=== PATIENT | female | born 1945 | race Caucasian/White ===

== ENCOUNTER → 2017-08-21 16:13 | Outpatient (CLI) | payer MEDICARE, OTHER, SELFPAY ==
--- NOTE | 2017-08-21 11:54 | COLBX_PTH ---
PATIENT: JONATHAN NICHOLSON LOC: [facility] U#:[id number] AGE/SX: 79/F ROOM: RE08/21/[address]: Dr. Rudi Ramachandran MD : 1945 BED: DIS: SPEC #: [id number] RECD: 08/21/17 15:53 STATUS: ARIES MARIA GUADALUPE #: [id number] JERILYN: 08/21/17 11:[address]: Rudi Ramachandran DEPT: SURGICAL PATHOLOGY RECD BY: Joce Haywood ENTERED: 08/22/17 12:18 SP TYPE: COLON BX OTHR DR: Dr. Sahara Calabrese, [facility] Tissues: A - Ileum, NOS B - Right colon Procedures: Surgery Specimen Level IV HEADER OPERATION: Colonoscopy with biopsies PRE-OP DIAGNOSIS: Positive Cologuard TISSUE SUBMITTED: A ? Terminal ileum ulcer biopsies, rule out Crohn?s, B ? Right colon polyp biopsies, rule out adenoma MICROSCOPIC DIAGNOSIS A. Terminal ileum, biopsy: No pathologic diagnosis. B. Right colon polyp, biopsy: Fragments of tubular adenoma. AM:judah 08/23/17 COMMENT A. There is no evidence of Crohn?s enteritis. MICROSCOPIC DESCRIPTION Slides are reviewed. GROSS DESCRIPTION A - Received in fixative is one container labeled with the patient's name and designated terminal ileum ulcer. The specimen consists of two irregular fragments of [place] soft tissue that in aggregate measure 0.6 x 0.3 x 0.1 cm. The specimen is totally submitted in one cassette. B - Received in fixative is one container labeled with the patient's name and designated right colon polyp biopsy. The specimen consists of multiple irregular fragments of [place] soft tissue that in aggregate measure 1.5 x 1 x 0.1 cm. The specimen is totally submitted in one cassette. / SJ:judah 08/22/17 TC:5 CPT: 51487 x2
== END ==
PROVIDERS: Family Provider Internal Medicine; PCP Internal Medicine; Visit Provider Internal Medicine Gastroenterology
DX: Z12.11 Encounter for screening for malignant neoplasm of colon (principal); D12.6 Benign neoplasm of colon, unspecified
CPT/HCPCS: 88305

== ENCOUNTER → 2018-02-19 11:57 | Outpatient (CLI) | payer MEDICARE, OTHER, SELFPAY ==
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
== END ==
PROVIDERS: Family Provider Internal Medicine; PCP Internal Medicine; Visit Provider Nurse Practitioner Gerontology
DX: Z86.718 Personal history of other venous thrombosis and embolism (principal); M53.3 Sacrococcygeal disorders, not elsewhere classified; M54.2 Cervicalgia; R10.2 Pelvic and perineal pain; R51 Headache; S80.10XA Contusion of unspecified lower leg, initial encounter
CPT/HCPCS: 70450; 72050; 72170; 72220; 93971

== ENCOUNTER → 2018-09-13 09:55 | Outpatient (CLI) | payer MEDICARE, OTHER, SELFPAY ==
--- NOTE | 2018-09-13 09:59 | RAD_ITS ---
STUDY: X-RAY - ESOPHAGUS (BARIUM SWALLOW) WITH FLUOROSCOPY REASON FOR EXAM: Female, 72 years old. Dysphagia. TECHNIQUE: 15 view(s) of the esophagus were obtained following swallowing of barium. FLUOROSCOPY TIME (if supplied): (0:25) minutes/seconds COMPARISON: None. FINDINGS: There is no demonstrated esophageal foreign body. There is no demonstrated stricture or mucosal abnormality. Normal gastroesophageal junction, without a demonstrated hiatal hernia. The patient ingested a 12 mm tablet of barium without any difficulty. There is atherosclerotic tortuosity of the aortic arch and descending thoracic aorta. Normal visualized pulmonary parenchyma. Normal visualized osseous structures of the thorax. RAD/Esophagus Only IMPRESSION: Normal plain film x-ray examination (barium swallow) of the esophagus. Electronically Signed: Shoaib Mock MD at 13:00 EST , Service support ,
== END ==
PROVIDERS: Family Provider Internal Medicine; PCP Internal Medicine; Referring Provider Otolaryngology; Visit Provider Otolaryngology
DX: R13.10 Dysphagia, unspecified (principal)
CPT/HCPCS: 74220

== ENCOUNTER 2019-03-15 16:35 | Emergency (ER) | payer MEDICARE, OTHER, SELFPAY ==
[2019-03-15 16:35] VITALS: BP 139/85; PULSE 74; RESP 16; TEMP 36.8; O2SAT 97; BMI 38.0
--- NOTE | 2019-03-15 16:55 | ED.DCSUM_ITS ---
- ER Visit Summary Date of Service: 03/15/19 Chief Complaint: Right wrist and forearm pain History of Present Illness: The patient is a 73 F who presents with pain in her right wrist and forearm that has been getting progressively worse for the past 2 months. Patient states it is gradually gotten worse. Patient states the pain is heavy but sharp and stabbing with certain movements. Patient denies any paresthesias or weakness. Patient denies any trauma or injury. Patient states the pain is worse over the dorsal aspect of her right wrist. Patient is concerned over possible blood clot in her right wrist. Physical Examination: Vital signs are stable. Patient is afebrile. Patient is in no acute distress. Musculoskeletal exam reveals tenderness over the dorsal aspect of the right wrist and distal forearm. There is some mild edema. There is no ecchymosis. There is no bony crepitance or step-off. Range of motion was limited in all motions of the right wrist secondary to pain. Sensation was intact to light touch in all digits. Capillary refill was less than 2 seconds in all digits. Radial pulses are equal bilaterally. Emergency Department Course and Treatment: I discussed with the patient this is most likely tendinitis of her extensor tendons of her right wrist and hand. I do not feel this is a DVT in her right upper extremity. Patient was given a cock-up wrist splint. Patient was given a dose of ibuprofen here. Patient was instructed to ice and elevate the right wrist. Patient was instructed to follow-up with her primary care physician as scheduled. Patient was given a prescription for ibuprofen. Patient understood and was agreeable with the plan. All questions were answered. Disposition: Discharge home Impression: Tendinitis right wrist This note was generated with [employer] dictation software. It may contain incorrect words, spelling, and punctuation that were not noted in review of the chart prior to signing ED Disposition - Plan for ED Patient: Disposition: Home or Assisted Living Diagnosis: Tendinitis of right wrist Instructions: Tendonitis Prescriptions: Ibuprofen [Ibu] 600 mg PO Q8H PRN PRN #20 tab PRN Reason: Pain Prescription Printed Referrals: Sahara Calabrese DO [Primary Care Provider] - [facility] appointment
[2019-03-15] MEDS: Ibuprofen 600 MG Tablet PO (17:02)
[2019-03-15 17:10] VITALS: BP 139/86; PULSE 74; RESP 18
== END 2019-03-15 17:20 | disposition home or self-care (01) ==
LOC: ED 17:12
PROVIDERS: Emergency Provider Emergency Medicine; Family Provider Internal Medicine; PCP Internal Medicine
DX: M77.9 Enthesopathy, unspecified (principal); K21.9 Gastro-esophageal reflux disease without esophagitis; Z79.899 Other long term (current) drug therapy
CPT/HCPCS: 99283

== ENCOUNTER → 2019-03-28 08:18 | Outpatient (CLI) | payer MEDICARE, OTHER, SELFPAY ==
[2019-03-15 16:35] VITALS: BMI 38.0
[2019-03-28 12:24] LABS: Absolute Lymphocyte Count 1.94 X10^3/uL (0.83-4.51); Absolute Neutrophil Count 3.3 X10^3/uL (2.0-7.7); Basophil# 0.02 X10^3/uL; Basophil% 0.3 % (0-1); Eosinophil# 0.27 X10^3/uL; Eosinophils% 4.3 % (0-5); Hematocrit 40.7 % (37-47); Lymphocyte # 1.94 X10^3/ul (4.0); Lymphocyte % 31.2 % (19-41); Mean Corp Hgb Conc 31.9 g/dL (32-36); Mean Corpuscular Hgb 27.6 pg (27.0-32.0); Mean Corpuscular Volume 86.4 fL (81-99); Mean Platelet Vol. 10.5 fl (6.2-12.0); Monocyte# 0.69 X10^3/uL; Monocyte% 11.1 % (0-10); NRBC Flagged by Analyzer 0 % (0-5); Neutrophil # 3.29 X10^3/uL (2.7-7.7); Neutrophil % 52.9 % (47-70); Platelet Count 248 K/mm3 (150-450); RBC Distribution Width CV 13.2 % (11.6-14.6); RBC Distribution Width SD 41.1 fl (35.1-43.9); Red Blood Count 4.71 M/mm3 (4.2-5.4); White Blood Count 6.2 K/mm3 (4.4-11.0)
[2019-03-28 12:38] LABS: ALB/GLOB Ratio 0.8 RATIO (0.9-2.4); AST(SGOT) 21 U/L (15-37); Alanine Aminotransfer ALT/SGPT 26 U/L (13-56); Albumin, Serum 3.4 g/dL (3.2-5.0); Alkaline Phosphatase 88 U/L (45-117); Anion Gap 5 (5-15); BUN 18 mg/dL (7-18); BUN/Creat Ratio 16.2 RATIO (10-20); Chloride 106 mmol/L (98-107); Cholesterol 178 mg/dL (200); Creatinine, Serum 1.11 mg/dL (0.55-1.02); EST Glomerular Filtration Rate 51 mL/min (>60); Est Glom Filt Rate - Afr Amer 62 mL/min (>60); Glucose 97 mg/dL (74-106); High Density Lipoprotein 62 mg/dL; Potassium 3.3 mmol/L (3.5-5.1); Protein, Total 7.4 g/dL (6.4-8.2); Sodium Level 141 mmol/L (136-145); Triglycerides 102 mg/dL; Very Low Density Lipoprotein 20 mg/dL (5-40)
[2019-03-28 12:50] LABS: Vitamin D,25 Hydroxy 30.9 ng/mL (29.95-100.01)
== END ==
PROVIDERS: Family Provider Family Medicine; PCP Family Medicine; Visit Provider Family Medicine
DX: E78.5 Hyperlipidemia, unspecified (principal); K21.9 Gastro-esophageal reflux disease without esophagitis; E55.9 Vitamin D deficiency, unspecified
CPT/HCPCS: 36415; 80053; 80061; 82306; 85025

== ENCOUNTER → 2019-04-08 12:35 | Outpatient (CLI) | payer MEDICARE, OTHER, SELFPAY ==
[2019-03-15 16:35] VITALS: BMI 38.0
--- NOTE | 2019-04-08 12:45 | BI_ITS ---
MAMMOGRAPHY - BILATERAL SCREENING REASON FOR EXAM: Female, 73 years old. Routine annual screening examination. PERTINENT HISTORY: Non-contributory. Remote right excisional breast biopsy. TECHNIQUE: Digital bilateral breast rosa m (3D mammographic acquisition) in the CC and MLO projections. 2-D mediolateral oblique (MLO) and craniocaudad (CC) views of both breasts were obtained. CAD: Full Field Digital Mammography with Computer Added Detection was performed. COMPARISON: May 17, 2017. FINDINGS: Breast Composition: There are scattered areas of fibroglandular density. There are no dominant masses or suspicious calcifications. Stable benign-appearing bilateral axillary lymph nodes. No other significant abnormalities are identified. There has been no significant change since the prior study. BI/SCREEN MAMM (CAD) W/ROSA M BILAT IMPRESSION: Stable bilateral screening mammogram. Yearly follow-up mammogram recommended. (A) ASSESSMENT CATEGORY: BIRADS Category 2: Benign. A letter regarding these results will be sent to the patient by the facility within 30 days. Approximately 10% of breast cancers are not detected by mammography. A normal mammogram should not delay biopsy of a clinically suspicious abnormality. [id number] Electronically Signed: Shoaib Mock, at 14:25 EDT , Service support ,
== END ==
PROVIDERS: Family Provider Family Medicine; PCP Family Medicine; Referring Provider Family Medicine; Visit Provider Family Medicine
DX: Z12.31 Encounter for screening mammogram for malignant neoplasm of breast (principal)
CPT/HCPCS: 77063; 77067

== ENCOUNTER → 2019-06-04 14:16 | Outpatient (CLI) | payer MEDICARE, OTHER, SELFPAY ==
[2019-06-04 15:47] LABS: Absolute Lymphocyte Count 2.05 X10^3/uL (0.83-4.51); Absolute Neutrophil Count 3.8 X10^3/uL (2.0-7.7); Basophil# 0.01 X10^3/uL; Basophil% 0.1 % (0-1); Hematocrit 40.4 % (37-47); Hemoglobin 12.9 g/dL (12.0-15.0); Lymphocyte # 2.05 X10^3/ul (4.0); Lymphocyte % 30.7 % (19-41); Mean Corp Hgb Conc 31.9 g/dL (32-36); Mean Corpuscular Hgb 27.8 pg (27.0-32.0); Mean Corpuscular Volume 87.1 fL (81-99); Mean Platelet Vol. 10.5 fl (6.2-12.0); Monocyte# 0.61 X10^3/uL; Monocyte% 9.1 % (0-10); NRBC Flagged by Analyzer 0 % (0-5); Platelet Count 256 K/mm3 (150-450); RBC Distribution Width CV 13.2 % (11.6-14.6); RBC Distribution Width SD 41.7 fl (35.1-43.9); Red Blood Count 4.64 M/mm3 (4.2-5.4); White Blood Count 6.7 K/mm3 (4.4-11.0)
[2019-06-04 16:11] LABS: Erythrocyte Sedimentation Rate 29 mm/hr (0-30)
[2019-06-04 17:10] LABS: AST(SGOT) 19 U/L (15-37); Alanine Aminotransfer ALT/SGPT 20 U/L (13-56); Albumin, Serum 3.8 g/dL (3.2-5.0); Alkaline Phosphatase 72 U/L (45-117); Anion Gap 7 (5-15); BUN 19 mg/dL (7-18); BUN/Creat Ratio 20.6 RATIO (10-20); CRP < 2.90 mg/L (0.0-3.0); Calcium,Total 9.2 mg/dL (8.5-10.1); Chloride 104 mmol/L (98-107); Creatinine, Serum 0.92 mg/dL (0.55-1.02); EST Glomerular Filtration Rate 64 mL/min (>60); Est Glom Filt Rate - Afr Amer 77 mL/min (>60); Glucose 84 mg/dL (74-106); Potassium 3.3 mmol/L (3.5-5.1); Protein, Total 7.8 g/dL (6.4-8.2); Rheumatoid Factor < 10.0 IU/mL (<15); Sodium Level 139 mmol/L (136-145)
[2019-06-05 10:12] LABS: Hepatitis B Surface Antibody Non-Reactive; Hepatitis B Surface Antigen Non-Reactive (Nonreactive); Hepatitis C Antibody Non-Reactive (Nonreactive)
[2019-06-06 20:50] LABS: ANTINUCLEAR ANTIBODIES DIRECT Negative (Negative)
[2019-06-10 13:47] LABS: CCP IgG Antibodies 7 units (0-19); Hepatitis B Core AB IgM Negative (Negative)
== END ==
PROVIDERS: Family Provider Family Medicine; PCP Family Medicine; Referring Provider Internal Medicine Rheumatology; Visit Provider Internal Medicine Rheumatology
DX: M06.4 Inflammatory polyarthropathy (principal); M79.7 Fibromyalgia; K21.9 Gastro-esophageal reflux disease without esophagitis
CPT/HCPCS: 36415; 80053; 85025; 85652; 86038; 86140; 86200; 86431; 86705; 86706; 86803; 87340

== ENCOUNTER → 2019-08-19 12:46 | Outpatient (CLI) | payer MEDICARE, OTHER, SELFPAY ==
[2019-08-19 13:50] LABS: Absolute Lymphocyte Count 1.91 X10^3/uL (0.83-4.51); Absolute Neutrophil Count 4.4 X10^3/uL (2.0-7.7); Basophil# 0.02 X10^3/uL; Basophil% 0.3 % (0-1); Eosinophil# 0.33 X10^3/uL; Eosinophils% 4.5 % (0-5); Hematocrit 39.9 % (37-47); Hemoglobin 12.7 g/dL (12.0-15.0); Lymphocyte # 1.91 X10^3/ul (4.0); Lymphocyte % 26.3 % (19-41); Mean Corp Hgb Conc 31.8 g/dL (32-36); Mean Corpuscular Hgb 28.2 pg (27.0-32.0); Mean Corpuscular Volume 88.7 fL (81-99); Mean Platelet Vol. 10.4 fl (6.2-12.0); Monocyte# 0.55 X10^3/uL; Monocyte% 7.6 % (0-10); NRBC Flagged by Analyzer 0 % (0-5); Neutrophil # 4.42 X10^3/uL (2.7-7.7); Neutrophil % 60.9 % (47-70); Platelet Count 274 K/mm3 (150-450); RBC Distribution Width CV 13.9 % (11.6-14.6); RBC Distribution Width SD 44.4 fl (35.1-43.9); White Blood Count 7.3 K/mm3 (4.4-11.0)
[2019-08-19 14:07] LABS: ALB/GLOB Ratio 0.9 RATIO (0.9-2.4); AST(SGOT) 14 U/L (15-37); Alanine Aminotransfer ALT/SGPT 24 U/L (13-56); Albumin, Serum 3.4 g/dL (3.2-5.0); Alkaline Phosphatase 74 U/L (45-117); Anion Gap 3 (5-15); BUN 23 mg/dL (7-18); BUN/Creat Ratio 23.6 RATIO (10-20); Chloride 108 mmol/L (98-107); Creatinine, Serum 0.98 mg/dL (0.55-1.02); EST Glomerular Filtration Rate 60 mL/min (>60); Est Glom Filt Rate - Afr Amer 72 mL/min (>60); Globulin 3.7 g/dL (2.2-4.2); Glucose 96 mg/dL (74-106); Potassium 3.8 mmol/L (3.5-5.1); Protein, Total 7.1 g/dL (6.4-8.2); Sodium Level 139 mmol/L (136-145)
== END ==
LOC: MTLAB 12:49
PROVIDERS: PCP Family Medicine; Referring Provider Internal Medicine Rheumatology; Visit Provider Internal Medicine Rheumatology
DX: M06.4 Inflammatory polyarthropathy (principal); M79.7 Fibromyalgia; K21.9 Gastro-esophageal reflux disease without esophagitis; J30.9 Allergic rhinitis, unspecified; E78.5 Hyperlipidemia, unspecified
CPT/HCPCS: 36415; 80053; 85025

== ENCOUNTER → 2019-11-08 14:10 | Outpatient (CLI) | payer MEDICARE, OTHER, SELFPAY ==
[2019-11-08 17:26] LABS: Absolute Lymphocyte Count 1.83 X10^3/uL (0.83-4.51); Absolute Neutrophil Count 4.9 X10^3/uL (2.0-7.7); Basophil# 0.03 X10^3/uL; Basophil% 0.4 % (0-1); Eosinophil# 0.24 X10^3/uL; Eosinophils% 3.1 % (0-5); Hematocrit 42.4 % (37-47); Hemoglobin 13.5 g/dL (12.0-15.0); Lymphocyte # 1.83 X10^3/ul (4.0); Lymphocyte % 23.5 % (19-41); Mean Corp Hgb Conc 31.8 g/dL (32-36); Mean Corpuscular Hgb 29.2 pg (27.0-32.0); Mean Corpuscular Volume 91.8 fL (81-99); Mean Platelet Vol. 10.5 fl (6.2-12.0); Monocyte# 0.78 X10^3/uL; NRBC Flagged by Analyzer 0 % (0-5); Neutrophil % 62.7 % (47-70); Platelet Count 276 K/mm3 (150-450); RBC Distribution Width CV 13.2 % (11.6-14.6); RBC Distribution Width SD 44.4 fl (35.1-43.9); Red Blood Count 4.62 M/mm3 (4.2-5.4); White Blood Count 7.8 K/mm3 (4.4-11.0)
[2019-11-08 17:37] LABS: ALB/GLOB Ratio 0.9 RATIO (0.9-2.4); AST(SGOT) 16 U/L (15-37); Alanine Aminotransfer ALT/SGPT 18 U/L (13-56); Albumin, Serum 3.6 g/dL (3.2-5.0); Alkaline Phosphatase 82 U/L (45-117); Anion Gap 7 (5-15); BUN 13 mg/dL (7-18); BUN/Creat Ratio 13.1 RATIO (10-20); Calcium,Total 9.1 mg/dL (8.5-10.1); Chloride 106 mmol/L (98-107); Creatinine, Serum 0.99 mg/dL (0.55-1.02); EST Glomerular Filtration Rate 59 mL/min (>60); Est Glom Filt Rate - Afr Amer 71 mL/min (>60); Glucose 89 mg/dL (74-106); Potassium 4.1 mmol/L (3.5-5.1); Protein, Total 7.6 g/dL (6.4-8.2); Sodium Level 140 mmol/L (136-145)
== END ==
PROVIDERS: PCP Family Medicine; Referring Provider Internal Medicine Rheumatology; Visit Provider Internal Medicine Rheumatology
DX: M06.4 Inflammatory polyarthropathy (principal); M79.7 Fibromyalgia; K21.9 Gastro-esophageal reflux disease without esophagitis; J30.9 Allergic rhinitis, unspecified; E78.5 Hyperlipidemia, unspecified; Z79.899 Other long term (current) drug therapy
CPT/HCPCS: 36415; 80053; 85025

== ENCOUNTER → 2020-01-14 13:09 | Outpatient (CLI) | payer MEDICARE, OTHER, SELFPAY ==
[2020-01-14 15:26] LABS: Absolute Lymphocyte Count 1.75 X10^3/uL (0.83-4.51); Absolute Neutrophil Count 4.5 X10^3/uL (2.0-7.7); Basophil# 0.02 X10^3/uL; Basophil% 0.3 % (0-1); Eosinophil# 0.25 X10^3/uL; Eosinophils% 3.5 % (0-5); Hematocrit 41.1 % (37-47); Hemoglobin 12.9 g/dL (12.0-15.0); Lymphocyte # 1.75 X10^3/ul (4.0); Lymphocyte % 24.3 % (19-41); Mean Corp Hgb Conc 31.4 g/dL (32-36); Mean Corpuscular Hgb 28.7 pg (27.0-32.0); Mean Corpuscular Volume 91.3 fL (81-99); Mean Platelet Vol. 10.6 fl (6.2-12.0); Monocyte# 0.62 X10^3/uL; Monocyte% 8.6 % (0-10); NRBC Flagged by Analyzer 0 % (0-5); Neutrophil # 4.53 X10^3/uL (2.7-7.7); Neutrophil % 62.9 % (47-70); Platelet Count 286 K/mm3 (150-450); RBC Distribution Width CV 13.2 % (11.6-14.6); RBC Distribution Width SD 44.1 fl (35.1-43.9); White Blood Count 7.2 K/mm3 (4.4-11.0)
[2020-01-14 15:57] LABS: ALB/GLOB Ratio 0.9 RATIO (0.9-2.4); AST(SGOT) 15 U/L (15-37); Alanine Aminotransfer ALT/SGPT 18 U/L (13-56); Albumin, Serum 3.5 g/dL (3.2-5.0); Alkaline Phosphatase 80 U/L (45-117); Anion Gap 6 (5-15); BUN 17 mg/dL (7-18); BUN/Creat Ratio 17.8 RATIO (10-20); Calcium,Total 9.3 mg/dL (8.5-10.1); Chloride 108 mmol/L (98-107); Creatinine, Serum 0.96 mg/dL (0.55-1.02); EST Glomerular Filtration Rate 61 mL/min (>60); Est Glom Filt Rate - Afr Amer 74 mL/min (>60); Globulin 3.9 g/dL (2.2-4.2); Glucose 94 mg/dL (74-106); Potassium 4.5 mmol/L (3.5-5.1); Protein, Total 7.4 g/dL (6.4-8.2); Sodium Level 140 mmol/L (136-145)
== END ==
PROVIDERS: PCP Family Medicine; Referring Provider Internal Medicine Rheumatology; Visit Provider Internal Medicine Rheumatology
DX: M06.4 Inflammatory polyarthropathy (principal); M79.7 Fibromyalgia; K21.9 Gastro-esophageal reflux disease without esophagitis; J30.9 Allergic rhinitis, unspecified; E78.5 Hyperlipidemia, unspecified; Z79.899 Other long term (current) drug therapy
CPT/HCPCS: 36415; 80053; 85025

== ENCOUNTER → 2020-02-12 | Outpatient (CLI) | payer MEDICARE, OTHER, SELFPAY | END | disposition home or self-care (01) | LOC: LABSPEC 17:13 | PROVIDERS: PCP Family Medicine; Referring Provider Internal Medicine Gastroenterology; Visit Provider Internal Medicine Gastroenterology | DX: Z11.59 Encounter for screening for other viral diseases (principal) | CPT/HCPCS: 87635; G2023; U0003 ==

== ENCOUNTER → 2020-03-25 11:37 | Outpatient (CLI) | payer MEDICARE, OTHER, SELFPAY ==
[2020-03-25 16:08] LABS: Absolute Neutrophil Count 4.5 X10^3/uL (2.0-7.7); Basophil# 0.02 X10^3/uL; Basophil% 0.3 % (0-1); Eosinophil# 0.29 X10^3/uL; Eosinophils% 4.2 % (0-5); Hematocrit 41.1 % (37-47); Hemoglobin 13.1 g/dL (12.0-15.0); Lymphocyte % 21.8 % (19-41); Mean Corp Hgb Conc 31.9 g/dL (32-36); Mean Corpuscular Hgb 28.5 pg (27.0-32.0); Mean Corpuscular Volume 89.3 fL (81-99); Mean Platelet Vol. 10.1 fl (6.2-12.0); Monocyte# 0.56 X10^3/uL; Monocyte% 8.2 % (0-10); NRBC Flagged by Analyzer 0 % (0-5); Neutrophil # 4.47 X10^3/uL (2.7-7.7); Neutrophil % 65.1 % (47-70); Platelet Count 313 K/mm3 (150-450); RBC Distribution Width CV 13.9 % (11.6-14.6); White Blood Count 6.9 K/mm3 (4.4-11.0)
[2020-03-25 16:26] LABS: ALB/GLOB Ratio 0.9 RATIO (0.9-2.4); AST(SGOT) 21 U/L (15-37); Alanine Aminotransfer ALT/SGPT 23 U/L (13-56); Albumin, Serum 3.6 g/dL (3.2-5.0); Alkaline Phosphatase 83 U/L (45-117); Anion Gap 4 (5-15); BUN 15 mg/dL (7-18); BUN/Creat Ratio 15.3 RATIO (10-20); Calcium,Total 9.2 mg/dL (8.5-10.1); Chloride 101 mmol/L (98-107); Creatinine, Serum 0.98 mg/dL (0.55-1.02); EST Glomerular Filtration Rate 59 mL/min (>60); Est Glom Filt Rate - Afr Amer 72 mL/min (>60); Globulin 4.1 g/dL (2.2-4.2); Glucose 90 mg/dL (74-106); Potassium 3.6 mmol/L (3.5-5.1); Protein, Total 7.7 g/dL (6.4-8.2); Sodium Level 136 mmol/L (136-145)
== END ==
PROVIDERS: PCP Family Medicine; Referring Provider Internal Medicine Rheumatology; Visit Provider Internal Medicine Rheumatology
DX: M06.4 Inflammatory polyarthropathy (principal); M79.7 Fibromyalgia; K21.9 Gastro-esophageal reflux disease without esophagitis; J30.9 Allergic rhinitis, unspecified; E78.5 Hyperlipidemia, unspecified; Z79.899 Other long term (current) drug therapy
CPT/HCPCS: 36415; 80053; 85025

== ENCOUNTER → 2020-04-09 13:41 | Outpatient (CLI) | payer MEDICARE, OTHER, SELFPAY ==
[2020-04-09 16:45] LABS: Cholesterol 172 mg/dL (200); High Density Lipoprotein 66 mg/dL; Triglycerides 117 mg/dL; Very Low Density Lipoprotein 23 mg/dL (5-40)
[2020-04-09 16:52] LABS: Vitamin D,25 Hydroxy 39.6 ng/mL
== END ==
PROVIDERS: PCP Family Medicine; Visit Provider Family Medicine
DX: E78.5 Hyperlipidemia, unspecified (principal); E55.9 Vitamin D deficiency, unspecified
CPT/HCPCS: 36415; 80061; 82306

== ENCOUNTER → 2020-05-18 14:19 | Outpatient (CLI) | payer MEDICARE, OTHER, SELFPAY ==
[2020-05-18 18:08] LABS: Absolute Lymphocyte Count 1.17 X10^3/uL (0.83-4.51); Absolute Neutrophil Count 5.4 X10^3/uL (2.0-7.7); Basophil# 0.02 X10^3/uL; Basophil% 0.3 % (0-1); Eosinophil# 0.18 X10^3/uL; Eosinophils% 2.4 % (0-5); Hematocrit 39.8 % (37-47); Hemoglobin 12.6 g/dL (12.0-15.0); Lymphocyte # 1.17 X10^3/ul (4.0); Lymphocyte % 15.7 % (19-41); Mean Corp Hgb Conc 31.7 g/dL (32-36); Mean Corpuscular Hgb 28.3 pg (27.0-32.0); Mean Corpuscular Volume 89.2 fL (81-99); Mean Platelet Vol. 10.8 fl (6.2-12.0); Monocyte% 9.4 % (0-10); NRBC Flagged by Analyzer 0 % (0-5); Neutrophil # 5.36 X10^3/uL (2.7-7.7); Neutrophil % 71.9 % (47-70); Platelet Count 286 K/mm3 (150-450); RBC Distribution Width CV 14.1 % (11.6-14.6); RBC Distribution Width SD 45.5 fl (35.1-43.9); Red Blood Count 4.46 M/mm3 (4.2-5.4); White Blood Count 7.5 K/mm3 (4.4-11.0)
[2020-05-18 18:41] LABS: ALB/GLOB Ratio 0.9 RATIO (0.9-2.4); AST(SGOT) 18 U/L (15-37); Alanine Aminotransfer ALT/SGPT 24 U/L (13-56); Albumin, Serum 3.6 g/dL (3.2-5.0); Alkaline Phosphatase 86 U/L (45-117); Anion Gap 6 (5-15); BUN 19 mg/dL (7-18); BUN/Creat Ratio 18.1 RATIO (10-20); Calcium,Total 9.3 mg/dL (8.5-10.1); Chloride 100 mmol/L (98-107); Creatinine, Serum 1.05 mg/dL (0.55-1.02); EST Glomerular Filtration Rate 55 mL/min (>60); Est Glom Filt Rate - Afr Amer 66 mL/min (>60); Glucose 81 mg/dL (74-106); Potassium 2.8 mmol/L (3.5-5.1); Protein, Total 7.6 g/dL (6.4-8.2); Sodium Level 138 mmol/L (136-145)
== END ==
PROVIDERS: PCP Family Medicine; Referring Provider Internal Medicine Rheumatology; Visit Provider Internal Medicine Rheumatology
DX: M06.4 Inflammatory polyarthropathy (principal); M79.7 Fibromyalgia; K21.9 Gastro-esophageal reflux disease without esophagitis; J30.9 Allergic rhinitis, unspecified; E78.5 Hyperlipidemia, unspecified; Z79.899 Other long term (current) drug therapy
CPT/HCPCS: 36415; 80053; 85025

== ENCOUNTER → 2020-06-24 14:50 | Outpatient (CLI) | payer MEDICARE, OTHER, SELFPAY ==
[2020-06-24 18:13] LABS: Absolute Lymphocyte Count 1.39 X10^3/uL (0.83-4.51); Absolute Neutrophil Count 5.5 X10^3/uL (2.0-7.7); Basophil# 0.03 X10^3/uL; Basophil% 0.4 % (0-1); Eosinophil# 0.18 X10^3/uL; Eosinophils% 2.4 % (0-5); Hematocrit 41.4 % (37-47); Lymphocyte # 1.39 X10^3/ul (4.0); Lymphocyte % 18.2 % (19-41); Mean Corp Hgb Conc 31.4 g/dL (32-36); Mean Corpuscular Hgb 28.3 pg (27.0-32.0); Mean Corpuscular Volume 90.2 fL (81-99); Mean Platelet Vol. 10.4 fl (6.2-12.0); Monocyte# 0.56 X10^3/uL; Monocyte% 7.3 % (0-10); NRBC Flagged by Analyzer 0 % (0-5); Neutrophil # 5.46 X10^3/uL (2.7-7.7); Neutrophil % 71.4 % (47-70); Platelet Count 329 K/mm3 (150-450); RBC Distribution Width CV 13.8 % (11.6-14.6); Red Blood Count 4.59 M/mm3 (4.2-5.4); White Blood Count 7.6 K/mm3 (4.4-11.0)
[2020-06-24 18:43] LABS: ALB/GLOB Ratio 0.9 RATIO (0.9-2.4); AST(SGOT) 21 U/L (15-37); Alanine Aminotransfer ALT/SGPT 31 U/L (13-56); Albumin, Serum 3.7 g/dL (3.2-5.0); Alkaline Phosphatase 123 U/L (45-117); Anion Gap 5 (5-15); BUN 25 mg/dL (7-18); BUN/Creat Ratio 18.4 RATIO (10-20); Calcium,Total 9.4 mg/dL (8.5-10.1); Chloride 103 mmol/L (98-107); Creatinine, Serum 1.36 mg/dL (0.55-1.02); EST Glomerular Filtration Rate 41 mL/min (>60); Est Glom Filt Rate - Afr Amer 49 mL/min (>60); Globulin 4.1 g/dL (2.2-4.2); Glucose 101 mg/dL (74-106); Potassium 3.1 mmol/L (3.5-5.1); Protein, Total 7.8 g/dL (6.4-8.2); Sodium Level 140 mmol/L (136-145)
== END ==
PROVIDERS: PCP Family Medicine; Referring Provider Internal Medicine Rheumatology; Visit Provider Internal Medicine Rheumatology
DX: M06.4 Inflammatory polyarthropathy (principal); M79.7 Fibromyalgia; K21.9 Gastro-esophageal reflux disease without esophagitis; J30.9 Allergic rhinitis, unspecified; E78.5 Hyperlipidemia, unspecified; Z79.899 Other long term (current) drug therapy
CPT/HCPCS: 36415; 80053; 85025

== ENCOUNTER → 2020-09-04 14:45 | Outpatient (CLI) | payer MEDICARE, OTHER, SELFPAY ==
[2020-09-04 17:47] LABS: ALB/GLOB Ratio 0.9 RATIO (0.9-2.4); AST(SGOT) 18 U/L (15-37); Alanine Aminotransfer ALT/SGPT 27 U/L (13-56); Albumin, Serum 3.6 g/dL (3.2-5.0); Alkaline Phosphatase 117 U/L (45-117); Anion Gap 6 (5-15); BUN 17 mg/dL (7-18); BUN/Creat Ratio 16.2 RATIO (10-20); Calcium,Total 9.2 mg/dL (8.5-10.1); Chloride 102 mmol/L (98-107); Creatinine, Serum 1.05 mg/dL (0.55-1.02); EST Glomerular Filtration Rate 55 mL/min (>60); Est Glom Filt Rate - Afr Amer 66 mL/min (>60); Glucose 76 mg/dL (74-106); Potassium 3.1 mmol/L (3.5-5.1); Protein, Total 7.6 g/dL (6.4-8.2); Sodium Level 139 mmol/L (136-145)
[2020-09-04 18:00] LABS: Absolute Lymphocyte Count 1.39 X10^3/uL (0.83-4.51); Absolute Neutrophil Count 4.2 X10^3/uL (2.0-7.7); Basophil# 0.03 X10^3/uL; Basophil% 0.5 % (0-1); Eosinophil# 0.25 X10^3/uL; Eosinophils% 3.8 % (0-5); Hematocrit 39.5 % (37-47); Hemoglobin 12.8 g/dL (12.0-15.0); Lymphocyte # 1.39 X10^3/ul (4.0); Lymphocyte % 21.3 % (19-41); Mean Corp Hgb Conc 32.4 g/dL (32-36); Mean Corpuscular Hgb 28.8 pg (27.0-32.0); Mean Corpuscular Volume 88.8 fL (81-99); Mean Platelet Vol. 10.5 fl (6.2-12.0); Monocyte# 0.64 X10^3/uL; Monocyte% 9.8 % (0-10); NRBC Flagged by Analyzer 0 % (0-5); Neutrophil % 64.1 % (47-70); Platelet Count 306 K/mm3 (150-450); RBC Distribution Width CV 13.6 % (11.6-14.6); RBC Distribution Width SD 43.9 fl (35.1-43.9); Red Blood Count 4.45 M/mm3 (4.2-5.4); White Blood Count 6.5 K/mm3 (4.4-11.0)
== END ==
PROVIDERS: PCP Family Medicine; Referring Provider Internal Medicine Rheumatology; Visit Provider Internal Medicine Rheumatology
DX: M06.4 Inflammatory polyarthropathy (principal); M79.7 Fibromyalgia; K21.9 Gastro-esophageal reflux disease without esophagitis; J30.9 Allergic rhinitis, unspecified; E78.5 Hyperlipidemia, unspecified; Z79.899 Other long term (current) drug therapy
CPT/HCPCS: 36415; 80053; 85025

== ENCOUNTER → 2020-11-19 11:19 | Outpatient (CLI) | payer MEDICARE, OTHER, SELFPAY ==
[2020-11-19 15:17] LABS: Absolute Lymphocyte Count 1.36 X10^3/uL (0.83-4.51); Absolute Neutrophil Count 4.1 X10^3/uL (2.0-7.7); Basophil# 0.02 X10^3/uL; Basophil% 0.3 % (0-1); Eosinophil# 0.21 X10^3/uL; Eosinophils% 3.3 % (0-5); Hematocrit 40.8 % (37-47); Hemoglobin 12.9 g/dL (12.0-15.0); Lymphocyte # 1.36 X10^3/ul (0.83-4.51); Lymphocyte % 21.4 % (19-41); Mean Corp Hgb Conc 31.6 g/dL (32-36); Mean Corpuscular Hgb 28.5 pg (27.0-32.0); Mean Corpuscular Volume 90.1 fL (81-99); Mean Platelet Vol. 10.9 fl (6.2-12.0); Monocyte# 0.65 X10^3/uL; Monocyte% 10.2 % (0-10); NRBC Flagged by Analyzer 0 % (0-5); Neutrophil # 4.11 X10^3/uL (2.7-7.7); Neutrophil % 64.6 % (47-70); Platelet Count 285 K/mm3 (150-450); RBC Distribution Width CV 14.1 % (11.6-14.6); RBC Distribution Width SD 45.9 fl (35.1-43.9); Red Blood Count 4.53 M/mm3 (4.2-5.4); White Blood Count 6.4 K/mm3 (4.4-11.0)
[2020-11-19 15:29] LABS: AST(SGOT) 15 U/L (15-37); Alanine Aminotransfer ALT/SGPT 20 U/L (13-56); Albumin, Serum 3.8 g/dL (3.2-5.0); Alkaline Phosphatase 96 U/L (45-117); Anion Gap 5 (5-15); BUN 18 mg/dL (7-18); BUN/Creat Ratio 16.8 RATIO (10-20); Calcium,Total 9.5 mg/dL (8.5-10.1); Chloride 102 mmol/L (98-107); Creatinine, Serum 1.07 mg/dL (0.55-1.02); EST Glomerular Filtration Rate 53 mL/min (>60); Est Glom Filt Rate - Afr Amer 65 mL/min (>60); Globulin 3.8 g/dL (2.2-4.2); Glucose 87 mg/dL (74-106); Potassium 3.3 mmol/L (3.5-5.1); Protein, Total 7.6 g/dL (6.4-8.2); Sodium Level 138 mmol/L (136-145)
== END ==
PROVIDERS: PCP Family Medicine; Referring Provider Internal Medicine Rheumatology; Visit Provider Internal Medicine Rheumatology
DX: M06.4 Inflammatory polyarthropathy (principal); M79.7 Fibromyalgia; K21.9 Gastro-esophageal reflux disease without esophagitis; J30.9 Allergic rhinitis, unspecified; E78.5 Hyperlipidemia, unspecified; Z79.899 Other long term (current) drug therapy
CPT/HCPCS: 36415; 80053; 85025

== ENCOUNTER → 2021-02-16 14:41 | Outpatient (CLI) | payer MEDICARE, OTHER, SELFPAY ==
[2021-02-16 17:43] LABS: Absolute Lymphocyte Count 1.54 X10^3/uL (0.83-4.51); Absolute Neutrophil Count 3.4 X10^3/uL (2.0-7.7); Basophil# 0.01 X10^3/uL; Basophil% 0.2 % (0-1); Eosinophil# 0.19 X10^3/uL; Eosinophils% 3.4 % (0-5); Hematocrit 41.4 % (37-47); Hemoglobin 12.9 g/dL (12.0-15.0); Lymphocyte # 1.54 X10^3/ul (0.83-4.51); Lymphocyte % 27.5 % (19-41); Mean Corp Hgb Conc 31.2 g/dL (32-36); Mean Corpuscular Hgb 28.2 pg (27.0-32.0); Mean Corpuscular Volume 90.6 fL (81-99); Mean Platelet Vol. 10.5 fl (6.2-12.0); Monocyte# 0.43 X10^3/uL; Monocyte% 7.7 % (0-10); NRBC Flagged by Analyzer 0 % (0-5); Neutrophil # 3.43 X10^3/uL (2.7-7.7); Platelet Count 288 K/mm3 (150-450); RBC Distribution Width CV 14.1 % (11.6-14.6); RBC Distribution Width SD 46.3 fl (35.1-43.9); Red Blood Count 4.57 M/mm3 (4.2-5.4); White Blood Count 5.6 K/mm3 (4.4-11.0)
[2021-02-16 18:06] LABS: AST(SGOT) 26 U/L (15-37); Alanine Aminotransfer ALT/SGPT 37 U/L (13-56); Albumin, Serum 3.8 g/dL (3.2-5.0); Alkaline Phosphatase 108 U/L (45-117); Anion Gap 3 (5-15); BUN 14 mg/dL (7-18); BUN/Creat Ratio 14.7 RATIO (10-20); Calcium,Total 9.1 mg/dL (8.5-10.1); Chloride 103 mmol/L (98-107); Creatinine, Serum 0.95 mg/dL (0.55-1.02); EST Glomerular Filtration Rate 61 mL/min (>60); Est Glom Filt Rate - Afr Amer 74 mL/min (>60); Globulin 3.9 g/dL (2.2-4.2); Glucose 83 mg/dL (74-106); Potassium 3.9 mmol/L (3.5-5.1); Protein, Total 7.7 g/dL (6.4-8.2); Sodium Level 138 mmol/L (136-145)
== END ==
PROVIDERS: PCP Family Medicine; Referring Provider Internal Medicine Rheumatology; Visit Provider Internal Medicine Rheumatology
DX: M06.4 Inflammatory polyarthropathy (principal); M79.7 Fibromyalgia; M47.897 Other spondylosis, lumbosacral region; K21.9 Gastro-esophageal reflux disease without esophagitis; J30.9 Allergic rhinitis, unspecified; E78.5 Hyperlipidemia, unspecified; Z79.899 Other long term (current) drug therapy
CPT/HCPCS: 36415; 80053; 85025

== ENCOUNTER 2021-04-06 20:06 | Emergency (ER) | payer MEDICARE, OTHER, SELFPAY ==
[2021-04-06 20:07] VITALS: BP 131/77; PULSE 74; RESP 18; TEMP 36.1; O2SAT 100; BMI 36.6
--- NOTE | 2021-04-06 22:53 | EDS_ITS ---
HPI History of Present Illness Chief Complaint: Back Informant: patient Onset/Context/Timing Onset: Yesterday Context: Gradual Onset Injury: - (no injury or heavy lifting/reaching that pt knows of) Timing: Continuous Quality: Aching and - (sore) Location: Thoracic (L) and Lumbar (L) Current Severity: Moderate Maximum Severity: Severe Worsened by: improves with Movement Relieved by: Remaining Still Associated Symptoms Associated Symptoms: Negative for Numbness, Tingling, Radiation to Right Leg, Radiation to Left Leg, Abdominal Pain, Unable to Ambulate, Unable to Transfer, Urinary Retention, Urinary Incontinence, Constipation and Fecal Incontinence Narrative Narrative: Patient states her back started hurting her yesterday, and then last night she had trouble sleeping due to laying on the left side where the pain is, it is progressed throughout the day. She states she denies any injuries or h eavy lifting, or repetitive movements even the day before that she can think of although she notes she has been doing a lot of yady lately, just nothing exertional or heavy. She states everything hurts a lot to move and is better if she just sits still. She has chronic pain in her low back due to her rheumatoid arthritis and fibromyalgia she treats this with CBD oil and it works well. However, she is not able to reach all the area that hurts now with her oil so she was not able to try it. She states that the pain wraps around to the left side along the rib cage, but not toward her abdomen or groin. She denies any urinary symptoms, fevers, or midline spine pain. States everything is on the left side and even goes up as far as her shoulder/trapezius. [facility] Medical History (Updated 04/07/21 @ 03:[address] Manolo Walker MD) Fibromyalgia syndrome GERD (gastroesophageal reflux disease) Lumbar spondylosis Peptic ulcer with hemorrhage Rheumatoid arthritis Home Medications Omeprazole [Prilosec] 40 mg PO DAILY 06/20/15 [History Last Taken Unknown] calcium carbonate-vitamin D3 1 ea PO BID 06/20/15 [History Last Taken Unknown] coenzyme Q10 [Co Q-10] 50 mg PO DAILY 06/20/15 [History Last Taken Unknown] simvastatin 40 mg PO QHS 06/20/15 [History Last Taken Unknown] loratadine [Claritin] 10 mg PO DAILY 04/06/21 [History Last Taken Unknown] methotrexate sodium 8 mg PO QWEEK 04/06/21 [History Last Taken Unknown] Allergy/AdvReac Type Severity Reaction Status Date / Time celecoxib [From Celebrex] Allergy Anaphylaxis Verified 04/06/21 20:07 codeine AdvReac Vomiting Verified 04/06/21 20:07 indomethacin [From Indocin] AdvReac Vomiting Verified 04/06/21 20:07 indomethacin sodium AdvReac Vomiting Verified 04/06/21 20:07 [From Indocin] oxycodone HCl [From Percocet] AdvReac Other Verified 04/06/21 20:07 Social History Smoking Status: Never smoker ROS ROS ED Constitutional Constitutional ED: Denies chills or fever(s) Eyes Eyes: Denies change in vision or diplopia ENT ENT ED: Denies rhinorrhea or sore throat Cardiovascular Cardiovascular: Denies chest pain or palpitations Respiratory/Chest Respiratory/Chest: Reports other Details: L ribcage pain, see HPI ; Denies chest congestion, cough, dyspnea or stridor Gastrointestinal Gastrointestinal: Denies abdominal pain, diarrhea, nausea or vomiting Genitourinary Genitourinary ED: Denies dysuria or hematuria Musculoskeletal Musculoskeletal: Reports as per HPI and back pain; Denies extremity pain or neck pain Integumentary Denies abscess or rash Neurologic Neurologic: Denies headache(s), paresthesias or weakness Psychiatric Psychiatric: Denies anxiety or suicidal thoughts EXAM Physical Exam Const Vital Signs: 04/06/21 20:07 Temperature 97.0 F L Temperature Source Temporal Pulse Rate 74 Respiratory Rate 18 Blood Pressure 131/77 H Blood Pressure Mean 95 Pulse Ox 100 Oxygen Delivery Method Room Air Positive well nourished and well developed General Appearance ED: well developed and NAD HEENT Reports moist mucous membranes normocephalic and atraumatic Eyes PERRL and EOMs intact bilaterally Neck full ROM and supple Chest Wall inspection of chest normal Chest Narrative: No rash or lesions on the skin. Patient has tender ribs diffus mark starting in the left anterior axillary line, all the way back to the spine but not including the spine. Ribs and intercostal spaces all tender equally. Basically all areas with ribs are affected, all the way up to the scapular spine and trapezius which are all very tender. Resp normal respiratory effort and clear to auscultation bilaterally Cardio regular rate, regular rhythm and no murmurs GI non-tender and non-distended Auscultation: normoactive bowel sounds Palpation: soft Back/Spine no CVA tenderness and normal to inspection Back/Spine Narrative: Very painful range of motion but patient able to move around. Squints and pain as she pulls herself forward in bed for examination. Extremity normal to inspection General Extremety ED: Negative for edema, pulses abnormal or tenderness General Extremity: Negative for edema or pulses abnormal Neuro oriented x3, CN's II-XII intact bilaterally and no sensory deficits noted Sensorium / Orientation: awake and alert Motor Exam: strength 5/5 throughout Skin no rashes or lesions noted and no wounds MDM MDM MDM Narrative Medical decision making narrative: Patient reassured this is clearly musculoskeletal in nature. I did do a left rib series including the PA chest for screening for unusual pathology. It was unremarkable. She was given a dose of Toradol 15 mg IM to help with her pain, she takes indomethacin and ibuprofen without allergic reaction, but she had nausea/vomiting with indomethacin, certainly not a true allergy. The Toradol did help, she feels much better and is ready to go home. She does not want any narcotics, which certainly I am happy to oblige, I would recommend limited NSAIDs due to her methotrexate. I would prescribe her a limited amount of mobile back, but she describes a history of anaphylaxis to celecoxib so we will wait for that. Radiography Diagnostic Testing: Radiology Impression Ribs w/Chest X-Ray 04/06/21 23:42 IMPRESSION: Chronic bibasilar fibrosis, scarring and/or atelectasis. No displaced rib fracture identified. at 0019 Reported and signed by: Fer Norris MD Electronically Signed: Fer Norris MD at 0:18 EDT Tel , Service support , Discharge Plan Triage Chief Complaint: Back ED Provider: Manolo Walker Dx/Rx/DC Orders Clinical Impression: Rib pain on left side Instructions: ED Chest Wall Pain, Costochondritis Prescriptions: No Action simvastatin 40 MG tablet 40 mg PO QHS RF: 0 coenzyme Q10 [Co Q-10] 50 MG capsule 50 mg PO DAILY RF: 0 calcium carbonate-vitamin D3 1 EACH tablet 1 ea PO BID RF: 0 Omeprazole [Prilosec] 40 MG capsule 40 mg PO DAILY RF: 0 loratadine [Claritin] 10 mg Tablet 10 mg PO DAILY RF: 0 methotrexate sodium 2.5 mg tablet 8 mg PO QWEEK RF: 0 Primary Care Provider: Santa Whyte Referrals: Santa Whyte MD [Primary Care Provider] - 1 Week if not improving Disposition Disposition: Home, Self Care
[2021-04-06] MEDS: Ketorolac 15 MG/ML Vial IM (23:25)
--- NOTE | 2021-04-06 23:42 | RAD_ITS ---
HISTORY: pain EXAMINATION/TECHNIQUE: XR Ribs Unilateral W/ PA Chest Min 3 Views PA chest with AP and oblique views left ribs. 5 images. COMPARISON: Two-view chest x-ray from 04/12/17 FINDINGS: LINES/DEVICES: None. LUNGS: No overt pulmonary edema. Chronic coarsened and crowded bibasilar lung markings. No sizable pleural effusion. No pneumothorax detected. MEDIASTINUM AND CARDIOVASCULAR STRUCTURES: Heart normal size. Atherosclerotic calcifications along the aorta. BONES AND SOFT TISSUES: Skeletal degenerative changes. No displaced rib fractures identified. Mild thoracolumbar scoliosis. RAD/Ribs Uni Min 3V w/PA Chest IMPRESSION: Chronic bibasilar fibrosis, scarring and/or atelectasis. No displaced rib fracture identified. at 0019 Reported and signed by: Fer Norris MD Electronically Signed: Fer Norris MD at 0:18 EDT Tel , Service support ,
[2021-04-07 03:09] VITALS: BP 136/59; PULSE 71; RESP 16; O2SAT 97
== END 2021-04-07 03:09 | disposition home or self-care (01) ==
PROVIDERS: Emergency Provider Emergency Medicine; PCP Family Medicine
DX: R07.81 Pleurodynia (principal); M79.7 Fibromyalgia; M06.9 Rheumatoid arthritis, unspecified; M47.816 Spondylosis without myelopathy or radiculopathy, lumbar region; G89.29 Other chronic pain; K21.9 Gastro-esophageal reflux disease without esophagitis; Z79.899 Other long term (current) drug therapy
CPT/HCPCS: 71101; 96372; 99282

== ENCOUNTER → 2021-04-13 | Outpatient (CLI) | payer MEDICARE, OTHER, SELFPAY | END | disposition home or self-care (01) | LOC: LABSPEC 15:33 | PROVIDERS: PCP Family Medicine; Visit Provider Physician Assistant Surgical | DX: R09.81 Nasal congestion (principal) | CPT/HCPCS: 87635; U0005; U0003 ==

== ENCOUNTER → 2021-05-13 13:57 | Outpatient (CLI) | payer MEDICARE, OTHER, SELFPAY ==
[2021-05-13 15:46] LABS: Absolute Lymphocyte Count 1.55 X10^3/uL (0.83-4.51); Absolute Neutrophil Count 5.2 X10^3/uL (2.0-7.7); Basophil# 0.03 X10^3/uL; Basophil% 0.4 % (0-1); Eosinophil# 0.28 X10^3/uL; Eosinophils% 3.6 % (0-5); Hematocrit 39.9 % (37-47); Hemoglobin 13.1 g/dL (12.0-15.0); Lymphocyte # 1.55 X10^3/ul (0.83-4.51); Mean Corp Hgb Conc 32.8 g/dL (32-36); Mean Corpuscular Hgb 29.3 pg (27.0-32.0); Mean Corpuscular Volume 89.3 fL (81-99); Mean Platelet Vol. 10.1 fl (6.2-12.0); Monocyte# 0.68 X10^3/uL; Monocyte% 8.8 % (0-10); NRBC Flagged by Analyzer 0 % (0-5); Neutrophil # 5.17 X10^3/uL (2.7-7.7); Neutrophil % 66.8 % (47-70); Platelet Count 313 K/mm3 (150-450); RBC Distribution Width CV 13.8 % (11.6-14.6); RBC Distribution Width SD 44.9 fl (35.1-43.9); Red Blood Count 4.47 M/mm3 (4.2-5.4); White Blood Count 7.7 K/mm3 (4.4-11.0)
[2021-05-13 16:33] LABS: ALB/GLOB Ratio 0.8 RATIO (0.9-2.4); AST(SGOT) 21 U/L (15-37); Alanine Aminotransfer ALT/SGPT 22 U/L (13-56); Albumin, Serum 3.6 g/dL (3.2-5.0); Alkaline Phosphatase 118 U/L (45-117); Anion Gap 7 (5-15); BUN 23 mg/dL (7-18); BUN/Creat Ratio 23.4 RATIO (10-20); Calcium,Total 9.2 mg/dL (8.5-10.1); Chloride 100 mmol/L (98-107); Creatinine, Serum 0.98 mg/dL (0.55-1.02); EST Glomerular Filtration Rate 59 mL/min (>60); Est Glom Filt Rate - Afr Amer 71 mL/min (>60); Globulin 4.3 g/dL (2.2-4.2); Glucose 89 mg/dL (74-106); Potassium 3.5 mmol/L (3.5-5.1); Protein, Total 7.9 g/dL (6.4-8.2); Sodium Level 137 mmol/L (136-145)
== END ==
PROVIDERS: PCP Internal Medicine; Referring Provider Internal Medicine Rheumatology; Visit Provider Internal Medicine Rheumatology
DX: M06.4 Inflammatory polyarthropathy (principal); M79.7 Fibromyalgia; M47.897 Other spondylosis, lumbosacral region; K21.9 Gastro-esophageal reflux disease without esophagitis; J30.9 Allergic rhinitis, unspecified; E78.5 Hyperlipidemia, unspecified; Z79.899 Other long term (current) drug therapy
CPT/HCPCS: 36415; 80053; 85025

== ENCOUNTER → 2021-06-22 10:17 | Outpatient (CLI) | payer MEDICARE, OTHER, SELFPAY ==
[2021-06-22 12:33] LABS: Cholesterol 192 mg/dL (200); High Density Lipoprotein 76 mg/dL; Triglycerides 128 mg/dL; Very Low Density Lipoprotein 26 mg/dL (5-40)
[2021-06-22 12:51] LABS: Vitamin D,25 Hydroxy 36.5 ng/mL
== END ==
PROVIDERS: PCP Internal Medicine; Referring Provider Internal Medicine; Visit Provider Internal Medicine
DX: E55.9 Vitamin D deficiency, unspecified (principal); E78.5 Hyperlipidemia, unspecified
CPT/HCPCS: 36415; 80061; 82306

== ENCOUNTER 2021-07-29 10:36 | Outpatient (CLI) | payer MEDICARE, OTHER, SELFPAY ==
--- NOTE | 2021-07-29 10:40 | BI_ITS ---
MAMMOGRAPHY - BILATERAL SCREENING REASON FOR EXAM: Female, 75 years old. Routine annual screening examination. PERTINENT HISTORY: Non-contributory. Remote right excisional breast biopsy. TECHNIQUE: Digital bilateral breast rosa m (3D mammographic acquisition) in the CC and MLO projections. 2-D mediolateral oblique (MLO) and craniocaudad (CC) views of both breasts were obtained. CAD: Full Field Digital Mammography with Computer Added Detection was performed. COMPARISON: Comparison is made with prior study dated 04/08/2019 and 05/17/2017. FINDINGS: Breast Composition: There are scattered areas of fibroglandular density. There are no dominant masses or suspicious calcifications. Stable small benign-appearing bilateral axillary lymph nodes. No other significant abnormalities are identified. There has been no significant change since the prior study. BI/SCRN MAMM (CAD)W/ROSA M BILAT IMPRESSION: Stable bilateral screening mammogram. Yearly follow-up mammogram recommended. (A) ASSESSMENT CATEGORY: BIRADS Category 2: Benign. A letter regarding these results will be sent to the patient by the facility within 30 days. Approximately 10% of breast cancers are not detected by mammography. A normal mammogram should not delay biopsy of a clinically suspicious abnormality. [id number] Electronically Signed: Shoaib Mock MD at 12:17 EST , Service support ,
--- NOTE | 2021-07-29 11:00 | BD_ITS ---
STUDY: DUAL ENERGY X-RAY ABSORPTIOMETRY / DXA REASON FOR EXAM: Female, 75 years old. Osteopenia TECHNIQUE: Bone Mineral Density (BMD) measurements of lumbar spine and bilateral hips were obtained. COMPARISON: Comparison is made with prior study dated 05/17/2017. FINDINGS: Lumbar Spine (L1-L4): g/cm2 (0.860) / T-score (-1.6) / Z-score (0.7) Findings are suggestive of osteopenia with a moderate fracture risk. Left Femur Total: g/cm2 (0.656) / T-score (-2.3) / Z-score (-0.6) Left Femoral Neck: g/cm2 (0.537) / T-score (-2.8) / Z-score (-0.8) Right Femur Total: g/cm2 (0.644) / T-score (-2.4) / Z-score (-0.7) Right Femoral Neck: g/cm2 (0.544) / T-score (-2.8) / Z-score (-0.7) The T-Scores on the most recent prior examination were: Lumbar Spine (L1-L4): There has been worsening of bone density since the previous examination. Left Femur Total: which represents a worsening of 1.9%. Right Femur Total: which represents a worsening of 1.3%. BD/Dexa Bone Density Study IMPRESSION: The patient is considered osteoporotic as outlined below according to World Ananda Organization (WHO) criteria with a high fracture risk. There has been worsening of bone density since the previous examination. Reference Information: The T-score is the number of standard deviations above or below the standard which is normal for young adults at their peak bone mineral density. The World Health Organization (WHO) interprets the T-scores as follows: Above -1 Normal bone density Between -1 and -2.5 Osteopenia Equal to / or below -2.5 Osteoporosis As a practical clinical guideline, osteopenia may be graded as follows: Mild -1 through -1.5 Moderate -1.6 through -2.0 Severe -2.1 through -2.4 The Z-score is the number of standard deviations above or below age-matched controls. A Z-score of less than -1.5 would be considered abnormal. References: 1. NIH Osteoporosis and Related Bone Diseases www osteo.org 2. International Society for Clinical Densitometry www iscd.org 3. National Osteoporosis Foundation www nof.org Electronically Signed: Shoaib Mock MD at 12:24 EST , Service support ,
== END 2021-07-29 23:59 | disposition short-term general hospital (02) ==
LOC: OPBD 10:37
PROVIDERS: PCP Internal Medicine; Referring Provider Internal Medicine; Visit Provider Internal Medicine
DX: Z78.0 Asymptomatic menopausal state (principal); M85.89 Other specified disorders of bone density and structure, multiple sites; Z12.31 Encounter for screening mammogram for malignant neoplasm of breast
CPT/HCPCS: 77063; 77067; 77080

== ENCOUNTER 2021-08-13 14:06 | Outpatient (CLI) | payer MEDICARE, OTHER, SELFPAY | END 2021-08-13 23:59 | disposition short-term general hospital (02) | LOC: LABSPEC 14:08 | PROVIDERS: PCP Internal Medicine; Referring Provider Internal Medicine; Visit Provider Internal Medicine | DX: U07.1 COVID-19 (principal) | CPT/HCPCS: 87635; U0003; U0005 ==

== ENCOUNTER 2021-08-14 14:46 | Emergency (ER) | payer MEDICARE, OTHER, SELFPAY ==
[2021-08-14 14:46] VITALS: BP 134/103; PULSE 101; RESP 20; TEMP 36.7; O2SAT 100; BMI 36.6
--- NOTE | 2021-08-14 15:03 | RAD_ITS ---
STUDY: X-RAY CHEST REASON FOR EXAM: Female, 75 years old. sob TECHNIQUE: 1 view COMPARISON: 04/06/2021 FINDINGS: Cardiomediastinal silhouette is unremarkable. Costophrenic angles are sharp. Linear scars are noted in the lung bases. Lungs otherwise clear. The trachea is midline. There is no pneumothorax. The bones are grossly intact. RAD/Chest 1 View (Portable) IMPRESSION: No acute cardiopulmonary process. Electronically Signed: Po Jc MD at 16:39 EST Tel , Service support ,
--- NOTE | 2021-08-14 15:04 | EKG12_ITS ---
Test Reason : SOB Blood Pressure : / mmHG Vent. Rate : 067 BPM Atrial Rate : 067 BPM P-R Int : 142 ms QRS Dur : 080 ms QT Int : 406 ms P-R-T Axes : 029 -10 013 degrees QTc Int : 429 ms Normal sinus rhythm Normal ECG Confirmed by MERT NAVARRO, ACACIA ([id number]), staff editor ANALI ARREDONDO ([id number]) on 08/16/2021 10:48:35 A M Referred By: MELISSA Confirmed By:ALBERT PAINTING MD
--- NOTE | 2021-08-14 15:09 | EX.ED.DYSGE1 ---
HPI History of Present Illness Chief Complaint: Shortness of Breath Detail of Chief Complaint: Short of breath, body aches Informant: patient Onset/Context/Timing Onset: Days Context: Gradual Onset Current Severity: Moderate Maximum Severity: Moderate Narrative Narrative: Patient reports URI symptoms ongoing since Monday. She developed a sore throat Monday night. She tested positive for COVID yesterday. She presents today secondary to body aches and feeling terrible. She has not had a fever. She has had poor p.o. intake. She has mild cough with yellow sputum. She denies chest pain. She has received the COVID-vaccine as well as booster. She has, however, on immunosuppressants with methotrexate. [facility] Medical History (Updated 08/14/21 @ 16:[address] Iman Foy MD) Change in skin mole Fibromyalgia syndrome GERD (gastroesophageal reflux disease) History of renal stone Hyperlipemia Lumbar spondylosis Osteopenia Peptic ulcer with hemorrhage Rheumatoid arthritis Seasonal allergies URI (upper respiratory infection) Vitamin D deficiency Home Medications coenzyme Q10 [Co Q-10] 50 mg PO DAILY 06/20/15 [History Last Taken Unknown] methotrexate sodium 8 mg PO QWEEK 04/06/21 [History Last Taken Unknown] amitriptyline 10 mg tablet 10 mg PO QHS 06/22/21 [History Last Taken Unknown] cetirizine 10 mg tablet 10 mg PO DAILY PRN 06/22/21 [History Last Taken Unknown] cholecalciferol (vitamin D3) 125 mcg (5,000 unit) capsule 125 mcg PO DAILY 06/22/21 [History Last Taken Unknown] hydroxychloroquine 200 mg tablet 200 mg PO DAILY 06/22/21 [History Last Taken Unknown] pantoprazole 40 mg tablet,delayed release 40 mg PO DAILY 06/22/21 [History Last Taken Unknown] rosuvastatin 10 mg tablet 10 mg PO DAILY #90 tab 06/22/21 [Rx Last Taken Unknown] vitamin E 200 unit capsule 200 unit PO DAILY 06/22/21 [History Last Taken Unknown] Allergy/AdvReac Type Severity Reaction Status Date / Time celecoxib [From Celebrex] Allergy Anaphylaxis Verified 08/14/21 14:49 codeine AdvReac Vomiting Verified 08/14/21 14:49 indomethacin [From Indocin] AdvReac Vomiting Verified 08/14/21 14:49 indomethacin sodium AdvReac Vomiting Verified 08/14/21 14:49 [From Indocin] oxycodone HCl [From Percocet] AdvReac Other Verified 08/14/21 14:49 Family History Father Cancer pancreatic Mother Heart disease Brother Cancer leukemia Surgical History History of breast biopsy History of colonoscopy History of knee surgery History of tonsillectomy History of tubal ligation Social History Smoking Status: Former smoker Tobacco: How many years used: 3 alcohol intake: never substance use type: does not use what type of physical activity do you participate in: walking frequency: daily ROS ROS ED Constitutional Constitutional ED: Denies chills or fever(s) Eyes Eyes: Denies change in vision ENT ENT ED: Reports sore throat Cardiovascular Cardiovascular: Denies chest pain Respiratory/Chest Respiratory/Chest: Reports cough, dyspnea and sputum Gastrointestinal Gastrointestinal: Reports nausea; Denies abdominal pain, diarrhea or vomiting Genitourinary Genitourinary ED: Denies dysuria Musculoskeletal Musculoskeletal: Reports myalgias; Denies back pain Integumentary Denies rash Neurologic Neurologic: Reports weakness; Denies headache(s) Allergic/Immunologic Allergic/Immunologic ED: Denies urticaria EXAM Physical Exam Const Vital Signs: 08/14/21 14:46 08/14/21 14:59 Temperature 98.0 F Temperature Source Temporal Pulse Rate 101 H Respiratory Rate 20 H Respiratory Effort Normal Non-Labored Respiratory Depth Normal Respiratory Pattern Normal Blood Pressure 134/103 H Blood Pressure Mean 113 Pulse Ox 100 Oxygen Delivery Method Room Air Room Air Positive well nourished and well developed General Appearance ED: well developed HEENT Reports moist mucous membranes Eyes PERRL and EOMs intact bilaterally Neck supple Chest Wall inspection of chest normal and palpation of chest normal Resp normal respiratory effort and clear to auscultation bilaterally Cardio regular rate and regular rhythm GI non-tender Palpation: soft Extremity normal to inspection Neuro oriented x3 Sensorium / Orientation: alert Psych mental status grossly normal Skin no rashes or lesions noted MDM MDM MDM Narrative Medical decision making narrative: Patient placed on design maker. EKG, chest x-ray, lab work obtained. Patient given Tylenol for pain. Lab Data Attestation: I reviewed the patient's lab results. Labs: Laboratory Results - last 24 hr 08/14/21 08/14/21 15:20 15:20 WBC 4.2 L RBC 4.61 Hgb 13.2 Hct 41.2 MCV 89.4 MCH 28.6 MCHC 32.0 RDW Std Deviation 43.7 RDW Coeff of Mendez 13.4 Plt Count 226 MPV 10.2 Immature Gran % (Auto) 0.500 Neut % (Auto) 47.7 Lymph % (Auto) 26.4 Dolores % (Auto) 18.9 H Eos % (Auto) 6.0 H Baso % (Auto) 0.5 Absolute Neuts (auto) 2.0 Absolute Lymphs (auto) 1.10 Nucleated RBC % 0 Sodium 140 Potassium 4.0 Chloride 109 H Carbon Dioxide 24.0 Anion Gap 7 BUN 18 Creatinine 0.98 Estim Creat Clear Calc 40.44 Est GFR (MDRD) Af Amer 71 Est GFR (MDRD) Non-Af 59 L BUN/Creatinine Ratio 18.3 Glucose 91 Calcium 9.2 Radiography Chest X-Ray - ED: 1 View, Read by ED Physician and Chronic Changes EKG Initial EKG: Attestation: I personally reviewed and interpreted this EKG as follows: Interpretation: Sinus Rhythm (Sinus at 67 with no acute ischemia.) Treatment and Re-Evaluation Comments:: On repeat evaluation patient resting comfortably. Test results discussed with her. Lab work is unremarkable. Chest x-ray per my interpretation reveals no focal infiltrate. Because she is on methotrexate she would qualify for monoclonal antibody treatment. This was discussed with her and she is in agreement. Order will be placed. Symptom onset occurred: 08/09/2021 Positive COVID-19 test occurred: 08/13/2021 The FDA has authorized the emergency use of monoclonal antibody treatment (bamlanivimab/etesevimab or casirivimab/imdevimab) for mild to moderate COVID-19 in adults and pediatric patients with positive results of direct SARS?Cov?2 viral testing ages 12 and older, at least 40 kg, who are at high risk for progressing to severe COVID-19 and or hospitalization. The significant known and potential risks (allergic reactions, worsening of symptoms after treatment, or side effects from injection including brief pain, bleeding, bruising of the skin, soreness, swelling, possible infection at the infusion site) and benefits (decrease chance of progression to severe COVID-19) of a monoclonal antibody infusion, and the extent to which such potential risks and benefits are unknown. Note that worsening symptoms after treatment may occur but it is unknown whether these symptoms are related to treatment or are due to the progression of COVID-19. Worsening symptoms may include: fever, difficulty breathing, rapid or slow heart rate, tiredness, weakness or confusion. If these symptoms occur, patients are encouraged to seek immediate medical attention. These treatments are still being studied, all possible side effects may not be listed or known at this time. Patients treated with monoclonal antibody infusion should continue to self-isolate and use infection control measures (such as wear mask, isolate, social distance, avoid sharing personal items, clean and disinfect high touch surfaces, and frequent handwashing) according to the CDC guidelines. The fact sheet for patients, parents and caregivers will be provided prior to the administration of the medication. No drugs are approved by the FDA at this time to treat outpatients with mild or moderate symptoms of COVID-19. In addition to IV monoclonal antibodies, there are oral medications that have received authorization from the FDA to treat [id number] COVID-19 in patients at high risk for progression to severe COVID-19. These medications may not be appropriate for all patients and available drug supply may be limited. However, these oral medications may be more effective against the omicron variant. The following information was communicated to the patient or caregiver: Monoclonal antibody infusion for COVID-19 is not an FDA approved drug. The FDA has authorized the emergency use of monoclonal antibody therapy. The patient had the option to refuse or accept treatment with monoclonal antibody therapy. The patient was informed that the number of people treated with monoclonal antibody therapy at this time is small. The potential benefits and the potential risks of monoclonal antibody therapy are not fully known. Potential benefits of monoclonal antibody include a reduced risk of progressing to severe COVID-19 infection. Potential risks or side effects of monoclonal antibody therapy include allergic reactions, side effects from injection including brief pain, bleeding, bruising of the skin, soreness, swelling, possible infection at the infusion site and worsening of symptoms. Due to the changes in the virus that causes COVID-19, some monoclonal antibody treatments may not be effective for all forms of the virus (known as variants). This includes the omicron variant. The patient stated understanding of this information communicated and wished to proceed with monoclonal antibody infusion therapy. Current symptoms include: Shortness of breath, cough (productive versus nonproductive), fever, headache, nausea/vomiting, body aches, chills, general malaise, loss of taste or smell, sneezing, nasal congestion. Discharge Plan Triage Chief Complaint: Shortness of Breath ED Provider: Iman Foy Dx/Rx/DC Orders Clinical Impression: COVID-19 Instructions: Coronavirus Disease 2019 (COVID-19): Overview, Coronavirus Disease 2019 (COVID-19): Caring for Yourself or Others Prescriptions: No Action cholecalciferol (vitamin D3) 125 mcg (5,000 unit) capsule 125 mcg PO DAILY RF: 0 cetirizine [Zyrtec] 10 mg tablet 10 mg PO DAILY PRNRF: 0 vitamin E 200 unit capsule 200 unit PO DAILY RF: 0 hydroxychloroquine [Plaquenil] 200 mg tablet 200 mg PO DAILY RF: 0 amitriptyline 10 mg tablet 10 mg PO QHS RF: 0 pantoprazole 40 mg tablet,delayed release (DR/EC) 40 mg PO DAILY RF: 0 coenzyme Q10 [Co Q-10] 50 MG capsule 50 mg PO DAILY RF: 0 methotrexate sodium 2.5 mg tablet 8 mg PO QWEEK RF: 0 rosuvastatin [Crestor] 10 mg tablet 10 mg PO DAILY Qty: 90 RF: 3 Stand Alone Forms: Monoclonal Antibody Referral Primary Care Provider: Anthony Alonzo Referrals: Anthony Alonzo MD [Primary Care Provider] - 1-2 Weeks Disposition Disposition: Home, Self Care
[2021-08-14] MEDS: Acetaminophen 500 MG Tablet 1000 MG PO (15:23)
[2021-08-14 15:32] LABS: Basophil# 0.02 X10^3/uL; Basophil% 0.5 % (0-1); Eosinophil# 0.25 X10^3/uL; Hematocrit 41.2 % (37-47); Hemoglobin 13.2 g/dL (12.0-15.0); Lymphocyte % 26.4 % (19-41); Mean Corpuscular Hgb 28.6 pg (27.0-32.0); Mean Corpuscular Volume 89.4 fL (81-99); Mean Platelet Vol. 10.2 fl (6.2-12.0); Monocyte# 0.79 X10^3/uL; Monocyte% 18.9 % (0-10); NRBC Flagged by Analyzer 0 % (0-5); Neutrophil # 1.99 X10^3/uL (2.7-7.7); Neutrophil % 47.7 % (47-70); Platelet Count 226 K/mm3 (150-450); RBC Distribution Width CV 13.4 % (11.6-14.6); RBC Distribution Width SD 43.7 fl (35.1-43.9); Red Blood Count 4.61 M/mm3 (4.2-5.4); White Blood Count 4.2 K/mm3 (4.4-11.0)
[2021-08-14 15:47] LABS: Anion Gap 7 (5-15); BUN 18 mg/dL (7-18); BUN/Creat Ratio 18.3 RATIO (10-20); Calcium,Total 9.2 mg/dL (8.5-10.1); Chloride 109 mmol/L (98-107); Creatinine, Serum 0.98 mg/dL (0.55-1.02); EST Glomerular Filtration Rate 59 mL/min (>60); Est Glom Filt Rate - Afr Amer 71 mL/min (>60); Estimated Creatinine Clearance 40.44 ml/min; Glucose 91 mg/dL (74-106); Sodium Level 140 mmol/L (136-145)
[2021-08-14 16:32] VITALS: BP 109/66; O2SAT 98
== END 2021-08-14 16:33 | disposition home or self-care (01) ==
PROVIDERS: Emergency Provider Emergency Medicine; PCP Internal Medicine; Visit Provider Emergency Medicine
DX: U07.1 COVID-19 (principal); Z87.891 Personal history of nicotine dependence
CPT/HCPCS: 71045; 80048; 85025; 93005; 99285

== ENCOUNTER 2021-08-16 13:46 | Outpatient (CLI) | payer MEDICARE, OTHER, SELFPAY ==
[2021-08-16 13:59] VITALS: BP 139/79; PULSE 72; RESP 16; TEMP 36.4; O2SAT 95; BMI 35.4
[2021-08-16] MEDS: 0.9% Saline Lock 10 ML Syringe IV (14:01)
[2021-08-16 14:42] VITALS: BP 123/61; PULSE 72; RESP 16; TEMP 36.5; O2SAT 100
[2021-08-16 15:38] VITALS: BP 127/68; PULSE 69; RESP 16; TEMP 36.8; O2SAT 98
== END 2021-08-16 23:59 | disposition home or self-care (01) ==
LOC: MS3OUT 13:46 → MS3 13:47
PROVIDERS: PCP Internal Medicine; Referring Provider Emergency Medicine; Visit Provider Emergency Medicine
DX: U07.1 COVID-19 (principal)
CPT/HCPCS: J7050; M0247; A4216; Q0247

== ENCOUNTER 2021-08-31 13:52 | Outpatient (CLI) | payer MEDICARE, OTHER, SELFPAY ==
[2021-08-31 15:58] LABS: ALB/GLOB Ratio 0.9 RATIO (0.9-2.4); AST(SGOT) 32 U/L (15-37); Alanine Aminotransfer ALT/SGPT 51 U/L (13-56); Albumin, Serum 3.4 g/dL (3.2-5.0); Alkaline Phosphatase 179 U/L (45-117); Anion Gap 6 (5-15); BUN 17 mg/dL (7-18); BUN/Creat Ratio 17.8 RATIO (10-20); Calcium,Total 9.1 mg/dL (8.5-10.1); Chloride 107 mmol/L (98-107); Creatinine, Serum 0.95 mg/dL (0.55-1.02); EST Glomerular Filtration Rate 61 mL/min (>60); Est Glom Filt Rate - Afr Amer 74 mL/min (>60); Globulin 3.8 g/dL (2.2-4.2); Glucose 83 mg/dL (74-106); Protein, Total 7.2 g/dL (6.4-8.2); Sodium Level 140 mmol/L (136-145)
[2021-08-31 17:41] LABS: Absolute Neutrophil Count 4.8 X10^3/uL (2.0-7.7); Basophil# 0.02 X10^3/uL; Basophil% 0.3 % (0-1); Eosinophil# 0.22 X10^3/uL; Eosinophils% 3.2 % (0-5); Hematocrit 37.3 % (37-47); Hemoglobin 12.2 g/dL (12.0-15.0); Lymphocyte % 17.7 % (19-41); Mean Corp Hgb Conc 32.7 g/dL (32-36); Mean Corpuscular Hgb 29.4 pg (27.0-32.0); Mean Corpuscular Volume 89.9 fL (81-99); Mean Platelet Vol. 10.2 fl (6.2-12.0); Monocyte# 0.56 X10^3/uL; Monocyte% 8.2 % (0-10); NRBC Flagged by Analyzer 0 % (0-5); Neutrophil # 4.77 X10^3/uL (2.7-7.7); Neutrophil % 70.3 % (47-70); Platelet Count 251 K/mm3 (150-450); RBC Distribution Width CV 13.7 % (11.6-14.6); RBC Distribution Width SD 44.5 fl (35.1-43.9); Red Blood Count 4.15 M/mm3 (4.2-5.4); White Blood Count 6.8 K/mm3 (4.4-11.0)
== END 2021-08-31 23:59 | disposition home or self-care (01) ==
LOC: MTLAB 13:55
PROVIDERS: PCP Internal Medicine; Referring Provider Internal Medicine Rheumatology; Visit Provider Internal Medicine Rheumatology
DX: M06.4 Inflammatory polyarthropathy (principal); M79.7 Fibromyalgia; M47.897 Other spondylosis, lumbosacral region; K21.9 Gastro-esophageal reflux disease without esophagitis; J30.9 Allergic rhinitis, unspecified; E78.5 Hyperlipidemia, unspecified; Z79.899 Other long term (current) drug therapy
CPT/HCPCS: 36415; 80053; 85025

== ENCOUNTER 2021-10-05 14:50 | Inpatient (IN) | payer MEDICARE, OTHER, SELFPAY ==
[2021-10-05] VITALS (23 sets, daily range): BP systolic 90–158; BP diastolic 54–117; PULSE 73–847; RESP 15–28; TEMP 36.4–38.3; O2SAT 92–100; BMI 38.0; BMI 37.2
--- NOTE | 2021-10-05 14:57 | EKG12_ITS ---
Test Reason : CP Blood Pressure : / mmHG Vent. Rate : 189 BPM Atrial Rate : 106 BPM P-R Int : 000 ms QRS Dur : 084 ms QT Int : 234 ms P-R-T Axes : 000 025 252 degrees QTc Int : 414 ms Atrial fibrillation Low voltage QRS Nonspecific ST and T wave abnormality Abnormal ECG Confirmed by CHRISTELLE NAVARRO, PAULO ([id number]), publication editor ANALI ARREDONDO ([id number]) on 10/07/2021 9:37:08 AM Referred By: MELISSA/DARREN Confirmed By:PAULO BOURGEOIS MD
[2021-10-05] MEDS: dilTIAZem 25 MG/5 ML Vial 20 MG IV BOLUS (15:02)
--- NOTE | 2021-10-05 15:09 | EDS_ITS ---
HPI History of Present Illness Chief Complaint: Chest Pain Detail of Chief Complaint: Palpitations, rapid heartbeat, chest pressure, dyspnea on exertion Informant: patient Onset/Context/Timing Onset: Weeks (Onset 1 week ago and has been intermittent) Activity at onset: sudden and other (Predominately at rest worse with activity) Timing: Intermittent and Lasts (Hours to days) Quality: Positive for Heaviness and Pressure Location: Substernal Current Severity: Moderate Maximum Severity: Severe Worsened By: Exertion Relieved By: Nothing Associated Symptoms: Positive for Nausea, Diaphoresis, Dyspnea, Lightheadedness and Palpitations; Negative for Vomiting, Cough, Fever and Acid Reflux Narrative Narrative: Patient is an elderly woman with history of GERD, hyperlipidemia and breast cancer who presents with palpitations, fast heart rate that started 1 week ago. She has had chest pressure and heaviness that is substernal associated with dyspnea and diaphoresis when she has the palpitations. She states she had to stop 6 times walking into the hospital be because she became severely short of breath. The pressure in her chest got worse. The pressure in her chest started last evening as well as the noted rapid heartbeat. She denies history of PSVT, atrial fibrillation or atrial flutter. She denies history of coronary disease. She denies history of PE or DVT. She denies leg pain, swelling or discoloration. She denies heat or cold intolerance. She has no known thyroid disease. She denies orthopnea or PND. Prior Similar Symptoms: No CVD Risk Factors: Positive for Hypercholesterolemia; Negative for Hypertension, Diabetes, Family History 1' </=55 and Smoking PE Risk Factors: Positive for Cancer (Cancer is not active); Negative for Recent Travel/Surgery, Recent Immobilization, Prior DVT or PE and OCP + Smoking + >/=35 TAD Risk Factors: Negative for Marfan's Syndrome, Hypertension and Family History [facility] Medical History Change in skin mole Fibromyalgia syndrome GERD (gastroesophageal reflux disease) History of renal stone Hyperlipemia Lumbar spondylosis Osteopenia Osteoporosis Peptic ulcer with hemorrhage Rheumatoid arthritis Seasonal allergies URI (upper respiratory infection) Vitamin D insufficiency Home Medications coenzyme Q10 [Co Q-10] 50 mg PO DAILY 06/20/15 [History Last Taken 10/05/21] methotrexate sodium 20 mg PO TALAMANTES 04/06/21 [History Last Taken 10/03/21] amitriptyline 10 mg tablet 10 mg PO QHS 06/22/21 [History Last Taken 10/04/21] cetirizine 10 mg tablet 10 mg PO DAILY 06/22/21 [History Last Taken 10/05/21] hydroxychloroquine 200 mg tablet 200 mg PO BID 06/22/21 [History Last Taken 10/05/21] pantoprazole 40 mg tablet,delayed release 40 mg PO DAILY 06/22/21 [History Last Taken 10/05/21] vitamin E 200 unit capsule 200 unit PO DAILY 06/22/21 [History Last Taken 10/05/21] cholecalciferol (vitamin D3) 125 mcg (5,000 unit) capsule 10,000 unit PO DAILY cap 08/30/21 [History Last Taken 10/05/21] denosumab 60 mg/mL subcutaneous syringe 60 mg SUBCUT [id number] #1 ml 08/30/21 [Rx Last Taken 2 Months Ago ~08/07/21] rosuvastatin 10 mg tablet 10 mg PO DAILY #90 tab 08/30/21 [Rx Last Taken 10/04/21] Cbd Lotion 1 applic TRANSDERMAL BID PRN 10/05/21 [History Last Taken 10/04/21] calcium carbonate [Calcium 500] 500 mg PO DAILY 10/05/21 [History Last Taken 10/05/21] dextromethorphan-guaifenesin [Robitussin-DM] 10 ml PO Q4H PRN 10/05/21 [History Last Taken 10/04/21] folic acid 1 mg PO DAILY 10/05/21 [History Last Taken Unknown] Allergy/AdvReac Type Severity Reaction Status Date / Time celecoxib [From Celebrex] Allergy Anaphylaxis Verified 10/05/21 14:57 codeine AdvReac Vomiting Verified 10/05/21 14:57 indomethacin [From Indocin] AdvReac Vomiting Verified 10/05/21 14:57 indomethacin sodium AdvReac Vomiting Verified 10/05/21 14:57 [From Indocin] oxycodone HCl [From Percocet] AdvReac HALLUCINATI Verified 10/05/21 14:57 ONS Family History Father Cancer pancreatic Mother Heart disease Brother Cancer leukemia Surgical History H/O lithotripsy History of breast biopsy History of colonoscopy History of knee surgery History of tonsillectomy History of tubal ligation Social History (Updated 10/05/21 @ 15:[address] Loco Allred MD) household members: none Smoking Status: Former smoker Tobacco: How many years used: 3 alcohol intake: never substance use type: does not use what type of physical activity do you participate in: walking frequency: daily ROS ROS ED Constitutional Constitutional ED: Denies chills, fever(s), subjective, sweats or weight loss Eyes Eyes: Reports none ENT ENT ED: Denies ear pain, rhinorrhea or sore throat Cardiovascular Cardiovascular: Reports as per HPI, chest pain and palpitations; Denies orthopnea or paroxysmal nocturnal dyspnea Respiratory/Chest Respiratory/Chest: Reports dyspnea and dyspnea on exertion; Denies cough, orthopnea, paroxysmal nocturnal dyspnea or sputum Gastrointestinal Gastrointestinal: Reports nausea; Denies abdominal pain, constipation, diarrhea or vomiting Genitourinary Genitourinary ED: Denies dysuria, hematuria or urinary frequency Musculoskeletal Musculoskeletal: Denies arthralgias, back pain, myalgias or neck pain Integumentary Denies abscess, Abrasions or rash Neurologic Neurologic: Denies headache(s) or weakness Psychiatric Psychiatric: Denies anxiety or depression Endocrine Endocrinology: Denies cold intolerance, heat intolerance, polydipsia, polyphagia or polyuria Hematologic/Lymphatic Hematologic/Lymphatic: Denies easy bruising EXAM Physical Exam Const Vital Signs: 10/05/21 14:52 10/05/21 15:08 10/05/21 15:11 Temperature 97.9 F Temperature Source Temporal Pulse Rate 204 H 107 H Respiratory Rate 24 H 15 Respiratory Effort Normal Blood Pressure 158/117 H 126/96 H Blood Pressure Mean 130 106 Pulse Ox 92 98 Oxygen Delivery Method Room Air Nasal Cannula Oxygen Flow Rate (L/min) 2 10/05/21 15:43 10/05/21 16:11 10/05/21 16:24 Temperature Temperature Source Pulse Rate 163 H 847 H 137 H Respiratory Rate 18 17 18 Respiratory Effort Blood Pressure 137/108 H 154/110 H 115/91 H Blood Pressure Mean 117 124 99 Pulse Ox 100 100 100 Oxygen Delivery Method Nasal Cannula Nasal Cannula Nasal Cannula Oxygen Flow Rate (L/min) 2 2 2 Positive well nourished, well developed and obese General Appearance ED: well developed and other Patient is diaphoretic, with respiratory distress using accessory muscles and appears unwell. ; Negative for NAD or pallor Nutritional Appearance: obese HEENT Reports TM's clear and dry mucous membranes normocephalic and atraumatic Tympanic Membrane ED: Yes TM's clear Mouth ED: Yes dry mucous membranes Mouth: dry mucous membranes Eyes PERRL and EOMs intact bilaterally General Eye ED: Negative for pale conjunctiva or scleral icterus Neck no lymphadenopathy, supple and no JVD Neck Narrative: There is no carotid bruit. Chest Wall inspection of chest normal and palpation of chest normal Resp No normal respiratory effort and No clear to auscultation bilaterally Effort and Inspection: respiratory distress Auscultation: rales right lower and left base Cardio no murmurs Rate: tachycardic Rhythm: abnormal rhythm irregularly irregular Peripheral Pulses: pulses 2+ throughout GI normal to inspection, nondistended, normoactive bowel sounds, soft to palpation, non-tender, non-distended and no masses; Negative for hepatosplenomegaly Palpation: Negative for splenomegaly Back/Spine no CVA tenderness; Negative for no thoracic nor lumbar tenderness Cervical Spine: Negative for cervical spine tenderness Extremity normal to inspection General Extremety ED: Negative for edema, pulses abnormal or tenderness General Extremity: Negative for edema or pulses abnormal Neuro oriented x3 and CN's II-XII intact bilaterally Sensorium / Orientation: awake and alert Psych mental status grossly normal Skin no rashes or lesions noted and no wounds Skin Narrative: Positive diaphoresis. General Skin Exam: Negative for jaundice or pallor Heart Score History: Moderately Suspicious ECG: Nonspecific Repolarization Age: >/= 65 years Risk Factors: 1 or 2 Risk Factors Score: 5 MDM MDM MDM Narrative Medical decision making narrative: Monitor reveals atrial fibrillation with a rapid ventricular response. Since onset may have been 1 week ago and has been transiently absent patient is not a candidate for cardioversion since she is not hemodynamically unstable. Will anticoagulate with Eliquis. Cardizem bolus and drip was ordered. Work-up was undertaken to rule out anemia, renal dysfunction, electrolyte abnormality, thyroid disease and cardiac ischemia. Patient will require admission to the hospital. Lab Data Attestation: I reviewed the patient's lab results. Lab results narrative: Patient has mild anemia. Creatinine is elevated 1.22. First troponin is normal at 8 with symptoms greater than 24 hours. BNP is slightly elevated to 2.8. TSH is normal. Labs: Laboratory Results - last 24 hr 10/05/21 10/05/21 10/05/21 15:00 15:00 15:00 WBC 13.5 H RBC 4.06 L Hgb 11.6 L Hct 36.1 L MCV 88.9 MCH 28.6 MCHC 32.1 RDW Std Deviation 45.3 H RDW Coeff of Mendez 14.1 Plt Count 565 H MPV 10.0 Immature Gran % (Auto) 0.600 Neut % (Auto) 79.8 H Lymph % (Auto) 10.5 L [place] % (Auto) 8.6 Eos % (Auto) 0.3 Baso % (Auto) 0.2 Absolute Neuts (auto) 10.8 H Absolute Lymphs (auto) 1.42 Nucleated RBC % 0 Sodium 135 L Potassium 4.0 Chloride 104 Carbon Dioxide 22.0 Anion Gap 9 BUN 17 Creatinine 1.22 H Estim Creat Clear Calc 33.97 Est GFR (MDRD) Af Amer 55 L Est GFR (MDRD) Non-Af 46 L BUN/Creatinine Ratio 13.9 Glucose 115 H Calcium 9.2 Magnesium 2.0 Troponin I High Sens 8 B-Natriuretic Peptide 222.8 H TSH 2.96 ABG Data ABG results: ABG 10/05/21 15:14 Specimen Type TIBURCIO Sample Site R Radial VBG pH 7.40 VBG pO2 43 H VBG HCO3 22 VBG Total CO2 23 VBG O2 Sat (Calc) 79 H VBG Base Excess -3 L POC Mix VBG pCO2 Pt Tmp 34.6 L O2 Delivery Device Cannula Liter Flow 3.0 Radiography Chest X-Ray - ED: 1 View, Read by ED Physician (At 1648), Heart (Cardiac silhouette size normal.), Mediastinum (Unremarkable), Bony Structures (No acute process) and Chronic Changes (Chronic interstitial changes.) Diagnostic Testing: Clinical Impression(s) from Imaging Studies Chest X-Ray 10/05/21 16:18 IMPRESSION: Chronic interstitial changes, no superimposed acute pulmonary process Electronically Signed: Robert Quinones MD at 16:56 EDT , Rhythm Strip Rhythm Strip: A-fib Rate: 192 Ectopy: None EKG Initial EKG: Attestation: I personally reviewed and interpreted this EKG as follows: Interpretation: Atrial Fibrillation (Ventricular rate is 189. QRS duration 84 ms. QT duration 234 ms. [place] is normal. There is low voltage. 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, Discussing w/Consultants and Arranging Admission or Transfer Discharge Plan Triage Chief Complaint: Chest Pain ED Provider: Loco Allred Dx/Rx/DC Orders Clinical Impression: Atrial fibrillation, new onset, Hyperlipemia, Chest pain at rest Prescriptions: No Action cetirizine [Zyrtec] 10 mg tablet 10 mg PO DAILY RF: 0 vitamin E 200 unit capsule 200 unit PO DAILY RF: 0 hydroxychloroquine [Plaquenil] 200 mg tablet 200 mg PO BID RF: 0 amitriptyline 10 mg tablet 10 mg PO QHS RF: 0 pantoprazole 40 mg tablet,delayed release (DR/EC) 40 mg PO DAILY RF: 0 rosuvastatin [Crestor] 10 mg tablet 10 mg PO DAILY Qty: 90 RF: 3 Prolia 60 mg/mL syringe 60 mg subcut [id number] Qty: 1 RF: 2 cholecalciferol (vitamin D3) 125 mcg (5,000 unit) capsule 10,000 unit PO DAILY RF: 0 coenzyme Q10 [Co Q-10] 50 MG capsule 50 mg PO DAILY RF: 0 methotrexate sodium 2.5 mg tablet 20 mg PO TALAMANTES RF: 0 dextromethorphan-guaifenesin [Robitussin-DM] 10-100 mg/5 mL Syrup 10 ml PO Q4H PRN (Reason: Congestion) RF: 0 calcium carbonate [Calcium 500] 500 mg calcium (1,250 mg) Tablet 500 mg PO DAILY RF: 0 folic acid 1 mg Tablet 1 mg PO DAILY RF: 0 Cbd Lotion 1 applic transdermal BID PRN (Reason: ARTHRITIS) RF: 0 Primary Care Provider: Anthony Alonzo Referrals: Anthony Alonzo MD [Primary Care Provider] - Disposition Disposition: Acute Care Hospital [facility]
[2021-10-05 15:13] LABS: Absolute Lymphocyte Count 1.42 X10^3/uL (0.83-4.51); Absolute Neutrophil Count 10.8 X10^3/uL (2.0-7.7); Basophil# 0.03 X10^3/uL; Basophil% 0.2 % (0-1); Eosinophil# 0.04 X10^3/uL; Eosinophils% 0.3 % (0-5); Hematocrit 36.1 % (37-47); Hemoglobin 11.6 g/dL (12.0-15.0); Lymphocyte # 1.42 X10^3/ul (0.83-4.51); Lymphocyte % 10.5 % (19-41); Mean Corp Hgb Conc 32.1 g/dL (32-36); Mean Corpuscular Hgb 28.6 pg (27.0-32.0); Mean Corpuscular Volume 88.9 fL (81-99); Monocyte# 1.17 X10^3/uL; Monocyte% 8.6 % (0-10); NRBC Flagged by Analyzer 0 % (0-5); Neutrophil # 10.79 X10^3/uL (2.7-7.7); Neutrophil % 79.8 % (47-70); Platelet Count 565 K/mm3 (150-450); RBC Distribution Width CV 14.1 % (11.6-14.6); RBC Distribution Width SD 45.3 fl (35.1-43.9); Red Blood Count 4.06 M/mm3 (4.2-5.4); White Blood Count 13.5 K/mm3 (4.4-11.0)
[2021-10-05 15:20] LABS: Blood Gas Specimen Type VEN; O2 Delivery Device Cannula; SITE R Radial; VBG BASE EXCESS -3 mmol/L (-1.0-3.5); VBG Bicarbonate 22 mmol/L (22-26); VBG PO2 43 mmHg (25-40); VBG SO2 79 % (50-70); VBG TCO2 23 mmol/L (23-33); VBG pCO2 34.6 mmHg (41-51)
[2021-10-05 15:32] LABS: BNP,B-Type NATRIURETIC PEPTIDE 222.8 pg/mL (0-100)
[2021-10-05 15:38] LABS: Anion Gap 9 (5-15); BUN 17 mg/dL (7-18); BUN/Creat Ratio 13.9 RATIO (10-20); Calcium,Total 9.2 mg/dL (8.5-10.1); Chloride 104 mmol/L (98-107); Creatinine, Serum 1.22 mg/dL (0.55-1.02); EST Glomerular Filtration Rate 46 mL/min (>60); Est Glom Filt Rate - Afr Amer 55 mL/min (>60); Estimated Creatinine Clearance 33.97 ml/min; Glucose 115 mg/dL (74-106); Sodium Level 135 mmol/L (136-145); Thyroid Stim Hormone (TSH) 2.96 uIU/mL (0.358-3.74); Troponin-I HS 8 pg/mL (3.0-54.0)
[2021-10-05] MEDS: dilTIAZem 25 MG/5 ML Vial IV BOLUS (15:49)
[2021-10-05] MEDS: APIXABAN 5 MG TABLET PO (15:49)
--- NOTE | 2021-10-05 16:18 | RAD_ITS ---
STUDY: X-RAY CHEST REASON FOR EXAM: Female, 75 years old. Chest pain/pressure TECHNIQUE: Single AP portable view of the chest. COMPARISON: 08/14/2021 FINDINGS: EKG leads overlie the chest There are interstitial changes of the lungs. There is no demonstrated pleural abnormality. Normal size heart. Normal mediastinum and enedelia. Normal visualized pulmonary arteries. Normal visualized aortic arch and descending thoracic aorta. There are diffuse degenerative changes of the visualized thoracic spine. There is degenerative osteoarthritis of the bilateral shoulders. There is no demonstrated abnormality of the visualized soft tissue structures of the upper abdomen. RAD/Chest 1 View (Portable) IMPRESSION: Chronic interstitial changes, no superimposed acute pulmonary process Electronically Signed: Robert Quinones MD at 16:56 EDT ,
--- NOTE | 2021-10-05 17:20 | NURSING ---
116 JULISSA NEW ONSET AFIB W RVR, CP
--- NOTE | 2021-10-05 17:24 | CM.ED ---
RN CM Assessment Introduced role of RN CM to patient.? Patient is alert, oriented and able?to participate in RN CM Assessment. ?Care providers, pharmacy, and demographics verified. Admit Dx: New onset Afib RVR Re-Admit: No Barriers/Issues: None PCP: Anthony Alonzo Specialists: Arthritis- Dr Lyons Preferred Pharmacy: [facility] Insurance: [facility] A/B, [employer] Rx Benefit:?Yes LNOK: Son Abdoul Medeiros LW/HPOA: None, AD information provided with [employer] card. Informed can complete as an outpatient or inpatient. Living Arrangements:?Lives alone in a H, 3 steps to enter home. ADL?s: Independent with Ambulation and ADLs. Retired [id number] Transportation: Patient drives and drove self to the hospital. plans to drive self at DC if cleared with physician. DME: None HHC: None SNF: None Goal: Home and denies any issues, concerns, or needs with going home at this time. DC PLAN: Home with no anticipated needs other than possible anticoag discount card. Alfred Multani RNCM
--- NOTE | 2021-10-05 17:29 | HP.PCM.HOS_ITS ---
Documented by User: Elsi Augustin NP, [employer]MENT [employer]ER-C 10/05/21 18:09 HPI - General General Date of Admission: 10/05/21 HPI Narrative JONATHAN NICHOLSON, is a 75 F who presents to the emergency room due to shortness of breath and chest pressure. She states this initially occurred about a week ago however resolved. Overnight she developed shortness of breath again with chest pressure that radiated across to her upper back/shoulder blades. She denies palpitations. She states shortness of breath was worse while lying flat. Denies other aggravating or alleviating factors. She notes some swelling of her legs. She denies history of heart issues including A. fib, CAD, CHF. She denies fever, chills. Denies other associated symptoms or complaints. She has a past medical history of rheumatoid arthritis, hyperlipidemia, GERD, osteoporosis. [facility] Medical History (Updated 10/05/21 @ 17:37 by Sada Villegas) Change in skin mole DVT (deep venous thrombosis) Fibromyalgia syndrome GERD (gastroesophageal reflux disease) History of renal stone Hyperlipemia Irregular heart beat Lumbar spondylosis Osteopenia Osteoporosis Peptic ulcer with hemorrhage Rheumatoid arthritis Seasonal allergies URI (upper respiratory infection) Vitamin D insufficiency Home Medications coenzyme Q10 [Co Q-10] 50 mg PO DAILY 06/20/15 [History Last Taken 10/05/21] methotrexate sodium 20 mg PO TALAMANTES 04/06/21 [History Last Taken 10/03/21] amitriptyline 10 mg tablet 10 mg PO QHS 06/22/21 [History Last Taken 10/04/21] cetirizine 10 mg tablet 10 mg PO DAILY 06/22/21 [History Last Taken 10/05/21] hydroxychloroquine 200 mg tablet 200 mg PO BID 06/22/21 [History Last Taken 10/05/21] pantoprazole 40 mg tablet,delayed release 40 mg PO DAILY 06/22/21 [History Last Taken 10/05/21] vitamin E 200 unit capsule 200 unit PO DAILY 06/22/21 [History Last Taken 10/05/21] cholecalciferol (vitamin D3) 125 mcg (5,000 unit) capsule 10,000 unit PO DAILY cap 08/30/21 [History Last Taken 10/05/21] denosumab 60 mg/mL subcutaneous syringe 60 mg SUBCUT [id number] #1 ml 08/30/21 [Rx Last Taken 2 Months Ago ~01/15/22] rosuvastatin 10 mg tablet 10 mg PO DAILY #90 tab 08/30/21 [Rx Last Taken 10/04/21] Cbd Lotion 1 applic TRANSDERMAL BID PRN 10/05/21 [History Last Taken 10/04/21] calcium carbonate [Calcium 500] 500 mg PO DAILY 10/05/21 [History Last Taken 10/05/21] dextromethorphan-guaifenesin [Robitussin-DM] 10 ml PO Q4H PRN 10/05/21 [History Last Taken 10/04/21] folic acid 1 mg PO DAILY 10/05/21 [History Last Taken Unknown] Allergy/AdvReac Type Severity Reaction Status Date / Time celecoxib [From Celebrex] Allergy Anaphylaxis Verified 10/05/21 14:57 codeine AdvReac Vomiting Verified 10/05/21 14:57 indomethacin [From Indocin] AdvReac Vomiting Verified 10/05/21 14:57 indomethacin sodium AdvReac Vomiting Verified 10/05/21 14:57 [From Indocin] oxycodone HCl [From Percocet] AdvReac HALLUCINATI Verified 10/05/21 14:57 ONS Family History Father Cancer pancreatic Mother Heart disease Brother Cancer leukemia Surgical History H/O lithotripsy History of breast biopsy History of cholecystectomy History of colonoscopy History of knee surgery History of tonsillectomy History of tubal ligation Social History household members: none Smoking Status: Former smoker Tobacco: How many years used: 3 alcohol intake: never substance use type: does not use what type of physical activity do you participate in: walking frequency: daily ROS Constitutional Constitutional: Denies change in weight, chills, fatigue, fever(s) or weakness Cardiovascular Cardiovascular: Reports chest pain and edema; Denies lightheadedness, p alpitations or syncope Respiratory/Chest Respiratory/Chest: Reports shortness of breath at rest and shortness of breath with exertion; Denies cough, dyspnea, productive cough or wheezing Gastrointestinal Gastrointestinal: Denies abdominal pain, constipation, diarrhea, nausea or vomiting Genitourinary Genitourinary: Denies burning urination, difficulty urinating, dysuria, hematuria, urinary frequency, urinary incontinence or urinary urgency Musculoskeletal Musculoskeletal: Denies back pain, joint pain or muscle weakness Integumentary Integumentary: Denies erythema, lesions, rash or wounds Neurologic Neurologic: Denies abnormal speech, confusion, dizziness, focal weakness, numbness, paresthesias, seizure-like activity or syncope Psychiatric Psychiatric: Denies anxiety or depression Hematologic/Lymphatic Hematologic/Lymphatic: Denies anemia, easy bleeding or easy bruising Allergic/Immunologic Allergic/Immunologic: Denies hives or asthma Vital Signs Vital Signs Vital Signs: 10/05/21 14:52 10/05/21 15:08 10/05/21 15:11 Temperature 97.9 F Temperature Source Temporal Pulse Rate 204 H 107 H Respiratory Rate 24 H 15 Respiratory Effort Normal Blood Pressure 158/117 H 126/96 H Blood Pressure Mean 130 106 Pulse Ox 92 98 Oxygen Delivery Method Room Air Nasal Cannula Oxygen Flow Rate (L/min) 2 Fraction of Inspired Oxygen (FIO2) 10/05/21 15:43 10/05/21 16:11 10/05/21 16:24 Temperature Temperature Source Pulse Rate 163 H 847 H 137 H Respiratory Rate 18 17 18 Respiratory Effort Blood Pressure 137/108 H 154/110 H 115/91 H Blood Pressure Mean 117 124 99 Pulse Ox 100 100 100 Oxygen Delivery Method Nasal Cannula Nasal Cannula Nasal Cannula Oxygen Flow Rate (L/min) 2 2 2 Fraction of Inspired Oxygen (FIO2) 10/05/21 17:10 Temperature 98.7 F Temperature Source Temporal Pulse Rate 83 Respiratory Rate 15 Respiratory Effort Blood Pressure 146/107 H Blood Pressure Mean 120 Pulse Ox 99 Oxygen Delivery Method Nasal Cannula Oxygen Flow Rate (L/min) 2 Fraction of Inspired Oxygen (FIO2) 2 Weight Weight: 214 lb 11.684 oz Body Mass Index (BMI) 38.0 Physical Exam Const alert, oriented x3 and no apparent distress Orientation / Consciousness: awake, oriented to person, oriented to place and oriented to time HEENT normocephalic and moist oral mucous membranes Eyes PERRL, EOMs intact bilaterally and conjunctivae normal Neck no lymphadenopathy Resp Auscultation: crackles and diminished lung sounds Cardio regular rate, regular rhythm and no murmurs Peripheral Pulses: pulses 2+ throughout GI normal to inspection, nondistended, normoactive bowel sounds, non-tender and non-distended Extremity normal to inspection General Extremity: edema bilateral Skin no rashes or lesions noted Lesions: no lesions Rashes: no rashes Trauma: no lacerations or abrasions Neuro CN's II-XII intact bilaterally, no focal motor deficits, no sensory deficits noted and deep tendon reflexes 2+ bilaterally Psych mental status grossly normal and affect normal Results Lab / Micro Data Result Diagrams: 10/05/21 15:00 10/05/21 15:00 Labs: Laboratory Results - last 24 hr 10/05/21 15:00: WBC 13.5 H, RBC 4.06 L, Hgb 11.6 L, Hct 36.1 L, MCV 88.9, MCH 28.6, MCHC 32.1, RDW Std Deviation 45.3 H, RDW Coeff of Mendez 14.1, Plt Count 565 H, MPV 10.0, Immature Gran % (Auto) 0.600, Neut % (Auto) 79.8 H, Lymph % (Auto) 10.5 L, [place] % (Auto) 8.6, Eos % (Auto) 0.3, Baso % (Auto) 0.2, Absolute Neuts (auto) 10.8 H, Absolute Lymphs (auto) 1.42, Nucleated RBC % 0 10/05/21 15:00: Sodium 135 L, Potassium 4.0, Chloride 104, Carbon Dioxide 22.0, Anion Gap 9, BUN 17, Creatinine 1.22 H, Estim Creat Clear Calc 33.97, Est GFR (MDRD) Af Amer 55 L, Est GFR (MDRD) Non-Af 46 L, BUN/Creatinine Ratio 13.9, Glucose 115 H, Calcium 9.2, Magnesium 2.0, Troponin I High Sens 8, TSH 2.96 10/05/21 15:00: B-Natriuretic Peptide 222.8 H ABG Data ABG results: ABG 10/05/21 15:14 Specimen Type TIBURCIO Sample Site R Radial VBG pH 7.40 VBG pO2 43 H VBG HCO3 22 VBG Total CO2 23 VBG O2 Sat (Calc) 79 H VBG Base Excess -3 L POC Mix VBG pCO2 Pt Tmp 34.6 L O2 Delivery Device Cannula Liter Flow 3.0 Rhythm Strip Rhythm Strip: A-fib Rate: 192 Ectopy: None Radiology Impression Chest X-Ray 10/05/21 16:18 IMPRESSION: Chronic interstitial changes, no superimposed acute pulmonary process Electronically Signed: Robert Quinones MD at 16:56 EDT , Assessment & Plan Assessment/Plan (1) Atrial fibrillation, new onset: PLAN: 1. New onset a.fib, chest pain- on cardizem gtt. Initial trop negative. TSH, mg normal. Obtain echo. Trend enzymes. Begin metoprolol. Therapeutic lovenox. 2. Rheumatoid arthritis-on hydroxychloroquine and methotrexate. 3. Hyperlipidemia- continue statin. 4. GERD- continue PPI. 5. Osteoporosis- On prolia. DVT prophylaxis- Lovenox sc This patient was seen by SHAE Carrera under the supervision of Dr. Banerjee. Time spent examining patient, reviewing data and subsequent management of care: 16 Minutes Documented by User: Dr. Fer Banerjee DO 10/05/21 19:13 HPI - General General Date of Admission: 10/05/21 [facility] Medical History (Updated 10/05/21 @ 17:37 by Sada Villegas) Change in skin mole DVT (deep venous thrombosis) Fibromyalgia syndrome GERD (gastroesophageal reflux disease) History of renal stone Hyperlipemia Irregular heart beat Lumbar spondylosis Osteopenia Osteoporosis Peptic ulcer with hemorrhage Rheumatoid arthritis Seasonal allergies URI (upper respiratory infection) Vitamin D insufficiency Home Medications coenzyme Q10 [Co Q-10] 50 mg PO DAILY 06/20/15 [History Last Taken 10/05/21] methotrexate sodium 20 mg PO TALAMANTES 04/06/21 [History Last Taken 10/03/21] amitriptyline 10 mg tablet 10 mg PO QHS 06/22/21 [History Last Taken 10/04/21] cetirizine 10 mg tablet 10 mg PO DAILY 06/22/21 [History Last Taken 10/05/21] hydroxychloroquine 200 mg tablet 200 mg PO BID 06/22/21 [History Last Taken 10/05/21] pantoprazole 40 mg tablet,delayed release 40 mg PO DAILY 06/22/21 [History Last Taken 10/05/21] vitamin E 200 unit capsule 200 unit PO DAILY 06/22/21 [History Last Taken 10/05/21] cholecalciferol (vitamin D3) 125 mcg (5,000 unit) capsule 10,000 unit PO DAILY cap 08/30/21 [History Last Taken 10/05/21] denosumab 60 mg/mL subcutaneous syringe 60 mg SUBCUT [id number] #1 ml 08/30/21 [Rx Last Taken 2 Months Ago ~08/07/21] rosuvastatin 10 mg tablet 10 mg PO DAILY #90 tab 08/30/21 [Rx Last Taken 10/04/21] Cbd Lotion 1 applic TRANSDERMAL BID PRN 10/05/21 [History Last Taken 10/04/21] calcium carbonate [Calcium 500] 500 mg PO DAILY 10/05/21 [History Last Taken 10/05/21] dextromethorphan-guaifenesin [Robitussin-DM] 10 ml PO Q4H PRN 10/05/21 [History Last Taken 10/04/21] folic acid 1 mg PO DAILY 10/05/21 [History Last Taken Unknown] Allergy/AdvReac Type Severity Reaction Status Date / Time celecoxib [From Celebrex] Allergy Anaphylaxis Verified 10/05/21 14:57 codeine AdvReac Vomiting Verified 10/05/21 14:57 indomethacin [From Indocin] AdvReac Vomiting Verified 10/05/21 14:57 indomethacin sodium AdvReac Vomiting Verified 10/05/21 14:57 [From Indocin] oxycodone HCl [From Percocet] AdvReac HALLUCINATI Verified 10/05/21 14:57 ONS Family History (Reviewed 10/05/21 @ 17:41 by Elsi Augustin VE[employer] EQUIPMENT CLEANER, [employer]MENT CLEANER-C) Father Cancer pancreatic Mother Heart disease Brother Cancer leukemia Surgical History H/O lithotripsy History of breast biopsy History of cholecystectomy History of colonoscopy History of knee surgery History of tonsillectomy History of tubal ligation Social History (Reviewed 10/05/21 @ 17:42 by Elsi Augustin VEHICLE AND EQUIPMENT CLEANER, VE[employer]IPMENT CLEANER-C) household members: none Smoking Status: Former smoker Tobacco: How many years used: 3 alcohol intake: never substance use type: does not use what type of physical activity do you participate in: walking frequency: daily Results Lab / Micro Data Result Diagrams: 10/05/21 15:00 10/05/21 15:00 Charges/Coding Addendum Addendum: Patient was seen and examined today independently of Elsi Augustin, she came to the emergency room today with complaints of chest discomfort and dyspnea with exertion. She also complained of palpitations. This started approximately a week ago. Patient denied any nausea or vomiting, she denies any history of coronary artery disease or cardiac arrhythmias. On examination she appeared in good health and spirits, she does not appear to be in any distress. Vital signs as documented. Skin warm and dry and without overt rashes. Neck without JVD, thyroid appears normal, trachea is midline, neck is supple. Lungs clear, normal air movement was noted. Heart exam notable for irregular rhythm, normal sounds and absence of murmurs, rubs or gallops. Abdomen unremarkable and without evidence of organomegaly, masses, or abdominal aortic enlargement, bowel sounds are present in all 4 quadrants, no abdominal tenderness was noted. Extremities nonedematous, no cyanosis was noted, no clubbing was noted. Neuro: Cranial nerves II through XII are grossly intact, no focal motor deficits were noted, sensation to light touch and pinprick is intact, motor exam 5/5 throughout. Psych: Patient is alert and oriented x3, she does not appear anxious or depressed, she does not appear agitated. Rhythm strip was obtained upon her admission to the emergency room, it showed atrial fibrillation with a rate of 192, EKG was obtained and it showed atrial fibrillation with a rate of 189. Patient had a chest x-ray done which showed chronic interstitial changes but no superimposed acute pulmonary process. Labs were obtained, CBC was remarkable for WBC of 13.5, hemoglobin was 11.6, chemistry profile was remarkable for creatinine of 1.22, patient's beta natruretic peptide was 222.8. TSH was obtained and it was normal at 2.96. Patient was given IV Cardizem and started on a Cardizem drip, her rate did respond but remained irregular. Impression: #1 new onset atrial fibrillation with RVR-patient will be admitted to PCU in stepdown, Cardizem drip will be continued and she will be placed on a beta-sharan. Echocardiogram will be obtained, cardiac enzymes will be cycled. Patient will be placed on full anticoagulation. #2 elevated creatinine-etiology unclear, patient's last creatinine in August 2021 was 0.95, labs will be monitored. #3 hyperlipidemia-patient is on a statin, this will be continued #4 elevated beta natruretic peptide-patient may have an element of congestive heart failure, patient was given 1 dose of IV Lasix, pulse ox will be monitored. Patient is currently on room air with a normal pulse ox. I have reviewed Elsi Augustin's history and physical including her medical assessment and plan of care and with the above additions endorse it. Total clinical time spent addressing the patient's needs, reviewing patient's medical record, and communicating with the patient's caregivers: 54 minutes Visit Charges Inpatient E&M: 06894 Init Hosp L3
[2021-10-05 17:46] LABS: Troponin-I HS 11 pg/mL (3.0-54.0)
--- NOTE | 2021-10-05 18:12 | ECHOD_ITS ---
Reason For Study: A. fib Procedure This was a 2D Doppler, Color Flow transthoracic echocardiogram. Exam performed portable in patient room. Left Ventricle Normal LV size. Mild concentric left ventricular hypertrophy. Moderate global left ventricular systolic dysfunction. There is moderate global hypokinesis of the left ventricle. Right Ventricle Normal RV size. Normal systolic function. Atria The left atrium is moderately enlarged. Normal right atrium. Mitral Valve There is mild mitral annular calcification. Mild (1+) eccentric mitral valve insufficiency. Tricuspid Valve Normal tricuspid valve. Mild (1+) tricuspid valve insufficiency. Pulmonary artery systolic pressure is 28 mmHg. Aortic Valve Trisinus/trileaflet aortic valve. Pulmonic Valve Normal pulmonic valve. Mild (1+) pulmonic valve insufficiency. Great Vessels Normal aortic root. The pulmonary artery is normal size. Normal inferior vena cava. Pericardium/Pleural Moderate pericardial effusion. There are no echocardiographic indications of cardiac tamponade. MMode/2D Measurements & Calculations LVIDd: 4.3 cm IVSd: 1.3 cm Ao root diam: 3.2 cm LVIDs: 2.9 cm LVPWd: 1.3 cm RVDd: 3.9 cm FS: 32.0 % LAV(MOD-bp): 71.2 ml LVAd ap4: 23.8 cm2 LVAd ap2: 25.6 cm2 LAV(MOD-bp) Indexed: 36.1 ml/m2 LVLd ap4: 7.4 cm LVLd ap2: 7.3 cm LAV(MOD-sp2): 44.7 ml EDV(MOD-sp4): 65.3 ml EDV(MOD-sp2): 75.6 ml LAV(MOD-sp4): 99.5 ml EDV(sp4-el): 65.3 ml EDV(sp2-el): 76.8 ml LVAs ap4: 16.0 cm2 LVAs ap2: 16.5 cm2 LVLs ap4: 6.5 cm LVLs ap2: 6.2 cm ESV(MOD-sp4): 35.3 ml ESV(MOD-sp2): 37.3 ml ESV(sp4-el): 33.4 ml ESV(sp2-el): 37.3 ml EF(MOD-sp4): 46.0 % EF(MOD-sp2): 50.8 % EF(sp4-el): 48.9 % SV(MOD-sp4): 30.0 ml SV(MOD-sp2): 38.4 ml SV(sp4-el): 31.9 ml LA dimension(2D): 4.7 cm LA A4 area: 28.3 cm2 RA A4 area: 17.7 cm2 Doppler Measurements & Calculations MV E max milady: 106.2 cm/sec Ao V2 max: 131.0 cm/sec LV V1 max: 100.6 cm/sec Ao max P.9 mmHg LV V1 max P.0 mmHg PA V2 max: 95.0 cm/sec TR max milady: 246.4 cm/sec TR max P.3 mmHg ECHO/Echo Complete Interpretation Summary Normal LV size. Moderate global left ventricular systolic dysfunction. There is moderate global hypokinesis of the left ventricle. The left atrium is moderately enlarged. Pulmonary artery systolic pressure is 28 mmHg. Mild concentric left ventricular hypertrophy. Moderate pericardial effusion. There are no echocardiographic indications of cardiac tamponade. Ordering Physician: Charli^Elsi^^^DAIRY CATTLE FARMER, DAIRY CATTLE FARMER-C Referring Physician: Anthony Alonzo Performed By: Leilani Nolasco RDCS
[2021-10-05] MEDS: Furosemide 20 MG/2 ML VIAL IV (18:43)
[2021-10-05] MEDS: 0.9% Saline Lock 10 ML Syringe IV (18:43)
[2021-10-05] MEDS: Metoprolol Tartrate 50 MG Tablet PO (19:58)
--- NOTE | 2021-10-05 21:47 | EKG12_ITS ---
Test Reason : SVT Blood Pressure : / mmHG Vent. Rate : 128 BPM Atrial Rate : 300 BPM P-R Int : 000 ms QRS Dur : 094 ms QT Int : 272 ms P-R-T Axes : 000 025 216 degrees QTc Int : 397 ms Atrial flutter with variable A-V block Low voltage QRS Nonspecific ST and T wave abnormality Abnormal ECG When compared with ECG of 05-OCT-2021 14:53, MANUAL COMPARISON REQUIRED, DATA IS UNCONFIRMED Confirmed by MERT NAVARRO, ACACIA ([id number]), editorial manager ANALI ARREDONDO ([id number]) on 10/07/2021 1:40:07 PM Referred By: ANIKET Confirmed By:ALBERT PAINTING MD
[2021-10-05 22:02] LABS: Troponin-I HS 12 pg/mL (3.0-54.0)
[2021-10-05] MEDS: Amitriptyline 10 MG Tablet PO (22:09)
[2021-10-05] MEDS: Atorvastatin Calcium 20 MG Tablet PO (22:09)
[2021-10-05] MEDS: Enoxaparin 100 MG/ML Syringe SC (22:09)
[2021-10-05] MEDS: Acetaminophen 325 MG Tablet 650 MG PO (22:15)
[2021-10-05] MEDS: dilTIAZem 30 MG Tablet PO (22:39)
[2021-10-06] VITALS (14 sets, daily range): BP systolic 91–117; BP diastolic 55–102; PULSE 67–160; RESP 16–18; TEMP 36.5–37.2; O2SAT 95–100
[2021-10-06] MEDS: dilTIAZem 30 MG Tablet PO ×3 (05:11→20:33)
--- NOTE | 2021-10-06 05:25 | EKG12_ITS ---
Test Reason : AFIB Blood Pressure : / mmHG Vent. Rate : 128 BPM Atrial Rate : 258 BPM P-R Int : 000 ms QRS Dur : 090 ms QT Int : 396 ms P-R-T Axes : 099 016 259 degrees QTc Int : 578 ms Atrial flutter with variable A-V block Low voltage QRS ST & T wave abnormality, consider anterior ischemia Abnormal ECG No previous ECGs available Confirmed by MERT NAVARRO, ACACIA ([id number]), editor index ANALI ARREDONDO ([id number]) on 10/07/2021 1:41:09 PM Referred By: Confirmed By:ALBERT PAINTING MD
[2021-10-06 05:38] LABS: Absolute Lymphocyte Count 1.45 X10^3/uL (0.83-4.51); Absolute Neutrophil Count 7.1 X10^3/uL (2.0-7.7); Basophil# 0.01 X10^3/uL; Basophil% 0.1 % (0-1); Eosinophil# 0.09 X10^3/uL; Eosinophils% 0.9 % (0-5); Hematocrit 29.8 % (37-47); Hemoglobin 9.9 g/dL (12.0-15.0); Lymphocyte # 1.45 X10^3/ul (0.83-4.51); Lymphocyte % 14.7 % (19-41); Mean Corp Hgb Conc 33.2 g/dL (32-36); Mean Corpuscular Hgb 29.6 pg (27.0-32.0); Mean Corpuscular Volume 89.2 fL (81-99); Mean Platelet Vol. 10.2 fl (6.2-12.0); Monocyte# 1.11 X10^3/uL; Monocyte% 11.3 % (0-10); NRBC Flagged by Analyzer 0 % (0-5); Neutrophil # 7.12 X10^3/uL (2.7-7.7); Neutrophil % 72.4 % (47-70); Platelet Count 418 K/mm3 (150-450); RBC Distribution Width SD 45.2 fl (35.1-43.9); Red Blood Count 3.34 M/mm3 (4.2-5.4); White Blood Count 9.8 K/mm3 (4.4-11.0)
[2021-10-06 06:03] LABS: Anion Gap 6 (5-15); BUN 17 mg/dL (7-18); Chloride 107 mmol/L (98-107); Cholesterol 102 mg/dL (200); EST Glomerular Filtration Rate 65 mL/min (>60); Est Glom Filt Rate - Afr Amer 79 mL/min (>60); Estimated Creatinine Clearance 46.05 ml/min; Glucose 116 mg/dL (74-106); High Density Lipoprotein 47 mg/dL; Potassium 3.2 mmol/L (3.5-5.1); Sodium Level 137 mmol/L (136-145); Triglycerides 67 mg/dL; Very Low Density Lipoprotein 13 mg/dL (5-40)
[2021-10-06] MEDS: Potassium Chloride Oral Tablet 20 MEQ 40 MEQ PO (06:55)
[2021-10-06] MEDS: Pantoprazole Sodium 40 MG Tablet PO (08:42)
[2021-10-06] MEDS: Metoprolol Tartrate 50 MG Tablet PO ×2 (08:42→20:33)
[2021-10-06] MEDS: Enoxaparin 100 MG/ML Syringe SC ×2 (08:42→20:33)
[2021-10-06] MEDS: Acetaminophen 325 MG Tablet 650 MG PO ×2 (08:43→17:06)
[2021-10-06] MEDS: Loratadine 10 MG Tablet PO (08:43)
[2021-10-06] MEDS: Hydroxychloroquine 200 MG Tablet PO ×2 (08:43→17:06)
[2021-10-06] MEDS: Calcium (Elemental) 500 MG Tablet PO (08:43)
[2021-10-06] MEDS: Folic Acid 1 MG Tablet PO (08:43)
--- NOTE | 2021-10-06 11:55 | CHAPLAIN ---
Type of Pastoral Visit _x__ Initial Visit ___ Follow-up Visit ___ On-call Visit ___ General Patient Visit ___ Spiritual Assessment ___ Family Conference ___ Bereavement ___ Rapid Response ___ Code Blue ___ Other (describe below) Pastoral Care Referral From _x__ Patient ___ Family ___ Nurse ___ Physician ___ Electrical/Instrument Technician ___ Baggageman ___ Other (describe below) Sacrament/Intervention _x__ Active listening ___ Anointing ___ Judaism ___ Bereavement ___ Communion ___ Clara exploration ___ ___ Life review _x__ Prayer ___ Reconciliation ___ Sacrament of Sick ___ Supportive presence ___ Wedding ___ Other (describe below) Pastoral Comments patient requested prayer and a call to [facility] to notify them of her admission to hospital; both completed
--- NOTE | 2021-10-06 12:20 | PCM.PN.HOSP ---
Subjective Subjective Patient seen and examined. Reports shortness of breath is improved however continues to have shortness of breath with lying flat. Denies chest pain currently. Heart rate continues to fluctuate. Objective Data Objective Data Vital Signs: Vital Signs Temp Pulse Resp BP Pulse Ox 98.5 F 129 H 16 111/73 96 10/06/21 08:40 10/06/21 08:42 10/06/21 08:40 10/06/21 08:40 10/06/21 08:40 Oxygen Flow Rate (L/min) 2 Oxygen Delivery Method Room Air Weight: 210 lb 3.2 oz Body Mass Index (BMI) 37.2 Intake & Output: Intake and Output for Last 24 Hours 10/04/21 10/05/21 10/06/21 23:59 23:59 23:59 Intake Total 81.08 / 201.08 700 / 700 Output Total 1750 / 1750 Balance 81.08 / -598.92 -1050 / -1050 Lab / Micro Data Result Diagrams: 10/06/21 04:48 10/06/21 04:48 Labs: Laboratory Results - last 24 hr 10/05/21 15:00: WBC 13.5 H, RBC 4.06 L, Hgb 11.6 L, Hct 36.1 L, MCV 88.9, MCH 28.6, MCHC 32.1, RDW Std Deviation 45.3 H, RDW Coeff of Mendez 14.1, Plt Count 565 H, MPV 10.0, Immature Gran % (Auto) 0.600, Neut % (Auto) 79.8 H, Lymph % (Auto) 10.5 L, [place] % (Auto) 8.6, Eos % (Auto) 0.3, Baso % (Auto) 0.2, Absolute Neuts (auto) 10.8 H, Absolute Lymphs (auto) 1.42, Nucleated RBC % 0 10/05/21 15:00: Sodium 135 L, Potassium 4.0, Chloride 104, Carbon Dioxide 22.0, Anion Gap 9, BUN 17, Creatinine 1.22 H, Estim Creat Clear Calc 33.97, Est GFR (MDRD) Af Amer 55 L, Est GFR (MDRD) Non-Af 46 L, BUN/Creatinine Ratio 13.9, Glucose 115 H, Calcium 9.2, Magnesium 2.0, Troponin I High Sens 8, TSH 2.96 10/05/21 15:00: B-Natriuretic Peptide 222.8 H 10/05/21 17:00: Troponin I High Sens 11 10/05/21 21:23: Troponin I High Sens 12 10/06/21 04:48: WBC 9.8, RBC 3.34 L, Hgb 9.9 L, Hct 29.8 L, MCV 89.2, MCH 29.6, MCHC 33.2, RDW Std Deviation 45.2 H, RDW Coeff of Mendez 14.0, Plt Count 418, MPV 10.2, Immature Gran % (Auto) 0.600, Neut % (Auto) 72.4 H, Lymph % (Auto) 14.7 L, [place] % (Auto) 11.3 H, Eos % (Auto) 0.9, Baso % (Auto) 0.1, Absolute Neuts (auto) 7.1, Absolute Lymphs (auto) 1.45, Nucleated RBC % 0 10/06/21 04:48: Sodium 137, Potassium 3.2 L, Chloride 107, Carbon Dioxide 24.0, Anion Gap 6, BUN 17, Creatinine 0.90, Estim Creat Clear Calc 46.05, Est GFR (MDRD) Af Amer 79, Est GFR (MDRD) Non-Af 65, BUN/Creatinine Ratio 19.0, Glucose 116 H, Calcium 8.0 L, Triglycerides 67, Cholesterol 102, LDL Cholesterol 42, VLDL Cholesterol 13, HDL Cholesterol 47 ABG Data ABG results: ABG 10/05/21 15:14 Specimen Type TIBURCIO Sample Site R Radial VBG pH 7.40 VBG pO2 43 H VBG HCO3 22 VBG Total CO2 23 VBG O2 Sat (Calc) 79 H VBG Base Excess -3 L POC Mix VBG pCO2 Pt Tmp 34.6 L O2 Delivery Device Cannula Liter Flow 3.0 Radiography Diagnostic Testing: Radiology Impression Chest X-Ray 10/05/21 16:18 IMPRESSION: Chronic interstitial changes, no superimposed acute pulmonary process Electronically Signed: Robert Quinones MD at 16:56 EDT , Echocardiogram 10/05/21 18:12 Interpretation Summary Normal LV size. Moderate global left ventricular systolic dysfunction. There is moderate global hypokinesis of the left ventricle. The left atrium is moderately enlarged. Pulmonary artery systolic pressure is 28 mmHg. Mild concentric left ventricular hypertrophy. Moderate pericardial effusion. There are no echocardiographic indications of cardiac tamponade. Ordering Physician: Jerome^^^CLIENT SUPPORT CONSULTANT, CLIENT SUPPORT CONSULTANT-C Referring Physician: Anthony Alonzo Performed By: Leilani Nolasco RDCS Rhythm Strip Rhythm Strip: A-fib Rate: 192 Ectopy: None Physical Exam Const alert, oriented x3 and no apparent distress Orientation / Consciousness: awake, oriented to person, oriented to place and oriented to time HEENT normocephalic and moist oral mucous membranes Eyes PERRL, EOMs intact bilaterally and conjunctivae normal Neck no lymphadenopathy Resp clear to auscultation bilaterally Auscultation: diminished lung sounds Cardio Cardio Narrative: Atrial fibrillation, tachycardic Peripheral Pulses: pulses 2+ throughout GI normal to inspection, nondistended, normoactive bowel sounds, non-tender and non-distended Extremity normal to inspection Skin no rashes or lesions noted Lesions: no lesions Rashes: no rashes Trauma: no lacerations or abrasions Neuro CN's II-XII intact bilaterally, no focal motor deficits, no sensory deficits noted and deep tendon reflexes 2+ bilaterally Psych mental status grossly normal and affect normal Assessment & Plan Assessment/Plan (1) Atrial fibrillation, new onset: PLAN: 1. New onset a.fib, chest pain- Trop negative. TSH, mg normal. Echocardiogram demonstrates moderate LV systolic dysfunction, moderate global hypokinesis of the left ventricle, moderately enlarged left atrium, pulmonary artery systolic pressure 28 mmHg, moderate pericardial effusion. Continue therapeutic Lovenox. On oral metoprolol and oral Cardizem. Heart rate currently controlled. Cardiology consulted. 2. Acute heart failure with reduced ejection fraction-Echo per above. BNP 222. Chest x-ray personally reviewed and appears consistent with mild failure. IV Lasix x2. Strict I&O. Daily weight. 3. Rheumatoid arthritis-on hydroxychloroquine and methotrexate. 4. Hyperlipidemia- continue statin. 5. GERD- continue PPI. 6. Osteoporosis- On prolia. DVT prophylaxis- Lovenox sc This patient was seen by SHAE Carrera under the supervision of Dr. Dexter. Time spent examining patient, reviewing data and subsequent management of care: 13 Minutes
[2021-10-06] MEDS: 0.9% Saline Lock 10 ML Syringe IV ×2 (13:08→14:26)
[2021-10-06] MEDS: Furosemide 40 MG/4 ML Vial IV (13:08)
[2021-10-06] MEDS: Metoprolol Tartrate 5 MG/5 ML Vial IV (14:25)
--- NOTE | 2021-10-06 14:40 | EKG12_ITS ---
Test Reason : AFIB CONVERSION Blood Pressure : / mmHG Vent. Rate : 078 BPM Atrial Rate : 078 BPM P-R Int : 154 ms QRS Dur : 090 ms QT Int : 414 ms P-R-T Axes : 031 023 025 degrees QTc Int : 471 ms Sinus rhythm with frequent Premature ventricular complexes Otherwise normal ECG No previous ECGs available Confirmed by MERT NAVARRO, ACACIA ([id number]), metropolitan editor ANALI ARREDONDO ([id number]) on 10/07/2021 1:47:14 PM Referred By: Confirmed By:ALBERT PAINTING MD
--- NOTE | 2021-10-06 15:11 | PCM.DC.SUM ---
Documented by User: Elsi Augustin NP, PREVENTIVE MEDICINE SPECIALIST-C 10/06/21 15:27 Providers Date of Admission: 10/05/21 Date of Discharge: 10/06/21 Primary Care Physician: Dr. Anthony Alonzo MD Consultations 10/06/21 12:19 Consult: Cardiology Routine Consulting Provider: Abdoul May Reason for Consult: a.fib, reduced EF EMERGENT Consult: No MD Notified: Yes Date Notified: 10/06/21 Time Notified: 12:20 Method of Notification: Text Reason For Visit: NEW ONSET A FIB Diagnosis Discharge Diagnosis (1) Atrial fibrillation, new onset: Status: Acute Code(s): I48.91 - Unspecified atrial fibrillation Medications at Discharge Home Medications coenzyme Q10 [Co Q-10] 50 mg PO DAILY 06/20/15 methotrexate sodium 20 mg PO TALAMANTES 04/06/21 amitriptyline 10 mg tablet 10 mg PO QHS 06/22/21 cetirizine 10 mg tablet 10 mg PO DAILY 06/22/21 hydroxychloroquine 200 mg tablet 200 mg PO BID 06/22/21 pantoprazole 40 mg tablet,delayed release 40 mg PO DAILY 06/22/21 vitamin E 200 unit capsule 200 unit PO DAILY 06/22/21 cholecalciferol (vitamin D3) 125 mcg (5,000 unit) capsule 10,000 unit PO DAILY cap 08/30/21 denosumab 60 mg/mL subcutaneous syringe 60 mg SUBCUT [id number] #1 ml 08/30/21 rosuvastatin 10 mg tablet 10 mg PO DAILY #90 tab 08/30/21 Cbd Lotion 1 applic TRANSDERMAL BID PRN 10/05/21 calcium carbonate [Calcium 500] 500 mg PO DAILY 10/05/21 dextromethorphan-guaifenesin [Robitussin-DM] 10 ml PO Q4H PRN 10/05/21 folic acid 1 mg PO DAILY 10/05/21 Hospital Course Operations None Procedures 2-D Echocardiogram Summary of Care Provided Hospital Course: Patient is a 75-year-old female admitted 10/05/2021 due to shortness of breath and chest pressure. 1. New onset a.fib, chest pain- Trop negative. TSH, mg normal. Echocardiogram demonstrates moderate LV systolic dysfunction, moderate global hypokinesis of the left ventricle, moderately enlarged left atrium, pulmonary artery systolic pressure 28 mmHg, moderate pericardial effusion. Continue therapeutic Lovenox. On oral metoprolol and oral Cardizem. Intermittently sinus rhythm with episodes of A. fib/a flutter with RVR. Discussed with cardiology. Recommend transfer to tertiary facility for moderate pericardial effusion to evaluate for pericardial procedure/window. Accepted at [facility] for further evaluation. 2. Acute heart failure with reduced ejection fraction-Echo per above. BNP 222. Chest x-ray personally reviewed and appears consistent with mild failure. IV Lasix x2. Strict I&O. Daily weight. 3. Rheumatoid arthritis-on hydroxychloroquine and methotrexate. 4. Hyperlipidemia- continue statin. 5. GERD- continue PPI. 6. Osteoporosis- On prolia. Physical Exam Const alert, oriented x3 and no apparent distress Orientation / Consciousness: awake, oriented to person, oriented to place and oriented to time HEENT normocephalic and moist oral mucous membranes Eyes PERRL, EOMs intact bilaterally and conjunctivae normal Neck no lymphadenopathy Resp clear to auscultation bilaterally Auscultation: diminished lung sounds Cardio Cardio Narrative: Sinus rhythm with intermittent atrial fibrillation/atrial flutter Peripheral Pulses: pulses 2+ throughout GI normal to inspection, nondistended, normoactive bowel sounds, non-tender and non-distended Extremity normal to inspection Skin no rashes or lesions noted Lesions: no lesions Rashes: no rashes Trauma: no lacerations or abrasions Neuro CN's II-XII intact bilaterally, no focal motor deficits, no sensory deficits noted and deep tendon reflexes 2+ bilaterally Psych mental status grossly normal and affect normal Patient seen and examined prior to discharge. Physical assessment as noted above. Transferred to [facility] for further cardiac evaluation. This patient was seen by SHAE Carrera under the supervision of Dr. Dexter. Time spent examining patient, reviewing data and subsequent management of care: 22 Minutes Weight / BMI Weight Weight: 210 lb 3.2 oz Body Mass Index (BMI) 37.2 ABG / Lab / Microbiology Data Result Diagrams: 10/06/21 04:48 10/06/21 04:48 Laboratory: Laboratory Results - last 24 hr 10/05/21 15:00: WBC 13.5 H, RBC 4.06 L, Hgb 11.6 L, Hct 36.1 L, MCV 88.9, MCH 28.6, MCHC 32.1, RDW Std Deviation 45.3 H, RDW Coeff of Mendez 14.1, Plt Count 565 H, MPV 10.0, Immature Gran % (Auto) 0.600, Neut % (Auto) 79.8 H, Lymph % (Auto) 10.5 L, [place] % (Auto) 8.6, Eos % (Auto) 0.3, Baso % (Auto) 0.2, Absolute Neuts (auto) 10.8 H, Absolute Lymphs (auto) 1.42, Nucleated RBC % 0 10/05/21 15:00: Sodium 135 L, Potassium 4.0, Chloride 104, Carbon Dioxide 22.0, Anion Gap 9, BUN 17, Creatinine 1.22 H, Estim Creat Clear Calc 33.97, Est GFR (MDRD) Af Amer 55 L, Est GFR (MDRD) Non-Af 46 L, BUN/Creatinine Ratio 13.9, Glucose 115 H, Calcium 9.2, Magnesium 2.0, Troponin I High Sens 8, TSH 2.96 10/05/21 15:00: B-Natriuretic Peptide 222.8 H 10/05/21 17:00: Troponin I High Sens 11 10/05/21 21:23: Troponin I High Sens 12 10/06/21 04:48: WBC 9.8, RBC 3.34 L, Hgb 9.9 L, Hct 29.8 L, MCV 89.2, MCH 29.6, MCHC 33.2, RDW Std Deviation 45.2 H, RDW Coeff of Mendez 14.0, Plt Count 418, MPV 10.2, Immature Gran % (Auto) 0.600, Neut % (Auto) 72.4 H, Lymph % (Auto) 14.7 L, [place] % (Auto) 11.3 H, Eos % (Auto) 0.9, Baso % (Auto) 0.1, Absolute Neuts (auto) 7.1, Absolute Lymphs (auto) 1.45, Nucleated RBC % 0 10/06/21 04:48: Sodium 137, Potassium 3.2 L, Chloride 107, Carbon Dioxide 24.0, Anion Gap 6, BUN 17, Creatinine 0.90, Estim Creat Clear Calc 46.05, Est GFR (MDRD) Af Amer 79, Est GFR (MDRD) Non-Af 65, BUN/Creatinine Ratio 19.0, Glucose 116 H, Calcium 8.0 L, Triglycerides 67, Cholesterol 102, LDL Cholesterol 42, VLDL Cholesterol 13, HDL Cholesterol 47 ABG: ABG 10/05/21 15:14 Specimen Type TIBURCIO Sample Site R Radial VBG pH 7.40 VBG pO2 43 H VBG HCO3 22 VBG Total CO2 23 VBG O2 Sat (Calc) 79 H VBG Base Excess -3 L POC Mix VBG pCO2 Pt Tmp 34.6 L O2 Delivery Device Cannula Liter Flow 3.0 Radiography Diagnostic Testing: Radiology Impression Chest X-Ray 10/05/21 16:18 IMPRESSION: Chronic interstitial changes, no superimposed acute pulmonary process Electronically Signed: Robert Quinones MD at 16:56 EDT , Echocardiogram 10/05/21 18:12 Interpretation Summary Normal LV size. Moderate global left ventricular systolic dysfunction. There is moderate global hypokinesis of the left ventricle. The left atrium is moderately enlarged. Pulmonary artery systolic pressure is 28 mmHg. Mild concentric left ventricular hypertrophy. Moderate pericardial effusion. There are no echocardiographic indications of cardiac tamponade. Ordering Physician: Charli^Elsi^^^PREVENTIVE MEDICINE SPECIALIST, PREVENTIVE MEDICINE SPECIALIST-C Referring Physician: Anthony Alonzo Performed By: Leilani Nolasco RDCS Meaningful Use Info Meaningful Use Diagnoses (Choose all that apply): None applicable Discharge Plan Admission Admit Date/Time: 10/05/21 17:56 Attending Provider: Julia Dexter Primary Care Provider: Anthony Alonzo Consulting Providers: Abdoul May Discharge Orders/Prescriptions Prescriptions: No Action cetirizine [Zyrtec] 10 mg tablet 10 mg PO DAILY RF: 0 vitamin E 200 unit capsule 200 unit PO DAILY RF: 0 hydroxychloroquine [Plaquenil] 200 mg tablet 200 mg PO BID RF: 0 amitriptyline 10 mg tablet 10 mg PO QHS RF: 0 pantoprazole 40 mg tablet,delayed release (DR/EC) 40 mg PO DAILY RF: 0 rosuvastatin [Crestor] 10 mg tablet 10 mg PO DAILY Qty: 90 RF: 3 Prolia 60 mg/mL syringe 60 mg subcut [id number] Qty: 1 RF: 2 cholecalciferol (vitamin D3) 125 mcg (5,000 unit) capsule 10,000 unit PO DAILY RF: 0 coenzyme Q10 [Co Q-10] 50 MG capsule 50 mg PO DAILY RF: 0 methotrexate sodium 2.5 mg tablet 20 mg PO TALAMANTES RF: 0 dextromethorphan-guaifenesin [Robitussin-DM] 10-100 mg/5 mL Syrup 10 ml PO Q4H PRN (Reason: Congestion) RF: 0 calcium carbonate [Calcium 500] 500 mg calcium (1,250 mg) Tablet 500 mg PO DAILY RF: 0 folic acid 1 mg Tablet 1 mg PO DAILY RF: 0 Cbd Lotion 1 applic transdermal BID PRN (Reason: ARTHRITIS) RF: 0 Referrals / Follow Up: Anthony Alonzo MD [Primary Care Provider] - Disposition Disposition (needs filled in before D/C Order can be placed): [facility] Documented by User: Dr. Julia Dexter MD 10/06/21 16:15 Providers Date of Admission: 10/05/21 Reason For Visit: NEW ONSET A FIB Medications at Discharge Home Medications coenzyme Q10 [Co Q-10] 50 mg PO DAILY 06/20/15 methotrexate sodium 20 mg PO TALAMANTES 04/06/21 amitriptyline 10 mg tablet 10 mg PO QHS 06/22/21 cetirizine 10 mg tablet 10 mg PO DAILY 06/22/21 hydroxychloroquine 200 mg tablet 200 mg PO BID 06/22/21 pantoprazole 40 mg tablet,delayed release 40 mg PO DAILY 06/22/21 vitamin E 200 unit capsule 200 unit PO DAILY 06/22/21 cholecalciferol (vitamin D3) 125 mcg (5,000 unit) capsule 10,000 unit PO DAILY cap 08/30/21 denosumab 60 mg/mL subcutaneous syringe 60 mg SUBCUT [id number] #1 ml 08/30/21 rosuvastatin 10 mg tablet 10 mg PO DAILY #90 tab 08/30/21 Cbd Lotion 1 applic TRANSDERMAL BID PRN 10/05/21 calcium carbonate [Calcium 500] 500 mg PO DAILY 10/05/21 dextromethorphan-guaifenesin [Robitussin-DM] 10 ml PO Q4H PRN 10/05/21 folic acid 1 mg PO DAILY 10/05/21 ABG / Lab / Microbiology Data Result Diagrams: 10/06/21 04:48 10/06/21 04:48 Discharge Plan Admission Admit Date/Time: 10/05/21 17:56 Attending Provider: Julia Dexter Primary Care Provider: Anthony Alonzo Consulting Providers: Abdoul May Discharge Orders/Prescriptions Prescriptions: No Action cetirizine [Zyrtec] 10 mg tablet 10 mg PO DAILY RF: 0 vitamin E 200 unit capsule 200 unit PO DAILY RF: 0 hydroxychloroquine [Plaquenil] 200 mg tablet 200 mg PO BID RF: 0 amitriptyline 10 mg tablet 10 mg PO QHS RF: 0 pantoprazole 40 mg tablet,delayed release (DR/EC) 40 mg PO DAILY RF: 0 rosuvastatin [Crestor] 10 mg tablet 10 mg PO DAILY Qty: 90 RF: 3 Prolia 60 mg/mL syringe 60 mg subcut [id number] Qty: 1 RF: 2 cholecalciferol (vitamin D3) 125 mcg (5,000 unit) capsule 10,000 unit PO DAILY RF: 0 coenzyme Q10 [Co Q-10] 50 MG capsule 50 mg PO DAILY RF: 0 methotrexate sodium 2.5 mg tablet 20 mg PO TALAMANTES RF: 0 dextromethorphan-guaifenesin [Robitussin-DM] 10-100 mg/5 mL Syrup 10 ml PO Q4H PRN (Reason: Congestion) RF: 0 calcium carbonate [Calcium 500] 500 mg calcium (1,250 mg) Tablet 500 mg PO DAILY RF: 0 folic acid 1 mg Tablet 1 mg PO DAILY RF: 0 Cbd Lotion 1 applic transdermal BID PRN (Reason: ARTHRITIS) RF: 0 Referrals / Follow Up: Anthony Alonzo MD [Primary Care Provider] - Disposition Disposition (needs filled in before D/C Order can be placed): Acute Care Hospital Charges/Coding Addendum Addendum: This patient was seen in conjunction with Elsi Augustin NP. I have independently interviewed and examined the patient and reviewed pertinent historical, laboratory, and other data. I have reviewed her note and concur with her documentation 75-year-old female with past medical history of rheumatoid arthritis, history of DVT will continue progressive chest discomfort and shortness of breath that started about a week ago and resolved. Patient said a chest pressure radiated across her upper back to her shoulder blades. It is worse when she lies flat. She had associated shortness of breath. This is worse with exertion. She admitted to leg swelling. Denied any dizziness or palpitations. In the ED, patient was found to have A. fib with RVR. She received Cardizem bolus and drip. She was found to have mild anemia. Her BNPep is 222.8. Patient was continued on Cardizem drip. 2D echo showed moderate global left ventricular systolic dysfunction, moderate global hypokinesis of the left ventricle, moderately enlarged left atrium, moderate pericardial effusion. Discussed with cardiology, recommended that patient be transferred to tertiary facility for treatment for moderate pericardial effusion Patient was seen and examined. She admits to feeling a little better. Still has shortness of breath worse when she lies down. She was accepted at [facility]. Physical Exam: Gen: Comfortable, not pale, not jaundiced CVS:HS I +II, regular, no murmurs RESP: Diminished at lung bases GI: BS present and normal, soft, nontender, no palpable organs EXT: Bilateral leg edema, trace Time spent coordinating patient's care, discussing with cardiology and nursin minutes Visit Charges Inpatient E&M: 06162 Disch Hosp
[2021-10-06 18:55] LABS: Bacteria 0 SEEN /hpf (None Seen); Mucous, Urine 0 SEEN /hpf (<or=2+); Red Blood Cells-Urine 0 SEEN /hpf (0-5); Squamous Epithelial Cells - UA 0 SEEN /hpf (5-10); White Blood Cells 0 SEEN /hpf (0-5)
[2021-10-06 19:06] LABS: Color, Urine Yellow (Yellow); Glucose, Dipstick Normal (Normal); Ketone-Dipstick Negative (Negative); Leukocyte Esterase-Dipstick 25 /ul (Negative); Nitrite-Dipstick Negative (Negative); Occult Blood-Urine Negative /ul (Negative); Protein-Dipstick Negative (Negative); Specific Gravity, Urine 1.015 (1.002-1.030); Urine Bilirubin Dipstick Negative (Negative); Urine Clarity Clear (Clear); Urine Urobilinogen Normal (Normal)
[2021-10-06] MEDS: Amitriptyline 10 MG Tablet PO (20:32)
[2021-10-06] MEDS: Atorvastatin Calcium 20 MG Tablet PO (20:33)
--- NOTE | 2021-10-06 21:43 | NURSING ---
Report called to [facility] RN Ezequiel at [phone]. Patient notified family of transfer.
--- NOTE | 2021-10-06 23:56 | NURSING ---
Pt left via stretcher with physicians ambulance with all belongings. Pt had notified family of transfer earlier in shift.
== END 2021-10-06 23:56 | disposition short-term general hospital (02) | DRG 308 ==
LOC: ED 17:11 → PCU 18:13
PROVIDERS: Nurse Practitioner Family; Admitting Provider Internal Medicine; Emergency Provider Emergency Medicine; PCP Internal Medicine; Visit Provider Internal Medicine
DX: I48.91 Unspecified atrial fibrillation (principal); I50.21 Acute systolic (congestive) heart failure; I31.3 Pericardial effusion (noninflammatory); M06.9 Rheumatoid arthritis, unspecified; E78.00 Pure hypercholesterolemia, unspecified; K21.9 Gastro-esophageal reflux disease without esophagitis; M79.7 Fibromyalgia; M81.0 Age-related osteoporosis without current pathological fracture; E66.9 Obesity, unspecified; Z68.38 Body mass index [BMI] 38.0-38.9, adult; Z79.1 Long term (current) use of non-steroidal anti-inflammatories (NSAID); Z79.899 Other long term (current) drug therapy; Z86.718 Personal history of other venous thrombosis and embolism; Z87.891 Personal history of nicotine dependence
CPT/HCPCS: 36415; 71045; 80048; 80061; 81001; 82274; 82803; 83735; 83880; 84443; 84484; 85025; 87086; 87088; 93005; 93306; 99285; A4216; J1940

== ENCOUNTER 2021-10-19 10:26 | Outpatient (CLI) | payer MEDICARE, OTHER, SELFPAY ==
[2021-10-19 12:16] LABS: Absolute Lymphocyte Count 1.59 X10^3/uL (0.83-4.51); Absolute Neutrophil Count 9.2 X10^3/uL (2.0-7.7); Basophil# 0.02 X10^3/uL; Basophil% 0.2 % (0-1); Eosinophil# 0.04 X10^3/uL; Eosinophils% 0.3 % (0-5); Hematocrit 37.5 % (37-47); Hemoglobin 12.1 g/dL (12.0-15.0); Lymphocyte # 1.59 X10^3/ul (0.83-4.51); Lymphocyte % 13.3 % (19-41); Mean Corp Hgb Conc 32.3 g/dL (32-36); Mean Corpuscular Hgb 28.5 pg (27.0-32.0); Mean Corpuscular Volume 88.2 fL (81-99); Mean Platelet Vol. 10.3 fl (6.2-12.0); Monocyte# 1.08 X10^3/uL; NRBC Flagged by Analyzer 0 % (0-5); Neutrophil # 9.17 X10^3/uL (2.7-7.7); Neutrophil % 76.4 % (47-70); Platelet Count 458 K/mm3 (150-450); RBC Distribution Width CV 14.3 % (11.6-14.6); RBC Distribution Width SD 45.2 fl (35.1-43.9); Red Blood Count 4.25 M/mm3 (4.2-5.4)
[2021-10-19 13:10] LABS: ALB/GLOB Ratio 0.6 RATIO (0.9-2.4); AST(SGOT) 80 U/L (15-37); Alanine Aminotransfer ALT/SGPT 73 U/L (13-56); Albumin, Serum 2.8 g/dL (3.2-5.0); Alkaline Phosphatase 446 U/L (45-117); Anion Gap 9 (5-15); BUN 14 mg/dL (7-18); BUN/Creat Ratio 12.6 RATIO (10-20); Calcium,Total 8.9 mg/dL (8.5-10.1); Chloride 106 mmol/L (98-107); Creatinine, Serum 1.11 mg/dL (0.55-1.02); EST Glomerular Filtration Rate 51 mL/min (>60); Est Glom Filt Rate - Afr Amer 62 mL/min (>60); Globulin 4.7 g/dL (2.2-4.2); Glucose 106 mg/dL (74-106); Potassium 3.9 mmol/L (3.5-5.1); Protein, Total 7.5 g/dL (6.4-8.2); Sodium Level 136 mmol/L (136-145)
== END 2021-10-19 23:59 | disposition home or self-care (01) ==
LOC: BIMLAB 10:27
PROVIDERS: PCP Internal Medicine; Referring Provider Internal Medicine; Visit Provider Internal Medicine
DX: I48.91 Unspecified atrial fibrillation (principal); I31.3 Pericardial effusion (noninflammatory)
CPT/HCPCS: 36415; 80053; 85025

== ENCOUNTER 2021-10-29 10:38 | Outpatient (CLI) | payer MEDICARE, OTHER, SELFPAY ==
--- NOTE | 2021-10-29 13:24 | PFT ---
INTRODUCTION: The patient is a 76-year-old female that presents for pulmonary function studies secondary to a diagnosis of shortness of breath. Respiratory therapy reported good patient effort. Bronchodilators were used during testing. INTERPRETATION: Forced expiration spirometry demonstrates no evidence of a large airways obstructive ventilatory defect. There was no significant response to aerosolized bronchodilators. Spirograms are of good quality and plateau normally. Body plethysmography was performed and revealed a decreased TLC to 3.56 L, 81% of predicted, indicative of a mild restrictive ventilatory impairment. Diffusing capacity by single breath CO is reduced to 61% of predicted. IMPRESSION: Mild restrictive ventilatory impairment with symmetric reduction in diffusing capacity.
== END 2021-10-29 23:59 | disposition home or self-care (01) ==
LOC: PSN 10:39
PROVIDERS: PCP Internal Medicine; Referring Provider Internal Medicine; Visit Provider Internal Medicine
DX: R06.02 Shortness of breath (principal); R05.9 Cough, unspecified
CPT/HCPCS: 94060; 94726; 94729

== ENCOUNTER 2021-11-03 14:50 | Outpatient (CLI) | payer MEDICARE, OTHER, SELFPAY ==
[2021-11-03 17:03] LABS: ALB/GLOB Ratio 0.7 RATIO (0.9-2.4); AST(SGOT) 17 U/L (15-37); Alanine Aminotransfer ALT/SGPT 22 U/L (13-56); Albumin, Serum 3.2 g/dL (3.2-5.0); Alkaline Phosphatase 143 U/L (45-117); Anion Gap 4 (5-15); BUN 11 mg/dL (7-18); BUN/Creat Ratio 10.1 RATIO (10-20); Calcium,Total 8.6 mg/dL (8.5-10.1); Chloride 106 mmol/L (98-107); Creatinine, Serum 1.09 mg/dL (0.55-1.02); EST Glomerular Filtration Rate 52 mL/min (>60); Est Glom Filt Rate - Afr Amer 63 mL/min (>60); Globulin 4.3 g/dL (2.2-4.2); Glucose 105 mg/dL (74-106); Potassium 4.7 mmol/L (3.5-5.1); Protein, Total 7.5 g/dL (6.4-8.2); Sodium Level 138 mmol/L (136-145)
== END 2021-11-03 23:59 | disposition home or self-care (01) ==
LOC: BIMLAB 14:51
PROVIDERS: PCP Internal Medicine; Referring Provider Internal Medicine; Visit Provider Internal Medicine
DX: R74.8 Abnormal levels of other serum enzymes (principal)
CPT/HCPCS: 36415; 80053

== ENCOUNTER → 2021-11-16 | Outpatient (CLI) | payer MEDICARE, OTHER, SELFPAY ==
--- NOTE | 2021-11-16 08:21 | STRESSREP ---
Stress Test Report Date: 11-16-2021 Procedure: Pharmacologic stress nuclear imaging study Indications: Shortness of breath/dyspnea on exertion; atrial fibrillation Consent: Per the patient Procedure: The patient underwent pharmacologic (Regadenoson 0.4mg ) evaluation with a peak heart rate of 86 beats per minute (58%predicted maximal heart rate) and a peak blood pressure of 112/74 mmHg. The baseline ECG demonstrated normal sinus rhythm; poor R wave progression; nonspecific T wave abnormality. The peak pharmacologic ECG demonstrated no obvious ECG changes. There were no cardiac dysrhythmias pretest, during pharmacologic infusion, or recovery. There was no complaint of chest discomfort during pharmacologic infusion or recovery. The examination was discontinued secondary to completion of protocol. Impression: 1. Pharmacologic (Regadenoson) evaluation 2. Peak pharmacologic ECG with no obvious ECG changes. 3. There were no cardiac dysrhythmias pretest, during pharmacologic infusion, or recovery. 4. Nuclear images pending Myocardial perfusion imaging study: Technique: The patient was injected with 12.0 millicuries of technetium 99m Cardiolite and subsequently rest SPECT Cardiolite nuclear imaging was obtained in the horizontal long, vertical long, and short axis views. The patient underwent pharmacologic (Regadenoson) evaluation with a peak heart rate of 86 beats per minute (58% percent predicted maximal heart rate) and a peak blood pressure of 112/74 mmHg. The patient was injected with 34.5 millicuries of technetium 99m Cardiolite and subsequently stress SPECT Cardiolite nuclear imaging was obtained in the horizontal long, vertical long, and short axis views. A gated Cardiolite study at peak stress was obtained. Interpretation: Rest and stress SPECT Cardiolite nuclear imaging status post realignment, normalization, and attenuation correction demonstrate relative uniform tracer uptake/myocardial perfusion at rest and a small area of diminished tracer uptake in the distal anterior segment status post stress. There is end systolic thickening and brightening. The gated Cardiolite study demonstrates myocardial thickening and inward wall motion. The reported LVEF is 44%. Impression: 1. Rest and stress SPECT currently nuclear imaging demonstrate relative uniform tracer uptake/myocardial perfusion at rest and a small area of diminished tracer uptake in the distal anterior segment status post stress concerning for an area of stress-induced myocardial ischemia. 2. The gated Cardiolite study reports an LVEF of 44%. This note was generated with [employer] software. It may contain incorrect words, spelling, and punctuation that were not noted in checking the note before signing.
== END | disposition home or self-care (01) ==
LOC: CVS 07:02
PROVIDERS: PCP Internal Medicine; Referring Provider Internal Medicine Cardiovascular Disease; Visit Provider Internal Medicine Cardiovascular Disease
DX: R06.02 Shortness of breath (principal); I48.0 Paroxysmal atrial fibrillation; I31.3 Pericardial effusion (noninflammatory); Z98.890 Other specified postprocedural states
CPT/HCPCS: 78452; 93017; A9500; A4216; J2785

== ENCOUNTER → 2021-11-19 | Outpatient (CLI) | payer MEDICARE, OTHER, SELFPAY ==
[2021-11-19 14:32] LABS: Hematocrit 39.3 % (37-47); Hemoglobin 12.4 g/dL (12.0-15.0); Mean Corp Hgb Conc 31.6 g/dL (32-36); Mean Corpuscular Hgb 28.1 pg (27.0-32.0); Mean Corpuscular Volume 88.9 fL (81-99); Mean Platelet Vol. 9.7 fl (6.2-12.0); Platelet Count 329 K/mm3 (150-450); RBC Distribution Width CV 14.6 % (11.6-14.6); RBC Distribution Width SD 46.8 fl (35.1-43.9); Red Blood Count 4.42 M/mm3 (4.2-5.4); White Blood Count 8.6 K/mm3 (4.4-11.0)
[2021-11-19 14:38] LABS: International Normalized Ratio 1.1; Prothrombin Time (Protime)PT. 13.9 SECONDS (11.7-14.9)
[2021-11-19 15:01] LABS: Anion Gap 3 (5-15); BUN 17 mg/dL (7-18); BUN/Creat Ratio 16.2 RATIO (10-20); Calcium,Total 9.4 mg/dL (8.5-10.1); Chloride 108 mmol/L (98-107); Creatinine, Serum 1.05 mg/dL (0.55-1.02); EST Glomerular Filtration Rate 54 mL/min (>60); Est Glom Filt Rate - Afr Amer 66 mL/min (>60); Glucose 105 mg/dL (74-106); Potassium 4.5 mmol/L (3.5-5.1); Sodium Level 139 mmol/L (136-145)
[2021-11-24 12:18] LABS: AST(SGOT) 30 U/L (15-37); Alanine Aminotransfer ALT/SGPT 35 U/L (13-56); Albumin, Serum 3.7 g/dL (3.2-5.0); Alkaline Phosphatase 98 U/L (45-117); Bilirubin, Direct 0.16 mg/dL (0.00-0.30); Globulin 3.7 g/dL (2.2-4.2); Protein, Total 7.4 g/dL (6.4-8.2)
== END | disposition home or self-care (01) ==
LOC: LAB 14:16
PROVIDERS: PCP Internal Medicine; Visit Provider Internal Medicine Cardiovascular Disease
DX: M06.4 Inflammatory polyarthropathy (principal); I48.0 Paroxysmal atrial fibrillation; M79.7 Fibromyalgia; M47.897 Other spondylosis, lumbosacral region; K21.00 Gastro-esophageal reflux disease with esophagitis, without bleeding; E78.5 Hyperlipidemia, unspecified; J30.9 Allergic rhinitis, unspecified; M54.50 Low back pain, unspecified; Z79.899 Other long term (current) drug therapy
CPT/HCPCS: 36415; 80048; 80076; 85027; 85610; 85730

== ENCOUNTER 2021-12-09 06:34 | Day surgery (SDC) | payer MEDICARE, OTHER, SELFPAY ==
--- NOTE | 2021-12-07 20:47 | PCM.HP.BLA ---
History and Physical Date of Admission: 12/09/21 [facility] [address] [facility]. [address] [place] [address] [phone] OFFICE VISITDate of Service: 10/29/21 MR#:[id number]:[id number]: JONATHAN NICHOLSONRep #:[id number] Provider:Dr. Abdoul May, GEOFFREYge/Sex: 76/F Location:[facility] Center:Signed [facility] HPI History of Present Illness Details: This is a 76-year-old white female who presents today for outpatient cardiovascular consultation based upon a history of paroxysmal atrial fibrillation and subsequent findings of a pericardial effusion requiring transfer to [facility] for further evaluation and care with pericardiocentesis. It appears that the patient's presented to [facility] on 10-05-2021 for concerns of exertional shortness of breath/dyspnea. She was found to be in atrial fibrillation. She subsequently underwent further evaluation with a transthoracic echocardiogram. The results are noted below. Based upon the results she was subsequently transferred to [facility] for further evaluation and care. Per the [facility] records dated 10-12-2021 the patient underwent evaluation and care which included placement of a pericardial drainage tube. According to the note the fluid demonstrated 300,000 RBCs, cultures were obtained which demonstrated no growth, and cytology eventually demonstrated no malignant cells. She did undergo further evaluation with additional malignancy work-up including a CA-125, CEA, CA 19, reported within normal limits. She also had a chest CT scan performed on 10-07-2021. According to the note there was at that time a small pericardial effusion with enlarged subcarinal lymph node and prominent right lower paratracheal and left supraclavicular nodes of indeterminate etiology. There was also a small left and right trace pleural effusions. She was evaluated by hematology/oncology. Status post evaluation there was no further recommendations made. The pericardial drainage tube was eventually removed. She continued medical therapy for her atrial dysrhythmia with rate control, antiarrhythmic therapy, and anticoagulant therapy. She was recommended for continued outpatient cardiopulmonary evaluation. She states she did undergo PFTs earlier this day. At the present time she states she does feel better. She does not recall sensing her atrial fibrillation upon admission. Her main concern was her shortness of breath and dyspnea which she states has improved. She has not had any orthopnea or PND. She states in the past she felt tight in her lower extremities. At the present time she is states that feeling is gone. There is been no near-syncope or syncope. She had an ECG today. She was noted to be in sinus rhythm with nonconducted PAC with left atrial enlargement and poor R wave progression and a diffuse nonspecific T wave abnormality. Intake Vital Signs 10/29/21 14:08 Height 5 ft 2 in Weight: 200 lb 6 oz BMI 36.6 BP 108/68 Blood Pressure Location Lt brachial Position Sitting Respiration 18 Pulse 68 Pulse Source Auscultation Intake Visit Reasons: A-FIB/REF. [facility] [employer] Required: No Accompanied by: Self Allergies celecoxib [From Celebrex] Allergy (Verified 10/29/21 14:08) Anaphylaxis codeine Adverse Reaction (Verified 10/29/21 14:08) Vomiting indomethacin [From Indocin] Adverse Reaction (Verified 10/29/21 14:08) Vomiting indomethacin sodium [From Indocin] Adverse Reaction (Verified 10/29/21 14:08) Vomiting oxycodone HCl [From Percocet] Adverse Reaction (Verified 10/29/21 14:08) HALLUCINATIONS Medications coenzyme Q10 [Co Q-10] 50 mg PO DAILY 06/20/15 [History Confirmed 10/29/21] methotrexate sodium 20 mg PO TALAMANTES 04/06/21 [History Confirmed 10/29/21] amitriptyline 10 mg tablet 10 mg PO QHS 06/22/21 [History Confirmed 10/29/21] cetirizine 10 mg tablet 10 mg PO DAILY 06/22/21 [History Confirmed 10/29/21] hydroxychloroquine 200 mg tablet 200 mg PO BID 06/22/21 [History Confirmed 10/29/21] pantoprazole 40 mg tablet,delayed release 40 mg PO DAILY 06/22/21 [History Confirmed 10/29/21] vitamin E 200 unit capsule 200 unit PO DAILY 06/22/21 [History Confirmed 10/29/21] denosumab 60 mg/mL subcutaneous syringe 60 mg SUBCUT [id number] #1 ml 08/30/21 [Rx Confirmed 10/29/21] rosuvastatin 10 mg tablet 10 mg PO DAILY #90 tab 08/30/21 [Rx Confirmed 10/29/21] Cbd Lotion 1 applic TRANSDERMAL BID PRN 10/05/21 [History Confirmed 10/29/21] calcium carbonate [Calcium 500] 500 mg PO DAILY 10/05/21 [History Confirmed 10/29/21] folic acid 1 mg PO DAILY 10/05/21 [History Confirmed 10/29/21] amiodarone 200 mg tablet 200 mg PO DAILY 10/19/21 [History Confirmed 10/29/21] apixaban 5 mg tablet 5 mg PO BID 10/19/21 [History Confirmed 10/29/21] cholecalciferol (vitamin D3) 50 mcg (2,000 unit) capsule 50 mcg PO DAILY 10/19/21 [History Confirmed 10/29/21] metoprolol succinate 25 mg tablet,extended release 24 hr 25 mg PO DAILY 10/19/21 [History Confirmed 10/29/21] colchicine 0.6 mg tablet 0.3 mg PO DAILY tab 10/29/21 [History Confirmed 10/29/21] [facility] Medical History (Updated 10/29/21 @ 15:[address] Abdoul May MD) Atrial fibrillation Atrial fibrillation, new onset Change in skin mole Chest pain at rest Cough DVT (deep venous thrombosis) Fibromyalgia syndrome GERD (gastroesophageal reflux disease) History of renal stone Hyperlipemia Irregular heart beat Lumbar spondylosis Osteopenia Osteoporosis Paroxysmal atrial fibrillation Peptic ulcer with hemorrhage Pericardial effusion Rheumatoid arthritis Seasonal allergies Shortness of breath Systolic dysfunction URI (upper respiratory infection) Vitamin D insufficiency Surgical History H/O lithotripsy History of breast biopsy History of cholecystectomy History of colonoscopy History of knee surgery History of tonsillectomy History of tubal ligation Status post pericardiocentesis (~10/07/21) Family History Father Cancer pancreatic Mother Heart disease Brother Cancer leukemia Social History household members: none Smoking Status: Former smoker Tobacco: How many years used: 3 alcohol intake: never substance use type: does not use caffeine: Yes Type: coffee Number of servings: 1 what type of physical activity do you participate in: walking frequency: daily ROS Const Const: Positive for fatigue; Negative for weakness, frequent falls, excessive sweating, weight gain or weight loss Eyes Eyes: Negative for transient loss of vision, blurry vision or change in vision ENT ENT: Negative for dizziness or balance problems Cardio Chest Pain: No Palpitations: No Edema: None Muscle aches with walking: None Resp Respiratory: Positive for SOB with activity (has improved since hospitalization); Negative for SOB at rest GI GI: Negative vomiting or vomiting blood/hematemesis : Negative for hematuria Musc Musc: Negative for muscle aches/ myalgia, muscle weakness, joint pain or balance problems Skin Skin: Negative non-healing lesions or rash Neuro Neuro: Negative for dizziness, lightheadedness, orthostatic symptoms, frequent falls, weakness or blurry vision [place] Hematologic/Lymphatic: Negative for easy bleeding Endo Endo: Positive for fatigue; Negative for excessive sweating Psych Psych: Negative for anxiety or depression Allergy Allergy/Immunology: Negative for hives and Negative for rash Cardiology Exam Const Appearance: cooperative, healthy appearing, comfortable, no acute distress, well developed and well groomed Nutritional Appearance: average body habitus Orientation: alert, awake and oriented x3 Head Head: normal to inspection and temporal artery tenderness Ears: hearing grossly normal bilaterally Nose: external nose normal Face and Sinus: face symmetric Eyes Eyelids: eyelids normal Conjunctivae: conjunctivae normal Pupils: PERRL EOM: EOM intact bilaterally Neck Neck: normal visual inspection and full ROM Carotids: normal carotid upstroke Chest Chest inspection: normal inspection of the chest, symmetric chest movement and normal respiratory effort Auscultation: Bilateral: Clear to Auscultation Cardio Palpation: normal PMI Rate: regular rate Rhythm: regular rhythm Heart sounds: S1 normal and S2 normal GI GI: normal to inspection, soft and bowel sounds present Neuro General: patient alert, patient awake, patient oriented x3 and moves all extremities Skin Skin: no rashes or lesions noted Extremities Pulses: Normal: Right Radial Pulse and Left Radial Pulse Lower Extremity Edema: None: Bilateral Psych Psychological: normal affect Supplemental Info Supplemental Information Transthoracic echocardiogram: 10-05-2021 Interpretation Summary Normal LV size. Moderate global left ventricular systolic dysfunction. There is moderate global hypokinesis of the left ventricle. The left atrium is moderately enlarged. Pulmonary artery systolic pressure is 28 mmHg. Mild concentric left ventricular hypertrophy. Moderate pericardial effusion. There are no echocardiographic indications of cardiac tamponade. DATE OF SERVICE: 09/18/2015 EXERCISE TOLERANCE TEST: The patient underwent pharmacologic (regadenoson) evaluation with a peak heart rate of 112 beats per minute (73% predicted maximum heart rate) and a peak blood pressure of 118/70 mmHg. The baseline ECG demonstrated normal sinus rhythm. The peak pharmacologic ECG demonstrated no obvious ECG changes. There were no obvious cardiac dysrhythmias pretest, during pharmacologic infusion, and occasional premature supraventricular and ventricular complex during recovery. There was no report of chest discomfort during pharmacologic infusion or recovery. The examination was discontinued secondary to completion of protocol. IMPRESSION: 1. Pharmacologic (regadenoson) evaluation. 2. Peak pharmacologic ECG with no obvious ECG changes. 3. Occasional premature supraventricular and ventricular complex during recovery. 4. Nuclear images pending. MYOCARDIAL PERFUSION IMAGING STUDY: TECHNIQUE: The patient was injected with 10.6 mCi of Tc99m Cardiolite and subsequently rest SPECT Cardiolite nuclear imaging was obtained in the horizontal long, vertical long and short axes views. The patient underwent pharmacologic (regadenoson) evaluation with a peak heart rate of 112 beats per minute (73% predicted maximum heart rate) and a peak blood pressure of 118/70 mmHg. The patient was injected with 32.9 mCi of Tc99m Cardiolite and subsequently stress SPECT Cardiolite nuclear imaging was obtained in the horizontal long, vertical long and short axes views. A gated Cardiolite study at peak stress was obtained. INTERPRETATION: Rest and stress SPECT Cardiolite nuclear imaging, status post realignment and normalization, both demonstrate an area of diminished tracer uptake in the distal anteroseptal segments, which appears to be more prominent on the resting views as opposed to the stress views. There are similar type findings on the resting and stress polar map images. There is end systolic thickening and brightening. The gated Cardiolite study demonstrates myocardial thickening and inward wall motion. The reported LVEF is 71%. The aforementioned findings appear compatible with the effects of shifting soft tissue attenuation/artifact being more prominent at rest as opposed to stress with no myocardial perfusion changes considered diagnostic for stress-induced myocardial ischemia or previous myocardial injury/infarction. IMPRESSION: 1. Rest and stress SPECT Cardiolite nuclear imaging demonstrate myocardial perfusion changes appearing compatible with the effects of shifting soft tissue attenuation/artifact being more prominent at rest as opposed to stress with no myocardial perfusion changes considered diagnostic for stress-induced myocardial ischemia or previous myocardial injury/infarction. 2. The gated Cardiolite study reports an LVEF of 71%. Labs: LDL Cholesterol 42 mg/dL (0-130) HDL Cholesterol 47 mg/dL (40-) Triglycerides 67 mg/dL (-199) VLDL Cholesterol 13 mg/dL (5-40) Diagnostics: Electrocardiogram Echocardiogram Stress Test NM Chest X-Ray Venous Doppler Study Pulmonary: Pulmonary Function Test Pulmonary Exercise Test Assessment and Plan Assessment and Plan (1) Paroxysmal atrial fibrillation: Status: Acute Orders: Orders: 12 Lead EKG performed by [facility] Today Cardiac Holter Monitor, 24 Hrs 3 Months Echo Complete 3 Weeks Nuclear Stress Test - [facility] Today Plan - Dr. Abdoul May MD: The patient was diagnosed with atrial fibrillation. Based upon her [facility] records there was also comments about atrial flutter. At the present time she appears to be remaining in sinus rhythm. She will continue her current therapy. She states she would like to be able to decrease or discontinue some of her cardiovascular medical therapy in the future. At the moment she will continue her current therapy, she will have a follow-up in the future with a 24-hour Holter monitor and a transthoracic echocardiogram to reassess her cardiac rate and rhythm as well as her pericardial status and overall LV systolic function. Depending upon her clinical course and future findings consideration will be given as to whether or not she needs to remain long-term on a combination of her rate control, antiarrhythmic, and anticoagulant therapy. (2) Pericardial effusion: Status: Acute Orders: Orders: Cardiac Holter Monitor, 24 Hrs 3 Months Echo Complete 3 Weeks Nuclear Stress Test - [facility] Today Plan - Dr. Abdoul May MD: The etiology of her pericardial effusion appears to be somewhat unclear at this time. She is continuing her medical management. She will have a follow-up echocardiogram in the future as noted to monitor the course of her pericardial effusion and help guide additional evaluation and care. (3) Status post pericardiocentesis: Status: Acute Comment: @ [facility] 10/07/21 Orders: Orders: Cardiac Holter Monitor, 24 Hrs 3 Months Echo Complete 3 Weeks Nuclear Stress Test - [facility] Today Plan - Dr. Abdoul May MD: She states she feels much better now status post her cardiocentesis procedure. She feels better overall with her breathing as well as her lower extremities. She will continue evaluation care as noted above. (4) Systolic dysfunction: Status: Acute Plan - Dr. Abdoul May MD: The patient's echocardiograms locally and at [facility] demonstrated concerns of diminished left ventricular systolic dysfunction. This may have been related to her atrial dysrhythmia. She will continue her current therapy. She will proceed with noninvasive valuation as noted. Over time this will be followed with echocardiographic studies to reassess her left ventricular wall motion and systolic function. (5) Shortness of breath: Status: Acute Orders: Orders: Cardiac Holter Monitor, 24 Hrs 3 Months Echo Complete 3 Weeks Nuclear Stress Test - [facility] Today Plan - Dr. Abdoul May MD: She will undergo further cardiovascular evaluation which will include a pharmacologic stress nuclear imaging study to screen for any obvious evidence of myocardial ischemia that would be contributing to any of her symptoms or other findings. Plan Details Additional Comments: The above was discussed with the patient. She was agreeable to this approach. Thank you for allowing me to participate in the care of your patient. Please don't hesitate to call if any issues arise. This note was generated using a voice recognition system and there may be incorrect words, spelling or punctuation that were not noted when reviewing the office note prior to saving. Follow Up: 4 Months (with PFM ) COVID (Procedure Consent) Procedure Criteria Procedure Criteria: Yes Elective The surgeon/proceduralist and patient have discussed in detail the risk of exposure to and/or potential harm posed by the COVID-19 virus with having a surgery/procedure at this time versus the risk of delaying the surgery/procedure. It is not possible to know either the risk of delaying the surgery or procedure or chance of getting an infection with perfect accuracy, but a joint decision was made between the patient and the surgeon/proceduralist to proceed at this time with the scheduled surgery/procedure as indicated on the consent form. Coding Level of Care Code Off vis,new,level 5 Diagnoses Paroxysmal atrial fibrillation I48.0 Pericardial effusion I31.3 Status post pericardiocentesis Z98.890 Systolic dysfunction I51.9 Shortness of breath R06.02 Coding Level of Care Code Off vis,new,level 5 Diagnoses Paroxysmal atrial fibrillation I48.0 Pericardial effusion I31.3 Status post pericardiocentesis Z98.890 Systolic dysfunction I51.9 Shortness of breath R06.02 10/29/21 1544<Electronically signed by Abdoul May MD>Date Abdoul May MD Cosigner Signature:Date (if applicable) CC: Dr. Anthony Alonzo MD ~ Assessment & Plan Addt'l Comments Addendum: The patient underwent subsequent evaluation with an exercise tolerance test/imaging study on 11/16/2021. The results are noted below. Stress Test Report Date: 11-16-2021 Procedure: Pharmacologic stress nuclear imaging study Indications: Shortness of breath/dyspnea on exertion; atrial fibrillation Consent: Per the patient Procedure: The patient underwent pharmacologic (Regadenoson 0.4mg ) evaluation with a peak heart rate of 86 beats per minute (58%predicted maximal heart rate) and a peak blood pressure of 112/74 mmHg. The baseline ECG demonstrated normal sinus rhythm; poor R wave progression; nonspecific T wave abnormality. The peak pharmacologic ECG demonstrated no obvious ECG changes. There were no cardiac dysrhythmias pretest, during pharmacologic infusion, or recovery. There was no complaint of chest discomfort during pharmacologic infusion or recovery. The examination was discontinued secondary to completion of protocol. Impression: 1. Pharmacologic (Regadenoson) evaluation 2. Peak pharmacologic ECG with no obvious ECG changes. 3. There were no cardiac dysrhythmias pretest, during pharmacologic infusion, or recovery. 4. Nuclear images pending Myocardial perfusion imaging study: Technique: The patient was injected with 12.0 millicuries of technetium 99m Cardiolite and subsequently rest SPECT Cardiolite nuclear imaging was obtained in the horizontal long, vertical long, and short axis views. The patient underwent pharmacologic (Regadenoson) evaluation with a peak heart rate of 86 beats per minute (58% percent predicted maximal heart rate) and a peak blood pressure of 112/74 mmHg. The patient was injected with 34.5 millicuries of technetium 99m Cardiolite and subsequently stress SPECT Cardiolite nuclear imaging was obtained in the horizontal long, vertical long, and short axis views. A gated Cardiolite study at peak stress was obtained. Interpretation: Rest and stress SPECT Cardiolite nuclear imaging status post realignment, normalization, and attenuation correction demonstrate relative uniform tracer uptake/myocardial perfusion at rest and a small area of diminished tracer uptake in the distal anterior segment status post stress. There is end systolic thickening and brightening. The gated Cardiolite study demonstrates myocardial thickening and inward wall motion. The reported LVEF is 44%. Impression: 1. Rest and stress SPECT currently nuclear imaging demonstrate relative uniform tracer uptake/myocardial perfusion at rest and a small area of diminished tracer uptake in the distal anterior segment status post stress concerning for an area of stress-induced myocardial ischemia. 2. The gated Cardiolite study reports an LVEF of 44%. Based upon the patient's clinical course and objective findings and the recommendation was made for the patient to be considered for further evaluation with diagnostic cardiac catheterization. The procedure and risk were discussed with the patient. She was agreeable to this approach. Addendum: 12/09/2021: I have re-examined the patient. There are no clinical changes since date of exam
[2021-12-08 08:01] VITALS: BMI 36.6
--- NOTE | 2021-12-09 09:19 | CL.D_ITS ---
Patient Name: JONATHAN NICHOLSON Study Date: 12/09/2021 Performing: Abdoul May MD Ht: 61.81 inches 157 cm : 1945 Wt: 200.62 lbs 91 kg Age: 76 Gender: female BSA: 1.91 PROCEDURE(S) PERFORMED DC01-([id number])LHC/COR/LV CLINICAL PROFILE AND INDICATIONS Indications: Suspected CAD Heart Failure: None Stress/Imaging Date: 11/16/2021tress Test with SPECT MPI: Positive Intermediate Risk Angina Classification Anginal Classification w/in 2 Weeks: Anginal Equivalent Dyspnea CAD Presentations: Other: dyspnea on exertion CONCLUSIONS Normal Left Ventricular End Diastolic Pressure Borderline low LV systolic dysfunction LVEF: by LV gram 50 % Normal coronary arteries RECOMMENDATIONS Risk factor modification Medical therapy Comment: The cardiac catheterization procedure was initially attempted via the right radial artery ap proach. Right radial artery access was acquired without issues. However, the cardiac catheterization guide wire and catheter was unable to be successfully advanced past the right arm area. Subsquent rig ht upper extremity arteriography appeared to demonstrate that the patients anatomy was not amenable t o proceeding with this procedure from the right upper extremity approach. Thus, the patient proceeded to undergo the cardiac catheterization procedure via the right femoral arterial approach without dif ficulty or obvious complication. Both cardiac catheterization sites appeared stable following the pro cedure. The patient appeared to remain symptomatically and hemodynamically stable following the proce dure. DESCRIPTION OF PROCEDURE The patient arrived to the procedure lab. The risks and benefits of the procedure as well as a full d escription of our services here and current unavailability of surgical backup were fully explained to the patient and/or their significant other prior to the catheterization. The Timeout was completed, verifying the correct patient and procedure. The patient's procedural site was prepped and draped in the usual fashion. Local anesthetic was given subcutaneously to right radial region with Lidocaine 2% . Local anesthetic was given subcutaneously to right groin region with Lidocaine 2%. Using a modified Seldinger technique, arterial access was obtained via the right radial artery, a 6Fr sheath was inse rted., arterial access was obtained via the right femoral artery, a 4Fr sheath was inserted Left Cor onary Artery selective angiography was performed in multiple views using a 4 Fr. JL5 catheter. Right Coronary Artery selective angiography was then performed in multiple views using a 4 Fr. 3DRC catheter. Left Ventriculography was performed in MUNIZ projection using a 4 Fr. Pigtail catheter. LV to AO pullback pressures were then recorded.The arterial sheath was pulled and manual compression applied until hemostasis is achieved.. The arterial sheath was pulled and a TR Band was applied for h emostasis. 10cc of air CORONARY ANGIOGRAPHY DOMINANCE: Left Dominant LEFT HEART ASSESSMENT Left Ventricular Ejection Fraction: by LV Gram 50 % Normal LV wall motion Normal Left Ventricular End Diastolic Pressure LVEDP: 5 mmHg LEFT MAIN: Angiographically normal LEFT ANTERIOR DESCENDING ARTERY: Angiographically normal CIRCUMFLEX ARTERY: Angiographically normal RAMUS: Angiographically normal RIGHT CORONARY ARTERY: Angiographically normal AORTIC ROOT: Angiographically normal COMPLICATIONS No Complications PROCEDURE MEDICATIONS Fentanyl 50 mcg IV Versed 1 mg IV Fentanyl 50 mcg IV Versed 1 mg IV Oxygen: 2 L/min via nasal cannula Baby Aspirin (81mg) 1 Tabs PO @ 12/09/2021 07:12:31 Heparin given IA 12/09/2021 08:09:03 Verapamil 2.5mg, Ntg 100mcgs, 3000 units of Heparin given IA 12/09/2021 08:09:03 SUMMARY OF HEMODYNAMIC DATA Time AIR REST ECG 07:09:13 AO 113/34 (72) SA 08:12:44 LV 105/-5, 10 08:44:42 LV 110/-4, 5 08:44:48 LV 106/-8, 12 08:45:57 LVp 103/-10, 9 08:46:03 AOp 103/40 (71) 08:46:08 RM AIR REST 09:06:37 Signed By Abdoul May MD On 12/09/2021 9:18:31 AM Abdoul May MD
== END 2021-12-09 13:30 | disposition home health service (06) ==
LOC: CLSP 06:37
PROVIDERS: PCP Internal Medicine; Visit Provider Internal Medicine Cardiovascular Disease
DX: I48.0 Paroxysmal atrial fibrillation (principal); I50.20 Unspecified systolic (congestive) heart failure; M79.7 Fibromyalgia; R06.02 Shortness of breath; I31.3 Pericardial effusion (noninflammatory); E55.9 Vitamin D deficiency, unspecified; Z79.899 Other long term (current) drug therapy; Z87.891 Personal history of nicotine dependence
CPT/HCPCS: 93458; 99152; 99153; J7030; Q9967; C1769; C1894

== ENCOUNTER → 2022-02-07 | Outpatient (CLI) | payer MEDICARE, OTHER, SELFPAY ==
[2022-02-07 17:27] LABS: Absolute Lymphocyte Count 1.32 X10^3/uL (0.83-4.51); Absolute Neutrophil Count 4.6 X10^3/uL (2.0-7.7); Basophil# 0.02 X10^3/uL; Basophil% 0.3 % (0-1); Eosinophil# 0.19 X10^3/uL; Eosinophils% 2.8 % (0-5); Hematocrit 39.7 % (37-47); Hemoglobin 12.5 g/dL (12.0-15.0); Lymphocyte # 1.32 X10^3/ul (0.83-4.51); Lymphocyte % 19.6 % (19-41); Mean Corp Hgb Conc 31.5 g/dL (32-36); Mean Corpuscular Hgb 28.9 pg (27.0-32.0); Mean Corpuscular Volume 91.9 fL (81-99); Mean Platelet Vol. 10.7 fl (6.2-12.0); Monocyte# 0.59 X10^3/uL; Monocyte% 8.8 % (0-10); NRBC Flagged by Analyzer 0 % (0-5); Neutrophil # 4.59 X10^3/uL (2.7-7.7); Neutrophil % 68.1 % (47-70); Platelet Count 233 K/mm3 (150-450); RBC Distribution Width CV 15.5 % (11.6-14.6); RBC Distribution Width SD 51.8 fl (35.1-43.9); Red Blood Count 4.32 M/mm3 (4.2-5.4); White Blood Count 6.7 K/mm3 (4.4-11.0)
[2022-02-07 18:23] LABS: AST(SGOT) 21 U/L (15-37); Alanine Aminotransfer ALT/SGPT 38 U/L (13-56); Albumin, Serum 3.5 g/dL (3.2-5.0); Alkaline Phosphatase 92 U/L (45-117); Anion Gap 5 (5-15); BUN 17 mg/dL (7-18); Calcium,Total 8.7 mg/dL (8.5-10.1); Chloride 108 mmol/L (98-107); Creatinine, Serum 1.21 mg/dL (0.55-1.02); EST Glomerular Filtration Rate 46 mL/min (>60); Est Glom Filt Rate - Afr Amer 56 mL/min (>60); Globulin 3.6 g/dL (2.2-4.2); Glucose 101 mg/dL (74-106); Potassium 4.6 mmol/L (3.5-5.1); Protein, Total 7.1 g/dL (6.4-8.2); Sodium Level 141 mmol/L (136-145)
== END | disposition home or self-care (01) ==
PROVIDERS: PCP Internal Medicine; Referring Provider Internal Medicine Rheumatology; Visit Provider Internal Medicine Rheumatology
DX: M06.4 Inflammatory polyarthropathy (principal); M79.7 Fibromyalgia; M47.897 Other spondylosis, lumbosacral region; K21.9 Gastro-esophageal reflux disease without esophagitis; J30.9 Allergic rhinitis, unspecified; E78.5 Hyperlipidemia, unspecified; Z79.899 Other long term (current) drug therapy
CPT/HCPCS: 36415; 80053; 85025

== ENCOUNTER → 2022-03-10 | Outpatient (CLI) | payer MEDICARE, OTHER, SELFPAY ==
--- NOTE | 2022-03-10 12:58 | ECHOD_ITS ---
Reason For Study: PERICARDIAL EFFUSION Procedure This was a 2D Doppler, Color Flow transthoracic echocardiogram. The study was technically difficult. Exam performed in department. Left Ventricle Normal LV size. Left ventricular systolic function is normal. The estimated ejection fraction is 55 %. Diastolic function is indeterminate. No regional wall motion abnormalities noted. Right Ventricle Normal RV size. Normal systolic function. Atria The left atrium is mildly enlarged. Normal right atrium. No doppler evidence for ASD. Mitral Valve There is mild mitral annular calcification. Extension of the mitral annular calcification onto the base of the posterior mitral valve leaflet. Mild (1+) mitral valve insufficiency. Tricuspid Valve Normal tricuspid valve. Mild to moderate (1-2+) tricuspid valve insufficiency. Right ventricular systolic pressure estimated to be 23 mmHg. Aortic Valve Trisinus/trileaflet aortic valve. Normal aortic valve. Pulmonic Valve The pulmonic valve is not well visualized. Great Vessels Normal sized aortic root. Pericardium/Pleural No pericardial effusion. MMode/2D Measurements & Calculations LVIDd: 5.1 cm IVSd: 0.95 cm Ao root diam: 3.3 cm LVIDs: 3.3 cm LVPWd: 0.96 cm RVDd: 3.1 cm FS: 35.6 % LAV(MOD-bp): 91.6 ml LA A4 area: 26.6 cm2 LA dimension(2D): 4.8 cm LAV(MOD-bp) Indexed: 47.2 ml/m2 LAV(MOD-sp2): 85.5 ml LAV(MOD-sp4): 88.2 ml RA A4 area: 15.3 cm2 Time Measurements MV dec time: 0.24 sec Doppler Measurements & Calculations MV E max hugo: 62.1 cm/sec Lat Peak E' Hugo: 9.3 cm/sec Med Peak E' Hugo: 5.9 cm/sec MV A max hugo: 70.6 cm/sec E/E' lat: 6.7 E/E' med: 10.6 MV E/A: 0.88 MV dec slope: 260.1 cm/sec2 Ao V2 max: 127.0 cm/sec LV V1 max: 84.8 cm/sec Ao max P.5 mmHg LV V1 max P.9 mmHg PA V2 max: 75.0 cm/sec TR max hugo: 225.2 cm/sec TR max P.3 mmHg ECHO/Echo Complete Interpretation Summary The study was technically difficult. Left ventricular systolic function is normal. The estimated ejection fraction is 55 %. The left atrium is mildly enlarged. There is mild mitral annular calcification. Extension of the mitral annular calcification onto the base of the posterior mi tral valve leaflet. Mild (1+) mitral valve insufficiency. Mild to moderate (1-2+) tricuspid valve insufficiency. Right ventricular systolic pressure estimated to be 23 mmHg. Diastolic function is indeterminate. Ordering Physician: Yadira^Abdoul^^^ Referring Physician: Anthony Alonzo Performed By: Niyah Horton, RDDANE, RVT
[2022-03-10 17:58] LABS: AST(SGOT) 22 U/L (15-37); Alanine Aminotransfer ALT/SGPT 31 U/L (13-56); Albumin, Serum 3.6 g/dL (3.2-5.0); Alkaline Phosphatase 75 U/L (45-117); Anion Gap 7 (5-15); BUN 21 mg/dL (7-18); BUN/Creat Ratio 17.1 RATIO (10-20); Calcium,Total 8.8 mg/dL (8.5-10.1); Chloride 107 mmol/L (98-107); Creatinine, Serum 1.23 mg/dL (0.55-1.02); EST Glomerular Filtration Rate 45 mL/min (>60); Est Glom Filt Rate - Afr Amer 55 mL/min (>60); Globulin 3.7 g/dL (2.2-4.2); Glucose 83 mg/dL (74-106); Protein, Total 7.3 g/dL (6.4-8.2); Sodium Level 141 mmol/L (136-145)
== END | disposition home or self-care (01) ==
PROVIDERS: Internal Medicine Rheumatology; PCP Internal Medicine; Referring Provider Internal Medicine Cardiovascular Disease; Visit Provider Internal Medicine Cardiovascular Disease
DX: I31.3 Pericardial effusion (noninflammatory) (principal); M06.4 Inflammatory polyarthropathy; I50.20 Unspecified systolic (congestive) heart failure; I48.0 Paroxysmal atrial fibrillation; M79.7 Fibromyalgia; M47.897 Other spondylosis, lumbosacral region; K21.9 Gastro-esophageal reflux disease without esophagitis; J30.9 Allergic rhinitis, unspecified; E78.5 Hyperlipidemia, unspecified; Z98.890 Other specified postprocedural states; Z79.899 Other long term (current) drug therapy
CPT/HCPCS: 36415; 80053; 93225; 93226; 93306

== ENCOUNTER → 2022-04-18 | Outpatient (CLI) | payer MEDICARE, OTHER, SELFPAY ==
[2022-04-18 16:14] LABS: ALB/GLOB Ratio 0.9 RATIO (0.9-2.4); AST(SGOT) 22 U/L (15-37); Alanine Aminotransfer ALT/SGPT 28 U/L (13-56); Albumin, Serum 3.4 g/dL (3.2-5.0); Alkaline Phosphatase 68 U/L (45-117); Anion Gap 6 (5-15); BUN 21 mg/dL (7-18); BUN/Creat Ratio 18.1 RATIO (10-20); Calcium,Total 8.9 mg/dL (8.5-10.1); Chloride 106 mmol/L (98-107); Creatinine, Serum 1.16 mg/dL (0.55-1.02); EST Glomerular Filtration Rate 49 mL/min (>60); Est Glom Filt Rate - Afr Amer 59 mL/min (>60); Globulin 3.7 g/dL (2.2-4.2); Glucose 77 mg/dL (74-106); Potassium 3.9 mmol/L (3.5-5.1); Protein, Total 7.1 g/dL (6.4-8.2); Sodium Level 141 mmol/L (136-145)
== END | disposition home or self-care (01) ==
LOC: LAB 14:03
PROVIDERS: PCP Internal Medicine; Referring Provider Internal Medicine Rheumatology; Visit Provider Internal Medicine Rheumatology
DX: M06.4 Inflammatory polyarthropathy (principal); I50.9 Heart failure, unspecified; I48.91 Unspecified atrial fibrillation; M79.7 Fibromyalgia; M47.897 Other spondylosis, lumbosacral region; K21.9 Gastro-esophageal reflux disease without esophagitis; J30.9 Allergic rhinitis, unspecified; E78.5 Hyperlipidemia, unspecified; Z79.899 Other long term (current) drug therapy
CPT/HCPCS: 36415; 80053

== ENCOUNTER → 2022-04-29 | Outpatient (CLI) | payer MEDICARE, OTHER, SELFPAY ==
[2022-04-29 15:49] LABS: Probe Check PASS; Specimen Processing Control PASS
== END | disposition home or self-care (01) ==
PROVIDERS: PCP Internal Medicine; Referring Provider Internal Medicine; Visit Provider Internal Medicine
DX: R53.81 Other malaise (principal); R53.83 Other fatigue; J02.9 Acute pharyngitis, unspecified
CPT/HCPCS: 87635; U0003; U0005

== ENCOUNTER → 2022-07-04 | Outpatient (CLI) | payer MEDICARE, OTHER, SELFPAY ==
--- NOTE | 2022-07-04 15:35 | RAD_ITS ---
EXAM: XR CHEST, 2 VIEWS CLINICAL INDICATION: SOB, Wheezing TECHNIQUE: Frontal and lateral views of the chest. This report was created using [employer] report generation technology. COMPARISON: None. FINDINGS: LUNGS AND PLEURAL SPACES: Background of peripheral fibrotic changes at the lung bases. Ill-defined nodular patchy opacities are suggested at the periphery of left lower lobe. No pleural effusion or pneumothorax. HEART: Unremarkable. Cardiac silhouette not enlarged. MEDIASTINUM: Central airways and mediastinal contour are unremarkable. BONES/JOINTS: Diffuse osteopenia and multilevel spine degenerative changes. SOFT TISSUES: Unremarkable. RAD/Chest PA and Lateral IMPRESSION: Left lower lobe pneumonia suspected in the appropriate clinical setting. Electronically Signed: Raheem Butts MD at 1:24 EST ,
== END | disposition home or self-care (01) ==
LOC: RAD 15:26
PROVIDERS: PCP Internal Medicine; Referring Provider Physician Assistant Medical; Visit Provider Physician Assistant Medical
DX: R06.02 Shortness of breath (principal); R06.2 Wheezing
CPT/HCPCS: 71046

== ENCOUNTER → 2022-08-15 | Outpatient (CLI) | payer MEDICARE, OTHER, SELFPAY ==
--- NOTE | 2022-08-15 09:11 | ECHOL_ITS ---
Reason For Study: Pericardial Effusion Procedure This was a limited 2D transthoracic echocardiogram. Limited views were obtained. Exam performed in department. Left Ventricle Normal LV size. Left ventricular systolic function is normal. The estimated ejection fraction is 55 %. Diastolic function is indeterminate. No regional wall motion abnormalities noted. Right Ventricle Normal RV size. Normal systolic function. Atria The left atrium is mildly enlarged. Normal right atrium. No doppler evidence for ASD. Mitral Valve There is mild mitral annular calcification. Extension of the mitral annular calcification onto the base of the posterior mitral valve leaflet. Mild (1+) mitral valve insufficiency. Tricuspid Valve Normal tricuspid valve. Mild tricuspid valve insufficiency. Right ventricular systolic pressure estimated to be 27 mmHg. Aortic Valve Trisinus/trileaflet aortic valve. Mild focal aortic valve thickening. Pulmonic Valve The pulmonic valve is not well visualized. Great Vessels The aortic root is not well visualized. Pericardium/Pleural Trivial pericardial effusion. There are no echocardiographic indications of cardiac tamponade. MMode/2D Measurements & Calculations LVIDd: 5.1 cm IVSd: 1.0 cm LA dimension: 4.5 cm LVIDs: 3.4 cm LVPWd: 1.0 cm FS: 32.8 % LAV(MOD-bp): 87.5 ml LA A4 area: 26.8 cm2 RA A4 area: 17.9 cm2 LAV(MOD-bp) Indexed: 45.8 ml/m2 LAV(MOD-sp2): 77.0 ml LAV(MOD-sp4): 92.6 ml Time Measurements MV dec time: 0.23 sec Doppler Measurements & Calculations MV E max hugo: 71.3 cm/sec Lat Peak E' Hugo: 13.1 cm/sec Med Peak E' Hugo: 6.4 cm/sec MV A max hugo: 58.5 cm/sec E/E' lat: 5.4 E/E' med: 11.1 MV E/A: 1.2 MV V2 max: 81.6 cm/sec TR max hugo: 244.2 cm/sec MV max P.7 mmHg TR max P.8 mmHg MV V2 mean: 44.1 cm/sec MV mean P.93 mmHg MV V2 VTI: 29.1 cm ECHO/Echo, Limited Study Interpretation Summary Limited views were obtained. Left ventricular systolic function is normal. The estimated ejection fraction is 55 %. The left atrium is mildly enlarged. There is mild mitral annular calcification. Extension of the mitral annular calcification onto the base of the posterior mi tral valve leaflet. Mild (1+) mitral valve insufficiency. Mild tricuspid valve insufficiency. Mild focal aortic valve thickening. Trivial pericardial effusion. There are no echocardiographic indications of cardiac tamponade. Right ventricular systolic pressure estimated to be 27 mmHg. Diastolic function is indeterminate. Ordering Physician: Abdoul May Referring Physician: Anthony Alonzo Performed By: Kevin Fletcher RCS
== END | disposition home or self-care (01) ==
LOC: CVS 09:10
PROVIDERS: PCP Internal Medicine; Visit Provider Physician Assistant Medical
DX: I31.39 Other pericardial effusion (noninflammatory) (principal)
CPT/HCPCS: 93308

== ENCOUNTER 2022-08-16 02:43 | Emergency (ER) | payer MEDICARE, OTHER, SELFPAY ==
[2022-08-16 02:45] VITALS: BP 147/91; PULSE 93; RESP 16; TEMP 36.4; O2SAT 98; BMI 38.4
[2022-08-16 02:52] VITALS: O2SAT 98
--- NOTE | 2022-08-16 02:52 | RAD_ITS ---
STUDY: X-RAY CHEST REASON FOR EXAM: Female, 76 years old. chest pain TECHNIQUE: PA and lateral views of the chest. COMPARISON: July 04, 2022. April 27, 2022. FINDINGS: No focal infiltrates or effusions. No pneumothorax. Scattered linear densities unchanged compatible with chronic interstitial lung disease or minimal vascular congestion. Normal size heart. Normal mediastinum and enedelia. Normal visualized pulmonary arteries. Normal visualized aortic arch and descending thoracic aorta. Normal visualized thoracic spine. Normal visualized ribs, clavicles, and shoulders. There is no demonstrated abnormality of the visualized soft tissue structures of the upper abdomen. RAD/Chest PA and Lateral IMPRESSION: Stable chest. Minimal vascular congestion versus underlying chronic interstitial lung disease. Electronically Signed: John Caro MD at 3:34 EST Reading Location ID and State: [id number] / , Service support ,
--- NOTE | 2022-08-16 02:52 | EKG12_ITS ---
Test Reason : DYSRHYTHMIA Blood Pressure : / mmHG Vent. Rate : 080 BPM Atrial Rate : 080 BPM P-R Int : 138 ms QRS Dur : 086 ms QT Int : 394 ms P-R-T Axes : 050 -07 023 degrees QTc Int : 454 ms Sinus rhythm with Premature supraventricular complexes and with frequent Premature ventricular comple xes Otherwise normal ECG Confirmed by EVA NAVARRO, IVAN ([id number]), editor farm journal ANALI ARREDONDO ([id number]) on 08/17/2022 9:10:55 AM Referred By: MAMIE Confirmed By:IVAN VELASQUEZ MD
[2022-08-16 03:12] LABS: Absolute Lymphocyte Count 2.05 X10^3/uL (0.83-4.51); Basophil# 0.02 X10^3/uL; Basophil% 0.3 % (0-1); Eosinophil# 0.29 X10^3/uL; Hematocrit 40.2 % (37-47); Hemoglobin 12.9 g/dL (12.0-15.0); Lymphocyte # 2.05 X10^3/ul (0.83-4.51); Lymphocyte % 28.2 % (19-41); Mean Corp Hgb Conc 32.1 g/dL (32-36); Mean Corpuscular Hgb 28.5 pg (27.0-32.0); Mean Corpuscular Volume 88.7 fL (81-99); Mean Platelet Vol. 10.2 fl (6.2-12.0); Monocyte# 0.87 X10^3/uL; NRBC Flagged by Analyzer 0 % (0-5); Neutrophil # 4.03 X10^3/uL (2.7-7.7); Neutrophil % 55.2 % (47-70); Platelet Count 253 K/mm3 (150-450); RBC Distribution Width CV 13.2 % (11.6-14.6); RBC Distribution Width SD 43.1 fl (35.1-43.9); Red Blood Count 4.53 M/mm3 (4.2-5.4); White Blood Count 7.3 K/mm3 (4.4-11.0)
[2022-08-16 03:42] LABS: BNP,B-Type NATRIURETIC PEPTIDE 85.5 pg/mL (0-100)
[2022-08-16 04:23] LABS: Anion Gap 9 (5-15); BUN 19 mg/dL (7-18); BUN/Creat Ratio 15.7 RATIO (10-20); Calcium,Total 8.9 mg/dL (8.5-10.1); Chloride 107 mmol/L (98-107); Creatinine, Serum 1.21 mg/dL (0.55-1.02); EST Glomerular Filtration Rate 46 mL/min (>60); Est Glom Filt Rate - Afr Amer 56 mL/min (>60); Estimated Creatinine Clearance 32.26 ml/min; Glucose 106 mg/dL (74-106); Potassium 3.9 mmol/L (3.5-5.1); Sodium Level 141 mmol/L (136-145); Thyroid Stim Hormone (TSH) 7.34 uIU/mL (0.358-3.74)
[2022-08-16 04:36] LABS: Troponin-I HS (w/2H Reflex) 8 pg/mL (3.0-54.0)
[2022-08-16 04:43] VITALS: BP 135/73; PULSE 74; RESP 15; O2SAT 98
[2022-08-16 05:07] LABS: Reflex Troponin-HS? (from REC) Y
[2022-08-16 05:17] LABS: Free T3 2.4 pg/mL (2.18-3.98); T4 Free Direct 1.46 ng/dL (0.76-1.46)
[2022-08-16 05:54] LABS: Troponin-I HS 9 pg/mL (3.0-54.0)
[2022-08-16 05:58] VITALS: O2SAT 98
--- NOTE | 2022-08-16 06:39 | EDS_ITS ---
HPI History of Present Illness Chief Complaint: Palpitations Informant: patient Narrative Narrative: Patient is a 76-year-old female with extensive medical history including atrial fibrillation (on amiodarone, metoprolol and Eliquis), rheumatoid arthritis as well as prior pericardial effusion presenting with palpitations and chest discomfort. Patient states she is been having palpitations for the past 2 weeks and is also been more short of breath. She had a mild nonproductive cough. She notes in June she had pneumonia but had recovered from that. She did have an echocardiogram yesterday by her benefit specialist does not know the results. She is been feeling more short of breath. 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 She is concerned that she might be back in atrial fibrillation. She has chronic swelling of her legs but denies any change in that. She states sometimes she feels that her heart is going to pop out of her chest. She denies any fever or other infectious symptoms. No other complaints at this time. States has been compliant with her Eliquis. [facility] Medical History Atrial fibrillation Atrial fibrillation, new onset Change in skin mole Chest congestion Chest pain at rest Cough DVT (deep venous thrombosis) Elevated liver enzymes Fibromyalgia syndrome GERD (gastroesophageal reflux disease) History of left heart catheterization (LHC) (~12/09/21) History of renal stone Hyperlipemia Irregular heart beat Lumbar spondylosis Malaise and fatigue Osteopenia Osteoporosis Paroxysmal atrial fibrillation Peptic ulcer with hemorrhage Pericardial effusion Rheumatoid arthritis Seasonal allergies Shortness of breath Sore throat Systolic dysfunction URI (upper respiratory infection) Vitamin D insufficiency Home Medications coenzyme Q10 50 mg capsule (Co Q-10) 50 mg PO DAILY 06/20/15 [History Last Taken 10/05/21] amitriptyline 10 mg tablet 10 mg PO QHS 06/22/21 [History Last Taken 10/04/21] cetirizine 10 mg tablet (Zyrtec) 10 mg PO DAILY 06/22/21 [History Last Taken 10/05/21] hydroxychloroquine 200 mg tablet (Plaquenil) 200 mg PO BID 06/22/21 [History Last Taken 10/05/21] pantoprazole 40 mg tablet,delayed release 40 mg PO DAILY 06/22/21 [History Last Taken 10/05/21] vitamin E 200 unit capsule 200 unit PO DAILY 06/22/21 [History Last Taken 10/05/21] Cbd Lotion 1 applic transdermal BID PRN ARTHRITIS 10/05/21 [History Last Taken 10/04/21] calcium carbonate 500 mg calcium (1,250 mg) tablet 500 mg PO DAILY SUPPLEMENT 0 10/05/21 [History Last Taken 10/05/21] folic acid 1 mg tablet 1 mg PO DAILY SUPPLEMENT 10/05/21 [History Last Taken Unknown] cholecalciferol (vitamin D3) 50 mcg (2,000 unit) capsule 50 mcg PO DAILY [History Last Taken Unknown] apixaban 5 mg tablet 5 mg PO BID #180 tabs 01/11/22 [Rx Last Taken Unknown] metoprolol succinate 25 mg tablet,extended release 24 hr 25 mg PO DAILY #90 tabs 01/11/22 [Rx Last Taken Unknown] permethrin 5 % topical cream 1 applic topical Q14D 2 doses #60 grams 02/25/22 [Rx Last Taken Unknown] albuterol sulfate 90 mcg/actuation aerosol inhaler 2 puff inhalation Q6H PRN shortness of breath or wheezing #8.5 grams 07/04/22 [Rx Last Taken Unknown] amoxicillin 875 mg-potassium clavulanate 125 mg tablet 1 tab PO BID #14 tabs 07/04/22 [Rx Last Taken Unknown] methylprednisolone 4 mg tablets in a dose pack (Medrol (Samuel)) See Rx Instructions PO PER PKG DIR #21 tabs 07/08/22 [Rx Last Taken Unknown] amiodarone 200 mg tablet 100 mg PO DAILY #45 tabs 07/11/22 [Rx Last Taken Unknown] rosuvastatin 10 mg tablet (Crestor) 10 mg PO DAILY #90 tabs 08/01/22 [Rx Last Taken Unknown] denosumab 60 mg/mL subcutaneous syringe (Prolia) 60 mg subcut [id number] #1 mL 08/16/22 [Rx Last Taken Unknown] furosemide 20 mg tablet (Lasix) 20 mg PO DAILY #5 tabs 08/16/22 [Rx Last Taken Unknown] furosemide 20 mg tablet (Lasix) 20 mg PO DAILY #5 tabs 08/16/22 [Rx Last Taken Unknown] Allergy/AdvReac Type Severity Reaction Status Date / Time celecoxib [From Celebrex] Allergy Anaphylaxis Verified 08/16/22 02:53 codeine AdvReac Vomiting Verified 08/16/22 02:53 indomethacin [From Indocin] AdvReac Vomiting Verified 08/16/22 02:53 indomethacin sodium AdvReac Vomiting Verified 08/16/22 02:53 [From Indocin] oxycodone HCl [From Percocet] AdvReac HALLUCINATI Verified 08/16/22 02:53 ONS Family History Father Cancer pancreatic Mother Heart disease Brother Cancer leukemia Surgical History H/O lithotripsy History of breast biopsy History of cholecystectomy History of colonoscopy History of knee surgery History of tonsillectomy History of tubal ligation Status post pericardiocentesis (~10/07/21) Social History household members: none Smoking Status: Former smoker Tobacco: How many years used: 3 alcohol intake: never substance use type: does not use caffeine: Yes Type: coffee Number of servings: 1 what type of physical activity do you participate in: walking frequency: daily ROS ROS ED Constitutional Constitutional ED: Denies chills or fever(s) Eyes Eyes: Denies blurry vision or change in vision Cardiovascular Cardiovascular: Reports as per HPI, chest pain and palpitations Respiratory/Chest Respiratory/Chest: Reports cough and dyspnea on exertion Gastrointestinal Gastrointestinal: Denies abdominal pain, nausea or vomiting Musculoskeletal Musculoskeletal: Denies arthralgias or myalgias Integumentary Denies rash Neurologic Neurologic: Denies headache(s) or weakness Psychiatric Psychiatric: Denies anxiety Hematologic/Lymphatic Hematologic/Lymphatic: Reports easy bleeding and easy bruising EXAM Physical Exam Const Vital Signs: 08/16/22 02:45 08/16/22 02:50 08/16/22 02:52 Temperature 97.6 F L Temperature Source Temporal Pulse Rate 93 Respiratory Rate 16 Respiratory Effort Normal Short of Breath Blood Pressure 147/91 H Blood Pressure Mean 109 Pulse Ox 98 98 Oxygen Delivery Method Room Air Room Air 08/16/22 04:43 08/16/22 06:49 Temperature Temperature Source Pulse Rate 74 63 Respiratory Rate 15 14 Respiratory Effort Blood Pressure 135/73 H 123/76 H Blood Pressure Mean 93 Pulse Ox 98 99 Oxygen Delivery Method Room Air Positive well nourished and well developed General Appearance ED: well developed and NAD HEENT Reports moist mucous membranes Eyes PERRL Neck supple and no JVD Chest Wall inspection of chest normal and palpation of chest normal Resp normal respiratory effort Resp Narrative: Mild crackles at the bases bilaterally Auscultation: Negative for rales or rhonchi Cardio regular rate, regular rhythm and no murmurs Peripheral Pulses: radial pulses present GI normal to inspection, nondistended, normoactive bowel sounds and soft to palpation Extremity normal to inspection General Extremety ED: Negative for edema General Extremity: Negative for edema Neuro oriented x3 Sensorium / Orientation: awake Motor Exam: Negative for general weakness Psych mental status grossly normal Skin no rashes or lesions noted MDM MDM MDM Narrative Medical decision making narrative: Patient is evaluated for palpitations, chest discomfort and shortness of breath has been progressive over the past 2 weeks. Clinically patient is well- appearing. Vital signs are normal. She is not hypoxic or tachypneic. EKG is remarkable for PVCs which I suspect are the palpitation she has been feeling. She does have a history of a significant pericardial effusion however chest x- ray does not show abnormal heart borders and there is some mild pulmonary vascular congestion on the chest x-ray. This interpreted by myself as well as radiology. Patient's CBC is normal. Her BMP shows a mild elevation of creatinine of 1.21 however this is near her baseline. TSH is elevated I did check a free T4 and T3 which are normal. Do not think this is some type of myxedema coma causing her symptoms. Her BNP is normal and improved compared to prior test. Patient had echocardiogram performed yesterday. This is reviewed by myself and shows a stable EF of 55%, trivial pericardial effusion right ventricular systolic pressure estimated be 27 mmHg and continued mild mitral and cuspid valve insufficiency with associated calcifications. Patient is ambulated the emergency room and does not desaturate. Overall she is well-appearing. Given her dyspnea on exertion and faint crackles on exam with chest x-ray findings I will treat her with a short course of lasix. She is encouraged to follow-up with her Cardiology/primary care doctor and encouraged to have a repeat BMP in 1 week given her history of CKD. Patient verbalizes agreement understand this plan. Discharged home in stable condition. Lab Data Attestation: I reviewed the patient's lab results. Labs: Laboratory Results - last 24 hr 08/16/22 08/16/22 08/16/22 03:00 03:00 03:00 WBC 7.3 RBC 4.53 Hgb 12.9 Hct 40.2 MCV 88.7 MCH 28.5 MCHC 32.1 RDW Std Deviation 43.1 RDW Coeff of Mendez 13.2 Plt Count 253 MPV 10.2 Immature Gran % (Auto) 0.300 Neut % (Auto) 55.2 Lymph % (Auto) 28.2 Preston % (Auto) 12.0 H Eos % (Auto) 4.0 Baso % (Auto) 0.3 Absolute Neuts (auto) 4.0 Absolute Lymphs (auto) 2.05 Nucleated RBC % 0 Sodium 141 Potassium 3.9 Chloride 107 Carbon Dioxide 25.0 Anion Gap 9 BUN 19 H Creatinine 1.21 H Estim Creat Clear Calc 32.26 Est GFR (MDRD) Af Amer 56 L Est GFR (MDRD) Non-Af 46 L BUN/Creatinine Ratio 15.7 Glucose 106 Calcium 8.9 Magnesium 2.0 Troponin I High Sens 8 B-Natriuretic Peptide 85.5 TSH 7.34 H Free T4 Free T3 pg/dL 08/16/22 08/16/22 03:00 05:30 WBC RBC Hgb Hct MCV MCH MCHC RDW Std Deviation RDW Coeff of Mendez Plt Count MPV Immature Gran % (Auto) Neut % (Auto) Lymph % (Auto) Preston % (Auto) Eos % (Auto) Baso % (Auto) Absolute Neuts (auto) Absolute Lymphs (auto) Nucleated RBC % Sodium Potassium Chloride Carbon Dioxide Anion Gap BUN Creatinine Estim Creat Clear Calc Est GFR (MDRD) Af Amer Est GFR (MDRD) Non-Af BUN/Creatinine Ratio Glucose Calcium Magnesium Troponin I High Sens 9 B-Natriuretic Peptide TSH Free T4 1.46 Free T3 pg/dL 2.4 Radiography Chest X-Ray - ED: 2 View, Read by ED Physician, Read by Radiologist, Chronic Changes and CHF (Minimal vascular congestion) Diagnostic Testing: Clinical Impression(s) from Imaging Studies Chest X-Ray 08/16/22 02:52 IMPRESSION: Stable chest. Minimal vascular congestion versus underlying chronic interstitial lung disease. Electronically Signed: John Caro MD at 3:34 EST , Rhythm Strip Rhythm Strip: Sinus Rhythm Rate: 80 Ectopy: PVC(s) EKG Initial EKG: Attestation: I personally reviewed and interpreted this EKG as follows: Interpretation: Sinus Rhythm Comments: Sinus rhythm at a rate of 80 bpm Left axis deviation Premature supraventricular complexes and frequent PVCs Normal ST segments Compared to prior EKG on 10/06/2021 patient is no longer in atrial flutter and now has PVCs Discharge Plan Triage Chief Complaint: Palpitations ED Provider: Shahnaz Sinclair Dx/Rx/DC Orders Clinical Impression: Palpitation, Chest pressure, PVC (premature ventricular contraction) Instructions: ED Chest Pain, Uncertain Cause, ED Palpitations Prescriptions: New furosemide [Lasix] 20 mg tablet 20 mg PO DAILY Qty: 5 0RF furosemide [Lasix] 20 mg tablet 20 mg PO DAILY Qty: 5 0RF No Action cetirizine [Zyrtec] 10 mg tablet 10 mg PO DAILY vitamin E 200 unit capsule 200 unit PO DAILY hydroxychloroquine [Plaquenil] 200 mg tablet 200 mg PO BID amitriptyline 10 mg tablet 10 mg PO QHS pantoprazole 40 mg tablet,delayed release (DR/EC) 40 mg PO DAILY cholecalciferol (vitamin D3) 50 mcg (2,000 unit) capsule 50 mcg PO DAILY permethrin 5 % cream 1 applic topical Q14D Qty: 60 0RF Rx Instructions: apply second treatment 14 days after first treatment if live mites remain albuterol sulfate 90 mcg/actuation HFA aerosol inhaler 2 puff inhalation Q6H PRN (Reason: shortness of breath or wheezing) Qty: 8.5 0RF amoxicillin-pot clavulanate 875-125 mg tablet 1 tab PO BID Qty: 14 0RF coenzyme Q10 [Co Q-10] 50 MG capsule 50 mg PO DAILY calcium carbonate [Calcium 500] 500 mg calcium (1,250 mg) Tablet 500 mg PO DAILY folic acid 1 mg Tablet 1 mg PO DAILY Cbd Lotion 1 applic transdermal BID PRN (Reason: ARTHRITIS) apixaban 5 mg tablet 5 mg PO BID Qty: 180 3RF metoprolol succinate 25 mg tablet extended release 24 hr 25 mg PO DAILY Qty: 90 3RF methylprednisolone [Medrol (Samuel)] 4 mg tablets,dose pack See Rx Instructions PO PER PKG DIR Qty: 21 0RF Rx Instructions: PO PER PKG DIR amiodarone 200 mg tablet 100 mg PO DAILY Qty: 45 3RF rosuvastatin [Crestor] 10 mg tablet 10 mg PO DAILY Qty: 90 3RF Prolia 60 mg/mL syringe 60 mg subcut [id number] Qty: 1 2RF Primary Care Provider: Anthony Alonzo Referrals: Anthony Alonzo MD [Primary Care Provider] - Activity Restrictions/Additional Instructions: Your EKG did not show atrial fibrillation but did show premature ventricular complexes (PVCs) which is likely that palpitation you are feeling in your chest. Your chest x-ray did not show minimal vascular congestion versus underlying chronic interstitial lung disease. We will treat you with a short course of diuretic (Lasix) to see if this helps with your symptoms. Your echocardiogram is stable with no significant pericardial effusion (fluid around the heart). Please follow-up with your benefit specialist for your symptoms. Please follow-up with your primary care doctor or your benefit specialist in the next week for repeat evaluation and to recheck your kidney function since you are on a short course of diuretics. Disposition Disposition: Home, Self Care Discharge Date/Time: 08/16/22 07:01
[2022-08-16 06:49] VITALS: BP 123/76; PULSE 63; RESP 14; O2SAT 99
== END 2022-08-16 07:01 | disposition home or self-care (01) ==
PROVIDERS: Emergency Provider Emergency Medicine; PCP Internal Medicine; Visit Provider Emergency Medicine
DX: R00.2 Palpitations (principal); M06.9 Rheumatoid arthritis, unspecified; I48.0 Paroxysmal atrial fibrillation; R07.89 Other chest pain; I49.3 Ventricular premature depolarization; N18.9 Chronic kidney disease, unspecified; E78.5 Hyperlipidemia, unspecified; R06.02 Shortness of breath; K21.9 Gastro-esophageal reflux disease without esophagitis; E55.9 Vitamin D deficiency, unspecified; M47.816 Spondylosis without myelopathy or radiculopathy, lumbar region; M79.7 Fibromyalgia; M81.0 Age-related osteoporosis without current pathological fracture; M85.80 Other specified disorders of bone density and structure, unspecified site; Z79.899 Other long term (current) drug therapy; Z87.891 Personal history of nicotine dependence; Z79.01 Long term (current) use of anticoagulants; Z86.718 Personal history of other venous thrombosis and embolism
CPT/HCPCS: 71046; 80048; 83735; 83880; 84439; 84443; 84481; 84484; 85025; 93005; 99283; A4216

== ENCOUNTER → 2022-09-06 | Outpatient (CLI) | payer MEDICARE, OTHER, SELFPAY ==
--- NOTE | 2022-09-06 10:25 | BI_ITS ---
MAMMOGRAPHY - BILATERAL SCREENING REASON FOR EXAM: Female, 76 years old. Routine annual screening examination. PERTINENT HISTORY: Non-contributory. History of remote right excisional breast biopsy. TECHNIQUE: Digital bilateral breast rosa m (3D mammographic acquisition) in the CC and MLO projections. 2-D mediolateral oblique (MLO) and craniocaudad (CC) views of both breasts were obtained. CAD: Full Field Digital Mammography with Computer Added Detection was performed. COMPARISON: Comparison is made with prior study dated 07/29/2021 and 04/08/2019. FINDINGS: Breast Composition: There are scattered areas of fibroglandular density. There are no dominant masses or suspicious calcifications. Stable mild postoperative scarring in the upper deep lateral aspect of the right breast. Stable small benign-appearing bilateral axillary lymph nodes. No other significant abnormalities are identified. There has been no significant change since the prior study. BI/SCRN MAMM (CAD)W/ROSA M BILAT IMPRESSION: Stable bilateral screening mammogram. Yearly follow-up mammogram recommended. (A) ASSESSMENT CATEGORY: BIRADS Category 2: Benign. A letter regarding these results will be sent to the patient by the facility within 30 days. Approximately 10% of breast cancers are not detected by mammography. A normal mammogram should not delay biopsy of a clinically suspicious abnormality. [id number] Electronically Signed: Shoaib Mock MD at 11:13 EST ,
[2022-09-06 11:36] LABS: Anion Gap 6 (5-15); BUN 20 mg/dL (7-18); Calcium,Total 9.2 mg/dL (8.5-10.1); Chloride 108 mmol/L (98-107); Creatinine, Serum 1.11 mg/dL (0.55-1.02); EST Glomerular Filtration Rate 51 mL/min (>60); Est Glom Filt Rate - Afr Amer 62 mL/min (>60); Glucose 96 mg/dL (74-106); Potassium 4.2 mmol/L (3.5-5.1); Sodium Level 142 mmol/L (136-145); T4 Free Direct 1.24 ng/dL (0.76-1.46); Thyroid Stim Hormone (TSH) 4.84 uIU/mL (0.358-3.74)
== END | disposition home or self-care (01) ==
PROVIDERS: PCP Internal Medicine; Referring Provider Internal Medicine; Visit Provider Internal Medicine
DX: Z12.31 Encounter for screening mammogram for malignant neoplasm of breast (principal); I48.0 Paroxysmal atrial fibrillation; R79.89 Other specified abnormal findings of blood chemistry; R06.02 Shortness of breath; Z86.16 Personal history of COVID-19
CPT/HCPCS: 36415; 77063; 77067; 80048; 84439; 84443

== ENCOUNTER 2022-11-22 18:53 | Emergency (ER) | payer MEDICARE, OTHER, SELFPAY ==
[2022-11-22 18:53] VITALS: BP 100/84; PULSE 64; RESP 16; TEMP 36.6; O2SAT 99
[2022-11-22 19:09] VITALS: BMI 39.2
--- NOTE | 2022-11-22 19:10 | EX.ED.DYSGE1 ---
HPI History of Present Illness Chief Complaint: Lower Extremity Injury Narrative Narrative: 77-year-old female here with atraumatic right knee pain. The patient states she developed acute onset of right knee pain over the last 1 day. Denies any falls, trauma. Denies any history of diabetes, fever. Denies any history of surgery to the right knee. States she is a history of rheumatoid arthritis and has not been on methotrexate for years. Denies any discoloration, numbness or tingling of the right lower extremity. Denies any unilateral leg swelling, calf tenderness. She has been compliant with Eliquis. [facility] Medical History Atrial fibrillation Atrial fibrillation, new onset Change in skin mole Chest congestion Chest pain at rest Cough DVT (deep venous thrombosis) Elevated liver enzymes Fibromyalgia syndrome GERD (gastroesophageal reflux disease) History of left heart catheterization (LHC) (~12/09/21) History of renal stone Hyperlipemia Irregular heart beat Lumbar spondylosis Malaise and fatigue Osteopenia Osteoporosis Paroxysmal atrial fibrillation Peptic ulcer with hemorrhage Pericardial effusion Rheumatoid arthritis Seasonal allergies Shortness of breath Sore throat Systolic dysfunction URI (upper respiratory infection) Vitamin D insufficiency Home Medications coenzyme Q10 50 mg capsule (Co Q-10) 50 mg PO DAILY 06/20/15 [History Last Taken 10/05/21] amitriptyline 10 mg tablet 10 mg PO QHS 06/22/21 [History Last Taken 10/04/21] cetirizine 10 mg tablet (Zyrtec) 10 mg PO DAILY 06/22/21 [History Last Taken 10/05/21] hydroxychloroquine 200 mg tablet (Plaquenil) 200 mg PO BID 06/22/21 [History Last Taken 10/05/21] pantoprazole 40 mg tablet,delayed release 40 mg PO DAILY 06/22/21 [History Last Taken 10/05/21] vitamin E 200 unit capsule 200 unit PO DAILY 06/22/21 [History Last Taken 10/05/21] Cbd Lotion 1 applic transdermal BID PRN ARTHRITIS 10/05/21 [History Last Taken 10/04/21] calcium carbonate 500 mg calcium (1,250 mg) tablet 500 mg PO DAILY SUPPLEMENT 10/05/21 [History Last Taken 10/05/21] folic acid 1 mg tablet 1 mg PO DAILY SUPPLEMENT 10/05/21 [History Last Taken Unknown] cholecalciferol (vitamin D3) 50 mcg (2,000 unit) capsule 50 mcg PO DAILY 10/19/21 [History Last Taken Unknown] permethrin 5 % topical cream 1 applic topical Q14D 2 doses #60 grams 02/25/22 [Rx Last Taken Unknown] albuterol sulfate 90 mcg/actuation aerosol inhaler 2 puff inhalation Q6H PRN shortness of breath or wheezing #8.5 grams 07/04/22 [Rx Last Taken Unknown] rosuvastatin 10 mg tablet (Crestor) 10 mg PO DAILY #90 tabs 08/01/22 [Rx Last Taken Unknown] denosumab 60 mg/mL subcutaneous syringe (Prolia) 60 mg subcut [id number] #1 mL 08/16/22 [Rx Last Taken Unknown] furosemide 40 mg tablet 40 mg PO DAILY #90 tabs 08/26/22 [Rx Last Taken Unknown] metoprolol succinate 25 mg tablet,extended release 24 hr 25 mg PO BID #180 tabs 10/26/22 [Rx Last Taken Unknown] apixaban 5 mg tablet (Eliquis) 5 mg PO BID 11/22/22 [History Last Taken Unknown] Allergy/AdvReac Type Severity Reaction Status Date / Time celecoxib [From Celebrex] Allergy Anaphylaxis Verified 11/22/22 18:55 codeine AdvReac Vomiting Verified 11/22/22 18:55 indomethacin [From Indocin] AdvReac Vomiting Verified 11/22/22 18:55 indomethacin sodium AdvReac Vomiting Verified 11/22/22 18:55 [From Indocin] oxycodone HCl [From Percocet] AdvReac HALLUCINATI Verified 11/22/22 18:55 ONS Family History Father Cancer pancreatic Mother Heart disease Brother Cancer leukemia Surgical History H/O lithotripsy History of breast biopsy History of cholecystectomy History of colonoscopy History of knee surgery History of tonsillectomy History of tubal ligation Status post pericardiocentesis (~10/07/21) Social History household members: none Smoking Status: Former smoker Tobacco: How many years used: 3 alcohol intake: never substance use type: does not use caffeine: Yes Type: coffee Number of servings: 1 what type of physical activity do you participate in: walking frequency: daily ROS ROS ED ROS Narrative Constitutional: Denies fever HEENT: Denies sore throat Neck: Denies neck pain Cardiovascular: Denies chest pain, syncope Respiratory: Denies shortness of breath GI: Denies nausea vomiting or abdominal pain : Denies changes in urinary habits Musculoskeletal: Endorses right knee pain Neurologic: Denies numbness weakness or loss of sensation Skin denies rash EXAM Physical Exam Narrative Exam Narrative: Nursing triage notes reviewed, Vital signs reviewed Constitutional: please see mdm HENT: MMM Eyes: Pupils equal round and reactive to light, Extraocular muscles intact Neck: No stridor, no JVD, full neck ROM Lungs: Clear to auscultation, No wheezing or rales. No increased work of breathing, no conversational dyspnea, no accessory muscle use, no nasal flaring. No respiratory distress noted Heart: Regular rate and rhythm, No murmurs, No rubs and No gallops, 2+ distal pulses (radial, femoral, posterior tibial) in all extremities Abdomen: Soft, there is no tenderness, rigidity, rebound or guarding, no obvious peritoneal signs, no palpable pulsatile abdominal masses, no auscultated abdominal bruit : No CVAT Extremities: No edema, TTP over right knee. No calf swelling or tenderness. No unilateral leg swelling. Compartments are soft. Decreased range of motion flexion extension. Intact quadriceps tendon complex of a poor or limited hip flexion. Poor or limited knee extension. Limitation range of motion likely secondary to pain. There is no obvious joint effusion. Neuro: Intact sensation L1-S1 dermatomal distributions. Intact 5/5 strength in hip flexion (T12-L3). Knee extension (L2-L4). Ankle dorsiflexion (L4-L5). Ankle plantar flexion (S1). Great toe extension (L5). 2+ patellar and Achilles DTRs. Skin: No rash or lesions noted Const Vital Signs: 11/22/22 18:53 Temperature 98 F Temperature Source Temporal Pulse Rate 64 Respiratory Rate 16 Blood Pressure 100/84 H Blood Pressure Mean 89 Pulse Ox 99 Oxygen Delivery Method Room Air [facility] MDM MDM Narrative Medical decision making narrative: Chief Complaint: Knee pain External records reviewed: MDM: Patient was hemodynamically stable, afebrile, nontoxic-appearing. Exam with limited range of motion secondary to pain. No obvious joint effusion, swelling redness or warmth noted. Compartments are soft. There is no calf tenderness. There is no posterior knee swelling. There is no thigh TTP. I considered the following differential diagnosis: Knee fracture dislocation, tendon rupture, septic arthritis, DVT, arthritic changes of the knee Patient had no obvious joint effusion, signs of infection to suggest septic arthritis. Her quadricep tendon complex was intact while the patient displayed limited range of motion I would suspicion for tenderness involvement at this time. Patient is compliant with Eliquis. I did obtain a DVT ultrasound to rule out DVT given history. I obtained an x-ray to rule out arthritic changes, fracture dislocation. Imaging studies were remarkable for no evidence no evidence of acute DVT. X-ray by my read shows no evidence of bony abnormality, patella dislocation or fracture. The etiology patient symptoms are unclear however they are likely inflammatory in nature may be an exacerbation of her rheumatoid arthritis or fibromyalgia. I have a low suspicion for septic arthritis at this time. Did offer the patient arthrocentesis however she refused stating she did not want go through invasive procedure. She was alert and orient x3 and had capacity make her medical decisions. I treated her here with Tylenol, oxycodone. I will start her on oxycodone and prednisone for pain relief and anti-inflammatory effect at home. We will give PCP follow-up instructions. Patient agreed with plan Factors affecting care: Patient is on Eliquis Social determinants of health: Elderly History obtained from others: The patient's friend Shared decision making: I will have a discussion with the patient and or visitors regarding risk/benefits of further testing or admission. They will be made aware of of the risk/benefits inherent in this decision they will be given the opportunity to voice understanding. Consults: None Radiography Diagnostic Testing: Clinical Impression(s) from Imaging Studies Knee X-Ray 11/22/22 19:45 IMPRESSION: patellar spurring Electronically Signed: Atif Dumont MD at 20:03 EDT Reading Location ID and State: [facility] / [place] , Service support , Discharge Plan Triage Chief Complaint: Lower Extremity Injury ED Provider: Guero Burrows Dx/Rx/DC Orders Prescriptions: No Action cetirizine [Zyrtec] 10 mg tablet 10 mg PO DAILY vitamin E 200 unit capsule 200 unit PO DAILY hydroxychloroquine [Plaquenil] 200 mg tablet 200 mg PO BID amitriptyline 10 mg tablet 10 mg PO QHS pantoprazole 40 mg tablet,delayed release (DR/EC) 40 mg PO DAILY cholecalciferol (vitamin D3) 50 mcg (2,000 unit) capsule 50 mcg PO DAILY permethrin 5 % cream 1 applic topical Q14D Qty: 60 0RF Rx Instructions: apply second treatment 14 days after first treatment if live mites remain albuterol sulfate 90 mcg/actuation HFA aerosol inhaler 2 puff inhalation Q6H PRN (Reason: shortness of breath or wheezing) Qty: 8.5 0RF coenzyme Q10 [Co Q-10] 50 MG capsule 50 mg PO DAILY calcium carbonate [Calcium 500] 500 mg calcium (1,250 mg) Tablet 500 mg PO DAILY folic acid 1 mg Tablet 1 mg PO DAILY Cbd Lotion 1 applic transdermal BID PRN (Reason: ARTHRITIS) Eliquis 5 mg tablet 5 mg PO BID rosuvastatin [Crestor] 10 mg tablet 10 mg PO DAILY Qty: 90 3RF Prolia 60 mg/mL syringe 60 mg subcut [id number] Qty: 1 2RF furosemide 40 mg tablet 40 mg PO DAILY Qty: 90 3RF metoprolol succinate 25 mg tablet extended release 24 hr 25 mg PO BID Qty: 180 3RF Primary Care Provider: Anthony Alonzo Referrals: Anthony Alonzo MD [Primary Care Provider] -
--- NOTE | 2022-11-22 19:28 | US_ITS ---
STUDY: VENOUS DOPPLER ULTRASOUND - RIGHT LOWER EXTREMITY REASON FOR EXAM: Female, 77 years old. RT ANTERIOR KNEE PAIN TECHNIQUE: Ultrasound evaluation of the deep vein system to include bhatti-scale imaging and compression was performed. Bhatti-scale imaging and Doppler sonographic evaluation, including duplex spectral analysis and qualitative color flow sonography, was performed. COMPARISON: None. FINDINGS: Common Femoral Vein: Normal compression, spontaneity and augmentation. Normal color Doppler. Common Femoral Vein/Greater Saphenous Junction: Normal compression, spontaneity and augmentation. Normal color Doppler. Deep Femoral Vein: Normal compression, spontaneity and augmentation. Normal color Doppler. Femoral Proximal: Normal compression, spontaneity and augmentation. Normal color Doppler. Femoral Middle: Normal compression, spontaneity and augmentation. Normal color Doppler. Femoral Distal: Normal compression, spontaneity and augmentation. Normal color Doppler. Popliteal Vein: Normal compression, spontaneity and augmentation. Normal color Doppler. Posterior Tibial Vein: Normal compression, spontaneity and augmentation. Normal color Doppler. Peroneal Vein: Normal compression, spontaneity and augmentation. Normal color Doppler. US/Venous Duplex Imag/Limited/Uni IMPRESSION: Normal venous Doppler ultrasound of the lower extremity. Electronically Signed: Atif Dumont MD at 21:21 EDT ,
--- NOTE | 2022-11-22 19:45 | RAD_ITS ---
STUDY: X-RAY - RIGHT KNEE REASON FOR EXAM: Female, 77 years old. knee pain TECHNIQUE: 2 view(s) of the knee. COMPARISON: February 14, 2017 FINDINGS: Normal visualized distal femur. Normal visualized proximal tibia and fibula. Normal proximal tibiofibular articulation. Spurring superior pole patella. Normal medial femorotibial compartment. Normal lateral femorotibial compartment. Normal patellofemoral articulation. The soft tissue structures are unremarkable. RAD/Knee 1 or 2 Views IMPRESSION: patellar spurring Electronically Signed: Atif Dumont MD at 20:03 EDT ,
[2022-11-22] MEDS: Acetaminophen 325 MG Tablet 650 MG PO (20:03)
[2022-11-22] MEDS: oxyCODONE 5 MG Tablet PO (20:03)
[2022-11-22] MEDS: predniSONE 20 MG Tablet 50 MG PO (21:06)
[2022-11-22 21:28] VITALS: BP 112/64; PULSE 74; RESP 18; O2SAT 98
== END 2022-11-22 21:30 | disposition home or self-care (01) ==
PROVIDERS: Emergency Provider Emergency Medicine; PCP Internal Medicine; Visit Provider Emergency Medicine
DX: M25.561 Pain in right knee (principal); Z87.891 Personal history of nicotine dependence; Z86.718 Personal history of other venous thrombosis and embolism; Z79.01 Long term (current) use of anticoagulants
CPT/HCPCS: 73560; 93971; 99283

== ENCOUNTER → 2022-11-30 | Outpatient (CLI) | payer MEDICARE, OTHER, SELFPAY ==
[2022-11-30 12:47] LABS: Absolute Lymphocyte Count 1.76 X10^3/uL (0.83-4.51); Absolute Neutrophil Count 6.5 X10^3/uL (2.0-7.7); Basophil# 0.02 X10^3/uL; Basophil% 0.2 % (0-1); Eosinophil# 0.33 X10^3/uL; Eosinophils% 3.4 % (0-5); Hematocrit 43.7 % (37-47); Hemoglobin 14.1 g/dL (12.0-15.0); Lymphocyte # 1.76 X10^3/ul (0.83-4.51); Lymphocyte % 18.1 % (19-41); Mean Corp Hgb Conc 32.3 g/dL (32-36); Mean Corpuscular Hgb 28.7 pg (27.0-32.0); Mean Corpuscular Volume 88.8 fL (81-99); Mean Platelet Vol. 10.3 fl (6.2-12.0); Monocyte# 1.06 X10^3/uL; Monocyte% 10.9 % (0-10); NRBC Flagged by Analyzer 0 % (0-5); Neutrophil # 6.48 X10^3/uL (2.7-7.7); Neutrophil % 66.8 % (47-70); Platelet Count 276 K/mm3 (150-450); RBC Distribution Width CV 13.4 % (11.6-14.6); RBC Distribution Width SD 43.8 fl (35.1-43.9); Red Blood Count 4.92 M/mm3 (4.2-5.4); White Blood Count 9.7 K/mm3 (4.4-11.0)
[2022-11-30 13:04] LABS: BNP,B-Type NATRIURETIC PEPTIDE 110.2 pg/mL (0-100)
[2022-11-30 13:26] LABS: ALB/GLOB Ratio 0.9 RATIO (0.9-2.4); AST(SGOT) 18 U/L (15-37); Alanine Aminotransfer ALT/SGPT 27 U/L (13-56); Albumin, Serum 3.5 g/dL (3.2-5.0); Alkaline Phosphatase 65 U/L (45-117); Anion Gap 6 (5-15); BUN 23 mg/dL (7-18); BUN/Creat Ratio 19.3 RATIO (10-20); Calcium,Total 9.5 mg/dL (8.5-10.1); Chloride 103 mmol/L (98-107); Creatinine, Serum 1.19 mg/dL (0.55-1.02); EST Glomerular Filtration Rate 47 mL/min (>60); Est Glom Filt Rate - Afr Amer 57 mL/min (>60); Globulin 3.7 g/dL (2.2-4.2); Glucose 108 mg/dL (74-106); Potassium 4.3 mmol/L (3.5-5.1); Protein, Total 7.2 g/dL (6.4-8.2); Sodium Level 140 mmol/L (136-145); Thyroid Stim Hormone (TSH) 3.03 uIU/mL (0.358-3.74)
== END | disposition home or self-care (01) ==
LOC: LAB 11:50
PROVIDERS: PCP Internal Medicine; Referring Provider Physician Assistant Medical; Visit Provider Physician Assistant Medical
DX: U07.1 COVID-19 (principal); J01.90 Acute sinusitis, unspecified; R06.02 Shortness of breath
CPT/HCPCS: 36415; 80053; 83880; 84443; 85025

== ENCOUNTER → 2022-12-13 | Outpatient (CLI) | payer MEDICARE, OTHER, SELFPAY ==
--- NOTE | 2022-12-14 05:39 | PFTCOMP_ITS ---
COMPLETE PULMONARY FUNCTION TEST INTERPRETATION Brief HPI: Patient is a 77-year-old female, currently under the care of Nita Grove, who presents to [facility] for complete pulmonary function tests secondary to diagnosis of cough. Respiratory therapist reports good effort and reproducible results. Interpretation: Forced expiration spirometry shows no large airways obstructive ventilatory defect with an FEV1 of 105% predicted. There is no significant bronchodilator response by strict ATS criteria. Spirograms are of good quality and plateau normally. The respiratory flow volume loop shows a normal pattern. Lung volumes by body plethysmography show a normal total lung capacity at 4.23 L, 101% predicted. All other lung volumes are within normal limits. Diffusion capacity by carbon monoxide is at the lower limit of normal at 70% predicted. The airway resistance is normal. Compared to previous pulmonary function tests from 10/29/2021, there is been a significant improvement in DLCO and lung volumes. Impression: Grossly normal pulmonary function test, but diffusion capacity is at the lower limit of normal. Could consider bronchoprovocation study if asthma is a consideration.
== END | disposition home or self-care (01) ==
LOC: PSN 10:00
PROVIDERS: PCP Internal Medicine; Referring Provider Physician Assistant Medical; Visit Provider Physician Assistant Medical
DX: R05.9 Cough, unspecified (principal); R53.81 Other malaise; R53.83 Other fatigue
CPT/HCPCS: 94060; 94726; 94729

== ENCOUNTER → 2023-03-03 | Outpatient (CLI) | payer MEDICARE, OTHER, SELFPAY ==
[2023-03-03 12:23] LABS: Anion Gap 3 (5-15); BUN 24 mg/dL (7-18); BUN/Creat Ratio 18.3 RATIO (10-20); Chloride 105 mmol/L (98-107); Creatinine, Serum 1.31 mg/dL (0.55-1.02); EST Glomerular Filtration Rate 42 mL/min (>60); Est Glom Filt Rate - Afr Amer 51 mL/min (>60); Glucose 91 mg/dL (74-106); Potassium 3.6 mmol/L (3.5-5.1); Sodium Level 139 mmol/L (136-145)
[2023-03-03 12:48] LABS: Vitamin D,25 Hydroxy 56.4 ng/mL
== END | disposition home or self-care (01) ==
LOC: BIMLAB 10:42
PROVIDERS: PCP Internal Medicine; Referring Provider Internal Medicine; Visit Provider Internal Medicine
DX: M81.0 Age-related osteoporosis without current pathological fracture (principal); M85.80 Other specified disorders of bone density and structure, unspecified site
CPT/HCPCS: 36415; 80048; 82306

== ENCOUNTER → 2023-03-17 | Outpatient (CLI) | payer MEDICARE, OTHER, SELFPAY ==
--- NOTE | 2023-03-17 14:22 | CT_ITS ---
INDICATION: Cough, difficulty catching breath for years. A-fib. EXAMINATION: CT CHEST WITHOUT CONTRAST - CT Chest W/O Contrast Injection TECHNIQUE: Helically acquired images were obtained of the chest. A radiation dose optimization technique was used for this scan. IV Contrast dosage and agent: None. COMPARISON: 06/20/2015 FINDINGS: LUNGS, PLEURA AND LARGE AIRWAYS: Thickening of the interlobular septa within the periphery of the lungs with mild honeycombing in cylindrical bronchiectasis in the lung bases likely consistent with idiopathic pulmonary fibrosis. No pleural effusion or thickening. No pneumothorax. THYROID: No thyroid lesions. HEART AND PERICARDIUM: Cardiomegaly. No pericardial effusion. CORONARY ARTERIES: Coronary artery calcification is seen. VESSELS: Thoracic aorta is not dilated. MEDIASTINUM AND JOSELYN: No mediastinal or hilar adenopathy. Esophagus is unremarkable. No hiatal hernia. UPPER ABDOMEN: 3 mm nonobstructing stone in the upper pole left kidney. BONES: No suspicious lytic or blastic abnormality. CT/Chest without Contrast IMPRESSION: 1. Mild idiopathic pulmonary fibrosis and bibasilar cylindrical bronchiectasis. 2. Cardiomegaly. Electronically Signed: Nicko Calhoun MD at 21:51 EDT ,
== END | disposition home or self-care (01) ==
LOC: CT 14:19
PROVIDERS: PCP Internal Medicine; Referring Provider Internal Medicine Pulmonary Disease; Visit Provider Internal Medicine Pulmonary Disease
DX: R05.9 Cough, unspecified (principal)
CPT/HCPCS: 71250

== ENCOUNTER → 2023-04-07 | Outpatient (CLI) | payer MEDICARE, OTHER, SELFPAY ==
[2023-04-07 15:32] LABS: Absolute Neutrophil Count 4.7 X10^3/uL (2.0-7.7); Basophil# 0.03 X10^3/uL; Basophil% 0.4 % (0-1); Eosinophil# 0.27 X10^3/uL; Eosinophils% 3.6 % (0-5); Hematocrit 41.7 % (37-47); Hemoglobin 13.5 g/dL (12.0-15.0); Lymphocyte % 22.9 % (19-41); Mean Corp Hgb Conc 32.4 g/dL (32-36); Mean Corpuscular Hgb 28.8 pg (27.0-32.0); Mean Corpuscular Volume 89.1 fL (81-99); Monocyte# 0.75 X10^3/uL; Monocyte% 10.1 % (0-10); NRBC Flagged by Analyzer 0 % (0-5); Neutrophil # 4.66 X10^3/uL (2.7-7.7); Neutrophil % 62.7 % (47-70); Platelet Count 261 K/mm3 (150-450); RBC Distribution Width CV 13.2 % (11.6-14.6); RBC Distribution Width SD 42.8 fl (35.1-43.9); Red Blood Count 4.68 M/mm3 (4.2-5.4); White Blood Count 7.4 K/mm3 (4.4-11.0)
[2023-04-07 16:13] LABS: AST(SGOT) 19 U/L (15-37); Alanine Aminotransfer ALT/SGPT 24 U/L (13-56); Albumin, Serum 3.8 g/dL (3.2-5.0); Alkaline Phosphatase 75 U/L (45-117); Bilirubin, Direct 0.19 mg/dL (0.00-0.30); CRP < 2.90 mg/L (0.0-3.0); Protein, Total 7.8 g/dL (6.4-8.2); Rheumatoid Factor < 10.0 IU/mL (<15)
[2023-04-07 16:28] LABS: Erythrocyte Sedimentation Rate 20 mm/hr (0-30)
[2023-04-10 13:07] LABS: ANTINUCLEAR ANTIBODIES DIRECT Negative (Negative); Anti-Scleroderma-70 AB <0.2 AI (0.0-0.9); Anti-dsDNA Ab <1 IU/mL (0-9); RNP Ab 0.2 AI (0.0-0.9); SJOGREN'S Anti-SS-A test < 0.2 AI (0.0-0.9); SJOGREN'S Anti-SS-B test < 0.2 AI (0.0-0.9)
[2023-04-10 15:07] LABS: Angiotensin Convert Enzyme 52 U/L (14-82); Anti-Smooth Muscle ABS 5 Units (0-19); CCP IgG Antibodies 4 units (0-19); Cytoplasmic Ab (C-ANCA) <1:20 titer (Neg:<1:20); Perinuclear Ab (P-ANCA) <1:20 titer (Neg:<1:20)
== END | disposition home or self-care (01) ==
PROVIDERS: PCP Internal Medicine; Referring Provider Internal Medicine Pulmonary Disease; Visit Provider Internal Medicine Pulmonary Disease
DX: J84.112 Idiopathic pulmonary fibrosis (principal)
CPT/HCPCS: 36415; 80076; 82164; 83516; 85025; 85652; 86038; 86140; 86200; 86225; 86235; 86256; 86431

== ENCOUNTER → 2023-05-30 | Outpatient (CLI) | payer MEDICARE, OTHER, SELFPAY ==
[2023-05-30 15:37] LABS: AST(SGOT) 26 U/L (15-37); Alanine Aminotransfer ALT/SGPT 40 U/L (13-56); Albumin, Serum 3.5 g/dL (3.2-5.0); Alkaline Phosphatase 124 U/L (45-117); Bilirubin, Direct 0.17 mg/dL (0.00-0.30); Globulin 3.8 g/dL (2.2-4.2); Protein, Total 7.3 g/dL (6.4-8.2)
== END | disposition home or self-care (01) ==
LOC: MTLAB 11:36
PROVIDERS: PCP Internal Medicine; Referring Provider Internal Medicine Pulmonary Disease; Visit Provider Internal Medicine Pulmonary Disease
DX: J84.112 Idiopathic pulmonary fibrosis (principal)
CPT/HCPCS: 36415; 80076

== ENCOUNTER 2023-06-02 09:26 | Emergency (ER) | payer MEDICARE, OTHER, SELFPAY ==
[2023-06-02 09:26] VITALS: BP 118/65; PULSE 61; RESP 20; TEMP 36; O2SAT 100
--- NOTE | 2023-06-02 09:38 | EDS_ITS ---
HPI History of Present Illness Chief Complaint: Lower Extremity Injury Detail of Chief Complaint: Injury to left knee due to fall on Monday Informant: patient Occured/Mechanism Mechanism/Context: Yes injury, Yes fall and Yes same level fall Comment: Patient states she fell on Monday landing on her left knee. Onset/Context/Timing Onset: Days (Fall occurred May 30.) Context: Sudden Onset Timing: Continuous and Waxes and wanes Quality of Pain: Dull and Aching Location: Left knee Current Severity: Mild Maximum Severity: Severe Worsened by: Movement, palpation and weightbearing Relieved by: Rest and elevation Associated Symptoms Associated Symptoms: Negative for Parasthesia, Weakness or Loss of Funtion Narrative Narrative: Patient is a 77-year-old woman who presents after mechanical fall. She is on Eliquis for A-fib. She denies head trauma. She denies headache. She denies neck pain. She denies paresthesia, anesthesia or motor weakness upper or lower extremity presently or time of fall. She states she landed on her left knee. She presents because of increased swelling and pain. She denies constitutional symptoms. She denies cardiac or respiratory symptoms. Prior similar symptoms: No Recent Illness/Hospitalization: No PFSH PFS Medical History Atrial fibrillation Atrial fibrillation, new onset Change in skin mole Chest congestion Chest pain at rest Cough DVT (deep venous thrombosis) Elevated liver enzymes Fibromyalgia syndrome GERD (gastroesophageal reflux disease) History of left heart catheterization (LHC) (~12/09/21) History of renal stone Hyperlipemia Irregular heart beat Lumbar spondylosis Malaise and fatigue Nasal congestion ZAN (obstructive sleep apnea) Osteoarthritis of right knee Osteopenia Osteoporosis Paroxysmal atrial fibrillation Peptic ulcer with hemorrhage Pericardial effusion Rheumatoid arthritis Right knee pain Seasonal allergies Shortness of breath Sore throat Systolic dysfunction URI (upper respiratory infection) Vitamin D insufficiency Home Medications coenzyme Q10 50 mg capsule (Co Q-10) 50 mg PO DAILY 06/20/15 [History Last Taken 10/05/21] pantoprazole 40 mg tablet,delayed release 40 mg PO DAILY 06/22/21 [History Last Taken 10/05/21] vitamin E 200 unit capsule 200 unit PO DAILY 06/22/21 [History Last Taken 10/05/21] Cbd Lotion 1 applic transdermal BID PRN ARTHRITIS 10/05/21 [History Last Taken 10/04/21] calcium carbonate 500 mg calcium (1,250 mg) tablet 500 mg PO DAILY SUPPLEMENT 10/05/21 [History Last Taken 10/05/21] folic acid 1 mg tablet 1 mg PO DAILY SUPPLEMENT 10/05/21 [History Last Taken Unknown] cholecalciferol (vitamin D3) 50 mcg (2,000 unit) capsule 50 mcg PO DAILY 10/19/21 [History Last Taken Unknown] albuterol sulfate 90 mcg/actuation aerosol inhaler 2 puff inhalation Q6H PRN shortness of breath or wheezing #8.5 grams 07/04/22 [Rx Last Taken Unknown] rosuvastatin 10 mg tablet (Crestor) 10 mg PO DAILY #90 tabs 08/01/22 [Rx Last Taken Unknown] denosumab 60 mg/mL subcutaneous syringe (Prolia) 60 mg subcut [id number] #1 mL 08/16/22 [Rx Last Taken Unknown] furosemide 40 mg tablet 40 mg PO DAILY #90 tabs 08/26/22 [Rx Last Taken Unknown] metoprolol succinate 25 mg tablet,extended release 24 hr 25 mg PO BID #180 tabs 10/26/22 [Rx Last Taken Unknown] apixaban 5 mg tablet (Eliquis) 5 mg PO BID #180 tabs 01/23/23 [Rx Last Taken Unknown] hydrocortisone 2.5 % topical cream with perineal applicator 1 applic [place] BID-QID PRN hemorrhoids #30 grams 01/31/23 [Rx Last Taken Unknown] cetirizine 10 mg tablet (Zyrtec) 10 mg PO DAILY 03/03/23 [History Last Taken Unknown] hydrocodone-acetaminophen 5-325mg 5mg-325mg 1 tab PO Q6H PRN PRN Pain 3 days #10 TABLETS 06/02/23 [Rx Last Taken Unknown] Allergy/AdvReac Type Severity Reaction Status Date / Time celecoxib [From Celebrex] Allergy Anaphylaxis Verified 06/02/23 09:43 codeine AdvReac Vomiting Verified 06/02/23 09:43 indomethacin [From Indocin] AdvReac Vomiting Verified 06/02/23 09:43 indomethacin sodium AdvReac Vomiting Verified 06/02/23 09:43 [From Indocin] oxycodone HCl [From Percocet] AdvReac HALLUCINATI Verified 06/02/23 09:43 ONS Family History Father Cancer pancreatic Mother Heart disease Brother Cancer leukemia Surgical History H/O lithotripsy History of breast biopsy History of cholecystectomy History of colonoscopy History of knee surgery History of tonsillectomy History of tubal ligation Status post pericardiocentesis (~10/07/21) Social History household members: none Smoking Status: Former smoker Tobacco: How many years used: 3 alcohol intake: never substance use type: does not use caffeine: Yes Type: coffee Number of servings: 1 what type of physical activity do you participate in: walking frequency: daily ROS ROS ED Constitutional Constitutional ED: Denies chills, fever(s), subjective, sweats or weight loss Eyes Eyes: Denies blurry vision or change in vision Cardiovascular Cardiovascular: Denies chest pain or palpitations Respiratory/Chest Respiratory/Chest: Denies dyspnea or dyspnea on exertion Gastrointestinal Gastrointestinal: Denies nausea or vomiting Genitourinary Genitourinary ED: Denies hematuria Musculoskeletal Musculoskeletal: Reports other Details: Left knee pain and swelling ; Denies arthralgias, back pain, myalgias or neck pain Integumentary Reports other Details: Contusion to left knee Neurologic Neurologic: Denies paresthesias or weakness Endocrine Endocrinology: Denies polydipsia, polyphagia or polyuria Hematologic/Lymphatic Hematologic/Lymphatic: Denies easy bleeding or easy bruising EXAM Physical Exam Const Vital Signs: 06/02/23 09:26 Temperature 96.8 F L Temperature Source Temporal Pulse Rate 61 Respiratory Rate 20 H Blood Pressure 118/65 Blood Pressure Mean 82 Pulse Ox 100 Positive well nourished, well developed and obese Constitutional Narrative: Patient appears uncomfortable. Her left leg is elevated. General Appearance ED: well developed Nutritional Appearance: obese HEENT Reports moist mucous membranes normocephalic and atraumatic Eyes PERRL Eyes Narrative: Extract muscles are intact. Sclera is anicteric. Conjunctive is. Neck full ROM and supple Resp normal respiratory effort Cardio regular rate and no murmurs Rhythm: abnormal rhythm irregularly irregular Extremity full ROM; Negative for normal to inspection Extremity Narrative: Patient is able to extend to 107 degrees at the left knee. She is able to flex to approximately 100 degrees. There is soft tissue swelling with bruising noted anterior left knee. There is pain outpatient over the patella pain. She is able to hold her leg up against gravity. Difficult to determine if there is an effusion versus extra-articular fluid collection. Varus valgus stress testing causes discomfort but there is good endpoint and there is no different between the uninjured knee. There is tenderness in the popliteal fossa without fullness, pulsatile mass noted. There is no evidence of infection. Neuro oriented x3, CN's II-XII intact bilaterally and moves all extremities Psych mental status grossly normal Skin Skin Narrative: Bruising as previously described otherwise unremarkable. MDM MDM MDM Narrative Medical decision making narrative: X-ray was obtained to assess for contusion versus fracture versus effusion which would suggest meniscus injury. Patient was medicated with [place]. Radiography Chest X-Ray - ED: Read by ED Physician (4 view x-ray of the left knee reveals mild asymmetry of the joint. There is minimal degenerative changes. There is no effusion. There is soft tissue swelling. There is no evidence of fracture, subluxation or dislocation. This was independent reviewed interpreted by me at 1003.) Treatment and Re-Evaluation Narrative: Patient was reevaluated at 1012. Pain has improved after pain medicine. She was discharged with prescription for [place]. She was informed of her x-ray results. Discharge Plan Triage Chief Complaint: Lower Extremity Injury ED Provider: Loco Allred Dx/Rx/DC Orders Clinical Impression: Contusion of left knee, initial encounter, Acute pain of left knee, GERD (gastroesophageal reflux disease), Anticoagulant long-term use Instructions: ED Contusion, Lower Extremity Prescriptions: New hydrocodone-acetaminophen [hydrocodone-acetaminophen] 5-325 mg tablet 1 tab PO Q6H PRN PRN (Reason: Pain) 3 Days Qty: 10 0RF No Action vitamin E 200 unit capsule 200 unit PO DAILY pantoprazole 40 mg tablet,delayed release (DR/EC) 40 mg PO DAILY cetirizine [Zyrtec] 10 mg tablet 10 mg PO DAILY cholecalciferol (vitamin D3) 50 mcg (2,000 unit) capsule 50 mcg PO DAILY albuterol sulfate 90 mcg/actuation HFA aerosol inhaler 2 puff inhalation Q6H PRN (Reason: shortness of breath or wheezing) Qty: 8.5 0RF coenzyme Q10 [Co Q-10] 50 MG capsule 50 mg PO DAILY calcium carbonate [Calcium 500] 500 mg calcium (1,250 mg) Tablet 500 mg PO DAILY folic acid 1 mg Tablet 1 mg PO DAILY Cbd Lotion 1 applic transdermal BID PRN (Reason: ARTHRITIS) rosuvastatin [Crestor] 10 mg tablet 10 mg PO DAILY Qty: 90 3RF Prolia 60 mg/mL syringe 60 mg subcut [id number] Qty: 1 2RF furosemide 40 mg tablet 40 mg PO DAILY Qty: 90 3RF metoprolol succinate 25 mg tablet extended release 24 hr 25 mg PO BID Qty: 180 3RF Eliquis 5 mg tablet 5 mg PO BID Qty: 180 3RF hydrocortisone 2.5 % cream with perineal applicator 1 applic [place] BID-QID PRN (Reason: hemorrhoids) Qty: 30 2RF Primary Care Provider: Anthony Alonzo Referrals: Anthony Alonzo MD [Primary Care Provider] - Activity Restrictions/Additional Instructions: 1. Hold your Eliquis for the next 2 days 2. Apply ice to your left knee 6-10 times a day Disposition Disposition: Home, Self Care
[2023-06-02 09:44] VITALS: BMI 37.3
--- NOTE | 2023-06-02 09:47 | RAD_ITS ---
STUDY: X-RAY - LEFT KNEE REASON FOR EXAM: Female, 77 years old. Injury/Pain TECHNIQUE: 4 view(s) of the knee. COMPARISON: None. FINDINGS: Normal visualized distal femur. Normal visualized proximal tibia and fibula. Normal proximal tibiofibular articulation. There is mild degenerative arthrosis of the medial femorotibial compartment. Normal lateral femorotibial compartment. There is mild degenerative arthrosis of the patellofemoral articulation. Soft tissue swelling. RAD/Knee 4 or More Views IMPRESSION: Degenerative arthrosis. Mild degree of soft tissue swelling. Electronically Signed: Shoaib Mock MD at 10:31 EST ,
[2023-06-02 10:35] VITALS: BP 120/87; PULSE 80; RESP 16; O2SAT 95
[2023-06-02] MEDS: HYDROcodone Bitartrate/Apap 5/325 Tablet PO (10:39)
== END 2023-06-02 11:17 | disposition home or self-care (01) ==
PROVIDERS: Emergency Provider Emergency Medicine; PCP Internal Medicine; Visit Provider Emergency Medicine
DX: S80.02XA Contusion of left knee, initial encounter (principal); I48.0 Paroxysmal atrial fibrillation; W18.30XA Fall on same level, unspecified, initial encounter; K21.9 Gastro-esophageal reflux disease without esophagitis; Z79.01 Long term (current) use of anticoagulants; Z79.899 Other long term (current) drug therapy; Z87.891 Personal history of nicotine dependence
CPT/HCPCS: 73564; 99282

== ENCOUNTER 2023-07-21 18:48 | Emergency (ER) | payer MEDICARE, OTHER, SELFPAY ==
[2023-07-21] VITALS (7 sets, daily range): BP systolic 113–129; BP diastolic 61–85; PULSE 59–121; RESP 14–20; TEMP 37–37.3; O2SAT 95–99; BMI 35.7
--- NOTE | 2023-07-21 19:33 | EKG12_ITS ---
Test Reason : DYSRHYTHMIA Blood Pressure : / mmHG Vent. Rate : 091 BPM Atrial Rate : 080 BPM P-R Int : 134 ms QRS Dur : 080 ms QT Int : 368 ms P-R-T Axes : 024 -13 003 degrees QTc Int : 452 ms Sinus rhythm with Premature supraventricular complexes and with occasional Premature ventricular comp lexes Minimal voltage criteria for LVH, may be normal variant ( R in aVL ) Confirmed by EVA NAVARRO, IVAN ([id number]), order editor ARMINDA HOLLAND ([id number]) on 07/25/2023 8:28:24 AM Referred By: Confirmed By:IVAN VELASQUEZ MD
--- NOTE | 2023-07-21 19:34 | EDS_ITS ---
HPI History of Present Illness Chief Complaint: Shortness of Breath Informant: patient Narrative Narrative: Patient states she has been sick for 2-3 weeks with URI symptoms basically cough and dyspnea. She states she saw someone in her PCPs office who put her on steroids and antibiotics that did not seem to help anything. She thinks she had a chest x-ray done as an outpatient but no swabs were done. She feels like her breathing is getting worse and she is malaised. She has some leg swelling but no different or worse compared to usual. She denies any orthopnea or chest discomfort. No fevers or chills that she knows of. States she has pulmonary fibrosis and sees Dr. White but was not able to get in since it is Monday evening. Therefore she was recommended to come here to the ER. She has a rescue inhaler albuterol at home but she is only tried 1 time and she did say it helped but she did not try it anymore. [facility] Medical History Atrial fibrillation Atrial fibrillation, new onset Change in skin mole Chest congestion Chest pain at rest Cough DVT (deep venous thrombosis) Elevated liver enzymes Fibromyalgia syndrome GERD (gastroesophageal reflux disease) History of left heart catheterization (LHC) (~12/09/21) History of renal stone Hyperlipemia Irregular heart beat Left knee pain Lumbar spondylosis Malaise and fatigue Nasal congestion ZAN (obstructive sleep apnea) Osteoarthritis of left knee Osteoarthritis of right knee Osteopenia Osteoporosis Paroxysmal atrial fibrillation Peptic ulcer with hemorrhage Pericardial effusion Rheumatoid arthritis Right knee pain Seasonal allergies Shortness of breath Sinusitis Sore throat Systolic dysfunction URI (upper respiratory infection) Vitamin D insufficiency Home Medications coenzyme Q10 50 mg capsule (Co Q-10) 50 mg PO DAILY 06/20/15 [History Last Taken 10/05/21] pantoprazole 40 mg tablet,delayed release 40 mg PO DAILY 06/22/21 [History Last Taken 10/05/21] vitamin E 200 unit capsule 200 unit PO DAILY 06/22/21 [History Last Taken 10/05/21] Cbd Lotion 1 applic transdermal BID PRN ARTHRITIS 10/05/21 [History Last Taken 10/04/21] folic acid 1 mg tablet 1 mg PO DAILY SUPPLEMENT 10/05/21 [History Last Taken Unknown] cholecalciferol (vitamin D3) 50 mcg (2,000 unit) capsule 50 mcg PO DAILY 10/19/21 [History Last Taken Unknown] albuterol sulfate 90 mcg/actuation aerosol inhaler 2 puff inhalation Q6H PRN shortness of breath or wheezing #8.5 grams 07/04/22 [Rx Last Taken Unknown] rosuvastatin 10 mg tablet (Crestor) 10 mg PO DAILY #90 tabs 08/01/22 [Rx Last Taken Unknown] denosumab 60 mg/mL subcutaneous syringe (Prolia) 60 mg subcut [id number] #1 mL 08/16/22 [Rx Last Taken Unknown] metoprolol succinate 25 mg tablet,extended release 24 hr 25 mg PO BID #180 tabs 10/26/22 [Rx Last Taken Unknown] apixaban 5 mg tablet (Eliquis) 5 mg PO BID #180 tabs 01/23/23 [Rx Last Taken Unknown] cetirizine 10 mg tablet (Zyrtec) 10 mg PO DAILY 03/03/23 [History Last Taken Unknown] benzonatate 200 mg capsule 200 mg PO BID-TID PRN cough #120 caps 07/10/23 [Rx Last Taken Unknown] furosemide 40 mg tablet 40 mg PO DAILY #90 tabs 07/21/23 [Rx Last Taken Unknown] nintedanib PO 07/21/23 [History Last Taken Unknown] Allergy/AdvReac Type Severity Reaction Status Date / Time celecoxib [From Celebrex] Allergy Anaphylaxis Verified 07/21/23 18:51 codeine AdvReac Vomiting Verified 07/21/23 18:51 indomethacin [From Indocin] AdvReac Vomiting Verified 07/21/23 18:51 indomethacin sodium AdvReac Vomiting Verified 07/21/23 18:51 [From Indocin] oxycodone HCl [From Percocet] AdvReac HALLUCINATI Verified 07/21/23 18:51 ONS Family History Father Cancer pancreatic Mother Heart disease Brother Cancer leukemia Surgical History H/O lithotripsy History of breast biopsy History of cholecystectomy History of colonoscopy History of knee surgery History of tonsillectomy History of tubal ligation Status post pericardiocentesis (~10/07/21) Social History household members: none Smoking Status: Former smoker Tobacco: How many years used: 3 alcohol intake: never substance use type: does not use caffeine: Yes Type: coffee Number of servings: 1 what type of physical activity do you participate in: walking frequency: daily ROS ROS ED Constitutional Constitutional ED: Reports malaise; Denies chills or fever(s) Eyes Eyes: Denies change in vision or diplopia ENT ENT ED: Denies rhinorrhea or sore throat Cardiovascular Cardiovascular: Denies chest pain or palpitations Respiratory/Chest Respiratory/Chest: Reports cough, dyspnea and dyspnea on exertion; Denies sputum Gastrointestinal Gastrointestinal: Denies abdominal pain, diarrhea, nausea or vomiting Genitourinary Genitourinary ED: Denies dysuria or hematuria Musculoskeletal Musculoskeletal: Denies back pain or neck pain Integumentary Denies abscess or rash Neurologic Neurologic: Denies headache(s), paresthesias or weakness Psychiatric Psychiatric: Denies anxiety or suicidal thoughts EXAM Physical Exam Const Vital Signs: 07/21/23 18:52 07/21/23 19:15 07/21/23 19:44 Temperature 99 F Temperature Source Temporal Pulse Rate 59 L Respiratory Rate 14 Respiratory Effort Normal Respiratory Depth Normal Respiratory Pattern Normal Blood Pressure 129/85 H Blood Pressure Mean 99 Pulse Ox 99 95 Oxygen Delivery Method Room Air Room Air Room Air 07/21/23 19:48 07/21/23 19:56 07/21/23 20:56 Temperature 99.1 F 98.6 F Temperature Source Oral Oral Pulse Rate 108 H 121 H 117 H Respiratory Rate 16 18 20 H Respiratory Effort Respiratory Depth Respiratory Pattern Normal Blood Pressure 122/63 H 122/61 H Blood Pressure Mean 82 81 Pulse Ox 97 98 Oxygen Delivery Method Room Air Room Air 07/21/23 22:00 Temperature 98.7 F Temperature Source Oral Pulse Rate 87 Respiratory Rate 16 Respiratory Effort Respiratory Depth Respiratory Pattern Blood Pressure 113/68 Blood Pressure Mean 83 Pulse Ox 97 Oxygen Delivery Method Room Air Positive well nourished and well developed General Appearance ED: well developed and NAD HEENT Reports moist mucous membranes normocephalic and atraumatic Eyes PERRL and EOMs intact bilaterally Neck full ROM, supple and no JVD Resp normal respiratory effort Resp Narrative: Bibasilar high-pitched rhonchi, they fade as you listen to the apices, breath sounds are symmetric bilaterally. No Rales. No wheezes. Cardio regular rate, regular rhythm and no murmurs GI non-tender and non-distended Auscultation: normoactive bowel sounds Palpation: soft Back/Spine no CVA tenderness General Back: other FROM Extremity normal to inspection General Extremety ED: Yes edema; Negative for pulses abnormal or tenderness General Extremity: edema bilateral lower extremity Details: mild; Negative for pulses abnormal Neuro oriented x3, CN's II-XII intact bilaterally and no sensory deficits noted Sensorium / Orientation: awake and alert Motor Exam: strength 5/5 throughout Skin no rashes or lesions noted and no wounds MDM MDM MDM Narrative Medical decision making narrative: 2 view chest x-ray obtained, my interpretation shows chronic changes consistent with fibrosis, as radiology is in agreement with, and no acute infiltrate. Her labs are noted. Her BNP is slightly elevated at 132, this is consistent with her age and inconsistent with acute decompensated congestive heart failure. Furthermore her prior echo was reviewed, it was earlier this year and showed an ejection fraction 55% with no left ventricular systolic dysfunction. She was given multiple albuterol/duo nebulizer treatments, and this did help. She is not hypoxic. She is able to converse. In reviewing recent outpatient records, she just finished a 5-day course of prednisone 40 mg, and today finished a 10- day course of Augmentin. She states none of it helped anything. I discussed with Dr. Hopkins on for pulmonary, he does not recommend represcribing any steroids or antibiotics which I am in agreement with. She is to continue the Ofev and follow-up with pulmonary as an outpatient, he recommends methods of supportive care, I agree. She has albuterol at home. She is advised to continue using it as needed and to not overexert herself and make her more short of breath, she likely has a viral illness that is causing this and hopefully her breathing will improve when the virus defervesces. History & Record Review Additional record(s) reviewed:: Prior outpatient record Lab Data Attestation: I reviewed the patient's lab results. Labs: Laboratory Results - last 24 hr 07/21/23 19:43 WBC 7.8 RBC 4.66 Hgb 13.6 Hct 40.5 MCV 86.9 MCH 29.2 MCHC 33.6 RDW Std Deviation 42.9 RDW Coeff of Mendez 13.6 Plt Count 201 MPV 10.0 Immature Gran % (Auto) 0.400 Neut % (Auto) 63.9 Lymph % (Auto) 16.9 L [place] % (Auto) 17.2 H Eos % (Auto) 1.5 Baso % (Auto) 0.1 Absolute Neuts (auto) 5.0 Absolute Lymphs (auto) 1.32 Nucleated RBC % 0 Sodium 136 Potassium 4.0 Chloride 100 Carbon Dioxide 31.0 Anion Gap 5 BUN 12 Creatinine 1.13 H Estim Creat Clear Calc 34.02 Est GFR (MDRD) Af Amer 60 Est GFR (MDRD) Non-Af 50 L BUN/Creatinine Ratio 10.6 Glucose 110 H Calcium 9.1 B-Natriuretic Peptide 132.5 H Radiography Diagnostic Testing: Clinical Impression(s) from Imaging Studies Chest X-Ray 07/21/23 21:10 IMPRESSION: Stable changes of pulmonary fibrosis without definite acute superimposed consolidative process. Electronically Signed: John Cardona MD at 21:59 EST Reading Location ID and State: [facility] / [place] Tel , Service support , Rhythm Strip Rhythm Strip: Sinus Rhythm Rate: 90 Ectopy: PVC(s) and PAC(s) EKG Initial EKG: Interpretation: Sinus Rhythm and No Acute Injury Pattern Comments: vent and atrial ectopy Prior EKG tracings: available for review Prior: Unchanged Management Discussion w/another healthcare provider: [employer] Data Technician (pulmonary Dr. Hopkins) Discharge Plan Triage Chief Complaint: Shortness of Breath ED Provider: Manolo Walker Dx/Rx/DC Orders Clinical Impression: Viral URI with cough, Pulmonary fibrosis Instructions: Interstitial Lung Disease Prescriptions: No Action vitamin E 200 unit capsule 200 unit PO DAILY pantoprazole 40 mg tablet,delayed release (DR/EC) 40 mg PO DAILY cetirizine [Zyrtec] 10 mg tablet 10 mg PO DAILY cholecalciferol (vitamin D3) 50 mcg (2,000 unit) capsule 50 mcg PO DAILY albuterol sulfate 90 mcg/actuation HFA aerosol inhaler 2 puff inhalation Q6H PRN (Reason: shortness of breath or wheezing) Qty: 8.5 0RF benzonatate 200 mg capsule 200 mg PO BID-TID PRN (Reason: cough) Qty: 120 0RF coenzyme Q10 [Co Q-10] 50 MG capsule 50 mg PO DAILY folic acid 1 mg Tablet 1 mg PO DAILY Cbd Lotion 1 applic transdermal BID PRN (Reason: ARTHRITIS) nintedanib [Ofev] PO rosuvastatin [Crestor] 10 mg tablet 10 mg PO DAILY Qty: 90 3RF Prolia 60 mg/mL syringe 60 mg subcut [id number] Qty: 1 2RF metoprolol succinate 25 mg tablet extended release 24 hr 25 mg PO BID Qty: 180 3RF Eliquis 5 mg tablet 5 mg PO BID Qty: 180 3RF furosemide 40 mg tablet 40 mg PO DAILY Qty: 90 3RF Primary Care Provider: Anthony Alonzo Referrals: Anthony Alonzo MD [Primary Care Provider] - Danny White MD [Med Staff - Active Staff] - As soon as possible Disposition Disposition: Home, Self Care
[2023-07-21 19:49] LABS: Absolute Lymphocyte Count 1.32 X10^3/uL (0.83-4.51); Basophil# 0.01 X10^3/uL; Basophil% 0.1 % (0-1); Eosinophil# 0.12 X10^3/uL; Eosinophils% 1.5 % (0-5); Hematocrit 40.5 % (37-47); Hemoglobin 13.6 g/dL (12.0-15.0); Lymphocyte # 1.32 X10^3/ul (0.83-4.51); Lymphocyte % 16.9 % (19-41); Mean Corp Hgb Conc 33.6 g/dL (32-36); Mean Corpuscular Hgb 29.2 pg (27.0-32.0); Mean Corpuscular Volume 86.9 fL (81-99); Monocyte# 1.34 X10^3/uL; Monocyte% 17.2 % (0-10); NRBC Flagged by Analyzer 0 % (0-5); Neutrophil # 4.98 X10^3/uL (2.7-7.7); Neutrophil % 63.9 % (47-70); Platelet Count 201 K/mm3 (150-450); RBC Distribution Width CV 13.6 % (11.6-14.6); RBC Distribution Width SD 42.9 fl (35.1-43.9); Red Blood Count 4.66 M/mm3 (4.2-5.4); White Blood Count 7.8 K/mm3 (4.4-11.0)
[2023-07-21] MEDS: Ipratropium/Albuterol Sulfate 3 ML AMPUL.NEB INHALATION (19:56)
[2023-07-21] MEDS: Albuterol 2.5 MG/3 ML VIAL.NEB. INHALATION ×2 (20:05→20:23)
[2023-07-21 20:15] LABS: BNP,B-Type NATRIURETIC PEPTIDE 132.5 pg/mL (0-100)
[2023-07-21 20:29] LABS: Anion Gap 5 (5-15); BUN 12 mg/dL (7-18); BUN/Creat Ratio 10.6 RATIO (10-20); Calcium,Total 9.1 mg/dL (8.5-10.1); Chloride 100 mmol/L (98-107); Creatinine, Serum 1.13 mg/dL (0.55-1.02); EST Glomerular Filtration Rate 50 mL/min (>60); Est Glom Filt Rate - Afr Amer 60 mL/min (>60); Estimated Creatinine Clearance 34.02 ml/min; Glucose 110 mg/dL (74-106); Sodium Level 136 mmol/L (136-145)
--- NOTE | 2023-07-21 20:46 | CPS ---
x2 Albuterol given to pt. in ER as well
--- NOTE | 2023-07-21 21:10 | RAD_ITS ---
INDICATION: sob, cough, hx pulm fibrosis EXAMINATION/TECHNIQUE: X-RAY - XR Chest 2 Views COMPARISON: 07/10/2023 FINDINGS: LINES/DEVICES: None. LUNGS: Stable fibrotic changes, predominantly at the lung bases. Low lung volumes. No consolidation or pleural effusion. MEDIASTINUM AND CARDIOVASCULAR STRUCTURES: Cardiac silhouette stable within normal limits. BONES AND SOFT TISSUES: No acute changes. RAD/Chest PA and Lateral IMPRESSION: Stable changes of pulmonary fibrosis without definite acute superimposed consolidative process. Electronically Signed: John Cardona MD at 21:59 EST ,
== END 2023-07-21 22:51 | disposition home or self-care (01) ==
PROVIDERS: Emergency Provider Emergency Medicine; PCP Internal Medicine; Visit Provider Emergency Medicine
DX: J06.9 Acute upper respiratory infection, unspecified (principal); I48.0 Paroxysmal atrial fibrillation; J84.10 Pulmonary fibrosis, unspecified; R05.9 Cough, unspecified; M79.7 Fibromyalgia; G47.33 Obstructive sleep apnea (adult) (pediatric); E55.9 Vitamin D deficiency, unspecified; K21.9 Gastro-esophageal reflux disease without esophagitis; Z79.01 Long term (current) use of anticoagulants; Z79.899 Other long term (current) drug therapy; Z87.891 Personal history of nicotine dependence; Z86.718 Personal history of other venous thrombosis and embolism
CPT/HCPCS: 71046; 80048; 83880; 85025; 87428; 93005; 94640; 99284; A4216

== ENCOUNTER → 2023-07-25 | Outpatient (CLI) | payer MEDICARE, OTHER, SELFPAY ==
--- NOTE | 2023-07-25 17:50 | RAD_ITS ---
STUDY: X-RAY CHEST REASON FOR EXAM: Female, 77 years old. SOB COUGH TECHNIQUE: PA and lateral views of the chest. COMPARISON: July 21, 2023 FINDINGS: There are stable interstitial increased opacities of the lungs. There is no demonstrated pleural abnormality. Normal size heart. Normal mediastinum and enedelia. Normal visualized pulmonary arteries. Normal visualized aortic arch and descending thoracic aorta. There are diffuse degenerative changes of the visualized thoracic spine. Normal visualized ribs, clavicles, and shoulders. There is no demonstrated abnormality of the visualized soft tissue structures of the upper abdomen. RAD/Chest PA and Lateral IMPRESSION: Stable interstitial edema or fibrosis. Electronically Signed: Manolo Benitez MD at 18:07 [facility] ,
== END | disposition home or self-care (01) ==
LOC: RAD.FUTURE 17:40 → RAD 17:55
PROVIDERS: PCP Internal Medicine; Referring Provider Internal Medicine Pulmonary Disease; Visit Provider Internal Medicine Pulmonary Disease
DX: R06.02 Shortness of breath (principal); R05.9 Cough, unspecified
CPT/HCPCS: 71046

== ENCOUNTER → 2023-09-01 | Outpatient (CLI) | payer MEDICARE, OTHER, SELFPAY ==
--- NOTE | 2023-09-01 11:06 | BI_ITS ---
MAMMOGRAPHY - BILATERAL SCREENING REASON FOR EXAM: Female, 77 years old. Routine annual screening examination. PERTINENT HISTORY: Non-contributory. TECHNIQUE: Digital bilateral breast rosa m (3D mammographic acquisition) in the CC and MLO projections. 2-D mediolateral oblique (MLO) and craniocaudad (CC) views of both breasts were obtained. CAD: Full Field Digital Mammography with Computer Added Detection was performed. COMPARISON: Comparison is made with prior study of September 06, 2022 and July 29, 2022. FINDINGS: Breast Composition: There are scattered areas of fibroglandular density. There are no dominant masses or suspicious calcifications. Stable small bilateral axillary lymph nodes. No other significant abnormalities are identified. There has been no significant change since the prior study. BI/SCRN MAMM (CAD)W/ROSA M BILAT IMPRESSION: Stable bilateral screening mammogram. Yearly follow-up mammogram recommended. (A) ASSESSMENT CATEGORY: BIRADS Category 2: Benign. A letter regarding these results will be sent to the patient by the facility within 30 days. Approximately 10% of breast cancers are not detected by mammography. A normal mammogram should not delay biopsy of a clinically suspicious abnormality. [id number] Electronically Signed: Shoaib Mock MD at 13:12 EST ,
[2023-09-01 13:09] LABS: AST(SGOT) 41 U/L (15-37); Alanine Aminotransfer ALT/SGPT 48 U/L (13-56); Albumin, Serum 3.4 g/dL (3.2-5.0); Alkaline Phosphatase 103 U/L (45-117); Bilirubin, Direct 0.25 mg/dL (0.00-0.30); Globulin 3.8 g/dL (2.2-4.2); Protein, Total 7.2 g/dL (6.4-8.2)
== END | disposition home or self-care (01) ==
PROVIDERS: PCP Internal Medicine; Referring Provider Internal Medicine; Visit Provider Internal Medicine
DX: Z12.31 Encounter for screening mammogram for malignant neoplasm of breast (principal); J84.112 Idiopathic pulmonary fibrosis; R06.02 Shortness of breath
CPT/HCPCS: 36415; 77063; 77067; 80076

== ENCOUNTER → 2023-11-01 | Outpatient (CLI) | payer MEDICARE, OTHER, SELFPAY ==
[2023-11-01 15:07] LABS: Absolute Neutrophil Count 4.4 X10^3/uL (2.0-7.7); Basophil# 0.05 X10^3/uL; Basophil% 0.7 % (0-1); Eosinophil# 0.36 X10^3/uL; Hemoglobin 14.1 g/dL (12.0-15.0); Lymphocyte % 23.4 % (19-41); Mean Corpuscular Hgb 27.6 pg (27.0-32.0); Mean Corpuscular Volume 86.3 fL (81-99); Mean Platelet Vol. 10.8 fl (6.2-12.0); Monocyte# 0.67 X10^3/uL; Monocyte% 9.2 % (0-10); NRBC Flagged by Analyzer 0 % (0-5); Neutrophil # 4.44 X10^3/uL (2.7-7.7); Neutrophil % 61.3 % (47-70); Platelet Count 270 K/mm3 (150-450); RBC Distribution Width CV 14.6 % (11.6-14.6); White Blood Count 7.3 K/mm3 (4.4-11.0)
[2023-11-01 17:07] LABS: ALB/GLOB Ratio 0.9 RATIO (0.9-2.4); AST(SGOT) 39 U/L (15-37); Alanine Aminotransfer ALT/SGPT 30 U/L (13-56); Albumin, Serum 3.7 g/dL (3.2-5.0); Alkaline Phosphatase 90 U/L (45-117); Anion Gap 3 (5-15); BUN 17 mg/dL (7-18); BUN/Creat Ratio 16.7 RATIO (10-20); Calcium,Total 9.4 mg/dL (8.5-10.1); Chloride 106 mmol/L (98-107); Cholesterol 197 mg/dL (200); Creatinine, Serum 1.02 mg/dL (0.55-1.02); EST Glomerular Filtration Rate 56 mL/min (>60); Est Glom Filt Rate - Afr Amer 68 mL/min (>60); Globulin 3.9 g/dL (2.2-4.2); Glucose 94 mg/dL (74-106); High Density Lipoprotein 76 mg/dL; Protein, Total 7.6 g/dL (6.4-8.2); Sodium Level 138 mmol/L (136-145); T4 Free Direct 1.01 ng/dL (0.76-1.46); Thyroid Stim Hormone (TSH) 5.65 uIU/mL (0.358-3.74); Triglycerides 143 mg/dL; Very Low Density Lipoprotein 29 mg/dL (5-40)
== END | disposition home or self-care (01) ==
LOC: BIMLAB 11:48
PROVIDERS: PCP Internal Medicine; Referring Provider Internal Medicine; Visit Provider Internal Medicine
DX: E78.5 Hyperlipidemia, unspecified (principal); J84.10 Pulmonary fibrosis, unspecified
CPT/HCPCS: 36415; 80053; 80061; 84439; 84443; 85025

== ENCOUNTER 2023-12-03 16:18 | Emergency (ER) | payer MEDICARE, OTHER, SELFPAY ==
[2023-12-03 16:21] VITALS: BP 113/64; PULSE 58; RESP 18; TEMP 36.1; O2SAT 95; BMI 34.9
--- NOTE | 2023-12-03 17:13 | EDS_ITS ---
HPI History of Present Illness Chief Complaint: Lower Extremity Injury [facility] Medical History (Updated 12/03/23 @ 18:[address] Guero Burrows, DO) Atrial fibrillation Atrial fibrillation, new onset Change in skin mole Chest congestion Chest pain at rest Chronic back pain Cough DVT (deep venous thrombosis) Elevated liver enzymes Fibromyalgia syndrome GERD (gastroesophageal reflux disease) History of left heart catheterization (LHC) (~12/09/21) History of renal stone Hyperlipemia Irregular heart beat Left knee pain Lumbar spondylosis Malaise and fatigue Nasal congestion ZAN (obstructive sleep apnea) Osteoarthritis of left knee Osteoarthritis of right knee Osteopenia Osteoporosis Paroxysmal atrial fibrillation Peptic ulcer with hemorrhage Pericardial effusion Rheumatoid arthritis Right knee pain Seasonal allergies Shortness of breath Sinusitis Sore throat Systolic dysfunction URI (upper respiratory infection) Vitamin D insufficiency Home Medications coenzyme Q10 50 mg capsule (Co Q-10) 50 mg PO DAILY 06/20/15 [History Last Taken 10/05/21] pantoprazole 40 mg tablet,delayed release 40 mg PO DAILY 06/22/21 [History Last Taken 10/05/21] vitamin E 200 unit capsule 200 unit PO DAILY 06/22/21 [History Last Taken 10/05/21] Cbd Lotion 1 applic transdermal BID PRN ARTHRITIS 10/05/21 [History Last Taken 10/04/21] folic acid 1 mg tablet 1 mg PO DAILY SUPPLEMENT 10/05/21 [History Last Taken Unknown] cholecalciferol (vitamin D3) 50 mcg (2,000 unit) capsule 50 mcg PO DAILY 10/19/21 [History Last Taken Unknown] albuterol sulfate 90 mcg/actuation aerosol inhaler 2 puff inhalation Q6H PRN shortness of breath or wheezing #8.5 grams 07/04/22 [Rx Last Taken Unknown] denosumab 60 mg/mL subcutaneous syringe (Prolia) 60 mg subcut [id number] #1 mL 08/16/22 [Rx Last Taken Unknown] cetirizine 10 mg tablet (Zyrtec) 10 mg PO DAILY 03/03/23 [History Last Taken Unknown] furosemide 40 mg tablet 40 mg PO DAILY #90 tabs 07/21/23 [Rx Last Taken Unknown] albuterol sulfate 1.25 mg/3 mL solution for nebulization mg inhalation TID 08/30/23 [History Last Taken Unknown] apixaban 5 mg tablet (Eliquis) 5 mg PO BID #180 tabs 08/30/23 [Rx Last Taken Unknown] metoprolol succinate 25 mg tablet,extended release 24 hr 25 mg PO BID #180 tabs 08/30/23 [Rx Last Taken Unknown] rosuvastatin 10 mg tablet (Crestor) 10 mg PO DAILY #90 tabs 08/30/23 [Rx Last Taken Unknown] nintedanib [Ofev] PO BID 11/01/23 [History Last Taken Unknown] Allergy/AdvReac Type Severity Reaction Status Date / Time celecoxib [From Celebrex] Allergy Anaphylaxis Verified 12/03/23 16:20 codeine AdvReac Vomiting Verified 12/03/23 16:20 indomethacin [From Indocin] AdvReac Vomiting Verified 12/03/23 16:20 indomethacin sodium AdvReac Vomiting Verified 12/03/23 16:20 [From Indocin] oxycodone HCl [From Percocet] AdvReac HALLUCINATI Verified 12/03/23 16:20 ONS Family History Father Cancer pancreatic Mother Heart disease Brother Cancer leukemia Surgical History H/O lithotripsy History of breast biopsy History of cholecystectomy History of colonoscopy History of knee surgery History of tonsillectomy History of tubal ligation Status post pericardiocentesis (~10/07/21) Social History household members: none Smoking Status: Former smoker Tobacco: How many years used: 3 alcohol intake: never substance use type: does not use caffeine: Yes Type: coffee Number of servings: 1 what type of physical activity do you participate in: walking frequency: daily EXAM Physical Exam Const Vital Signs: 12/03/23 16:21 Temperature 96.9 F L Temperature Source Temporal Pulse Rate 58 L Respiratory Rate 18 Blood Pressure 113/64 Blood Pressure Mean 80 Pulse Ox 95 Oxygen Delivery Method Room Air MDM MDM MDM Narrative Medical decision making narrative: HISTORY OF PRESENT ILLNESS: 78-year-old female presents with concern for leg pain REVIEW OF SYSTEMS: Pertinent positives: Leg pain Pertinent negatives: Chest pain, shortness of breath PHYSICAL EXAM: Nursing triage notes reviewed, Vital signs reviewed Constitutional: please see mdm HENT: MMM Eyes: Pupils equal round and reactive to light, Extraocular muscles intact Neck: No stridor, no JVD, full neck ROM Lungs: Clear to auscultation, No wheezing or rales. No increased work of breathing, no conversational dyspnea, no accessory muscle use, no nasal flaring. No respiratory distress noted Heart: Regular rate and rhythm, No murmurs, No rubs and No gallops, 2+ distal pulses (radial, femoral, posterior tibial) in all extremities Abdomen: Soft, there is no tenderness, rigidity, rebound or guarding, no obvious peritoneal signs, no palpable pulsatile abdominal masses, no auscultated abdominal bruit : No CVAT Extremities: No edema, TTP over right proximal calf, behind the knee. Compartments are soft. Neuro: Intact sensation L1-S1 dermatomal distributions. Intact 5/5 strength in hip flexion (T12-L3). Knee extension (L2-L4). Ankle dorsiflexion (L4-L5). Ankle plantar flexion (S1). Great toe extension (L5). 2+ patellar and Achilles DTRs. Skin: No rash or lesions noted MEDICAL DECISION MAKING: Chief Complaint: Leg pain External records reviewed: Venous duplex of the right leg from 2022 shows no DVT Factors affecting care: Fibromyalgia, pulmonary fibrosis, osteopenia, hyperlipidemia, atrial fibrillation on Eliquis MDM Narrative: The patient was hemodynamically stable, afebrile and nontoxic-appearing. Exam without obvious focus of VTE. There is no trauma. No redness. There is no bruising. I considered the following differential diagnosis: Contusion, cellulitis, fracture dislocation, DVT Unfortunately we do not have ultrasound available to rule out DVT at this time. They will be available tomorrow. Outpatient DVT order was placed. Instructions for sleeping ultrasound were given. Discussed prophylactic anticoagulation. Discussed patient's risk of bleeding. We discussed that she is already on an ticoagulation in the form of Eliquis initially properly prophylactically treat her for any possible blood clot until she can get her ultrasound. Chest pain shortness of breath instructions were given. The patient and/or family, caregivers express understanding. The patient and/or family, caregivers agrees with the plan. Shared decision making: I will have a discussion with the patient and or visitors regarding risk/benefits of further testing or admission. They will be made aware of of the risk/benefits inherent in this decision they will be given the opportunity to voice understanding. Total critical care time today provided was at least 0 minutes. This excludes separately billable procedures. Critical care time (if documented) is secondary to the patient having high probability of clinically significant/life threatening deterioration in the patient's condition which required my urgent intervention. Impression: 1. Leg pain 2. Evaluation for DVT 3. History anticoagulation Dispo: Discharge This note was generated with [employer] dictation software. It may contain incorrect words, spelling, and punctuation that were not noted in review of the chart prior to signing. Discharge Plan Triage Chief Complaint: Lower Extremity Injury ED Provider: Guero Burrows Dx/Rx/DC Orders Clinical Impression: Acute leg pain Instructions: DVT Dc Prescriptions: No Action vitamin E 200 unit capsule 200 unit PO DAILY pantoprazole 40 mg tablet,delayed release (DR/EC) 40 mg PO DAILY cetirizine [Zyrtec] 10 mg tablet 10 mg PO DAILY cholecalciferol (vitamin D3) 50 mcg (2,000 unit) capsule 50 mcg PO DAILY albuterol sulfate 90 mcg/actuation HFA aerosol inhaler 2 puff inhalation Q6H PRN (Reason: shortness of breath or wheezing) Qty: 8.5 0RF albuterol sulfate 1.25 mg/3 mL solution for nebulization inhalation TID Patient Comments: use one vial via NEBULIZER FOUR TIMES DAILY metoprolol succinate 25 mg tablet extended release 24 hr 25 mg PO BID Qty: 180 3RF rosuvastatin [Crestor] 10 mg tablet 10 mg PO DAILY Qty: 90 3RF Eliquis 5 mg tablet 5 mg PO BID Qty: 180 3RF coenzyme Q10 [Co Q-10] 50 MG capsule 50 mg PO DAILY folic acid 1 mg Tablet 1 mg PO DAILY Cbd Lotion 1 applic transdermal BID PRN (Reason: ARTHRITIS) nintedanib [Ofev] PO BID Prolia 60 mg/mL syringe 60 mg subcut [id number] Qty: 1 2RF furosemide 40 mg tablet 40 mg PO DAILY Qty: 90 3RF Other Ambulatory Orders: Venous Duplex US, Unilateral (Stat) Facility: [facility] - Location: [facility] Ordered By: Dr. Guero Burrows Primary Care Provider: Anthony Alonzo Referrals: Anthony Alonzo MD [Primary Care Provider] - Activity Restrictions/Additional Instructions: Thank you for trusting us with your care today! Please take Tylenol (2 pills, 650 mg) every 6 hours as needed for pain and fever control. Please return to the emergency department if your symptoms change or worsen. Please follow with your primary care physician for further outpatient evaluation and management. Disposition Disposition: Home, Self Care
== END 2023-12-03 18:39 | disposition home or self-care (01) ==
PROVIDERS: Emergency Provider Emergency Medicine; PCP Internal Medicine; Visit Provider Emergency Medicine
DX: M79.606 Pain in leg, unspecified (principal); J84.10 Pulmonary fibrosis, unspecified; I48.91 Unspecified atrial fibrillation; Z87.891 Personal history of nicotine dependence; M79.7 Fibromyalgia; M85.80 Other specified disorders of bone density and structure, unspecified site; E78.5 Hyperlipidemia, unspecified; M54.9 Dorsalgia, unspecified; Z79.01 Long term (current) use of anticoagulants
CPT/HCPCS: 99282

== ENCOUNTER → 2023-12-04 | Outpatient (CLI) | payer MEDICARE, OTHER, SELFPAY ==
--- NOTE | 2023-12-04 13:09 | VDLE_ITS ---
Reason For Study: Right leg swelling RIGHT LEFT GSV is normal. CFV is compressible, spontaneous, phasic, CFV is compressible, spontaneous, phasic, competent, and demonstrates normal competent and demonstrates normal augmentation. augmentation. FV is compressible, spontaneous, phasic, competent and demonstrates normal augmentation. POP V is compressible, spontaneous, phasic, competent and demonstrates normal augmentation. T/P Trunk is compressible. PTV is compressible. RT PerV is compressible. Procedure This is a venous duplex using B-mode, color flow and spectral Doppler. Exam performed in department. A preliminary report was called and/or faxed to PCP: Dr. Alonzo. VL/Venous Duplex US, Unilateral Interpretation Summary There is no evidence of right lower extremity deep vein thrombosis. Right great saphenous vein appears patent and compressible segmentally. Normal flow patterns left common f emoral vein Ordering Physician: Guero Burrows Referring Physician: Anthony Alonzo Performed By: Edna Patton RVT
== END | disposition home or self-care (01) ==
PROVIDERS: PCP Internal Medicine; Referring Provider Emergency Medicine; Visit Provider Emergency Medicine
DX: R22.41 Localized swelling, mass and lump, right lower limb (principal)
CPT/HCPCS: 93971

== ENCOUNTER → 2023-12-06 | Outpatient (CLI) | payer MEDICARE, OTHER, SELFPAY ==
--- NOTE | 2023-12-06 16:39 | RAD_ITS ---
STUDY: X-RAY - RIGHT KNEE REASON FOR EXAM: Female, 78 years old. Right Knee Pain TECHNIQUE: 3 view(s) of the knee. COMPARISON: None. FINDINGS: Normal visualized distal femur. Normal visualized proximal tibia and fibula. Normal proximal tibiofibular articulation. There is mild degenerative arthrosis of the medial femorotibial compartment. Normal lateral femorotibial compartment. There is mild degenerative arthrosis of the patellofemoral articulation. The soft tissue structures are unremarkable. RAD/Knee 3 Views IMPRESSION: Degenerative arthrosis. Electronically Signed: Nicko Calhoun MD at 19:23 EDT ,
--- NOTE | 2023-12-06 16:40 | RAD_ITS ---
STUDY: X-RAY - LUMBAR SPINE REASON FOR EXAM: Female, 78 years old. Chronic Back Pain TECHNIQUE: 3 view(s) of the lumbar spine were obtained. COMPARISON: None FINDINGS: Normal lumbar lordosis. There is no substantial scoliosis. There is a normal alignment of the vertebrae. There is multilevel endplate spondylosis of the lumbar vertebrae. There is multi-level degenerative disc disease with multi-level disc space narrowing. There is multilevel facet hypertrophy in the lumbar spine. The soft tissue structures are unremarkable. RAD/Lumbar Spine 2 or 3 Views IMPRESSION: Degenerative changes of the spine, as detailed above. MRI may be useful. Electronically Signed: Nicko Calhoun MD at 19:55 EDT ,
== END | disposition home or self-care (01) ==
LOC: RAD 16:36
PROVIDERS: PCP Internal Medicine; Referring Provider Internal Medicine; Visit Provider Internal Medicine
DX: M54.50 Low back pain, unspecified (principal); G89.29 Other chronic pain; M25.561 Pain in right knee
CPT/HCPCS: 72100; 73562

== ENCOUNTER → 2023-12-25 | Outpatient (CLI) | payer MEDICARE, OTHER, SELFPAY ==
--- NOTE | 2023-12-25 07:31 | MRI_ITS ---
INDICATION: Lumbar radiculopathy EXAMINATION: MRI - MR Spine Lumbar W/O Contrast TECHNIQUE: Multiplanar and multisequence MR images of the lumbar spine without contrast . IV Contrast Dosage and Agent: None. COMPARISON: Lumbar spine radiograph December 06, 2023. FINDINGS: VERTEBRAE: No fracture or acute compression deformity. Diffuse mild chronic endplate degenerative change. Mild acute endplate degenerative change at T11-T12. No aggressive osseous lesion. Preserved lumbar lordosis. Mild degenerative grade 1 retrolisthesis L2 on L3. CORD: Conus medullaris is at. L1. . Imaged portion of the cord is normal in signal. Cauda equina layer dependently. L1/L2: Small broad-based posterior disc bulge with mild facet arthropathy causing minimal spinal canal narrowing and mild bilateral neural foraminal stenosis.. L2/L3: Small broad-based posterior disc bulge with posterior endplate osteophyte formation and mild facet arthropathy causing mild spinal canal narrowing and mild bilateral neural foraminal stenosis.. L3/L4: Slight broad-based posterior disc bulge with mild facet arthropathy causing minimal spinal canal narrowing and mild bilateral neural foraminal stenosis.. Disc appears to contact the exiting left L3 nerve root L4/L5: Slight broad-based posterior disc bulge with mild facet arthropathy causing minimal spinal canal narrowing and mild bilateral neural foraminal stenosis.. Disc appears to contact the exiting bilateral L4 nerve root L5/S1: Slight broad-based posterior disc bulge with mild facet arthropathy causing minimal spinal canal narrowing and mild bilateral neural foraminal stenosis.. Disc appears to contact the exiting bilateral L5 nerve root SOFT TISSUES: Multiple bilateral homogeneous T2 hyperintense cysts. No hydronephrosis. Minimal bilateral perinephric fluid signal which is commonly senescent. MRI/Spine Lumbar (Routine) IMPRESSION: Diffuse spondylosis with minimal to mild spinal canal narrowing. There is mild diffuse neural foraminal stenosis with disc likely contacting the exiting nerve roots in the lower lumbar neural foramina as above. Correlate with distribution of symptoms. Electronically Signed: Beny Anderson MD at 22:08 EDT ,
== END | disposition home or self-care (01) ==
LOC: MRI 14:30
PROVIDERS: PCP Internal Medicine; Referring Provider Internal Medicine; Visit Provider Internal Medicine
DX: M54.9 Dorsalgia, unspecified (principal); G89.29 Other chronic pain; M54.16 Radiculopathy, lumbar region; R93.7 Abnormal findings on diagnostic imaging of other parts of musculoskeletal system
CPT/HCPCS: 72148

== ENCOUNTER → 2024-01-12 | Outpatient (CLI) | payer MEDICARE, OTHER, SELFPAY ==
--- NOTE | 2024-01-12 15:30 | RAD_ITS ---
EXAM: XR CHEST, 2 VIEWS CLINICAL INDICATION: COUGH, SOB TECHNIQUE: Frontal and lateral views of the chest. COMPARISON: XR Chest dated 08/12/2023 FINDINGS: LUNGS AND PLEURAL SPACES: Persistent interstitial thickening of the lungs most prominent at the lung bases suggestive of chronic interstitial lung disease. HEART: Normal heart size. MEDIASTINUM: No mediastinal or hilar mass. BONES/JOINTS: No acute abnormality. RAD/Chest PA and Lateral IMPRESSION: Chronic bibasilar pulmonary densities suggestive of interstitial lung disease. Electronically Signed: Jericho López MD at 16:18 EDT ,
== END | disposition home or self-care (01) ==
PROVIDERS: PCP Internal Medicine; Referring Provider Internal Medicine Pulmonary Disease; Visit Provider Internal Medicine Pulmonary Disease
DX: R05.9 Cough, unspecified (principal); R06.02 Shortness of breath
CPT/HCPCS: 71046; 87070; 87205

== ENCOUNTER → 2024-01-26 | Outpatient (CLI) | payer MEDICARE, OTHER, SELFPAY ==
--- NOTE | 2024-01-26 12:55 | VDLE_ITS ---
Reason For Study: Bilateral leg pain RIGHT LEFT CFV is compressible, spontaneous, phasic, CFV is compressible, spontaneous, phasic, competent and demonstrates normal competent, and demonstrates normal augmentation. augmentation. FV is compressible, spontaneous, phasic, FV is compressible, spontaneous, phasic, competent and demonstrates normal competent and demonstrates normal augmentation. augmentation. POP V is compressible, spontaneous, phasic, POP V is compressible, spontaneous, phasic, competent and demonstrates normal competent and demonstrates normal augmentation. augmentation. T/P Trunk is compressible. T/P Trunk is compressible. PTV is compressible. PTV is compressible. RT PerV is compressible. LT PerV is compressible. SFJ is INCOMPETENT and measures 0.71 cm. SFJ is INCOMPETENT and measures 0.86 cm. GSV proximal thigh measures 0.34 x 0.30 cm. GSV proximal thigh measures 0.55 x 0.54 cm. GSV above knee is competent. GSV at knee measures 0.36 x 0.37 cm. GSV at knee measures 0.46 x 0.46 cm. GSV is competent throughout. GSV below knee is INCOMPETENT for greater SSV proximal calf is competent and measures than 0.5 seconds. 0.18 x 0.18 cm. ASV at knee is INCOMPETENT for greater than 0.5 seconds and measures 0.25 x 0.28 cm. SSV proximal calf is competent and measures 0.25 x 0.28 cm. Procedure This is a venous duplex using B-mode, color flow and spectral Doppler. Exam performed in department. Patient was scanned in reverse Trendelenburg position during reflux assessment. VL/Venous Duplex US - Willian Extrem Interpretation Summary Deep veins of the bilateral lower extremities are patent and compressible segme ntally. There is no evidence of bilateral lower extremity deep vein thrombosis. The bilateral great saphenous veins appear patent and compressible segmentally. Positive for reflux in the right saphenofemoral junction, great saphenous vein below the knee, accessory saphenous vein. Positive for reflux in the left saphenofemoral junction. Ordering Physician: Jeannine Dumont Referring Physician: Cuauhtemoc Jones DO Performed By: Edna Patton RVT
== END | disposition home or self-care (01) ==
LOC: CVS 12:54
PROVIDERS: PCP Internal Medicine; Referring Provider Physician Assistant; Visit Provider Physician Assistant
DX: M79.605 Pain in left leg (principal); M79.604 Pain in right leg
CPT/HCPCS: 93970

== ENCOUNTER 2024-03-04 08:59 | Outpatient (CLI) | payer MEDICARE, OTHER, SELFPAY ==
[2024-03-04 10:31] LABS: AST(SGOT) 46 U/L (15-37); Alanine Aminotransfer ALT/SGPT 50 U/L (13-56); Albumin, Serum 3.3 g/dL (3.2-5.0); Alkaline Phosphatase 125 U/L (45-117); Bilirubin, Direct 0.21 mg/dL (0.00-0.30); Globulin 3.8 g/dL (2.2-4.2); Protein, Total 7.1 g/dL (6.4-8.2)
[2024-03-04 10:35] LABS: Erythrocyte Sedimentation Rate 14 mm/hr (0-30)
[2024-03-05 12:00] LABS: CRP, High Sensitivity 0.44 mg/L (0.00-3.00)
== END 2024-03-04 23:59 | disposition home or self-care (01) ==
PROVIDERS: PCP Internal Medicine; Referring Provider Internal Medicine Pulmonary Disease; Visit Provider Internal Medicine Pulmonary Disease
DX: J84.112 Idiopathic pulmonary fibrosis (principal); R06.02 Shortness of breath; R05.9 Cough, unspecified
CPT/HCPCS: 36415; 80076; 85652; 86141

== ENCOUNTER → 2024-03-14 | Outpatient (CLI) | payer MEDICARE, OTHER, SELFPAY ==
[2024-03-14 16:27] LABS: Basophil# 0.03 X10^3/uL; Basophil% 0.4 % (0-1); Eosinophil# 0.21 X10^3/uL; Eosinophils% 2.7 % (0-5); Hematocrit 42.4 % (37-47); Lymphocyte % 24.3 % (19-41); Mean Corpuscular Hgb 29.7 pg (27.0-32.0); Mean Platelet Vol. 10.8 fl (6.2-12.0); Monocyte# 0.66 X10^3/uL; Monocyte% 8.4 % (0-10); NRBC Flagged by Analyzer 0 % (0-5); Neutrophil % 63.9 % (47-70); Platelet Count 256 K/mm3 (150-450); RBC Distribution Width CV 13.2 % (11.6-14.6); RBC Distribution Width SD 43.3 fl (35.1-43.9); Red Blood Count 4.71 M/mm3 (4.2-5.4); White Blood Count 7.8 K/mm3 (4.4-11.0)
[2024-03-14 16:47] LABS: ALB/GLOB Ratio 0.8 RATIO (0.9-2.4); AST(SGOT) 21 U/L (15-37); Alanine Aminotransfer ALT/SGPT 27 U/L (13-56); Albumin, Serum 3.4 g/dL (3.2-5.0); Alkaline Phosphatase 94 U/L (45-117); Anion Gap 9 (5-15); BUN 22 mg/dL (7-18); BUN/Creat Ratio 19.5 RATIO (10-20); Calcium,Total 9.3 mg/dL (8.5-10.1); Chloride 101 mmol/L (98-107); Creatinine, Serum 1.13 mg/dL (0.55-1.02); EST Glomerular Filtration Rate 50 mL/min (>60); Est Glom Filt Rate - Afr Amer 60 mL/min (>60); Globulin 4.2 g/dL (2.2-4.2); Glucose 168 mg/dL (74-106); Potassium 3.9 mmol/L (3.5-5.1); Protein, Total 7.6 g/dL (6.4-8.2); Sodium Level 140 mmol/L (136-145); T4 Free Direct 1.07 ng/dL (0.76-1.46)
[2024-03-15 09:49] LABS: Hemoglobin A1c 5.6 % (3.8-5.6)
== END | disposition home or self-care (01) ==
LOC: BIMLAB 15:19
PROVIDERS: PCP Internal Medicine; Referring Provider Internal Medicine; Visit Provider Internal Medicine
DX: R94.6 Abnormal results of thyroid function studies (principal); I48.0 Paroxysmal atrial fibrillation; R73.9 Hyperglycemia, unspecified
CPT/HCPCS: 36415; 80053; 83036; 83735; 84439; 84443; 85025

== ENCOUNTER 2024-04-07 17:08 | Inpatient (IN) | payer MEDICARE, OTHER, SELFPAY ==
[2024-04-07] VITALS (16 sets, daily range): BP systolic 101–143; BP diastolic 50–90; PULSE 38–76; RESP 13–20; TEMP 36.7–37; O2SAT 93–100; BMI 33.9; BMI 32.8
--- NOTE | 2024-04-07 18:22 | EDS_ITS ---
HPI <SHAE Jimenez - Last Filed: 04/07/24 21:01> History of Present Illness Chief Complaint: Chest Pain Narrative Narrative: Patient is a 78-year-old female with history of hypothyroidism, arthritis, atrial fibrillation on Eliquis fibromyalgia who presents to the emergency department with complaints of left-sided chest pain. Patient states that this started around 6 AM this morning. Patient does have history of atrial fibrillation. Patient states that her left shoulder, left shoulder blade has been hurting. She denies any shortness of breath. She has not missed any Eliquis doses. She is here for evaluation. She states that she is normally not in atrial fibrillation. [facility] <SHAE Jimenez - Last Filed: 04/07/24 21:01> [facility] Medical History Subclinical hypothyroidism Fatigue Abnormal x-ray of lumbar spine Lumbar radiculopathy Varicose veins of bilateral lower extremities with pain Chronic back pain Sinusitis Osteoarthritis of left knee Left knee pain Osteoarthritis of right knee Nasal congestion Right knee pain ZAN (obstructive sleep apnea) Sore throat Malaise and fatigue Chest congestion History of left heart catheterization (LHC) (~12/09/21) Elevated liver enzymes Systolic dysfunction Paroxysmal atrial fibrillation Cough Shortness of breath Atrial fibrillation Pericardial effusion Irregular heart beat DVT (deep venous thrombosis) Chest pain at rest Atrial fibrillation, new onset Vitamin D insufficiency Osteoporosis URI (upper respiratory infection) Osteopenia Change in skin mole History of renal stone Hyperlipemia Seasonal allergies Rheumatoid arthritis GERD (gastroesophageal reflux disease) Fibromyalgia syndrome Peptic ulcer with hemorrhage Lumbar spondylosis Home Medications ?Medication ?Instructions ?Recorded ?Last Taken ?Type pantoprazole 40 mg tablet,delayed 40 mg PO DAILY 06/22/21 10/05/21 History release vitamin E 200 unit capsule 200 unit PO DAILY 06/22/21 10/05/21 History Cbd Lotion 1 applic transdermal BID PRN 10/05/21 10/04/21 History ARTHRITIS cholecalciferol (vitamin D3) 50 50 mcg PO DAILY 10/19/21 Unknown History mcg (2,000 unit) capsule albuterol sulfate 90 mcg/actuation 2 puff inhalation Q6H PRN 07/04/22 Unknown Rx aerosol inhaler shortness of breath or wheezing #8.5 grams denosumab 60 mg/mL subcutaneous 60 mg subcut [id number] #1 mL 08/16/22 Unknown Rx syringe (Prolia) cetirizine 10 mg tablet (Zyrtec) 10 mg PO DAILY 03/03/23 Unknown History furosemide 40 mg tablet 40 mg PO DAILY #90 tabs 07/21/23 Unknown Rx albuterol sulfate 1.25 mg/3 mL 1.25 mg inhalation TID PRN 08/30/23 Unknown History solution for nebulization shortness of breath or wheezing apixaban 5 mg tablet (Eliquis) 5 mg PO BID #180 tabs 08/30/23 Unknown Rx metoprolol succinate 25 mg 25 mg PO BID #180 tabs 08/30/23 Unknown Rx tablet,extended release 24 hr rosuvastatin 10 mg tablet (Crestor) 10 mg PO DAILY #90 tabs 08/30/23 Unknown Rx nintedanib [Ofev] PO BID 11/01/23 Unknown History comp.stocking,thigh,long,large #2 ea 12/06/23 Unknown Rx Allergy/AdvReac Type Severity Reaction Status Date / Time celecoxib (From Celebrex) Allergy Anaphylaxis Verified 04/07/24 17:10 codeine AdvReac Vomiting Verified 04/07/24 17:10 indomethacin (From Indocin) AdvReac Vomiting Verified 04/07/24 17:10 indomethacin sodium (From AdvReac Vomiting Verified 04/07/24 17:10 Indocin) oxycodone HCl (From Percocet) AdvReac HALLUCINATI Verified 04/07/24 17:10 ONS Family History Father Cancer pancreatic Mother Heart disease Brother Cancer leukemia Surgical History Status post pericardiocentesis (~10/07/21) History of cholecystectomy H/O lithotripsy History of colonoscopy History of tonsillectomy History of knee surgery History of tubal ligation History of breast biopsy Social History household members: none Smoking Status: Former smoker Tobacco: How many years used: 3 alcohol intake: never substance use type: does not use caffeine: Yes Type: coffee Number of servings: 1 what type of physical activity do you participate in: walking frequency: daily ROS <SHAE Jimenez - Last Filed: 04/07/24 21:01> ROS ED ROS Narrative Constitutional: Negative for fever, chills, weight loss, weakness Eyes: Negative for vision loss, vision change, double vision ENT: Negative for any sore throat, ear pain, congestion Cardiovascular: Negative for any tightness, palpitations. Positive chest pain Respiratory: Negative for any cough, sputum production, hemoptysis, dyspnea, dyspnea on exertion, orthopnea Gastrointestinal: Negative for any abdominal pain, nausea, vomiting, diarrhea, constipation, blood in stool, blood in vomit : Negative for any urinary frequency, dysuria, retention, blood in urine Muscle skeletal: Negative for any neck pain. Positive for left-sided back pain Neurological: Negative for any headache, syncope, dizziness Skin: Negative for any rashes, itching, abrasions, lacerations Psychiatric: Negative for any depression, anxiety, stress, suicidal ideation, homicidal ideation Hematologic: Negative for any excessive bruising, easy bleeding EXAM <SHAE Jimenez - Last Filed: 04/07/24 21:01> Physical Exam Narrative Exam Narrative: Vital signs reviewed. HEET: Head normocephalic atraumatic, TMs clear bilaterally. Posterior pharynx is clear, moist mucous membranes. Nares clear bilaterally. Neck: Supple with no lymphadenopathy or tenderness. No signs of meningismus. Cardiac: Irregular rate no murmurs gallops or rubs, equal peripheral pulses bilaterally. Respiratory: Lungs clear to auscultation bilaterally. No chest tenderness. Abdomen: Soft, nontender, nondistended. No abdominal bruit or pulsatile masses. No hepatosplenomegaly Extremities: No peripheral edema, no signs of gross trauma or deformity. Active full range of motion of all extremities. Neuro: Cranial nerves II through XII intact, no focal neurological deficits. Skin: Clean dry and intact with no rash, purpura, petechiae, vesicles or pustules. Backs/flank: No CVA tenderness, no midline spinal tenderness, no deformity. Psych: Normal mood and affect. No SI, HI or acute psychosis. Const Vital Signs: 04/07/24 17:10 04/07/24 17:35 04/07/24 17:53 Temperature 98.5 F Temperature Source Temporal Pulse Rate 76 Respiratory Rate 18 Respiratory Effort Normal Non-Labored Blood Pressure 143/64 H Blood Pressure Mean 90 Pulse Ox 97 Oxygen Delivery Method Room Air Room Air 04/07/24 18:08 04/07/24 18:45 04/07/24 18:56 Temperature Temperature Source Pulse Rate 59 L 65 Respiratory Rate 13 14 Respiratory Effort Blood Pressure 122/56 H 109/90 H Blood Pressure Mean 78 98 Pulse Ox 97 Oxygen Delivery Method Room Air 04/07/24 19:00 04/07/24 19:15 04/07/24 19:30 Temperature Temperature Source Pulse Rate 59 L 56 L 61 Respiratory Rate 15 14 17 Respiratory Effort Blood Pressure 119/60 Blood Pressure Mean 78 Pulse Ox Oxygen Delivery Method 04/07/24 19:45 04/07/24 19:56 04/07/24 20:00 Temperature Temperature Source Pulse Rate 59 L 38 L 64 Respiratory Rate 15 14 Respiratory Effort Blood Pressure Blood Pressure Mean Pulse Ox Oxygen Delivery Method Room Air 04/07/24 20:15 04/07/24 20:16 04/07/24 20:21 Temperature 98.6 F Temperature Source Pulse Rate 72 64 67 Respiratory Rate 15 14 18 Respiratory Effort Blood Pressure 114/50 L 114/50 L Blood Pressure Mean 69 71 Pulse Ox 97 Oxygen Delivery Method Positive well nourished and well developed General Appearance ED: well developed <Dr. Guero Burrows, DO - Last Filed: 04/07/24 18:29> Physical Exam Const Vital Signs: 04/07/24 17:10 04/07/24 17:35 04/07/24 17:53 Temperature 98.5 F Temperature Source Temporal Pulse Rate 76 Respiratory Rate 18 Respiratory Effort Normal Non-Labored Blood Pressure 143/64 H Blood Pressure Mean 90 Pulse Ox 97 Oxygen Delivery Method Room Air Room Air 04/07/24 18:08 04/07/24 18:45 04/07/24 18:56 Temperature Temperature Source Pulse Rate 59 L 65 Respiratory Rate 13 14 Respiratory Effort Blood Pressure 122/56 H 109/90 H Blood Pressure Mean 78 98 Pulse Ox 97 Oxygen Delivery Method Room Air 04/07/24 19:00 04/07/24 19:15 04/07/24 19:30 Temperature Temperature Source Pulse Rate 59 L 56 L 61 Respiratory Rate 15 14 17 Respiratory Effort Blood Pressure 119/60 Blood Pressure Mean 78 Pulse Ox Oxygen Delivery Method 04/07/24 19:45 04/07/24 19:56 04/07/24 20:00 Temperature Temperature Source Pulse Rate 59 L 38 L 64 Respiratory Rate 15 14 Respiratory Effort Blood Pressure Blood Pressure Mean Pulse Ox Oxygen Delivery Method Room Air 04/07/24 20:15 04/07/24 20:16 04/07/24 20:21 Temperature 98.6 F Temperature Source Pulse Rate 72 64 67 Respiratory Rate 15 14 18 Respiratory Effort Blood Pressure 114/50 L 114/50 L Blood Pressure Mean 69 71 Pulse Ox 97 Oxygen Delivery Method [facility] <SHAE Jimenez - Last Filed: 04/07/24 21:01> [facility] Lab Data Labs: Laboratory Results - last 24 hr 04/07/24 04/07/24 18:10 20:17 WBC 7.7 RBC 4.53 Hgb 13.5 Hct 40.3 MCV 89.0 MCH 29.8 MCHC 33.5 RDW Std Deviation 42.3 RDW Coeff of Mendez 13.0 Plt Count 251 MPV 9.9 Immature Gran % (Auto) 0.400 Neut % (Auto) 66.0 Lymph % (Auto) 20.2 Jones % (Auto) 10.1 H Eos % (Auto) 3.0 Baso % (Auto) 0.3 Absolute Neuts (auto) 5.1 Absolute Lymphs (auto) 1.55 Nucleated RBC % 0 PT 15.3 H INR 1.2 Sodium 143 Potassium 2.7 L* Chloride 106 Carbon Dioxide 31.0 Anion Gap 6 BUN 12 Creatinine 0.97 Estim Creat Clear Calc 49.63 Est GFR (MDRD) Af Amer 72 Est GFR (MDRD) Non-Af 59 L BUN/Creatinine Ratio 12.4 Glucose 109 H Calcium 8.8 Troponin I High Sens 18 22 B-Natriuretic Peptide 101.5 H TSH 4.030 H Free T4 1.22 Free T3 pg/dL 2.6 Radiography Diagnostic Testing: Clinical Impression(s) from Imaging Studies Chest X-Ray 04/07/24 18:50 IMPRESSION: There are no acute findings. Electronically Signed: Lucho Urena MD at 19:13 EDT , EKG EKG shows sinus rhythm with occasional PVCs: Attestation: I personally reviewed and interpreted this EKG as follows: Comments: Sinus rhythm with occasional premature ventricular complexes, rate of 74 bpm, W[place] interval 92 ms, QRS duration 92 ms, no acute ST elevation, no acute infarct noted Treatment and Re-Evaluation :: - Differential diagnosis includes however is not limited to: ACS, MT, community- acquired pneumonia, heart block Patient appears to be in no obvious respiratory distress vital signs are stable, patient is nontoxic-appearing. Present to the emerged part with chest pain that began at 6 AM this morning. Patient states is consistent. Patient did receive a full cardiac workup, patient's laboratory values show a normal CBC, patient's PT/INR shows a PT of 15.3 with an INR 1.2, patient's chemistries show a potassium of 2.7, this is critical low comes replaced orally. Patient's BNP was 101.5, TSH was slightly elevated at 4.0. Patient initial troponin was 18, this will be redrawn. Patient's chest x-ray shows no acute findings. On reevaluation, the patient states he feeling tired, she states she just feels generalized exhaustion. Patient did have a run of heart rate that was in the mid to high 30s. Secondary to this finding, low potassium, I do believe the patient needs to be worked up for further evaluation. She is agreeable to stay. I will reach out to the hospitalist Hospitalist is agreeable. Patient be admitted to PCU full ED attending note: I evaluated the patient in conjunction with the [facility]. I agree with his/her statements and above findings. I have personally performed a face to face assessment of the patient and have reviewed the [facility] Note. I performed a substantive portion of the visit including all aspects of the following. I personally saw the patient performed chart review, physical exam, reviewed labs, imaging (if obtained), and formulated a treatment and management plan. 78-year-old female presents with chest pain in setting of A-fib, from myalgia on Eliquis and compliant. No missed doses. The patient denies recent surgery in the last 4 weeks or immobilization in the last 3 days, denies previous diagnosis of DVT or PE, hemoptysis, unilateral leg swelling or malignancy with treatment the last 6 months or palliative. No estrogen use noted. Patient denies sudden onset of pain, no tearing sensation, no migratory symptoms, no new numbness, weakness or loss of sensation. Patient denies family history or personal history of Connective tissue disorders (Marfan's Syndrome, Kavon Danlos etc). Patient denies any bleeding diathesis. Exam without stigmata of VTE, no stigmata of dissection, abdomen soft nontender no pulsatile abdominal masses. There are no focal neurologic deficits. We will obtain labs images to rule out ACS, anemia, electrolyte disturbances, thyroid dysfunction, heart failure. Will give fluids and 500 cc bolus judiciously. Will dispo based on results of labs images and reassessment. This note was generated with [employer] dictation software. It may contain incorrect words, spelling, and punctuation that were not noted in review of the chart prior to signing. <Dr. Gureo Burrows, DO - Last Filed: 04/07/24 18:29> [facility] Lab Data Labs: Laboratory Results - last 24 hr 04/07/24 04/07/24 18:10 20:17 WBC 7.7 RBC 4.53 Hgb 13.5 Hct 40.3 MCV 89.0 MCH 29.8 MCHC 33.5 RDW Std Deviation 42.3 RDW Coeff of Mendez 13.0 Plt Count 251 MPV 9.9 Immature Gran % (Auto) 0.400 Neut % (Auto) 66.0 Lymph % (Auto) 20.2 Jones % (Auto) 10.1 H Eos % (Auto) 3.0 Baso % (Auto) 0.3 Absolute Neuts (auto) 5.1 Absolute Lymphs (auto) 1.55 Nucleated RBC % 0 PT 15.3 H INR 1.2 Sodium 143 Potassium 2.7 L* Chloride 106 Carbon Dioxide 31.0 Anion Gap 6 BUN 12 Creatinine 0.97 Estim Creat Clear Calc 49.63 Est GFR (MDRD) Af Amer 72 Est GFR (MDRD) Non-Af 59 L BUN/Creatinine Ratio 12.4 Glucose 109 H Calcium 8.8 Troponin I High Sens 18 22 B-Natriuretic Peptide 101.5 H TSH 4.030 H Free T4 1.22 Free T3 pg/dL 2.6 Radiography Diagnostic Testing: Clinical Impression(s) from Imaging Studies Chest X-Ray 04/07/24 18:50 IMPRESSION: There are no acute findings. Electronically Signed: Lucho Urena MD at 19:13 EDT Reading Location ID and State: [facility] / [place] , Service support , Treatment and Re-Evaluation :: - ED attending note: I evaluated the patient in conjunction with the [facility]. I agree with his/her statements and above findings. I have personally performed a face to face assessment of the patient and have reviewed the [facility] Note. I performed a substantive portion of the visit including all aspects of the following. I personally saw the patient performed chart review, physical exam, reviewed labs, imaging (if obtained), and formulated a treatment and management plan. 78-year-old female presents with chest pain in setting of A-fib, from myalgia on Eliquis and compliant. No missed doses. The patient denies recent surgery in the last 4 weeks or immobilization in the last 3 days, denies previous diagnosis of DVT or PE, hemoptysis, unilateral leg swelling or malignancy with treatment the last 6 months or palliative. No estrogen use noted. Patient denies sudden onset of pain, no tearing sensation, no migratory symptoms, no new numbness, weakness or loss of sensation. Patient denies family history or personal history of Connective tissue disorders (Marfan's Syndrome, Kavon Danlos etc). Patient denies any bleeding diathesis. Exam without stigmata of VTE, no stigmata of dissection, abdomen soft nontender no pulsatile abdominal masses. There are no focal neurologic deficits. We will obtain labs images to rule out ACS, anemia, electrolyte disturbances, thyroid dysfunction, heart failure. Will give fluids and 500 cc bolus judiciously. Will dispo based on results of labs images and reassessment. This note was generated with [employer] dictation software. It may contain incorrect words, spelling, and punctuation that were not noted in review of the chart prior to signing. Discharge Plan Triage Chief Complaint: Chest Pain ED Midlevel Provider: Abdoul Sharma ED Provider: Guero Burrows Dx/Rx/DC Orders Clinical Impression: Chest pain, Bradycardia, Fatigue, Acute hypokalemia Prescriptions: No Action vitamin E 200 unit capsule 200 unit PO DAILY pantoprazole 40 mg tablet,delayed release (DR/EC) 40 mg PO DAILY cetirizine [Zyrtec] 10 mg tablet 10 mg PO DAILY cholecalciferol (vitamin D3) 50 mcg (2,000 unit) capsule 50 mcg PO DAILY albuterol sulfate 90 mcg/actuation HFA aerosol inhaler 2 puff inhalation Q6H PRN (Reason: shortness of breath or wheezing) Qty: 8.5 0RF albuterol sulfate 1.25 mg/3 mL solution for nebulization 1.25 mg inhalation TID PRN (Reason: shortness of breath or wheezing) Patient Comments: use one vial via NEBULIZER FOUR TIMES DAILY metoprolol succinate 25 mg tablet extended release 24 hr 25 mg PO BID Qty: 180 3RF rosuvastatin [Crestor] 10 mg tablet 10 mg PO DAILY Qty: 90 3RF Eliquis 5 mg tablet 5 mg PO BID Qty: 180 3RF (DME) comp.stocking,thigh,long,large Misc See Rx Instructions .Route Qty: 2 3RF Rx Instructions: 20 - 30 mmHg. Thigh High Cbd Lotion 1 applic transdermal BID PRN (Reason: ARTHRITIS) nintedanib [Ofev] PO BID Prolia 60 mg/mL syringe 60 mg subcut [id number] Qty: 1 2RF furosemide 40 mg tablet 40 mg PO DAILY Qty: 90 3RF Primary Care Provider: Anthony Alonzo Referrals: Anthony Alonzo MD [Primary Care Provider] - Print Language: Samoan Disposition Disposition: Acute Care Hospital [facility]
[2024-04-07 18:29] LABS: Absolute Lymphocyte Count 1.55 X10^3/uL (0.83-4.51); Absolute Neutrophil Count 5.1 X10^3/uL (2.0-7.7); Basophil# 0.02 X10^3/uL; Basophil% 0.3 % (0-1); Eosinophil# 0.23 X10^3/uL; Hematocrit 40.3 % (37-47); Hemoglobin 13.5 g/dL (12.0-15.0); Lymphocyte # 1.55 X10^3/ul (0.83-4.51); Lymphocyte % 20.2 % (19-41); Mean Corp Hgb Conc 33.5 g/dL (32-36); Mean Corpuscular Hgb 29.8 pg (27.0-32.0); Mean Platelet Vol. 9.9 fl (6.2-12.0); Monocyte# 0.78 X10^3/uL; Monocyte% 10.1 % (0-10); NRBC Flagged by Analyzer 0 % (0-5); Neutrophil # 5.08 X10^3/uL (2.7-7.7); Platelet Count 251 K/mm3 (150-450); RBC Distribution Width SD 42.3 fl (35.1-43.9); Red Blood Count 4.53 M/mm3 (4.2-5.4); White Blood Count 7.7 K/mm3 (4.4-11.0)
[2024-04-07] MEDS: Acetaminophen 500 MG Tablet 1000 MG PO (18:32)
[2024-04-07] MEDS: 0.9% Normal Saline (500mL Bag) 500 ML 999 ML IV (18:32)
[2024-04-07 18:48] LABS: BNP,B-Type NATRIURETIC PEPTIDE 101.5 pg/mL (0-100)
--- NOTE | 2024-04-07 18:50 | RAD_ITS ---
STUDY: XR Chest 2 Views 04/07/2024 6:52 PM REASON FOR EXAM: Female, 78 years old. chest pain COMPARISON: 6.24 TECHNIQUE: XR Chest 2 Views FINDINGS: There is no demonstrated pleural abnormality. Lower lobe pulmonary fibrosis. Enlarged heart size. Normal mediastinum. Normal enedelia. Prominent appearing increased interstitial lung markings. Normal visualized pulmonary arteries. There is atherosclerotic calcification of the aortic arch with tortuosity. There are diffuse degenerative changes of the visualized thoracic spine. There is degenerative osteoarthritis of the bilateral shoulders. There are no acute findings of the upper abdomen. RAD/Chest PA and Lateral IMPRESSION: There are no acute findings. Electronically Signed: Lucho Urena MD at 19:13 EDT ,
[2024-04-07 19:11] LABS: Anion Gap 6 (5-15); BUN 12 mg/dL (7-18); BUN/Creat Ratio 12.4 RATIO (10-20); Calcium,Total 8.8 mg/dL (8.5-10.1); Chloride 106 mmol/L (98-107); Creatinine, Serum 0.97 mg/dL (0.55-1.02); EST Glomerular Filtration Rate 59 mL/min (>60); Est Glom Filt Rate - Afr Amer 72 mL/min (>60); Estimated Creatinine Clearance 49.63 ml/min; Glucose 109 mg/dL (74-106); Potassium 2.7 mmol/L (3.5-5.1); Sodium Level 143 mmol/L (136-145); Troponin-I HS (w/2H Reflex) 18 pg/mL (3.0-54.0)
[2024-04-07 19:18] LABS: International Normalized Ratio 1.2; Prothrombin Time (Protime)PT. 15.3 SECONDS (11.7-14.9)
[2024-04-07] MEDS: Potassium Chloride Oral Tablet 20 MEQ 40 MEQ PO (19:25)
[2024-04-07 20:26] LABS: Reflex Troponin-HS? (from REC) Y
--- NOTE | 2024-04-07 20:47 | PCM.HP.STD ---
[facility] - General General Date of Admission: 04/07/24 Date of Service: 04/07/24 Chief Complaint: Chest Pain, Diarrhea and Fatigue. HPI Narrative JONATHAN VARGAS, is a 78 F with a past medical history of essential hypertension, hyperlipidemia, history of subclinical hypothyroidism, obesity; with BMI of 33.9 present on admission, ZAN, PAF; on Metoprolol and Apixaban, history of pericardial effusion; s/p pericardiocentesis (2021), history of LHC (2021), history of DVT, history of COVID-19, history of pulmonary fibrosis; on Ofev, fibromyalgia, GERD; with history of GI bleed due to PUD, history of cholecystectomy, osteoporosis; on Denosumab, RA and OA; with chronic back pain who presents to [facility] ER complaining of chest pain, diarrhea and fatigue. Ms. Vargas reports her symptoms began approximately 6:00 AM with the abrupt-onset of Left-sided chest pain while she was getting up to go to the bathroom with chest pain that was Left-sided, precordial, pressure-like, ~5-7/10 and radiated back into her Left shoulder with nothing seeming to make the pain better but with exertion seeming to make the pain worse. She admits to a similar, less severe episode in the past when she went into atrial fibrillation - though she typically does not feel when she is in atrial fibrillation. She denies recent illness, recent trauma or recent medication changes. She also denies associated fever, chills, nausea or vomiting but she does admit to fatigue, decreased appetite and non-bloody diarrhea. In the ER she was noted to have a normal troponin along with a minimally elevated BNP of 101.5 pg/mL present on admission plus her CXR revealed no acute pathologic changes but she was noted to have laboratory evidence of Hypokalemia of 2.7 mmol/L present on admission likely due to non-bloody Diarrhea and she was then admitted to the PCU for a full chest pain workup for a stay that is expected to extend beyond 2 midnights. [facility] Medical History Subclinical hypothyroidism Fatigue Abnormal x-ray of lumbar spine Lumbar radiculopathy Varicose veins of bilateral lower extremities with pain Chronic back pain Sinusitis Osteoarthritis of left knee Left knee pain Osteoarthritis of right knee Nasal congestion Right knee pain ZAN (obstructive sleep apnea) Sore throat Malaise and fatigue Chest congestion History of left heart catheterization (LHC) (~12/09/21) Elevated liver enzymes Systolic dysfunction Paroxysmal atrial fibrillation Cough Shortness of breath Atrial fibrillation Pericardial effusion Irregular heart beat DVT (deep venous thrombosis) Chest pain at rest Atrial fibrillation, new onset Vitamin D insufficiency Osteoporosis URI (upper respiratory infection) Osteopenia Change in skin mole History of renal stone Hyperlipemia Seasonal allergies Rheumatoid arthritis GERD (gastroesophageal reflux disease) Fibromyalgia syndrome Peptic ulcer with hemorrhage Lumbar spondylosis Home Medications ?Medication ?Instructions ?Recorded ?Last Taken ?Type pantoprazole 40 mg tablet,delayed 40 mg PO DAILY 06/22/21 10/05/21 History release vitamin E 200 unit capsule 200 unit PO DAILY 06/22/21 10/05/21 History Cbd Lotion 1 applic transdermal BID PRN 10/05/21 10/04/21 History ARTHRITIS cholecalciferol (vitamin D3) 50 50 mcg PO DAILY 10/19/21 Unknown History mcg (2,000 unit) capsule albuterol sulfate 90 mcg/actuation 2 puff inhalation Q6H PRN 07/04/22 Unknown Rx aerosol inhaler shortness of breath or wheezing #8.5 grams denosumab 60 mg/mL subcutaneous 60 mg subcut [id number] #1 mL 08/16/22 Unknown Rx syringe (Prolia) cetirizine 10 mg tablet (Zyrtec) 10 mg PO DAILY 03/03/23 Unknown History furosemide 40 mg tablet 40 mg PO DAILY #90 tabs 07/21/23 Unknown Rx albuterol sulfate 1.25 mg/3 mL 1.25 mg inhalation TID PRN 08/30/23 Unknown History solution for nebulization shortness of breath or wheezing apixaban 5 mg tablet (Eliquis) 5 mg PO BID #180 tabs 08/30/23 Unknown Rx metoprolol succinate 25 mg 25 mg PO BID #180 tabs 08/30/23 Unknown Rx tablet,extended release 24 hr nintedanib [Ofev] PO BID 11/01/23 Unknown History comp.stocking,thigh,long,large #2 ea 12/06/23 Unknown Rx rosuvastatin 10 mg tablet 10 mg PO DAILY cholseterol 04/07/24 Unknown History Allergy/AdvReac Type Severity Reaction Status Date / Time celecoxib (From Celebrex) Allergy Anaphylaxis Verified 04/07/24 17:10 codeine AdvReac Vomiting Verified 04/07/24 17:10 indomethacin (From Indocin) AdvReac Vomiting Verified 04/07/24 17:10 indomethacin sodium (From AdvReac Vomiting Verified 04/07/24 17:10 Indocin) oxycodone HCl (From Percocet) AdvReac HALLUCINATI Verified 04/07/24 17:10 ONS Family History Father Cancer pancreatic Mother Heart disease Brother Cancer leukemia Surgical History Status post pericardiocentesis (~10/07/21) History of cholecystectomy H/O lithotripsy History of colonoscopy History of tonsillectomy History of knee surgery History of tubal ligation History of breast biopsy Social History household members: none housing: house Smoking Status: Former smoker Tobacco: How many years used: 3 alcohol intake: never substance use type: does not use caffeine: Yes Type: coffee Number of servings: 1 what type of physical activity do you participate in: walking frequency: daily ROS ROS Narrative Review of Systems: Constitutional: Patient admits to fatigue but denies fever or chills. Eyes: Patient denies changes in vision or discharge from eyes. ENT: Patient denies runny nose, sore throat or ear pain. Resp: Patient denies SOB or cough. CV: Patient admits to chest pain as per HPI. She denies palpitations or heart racing. GI: Patient admits to non-bloody diarrhea with decreased appetite as per HPI. : Patient denies dysuria, hematuria or urinary hesitancy/frequency. MSK: Patient admits to Left-sided back pain but she denies arthralgias. Skin: Patient denies rash, abscess, wound or jaundice. Psych: Patient denies symptoms of uncontrolled depression or anxiety. Neuro: Patient denies headache, paresthesias or focal neurologic deficits. Allergy: Patient denies lip swelling, tongue swelling or urticaria. Hematology: Patient denies easy bleeding or easy bruisability. Endocrinology: Patient denies polyuria, polydipsia or polyphagia. 14 point ROS otherwise negative except for positives noted above in HPI. Vital Signs Vital Signs Vital Signs: 04/07/24 17:10 04/07/24 17:35 04/07/24 17:53 Temperature 98.5 F Temperature Source Temporal Pulse Rate 76 Respiratory Rate 18 Respiratory Effort Normal Non-Labored Blood Pressure 143/64 H Blood Pressure Mean 90 Pulse Ox 97 Oxygen Delivery Method Room Air Room Air 04/07/24 18:08 04/07/24 18:45 04/07/24 18:56 Temperature Temperature Source Pulse Rate 59 L 65 Respiratory Rate 13 14 Respiratory Effort Blood Pressure 122/56 H 109/90 H Blood Pressure Mean 78 98 Pulse Ox 97 Oxygen Delivery Method Room Air 04/07/24 19:00 04/07/24 19:15 04/07/24 19:30 Temperature Temperature Source Pulse Rate 59 L 56 L 61 Respiratory Rate 15 14 17 Respiratory Effort Blood Pressure 119/60 Blood Pressure Mean 78 Pulse Ox Oxygen Delivery Method 04/07/24 19:45 04/07/24 19:56 04/07/24 20:00 Temperature Temperature Source Pulse Rate 59 L 38 L 64 Respiratory Rate 15 14 Respiratory Effort Blood Pressure Blood Pressure Mean Pulse Ox Oxygen Delivery Method Room Air 04/07/24 20:15 04/07/24 20:16 04/07/24 20:21 Temperature 98.6 F Temperature Source Pulse Rate 72 64 67 Respiratory Rate 15 14 18 Respiratory Effort Blood Pressure 114/50 L 114/50 L Blood Pressure Mean 69 71 Pulse Ox 97 Oxygen Delivery Method Weight Weight: 185 lb 8 oz Body Mass Index (BMI) 33.9 Physical Exam Const alert and oriented x3 General Appearance: cooperative Results Medical Records Data Attestation: I reviewed the patient's medical records Lab / Micro Data Attestation: I reviewed the patient's lab results. 04/07/24 18:10 04/07/24 18:10 Labs: Laboratory Results - last 24 hr 04/07/24 18:10: WBC 7.7, RBC 4.53, Hgb 13.5, Hct 40.3, MCV 89.0, MCH 29.8, MCHC 33.5, RDW Std Deviation 42.3, RDW Coeff of Mendez 13.0, Plt Count 251, MPV 9.9, Immature Gran % (Auto) 0.400, Neut % (Auto) 66.0, Lymph % (Auto) 20.2, Emmet % (Auto) 10.1 H, Eos % (Auto) 3.0, Baso % (Auto) 0.3, Absolute Neuts (auto) 5.1, Absolute Lymphs (auto) 1.55, Nucleated RBC % 0, PT 15.3 H, INR 1.2, Sodium 143, Potassium 2.7 L*, Chloride 106, Carbon Dioxide 31.0, Anion Gap 6, BUN 12, Creatinine 0.97, Estim Creat Clear Calc 49.63, Est GFR (MDRD) Af Amer 72, Est GFR (MDRD) Non-Af 59 L, BUN/Creatinine Ratio 12.4, Glucose 109 H, Calcium 8.8, Troponin I High Sens 18, B-Natriuretic Peptide 101.5 H, TSH 4.030 H Imaging Radiology Impression Chest X-Ray 04/07/24 18:50 IMPRESSION: There are no acute findings. Electronically Signed: Lucho Urena MD at 19:13 EDT Reading Location ID and State: [address] [place] [address] , Service support , Assessment & Plan Assessment/Plan (1) Chest pain: QUALIFIERS: Chest pain type: unspecified Qualified Code(s): R07.9 - Chest pain, unspecified (2) Acute hypokalemia: (3) Diarrhea: QUALIFIERS: Diarrhea type: unspecified type Qualified Code(s): R19.7 - Diarrhea, unspecified (4) Fatigue: QUALIFIERS: Fatigue type: unspecified Qualified Code(s): R53.83 - Other fatigue (5) Pulmonary fibrosis: (6) History of left heart catheterization (LHC): (7) Paroxysmal atrial fibrillation: (8) Status post pericardiocentesis: PLAN: Plan 1. Chest Pain - Admit to PCU. Serialize troponin. Check echocardiogram to evaluate LVEF. Check Lexiscan NST in the AM to evaluate for ischemia. Give Tylenol prn for [id number] (level 1-5/10) pain or fever. Give Morphine IV prn for severe (level 6-10/10) pain that is not controlled with SL NTG. Finally, we will consult [facility] to see this patient on-rounds in the AM at patient request due to her upcoming appointment with Dr. Lobato with help appreciated in advance. 2. Hypokalemia with 2.7 mmol/L present on admission likely due to Diarrhea complicating #1 - Give supplemental KCl and then recheck BMP in the AM to confirm repletion. Check stool studies to evaluate for possible underlying infectious etiology. 3. PAF; on Metoprolol and Apixaban compounding #1 & #2 - Continue home medications as previous. 4. History of pulmonary fibrosis adding to the complexity of #1 - #3 - Check CT of chest this admission to gauge severity and look at heart muscle to assess for subtle signs of inflammation. Contrast was not administered with CT of chest because she is already on Apixaban minimizing risk of possible VTE. 5. Essential hypertension - Continue home regimen plus give IV Hydralazine prn for systolic blood pressure > 160 mmHg. 6. Hyperlipidemia - Resume statin and check Lipid Profile. 7. Obesity; with BMI of 33.9 present on admission plus ZAN - Weight loss will be recommended. Resume nocturnal CPAP. This complicates her case and may hamper her recovery. 8. History of pericardial effusion; s/p pericardiocentesis (2021) - Noted. Echocardiogram pending for #1. 9. History of LHC (2021) - Noted. 10. History of DVT - Noted. 11. History of COVID-19 - Noted. 12. Fibromyalgia - Stable. 13. GERD; with history of GI bleed due to PUD - Continue PPI. 14. History of cholecystectomy - Noted. 15. Osteoporosis; on Denosumab - Stable. 16. RA - Chronic and stable with no evidence of acute flare. 16. OA; with chronic back pain - Give Tylenol prn. 18. DVT prophylaxis - Patient already on Apixaban for #3 which will be continued. Total time: Approximately 75 minutes. Charges/Coding Visit Charges Inpatient E&M: 01008 Init Hosp L3
[2024-04-07 20:49] LABS: Free T3 2.6 pg/mL (2.18-3.98); T4 Free Direct 1.22 ng/dL (0.76-1.46)
[2024-04-07 20:49] LABS: Troponin-I HS 22 pg/mL (3.0-54.0)
--- NOTE | 2024-04-07 21:29 | CT_ITS ---
INDICATION: CP AND PULMONARY FIBROSIS EXAMINATION: CT CHEST WITHOUT CONTRAST - CT Chest W/O Contrast Injection TECHNIQUE: Helically acquired images were obtained of the chest. The protocol utilizes one or more of the following dose reduction techniques: automated exposure control, adjustment of mA and/or kV according to patient size,and/or use of iterative reconstruction technique. IV Contrast dosage and agent: None. RADIATION DOSAGE (If Supplied By Facility): CTDIvol = ( 12.08 ) mGy, DLP = ( 412.57 ) mGycm COMPARISON: FINDINGS: LUNGS, PLEURA AND LARGE AIRWAYS: Bilateral patchy interstitial thickening and fibrotic changes, more significant in the lung bases. No pleural effusion or thickening. No pneumothorax. THYROID: No thyroid lesions. HEART AND PERICARDIUM: Heart size is normal. No pericardial effusion. CORONARY ARTERIES: Coronary artery calcification VESSELS: Thoracic aorta is not dilated. MEDIASTINUM AND JOSELYN: No mediastinal or hilar adenopathy. Esophagus is unremarkable. No hiatal hernia. UPPER ABDOMEN: Left renal cysts and calculi. BONES: No suspicious lytic or blastic abnormality. CT/Chest without Contrast IMPRESSION: Bilateral patchy interstitial thickening and fibrotic changes, more significant in the lung bases. Electronically Signed: Dennis Paul DO at 23:17 EDT ,
--- NOTE | 2024-04-07 21:29 | ECHOD_ITS ---
Reason For Study: CHEST PAIN Procedure This was a 2D Doppler, Color Flow transthoracic echocardiogram. Exam performed portable in patient room. Left Ventricle Normal LV size. Mild concentric left ventricular hypertrophy. The left ventricular ejection fraction is 55 %. Normal diastololic function. Right Ventricle Normal RV size. Normal systolic function. Atria The left atrium is severely enlarged. The right atrium is moderately enlarged. Mitral Valve There is Moderate focal posterior mitral annular calcification. Trivial mitral valve insufficiency. Tricuspid Valve Normal tricuspid valve. Mild to moderate (1-2+) tricuspid valve insufficiency. Normal pulmonary artery pressure. Aortic Valve Trisinus/trileaflet aortic valve. Pulmonic Valve The pulmonic valve is not well visualized. Trivial pulmonic valve insufficiency. Great Vessels Mildly dilated aortic root. Pericardium/Pleural No pericardial effusion. MMode/2D Measurements & Calculations LVIDd: 4.2 cm IVSd: 1.2 cm LVOT diam: 2.1 cm LVIDs: 3.2 cm LVPWd: 0.94 cm LVOT area: 3.5 cm2 RVDd: 4.2 cm FS: 23.7 % asc Aorta Diam: 3.7 cm LAV(MOD-bp): 71.3 ml LVAd ap4: 25.6 cm2 LAV(MOD-bp) Indexed: 38.6 ml/m2 LVLd ap4: 7.2 cm LAV(MOD-sp2): 62.2 ml EDV(MOD-sp4): 76.9 ml LAV(MOD-sp4): 75.8 ml EDV(sp4-el): 77.4 ml LVAs ap4: 13.8 cm2 LVLs ap4: 5.9 cm ESV(MOD-sp4): 29.1 ml ESV(sp4-el): 27.7 ml EF(MOD-sp4): 62.2 % EF(sp4-el): 64.2 % SV(MOD-sp4): 47.9 ml SV(sp4-el): 49.7 ml LA A4 area: 25.3 cm2 RA A4 area: 20.1 cm2 Time Measurements MV dec time: 0.25 sec Doppler Measurements & Calculations MV E max hugo: 82.8 cm/sec Lat Peak E' Hugo: 7.5 cm/sec Med Peak E' Hugo: 6.7 cm/sec MV A max hugo: 62.6 cm/sec E/E' lat: 11.0 E/E' med: 12.3 MV E/A: 1.3 Ao V2 max: 148.0 cm/sec LV V1 max: 91.4 cm/sec MV dec slope: 335.6 cm/sec2 Ao max P.8 mmHg LV V1 max P.4 mmHg Ao V2 mean: 108.0 cm/sec LV V1 mean P.0 mmHg Ao mean P.1 mmHg LV V1 mean: 65.6 cm/sec Ao V2 VTI: 39.4 cm LV V1 VTI: 25.7 cm AV (velocity ratio): 0.65 SOY(I,D): 2.2 cm2 SOY(V,D): 2.1 cm2 SV(LVOT): 88.6 ml PA V2 max: 84.8 cm/sec TR max hugo: 242.5 cm/sec PA max PG (full): 1.1 mmHg TR max P.5 mmHg ECHO/Echo Complete Interpretation Summary Mild concentric left ventricular hypertrophy. The left ventricular ejection fraction is 55 %. The left atrium is severely enlarged. The right atrium is moderately enlarged. There is Moderate focal posterior mitral annular calcification. Mild to moderate (1-2+) tricuspid valve insufficiency. Mildly dilated aortic root. Ordering Physician: Josiah Li Referring Physician: Anthony Alonzo Performed By: Deb Broderick and Student
[2024-04-07] MEDS: KCL 40mEq in 0.9% NS 40 MEQ/1,000 ML IV.SOLN 50 MEQ IV (23:11)
[2024-04-07] MEDS: Potassium Chloride Oral Tablet 20 MEQ 60 MEQ PO (23:22)
[2024-04-07] MEDS: Atorvastatin Calcium 20 MG Tablet PO (23:22)
[2024-04-07] MEDS: APIXABAN 5 MG TABLET PO (23:22)
[2024-04-07] MEDS: Metoprolol(XL)Succ 25 MG Tablet PO (23:22)
[2024-04-08 00:43] LABS: Troponin-I HS 21 pg/mL (3.0-54.0)
[2024-04-08 04:45] VITALS: BP 97/57; PULSE 62; RESP 16; TEMP 36.6; O2SAT 96
[2024-04-08 06:00] VITALS: BMI 33.3
[2024-04-08 06:24] LABS: Cholesterol 137 mg/dL (200); High Density Lipoprotein 73 mg/dL; Triglycerides 74 mg/dL; Very Low Density Lipoprotein 15 mg/dL (5-40)
[2024-04-08 09:22] LABS: Absolute Lymphocyte Count 1.34 X10^3/uL (0.83-4.51); Absolute Neutrophil Count 3.5 X10^3/uL (2.0-7.7); Basophil# 0.02 X10^3/uL; Basophil% 0.3 % (0-1); Eosinophil# 0.27 X10^3/uL; Eosinophils% 4.6 % (0-5); Hematocrit 38.2 % (37-47); Hemoglobin 12.2 g/dL (12.0-15.0); Lymphocyte # 1.34 X10^3/ul (0.83-4.51); Mean Corp Hgb Conc 31.9 g/dL (32-36); Mean Corpuscular Hgb 29.3 pg (27.0-32.0); Mean Corpuscular Volume 91.8 fL (81-99); Mean Platelet Vol. 10.3 fl (6.2-12.0); Monocyte# 0.67 X10^3/uL; Monocyte% 11.5 % (0-10); NRBC Flagged by Analyzer 0 % (0-5); Neutrophil # 3.51 X10^3/uL (2.7-7.7); Neutrophil % 60.3 % (47-70); Platelet Count 232 K/mm3 (150-450); RBC Distribution Width CV 13.1 % (11.6-14.6); Red Blood Count 4.16 M/mm3 (4.2-5.4); White Blood Count 5.8 K/mm3 (4.4-11.0)
[2024-04-08 09:48] LABS: Anion Gap 7 (5-15); BUN 15 mg/dL (7-18); BUN/Creat Ratio 15.2 RATIO (10-20); Calcium,Total 8.6 mg/dL (8.5-10.1); Chloride 112 mmol/L (98-107); Creatinine, Serum 0.98 mg/dL (0.55-1.02); EST Glomerular Filtration Rate 58 mL/min (>60); Est Glom Filt Rate - Afr Amer 71 mL/min (>60); Estimated Creatinine Clearance 50.11 ml/min; Glucose 111 mg/dL (74-106); Magnesium 1.4 mg/dL (1.6-2.6); Potassium 3.4 mmol/L (3.5-5.1); Sodium Level 143 mmol/L (136-145)
[2024-04-08 12:00] VITALS: BP 104/56; PULSE 103; RESP 16; TEMP 36.7; O2SAT 98
--- NOTE | 2024-04-08 12:30 | STRESSREP_ITS ---
Stress Test Report Date: 04/08/2024 Procedure: Pharmacologic stress nuclear imaging study Indications: Chest pain Consent: Per the patient Procedure: The patient underwent pharmacologic (Regadenoson 0.4mg ) evaluation with a peak heart rate of 93 beats per minute (64%predicted maximal heart rate) and a peak blood pressure of 138/82 mmHg. The baseline ECG demonstrated sinus rhythm. The peak pharmacologic ECG demonstrated no ischemic changes. Frequent PACs noted pretest and in recovery. There was no complaint of chest discomfort during pharmacologic infusion or recovery. The patient was injected with 11.9 millicuries of technetium 99m Cardiolite and subsequently rest SPECT Cardiolite nuclear imaging was obtained in the horizontal long, vertical long, and short axis views. The patient underwent pharmacologic (Regadenoson) evaluation. The patient was injected with 34.7 millicuries of technetium 99m Cardiolite and subsequently stress SPECT Cardiolite nuclear imaging was obtained in the horizontal long, vertical long, and short axis views. A gated Cardiolite study at peak stress was obtained. The examination was stopped secondary to completion of protocol. Rest and stress SPECT Cardiolite nuclear imaging status post realignment and normalization revealed no fixed or reversible perfusion defects. There is end systolic thickening and brightening. The gated Cardiolite study demonstrates myocardial thickening and inward wall motion. The reported LVEF is 59%. Impression: 1. Pharmacologic (Regadenoson) evaluation 2. Peak pharmacologic ECG with no ischemic changes. 3. Frequent PACs noted pretest and in recovery. 5. Rest and stress SPECT Cardiolite nuclear imaging demonstrate relative uniform tracer uptake and myocardial perfusion appearing within normal limits. 6. The gated Cardiolite study reports an LVEF of 59%. This note was generated with [employer] software. It may contain incorrect words, spelling, and punctuation that were not noted in checking the note before signing.
[2024-04-08] MEDS: Potassium Chloride Oral Tablet 20 MEQ 40 MEQ PO (12:41)
[2024-04-08] MEDS: Cholecalciferol (VIT D3) 25 MCG TABLET (1,000 UNITS) 50 MCG PO (12:42)
[2024-04-08] MEDS: Pantoprazole Sodium 40 MG Tablet PO (12:43)
[2024-04-08] MEDS: Loratadine 10 MG Tablet PO (12:43)
[2024-04-08] MEDS: APIXABAN 5 MG TABLET PO ×2 (12:43→21:51)
[2024-04-08] MEDS: Magnesium Sulfate 4gm/100mL 4 GM/100 ML IV.SOLN. IV (12:53)
--- NOTE | 2024-04-08 13:59 | PN_ITS ---
Subjective Subjective Patient seen and examined. She was admitted with a complaint of chest pressure and shortness of breath. She denies any chest pressure or shortness of breath this morning. She denies any fever, chills, palpitations, dizziness, nausea, vomiting or any other symptoms. Review of systems is otherwise negative. She had stress test and echo today, and read is pending. She was noted to get bradycardic, as low as the 30s today. She is on metoprolol, which has been held. Objective Data Objective Data Vital Signs: Vital Signs Temp Pulse Resp BP Pulse Ox O2 Del Method 98.1 F 103 H 16 104/56 L 98 Room Air 04/08/24 12:00 04/08/24 12:00 04/08/24 12:00 04/08/24 12:00 04/08/24 12:00 04/08/24 12:00 Oxygen Delivery Method Room Air Weight: 187 lb 15.987 oz Body Mass Index (BMI) 33.3 Intake & Output: Intake and Output for Last 24 Hours 04/06/24 04/07/24 04/08/24 23:59 23:59 23:59 Intake Total 980 / 980 406.67 / 406.67 Balance 980 / 980 406.67 / 406.67 Lab / Micro Data 04/08/24 09:05 04/08/24 09:05 Labs: Laboratory Results - last 24 hr 04/07/24 18:10: WBC 7.7, RBC 4.53, Hgb 13.5, Hct 40.3, MCV 89.0, MCH 29.8, MCHC 33.5, RDW Std Deviation 42.3, RDW Coeff of Mendez 13.0, Plt Count 251, MPV 9.9, Immature Gran % (Auto) 0.400, Neut % (Auto) 66.0, Lymph % (Auto) 20.2, Kingman % (Auto) 10.1 H, Eos % (Auto) 3.0, Baso % (Auto) 0.3, Absolute Neuts (auto) 5.1, Absolute Lymphs (auto) 1.55, Nucleated RBC % 0, PT 15.3 H, INR 1.2, Sodium 143, Potassium 2.7 L*, Chloride 106, Carbon Dioxide 31.0, Anion Gap 6, BUN 12, Creatinine 0.97, Estim Creat Clear Calc 49.63, Est GFR (MDRD) Af Amer 72, Est GFR (MDRD) Non-Af 59 L, BUN/Creatinine Ratio 12.4, Glucose 109 H, Calcium 8.8, Troponin I High Sens 18, B-Natriuretic Peptide 101.5 H, TSH 4.030 H, Free T4 1.22, Free T3 pg/dL 2.6 04/07/24 20:17: Troponin I High Sens 04/08/24 00:20: Troponin I High Sens 04/08/24 05:37: Triglycerides 74, Cholesterol 137, LDL Cholesterol 49, VLDL Cholesterol 15, HDL Cholesterol 73 04/08/24 09:05: WBC 5.8, RBC 4.16 L, Hgb 12.2, Hct 38.2, MCV 91.8, MCH 29.3, M CHC 31.9 L, RDW Std Deviation 44.0 H, RDW Coeff of Mendez 13.1, Plt Count 232, MPV 10.3, Immature Gran % (Auto) 0.300, Neut % (Auto) 60.3, Lymph % (Auto) 23.0, M viki % (Auto) 11.5 H, Eos % (Auto) 4.6, Baso % (Auto) 0.3, Absolute Neuts (auto) 3.5, Absolute Lymphs (auto) 1.34, Nucleated RBC % 0, Sodium 143, Potassium 3.4 L , Chloride 112 H, Carbon Dioxide 24.0, Anion Gap 7, BUN 15, Creatinine 0.98, Estim Creat Clear Calc 50.11, Est GFR (MDRD) Af Amer 71, Est GFR (MDRD) Non-Af 58 L, BUN/Creatinine Ratio 15.2, Glucose 111 H, Calcium 8.6, Magnesium 1.4 L Radiography Diagnostic Testing: Radiology Impression Chest X-Ray 04/07/24 18:50 IMPRESSION: There are no acute findings. Electronically Signed: Lucho Urena MD at 19:13 EDT , Chest CT 04/07/24 21:29 IMPRESSION: Bilateral patchy interstitial thickening and fibrotic changes, more significant in the lung bases. Electronically Signed: Dennis Paul DO at 23:17 EDT Reading Location ID and State: [facility] / [place] Tel [phone], Service support , Echocardiogram 04/07/24 21:29 Interpretation Summary Mild concentric left ventricular hypertrophy. The left ventricular ejection fraction is 55 %. The left atrium is severely enlarged. The right atrium is moderately enlarged. There is Moderate focal posterior mitral annular calcification. Mild to moderate (1-2+) tricuspid valve insufficiency. Mildly dilated aortic root. Ordering Physician: Josiah Li Referring Physician: Anthony Alonzo Performed By: Deb Broderick and Student Physical Exam Const alert, oriented x3, no apparent distress and well nourished General Appearance: cooperative HEENT normocephalic, head/scalp atraumatic, moist oral mucous membranes, oropharynx normal and gingiva normal Eyes PERRL and EOMs intact bilaterally Neck no lymphadenopathy, supple and no JVD Lymph Lymphatic: no lymphadenopathy noted and no lymphedema noted Resp normal respiratory effort, normal air movement and clear to auscultation bilaterally Cardio regular rhythm, S1 normal heart sound, S2 normal heart sound and no murmurs Cardio Narrative: episodic bradycardia GI normal to inspection, nondistended, normoactive bowel sounds, soft to palpation, non-tender and non-distended Extremity normal capillary refill, no clubbing, cyanosis or edema and no calf tenderness General Extremity: no tenderness to palpation of joints or extremities Skin General Skin Exam: no breakdown Neuro CN's II-XII intact bilaterally and no focal motor deficits Psych thought process normal and cooperative Appearance: appropriate Assessment & Plan Assessment/Plan (1) Bradycardia: (2) Chest pain: QUALIFIERS: Chest pain type: unspecified Qualified Code(s): R07.9 - Chest pain, unspecified PLAN: Plan #Chest pain to r/o ACS * Chest pain has resolved. * 2D echo showed EF of 55% with mild concentric LVH, left atrium is severely enlarged, right atrium is modreately enlarged * stress test was negative for any evidence of ischemia * PO aspirin 81mg daily * SL nitroglycerin prn * #Bradycardia * HR went as low as 39 today. It was a sinus bradycardia * metoprolol on hold * Will monitor * Check TSH. 2D echo as above * #Afib: metoprolol on hold due to bradycardia. ON eliquis. #Hypokalemia: K was 2.7 carmen dmission. Now up to 3.4. WIll replace and trend #Hypomagnesemia: Mg is 1.4. Will replace and trend. #History of pulmonary fibrosis * stable * #Hyperlipidemia: on statin * #Benign essential hypertension * metoprolol on hold due to bradycardia. ISS. Accuchecks ACHS * #History of pericardial effusion: s/p pericardiocentesis in 2021. 2D echo during this admission as above. #GERD: on PPI DVT prophylaxis: o eliquis. Charges/Coding Visit Charges Inpatient E&M: 15650 Subs Hosp L2
--- NOTE | 2024-04-08 14:33 | CASEMGMT ---
SW met with patient to complete assessment. Patient's son Abdoul and granddaughters were present. Patient was okay talking in front of them. SILVIA confirmed addresses and phone numbers for patient and her contact people. PCP- Dr Alonzo Specialists- Dr Lobato- Cardiology and Dr [facility]- [facility] Insurance- Medicare and [employer] as a secondary DME- Patient has a walker and grab bars at her home ADLs/IADLs- Patient is normally completely independent. Patient does not use any assistive devices on a regular basis. Patient cooks for herself, cleans, drives, manages medications, showers all on her own. Healthcare POA/LW-Patient does not have documents HX SNF-None HX HH-None At this time patient does not anticipate she will have any discharge needs. SILVIA and RN CM available should this change. Plan: Home with support of family. Gloria Lu [employer]LL[employer]
[2024-04-08 17:29] VITALS: BP 104/48; PULSE 69; RESP 16; TEMP 36.3; O2SAT 98
[2024-04-08] MEDS: FLU VACCINE **HIGH DOSE** TV 24-25 180 MCG/0.5 ML SYRINGE IM (17:37)
[2024-04-08 21:41] VITALS: BP 110/52; PULSE 71; RESP 18; TEMP 36.6; O2SAT 97
[2024-04-08] MEDS: Atorvastatin Calcium 20 MG Tablet PO (21:51)
[2024-04-08] MEDS: NINTEDANIB ESYLATE 150 MG CAPSULE PO (21:52)
[2024-04-09 03:34] VITALS: BP 119/80; PULSE 75; RESP 18; TEMP 36.8; O2SAT 98
[2024-04-09 05:20] VITALS: BMI 34.2
[2024-04-09 07:06] LABS: Absolute Lymphocyte Count 1.87 X10^3/uL (0.83-4.51); Absolute Neutrophil Count 3.8 X10^3/uL (2.0-7.7); Basophil# 0.04 X10^3/uL; Basophil% 0.6 % (0-1); Eosinophil# 0.34 X10^3/uL; Hematocrit 36.5 % (37-47); Hemoglobin 11.5 g/dL (12.0-15.0); Lymphocyte # 1.87 X10^3/ul (0.83-4.51); Lymphocyte % 27.5 % (19-41); Mean Corp Hgb Conc 31.5 g/dL (32-36); Mean Corpuscular Hgb 29.1 pg (27.0-32.0); Mean Corpuscular Volume 92.4 fL (81-99); Mean Platelet Vol. 10.5 fl (6.2-12.0); Monocyte# 0.74 X10^3/uL; Monocyte% 10.9 % (0-10); NRBC Flagged by Analyzer 0 % (0-5); Neutrophil # 3.79 X10^3/uL (2.7-7.7); Neutrophil % 55.6 % (47-70); Platelet Count 213 K/mm3 (150-450); RBC Distribution Width CV 13.2 % (11.6-14.6); RBC Distribution Width SD 44.9 fl (35.1-43.9); Red Blood Count 3.95 M/mm3 (4.2-5.4); White Blood Count 6.8 K/mm3 (4.4-11.0)
[2024-04-09 07:56] LABS: Anion Gap 5 (5-15); BUN 14 mg/dL (7-18); BUN/Creat Ratio 19.4 RATIO (10-20); Calcium,Total 8.6 mg/dL (8.5-10.1); Chloride 112 mmol/L (98-107); Creatinine, Serum 0.72 mg/dL (0.55-1.02); EST Glomerular Filtration Rate 84 mL/min (>60); Est Glom Filt Rate - Afr Amer 101 mL/min (>60); Estimated Creatinine Clearance 62.86 ml/min; Glucose 108 mg/dL (74-106); Potassium 3.6 mmol/L (3.5-5.1); Sodium Level 141 mmol/L (136-145)
[2024-04-09 08:35] LABS: Magnesium 2.3 mg/dL (1.6-2.6)
[2024-04-09 09:43] VITALS: BP 110/52; PULSE 62; RESP 18; TEMP 36.4; O2SAT 98
[2024-04-09] MEDS: Pantoprazole Sodium 40 MG Tablet PO (09:48)
[2024-04-09] MEDS: Loratadine 10 MG Tablet PO (09:48)
[2024-04-09] MEDS: APIXABAN 5 MG TABLET PO (09:48)
[2024-04-09] MEDS: Cholecalciferol (VIT D3) 25 MCG TABLET (1,000 UNITS) 50 MCG PO (09:48)
[2024-04-09] MEDS: NINTEDANIB ESYLATE 150 MG CAPSULE PO (09:57)
[2024-04-09] MEDS: Furosemide 40 MG Tablet PO (10:50)
--- NOTE | 2024-04-09 10:50 | PCM.DC.SUM ---
Providers Date of Admission: 04/07/24 Date of Discharge: 04/09/24 Primary Care Physician: Dr. Anthony Alonzo MD Consultations 04/07/24 21:31 Consult: Cardiology Routine Consulting Provider: Balwinder Lobato Reason for Consult: Chest Pain. EMERGENT Consult: No MD Notified: Yes Date Notified: 04/08/24 Time Notified: 06:52 Method of Notification: Text Method of Consult:: In-Person Reason For Visit: CHEST PAIN & HYPOKALEMIA Diagnosis Discharge Diagnosis (1) Bradycardia: Status: Acute Code(s): R00.1 - Bradycardia, unspecified (2) Chest pain: Status: Acute Code(s): R07.9 - Chest pain, unspecified Qualifiers: Chest pain type: unspecified Qualified Code(s): R07.9 - Chest pain, unspecified Plan #Chest pain to r/o ACS Chest pain has resolved. 2D echo showed EF of 55% with mild concentric LVH, left atrium is severely enlarged, right atrium is modreately enlarged stress test was negative for any evidence of ischemia PO aspirin 81mg daily SL nitroglycerin prn #Bradycardia HR went as low as 39 today. It was a sinus bradycardia metoprolol on hold Will monitor Check TSH. 2D echo as above #Afib: metoprolol on hold due to bradycardia. ON eliquis. #Hypokalemia: K was 2.7 carmen dmission. Now up to 3.4. WIll replace and trend #Hypomagnesemia: Mg is 1.4. Will replace and trend. #History of pulmonary fibrosis stable #Hyperlipidemia: on statin #Benign essential hypertension metoprolol on hold due to bradycardia. ISS. Accuchecks ACHS #History of pericardial effusion: s/p pericardiocentesis in 2021. 2D echo during this admission as above. #GERD: on PPI DVT prophylaxis: o eliquis. Medications at Discharge Home Medications pantoprazole 40 mg tablet,delayed release 40 mg PO DAILY reflux 06/22/21 vitamin E 200 unit capsule 200 unit PO DAILY supplement 06/22/21 Cbd Lotion 1 applic transdermal BID PRN ARTHRITIS 10/05/21 cholecalciferol (vitamin D3) 50 mcg (2,000 unit) capsule 50 mcg PO DAILY supplement 10/19/21 albuterol sulfate 90 mcg/actuation aerosol inhaler 2 puff inhalation Q6H PRN shortness of breath or wheezing #8.5 grams 07/04/22 denosumab 60 mg/mL subcutaneous syringe (Prolia) 60 mg subcut [id number] bone density #1 mL 08/16/22 cetirizine 10 mg tablet (Zyrtec) 10 mg PO DAILY allergies 03/03/23 furosemide 40 mg tablet 40 mg PO DAILY water pill #90 tabs 07/21/23 albuterol sulfate 1.25 mg/3 mL solution for nebulization 1.25 mg inhalation TID PRN shortness of breath or wheezing 08/30/23 apixaban 5 mg tablet (Eliquis) 5 mg PO BID blood thinner #180 tabs 08/30/23 nintedanib 1 cap PO BID pulmonary fibrosis 11/01/23 comp.stocking,thigh,long,large #2 ea 12/06/23 rosuvastatin 10 mg tablet 10 mg PO DAILY cholesterol 04/07/24 calcium carbonate 500 mg-vitamin D3 3.125 mcg (125 unit) tablet 1 tab PO DAILY supplement 04/08/24 Hospital Course Operations None Procedures 2-D Echocardiogram and Stress test Summary of Care Provided Minutes Spent on Discharge: 55 Hospital Course: Patient is a 78-year-old female with an extensive past medical history as outlined was admitted to the ED on 04/07/2024 with a complaint of left-sided chest pain which radiated to her left shoulder. It was worsened by exertion but there was no relieving factor. She had had similar symptoms in the past when she went into [facility]. She also admitted to fatigue and decreased appetite as well as diarrhea. Review of systems otherwise negative. On admission initial troponin was negative and repeat was also negative. BNP was only minimally elevated at 101.5. Chest x-ray showed no evidence of fluid overload. Labs were significant for potassium of 2.7. She was admitted to manage for chest pain to rule out ACS. She had a stress test which was negative for any evidence of ischemia. Hospital course was however complicated by bradycardia with a heart rate going as low as 39. EKG showed that it was a sinus bradycardia. Her metoprolol was discontinued and her heart rate rebounded and normalized. Had diarrhea did not recur during this admission. She remained stable and was discharged home on 04/09/2024. Of note she did have a 2D echo which showed EF of 55% with severely enlarged left atrium and moderately enlarged right atrium. Cardiology was consulted on admission but per discussion with cardiology, plan was to send patient home on a 30-day event monitor in light of her bradycardia. As mentioned metoprolol was discontinued. Results of the Holter monitor to be sent to her staff reporter at [facility] for evaluation. Patient seen and examined prior to discharge. She felt well and had no complaints. She had an uneventful night. Review of systems otherwise negative. Labs and vitals reviewed. Home medication reviewed and reconciled. Physical Exam Const alert, oriented x3, no apparent distress and well nourished General Appearance: cooperative and comfortable Orientation / Consciousness: awake HEENT normocephalic, head/scalp atraumatic, hearing grossly normal bilaterally, moist oral mucous membranes, oropharynx normal and gingiva normal Mouth: oral and palatal mucosa normal Eyes PERRL, EOMs intact bilaterally and conjunctivae normal Neck no lymphadenopathy, supple and no JVD Lymph Lymphatic: no lymphadenopathy noted and no lymphedema noted Resp normal respiratory effort, normal air movement and clear to auscultation bilaterally Cardio regular rate, regular rhythm, S1 normal heart sound, S2 normal heart sound and no murmurs Cardio Narrative: bradycardia has resolved. GI normal to inspection, nondistended, normoactive bowel sounds, soft to palpation, non-tender and non-distended Extremity normal to inspection, full ROM, normal capillary refill, no clubbing, cyanosis or edema and no calf tenderness General Extremity: no tenderness to palpation of joints or extremities Skin no rashes or lesions noted General Skin Exam: no breakdown Neuro oriented x3, CN's II-XII intact bilaterally, moves all extremities and no focal motor deficits Sensorium / Orientation: awake Motor Exam: strength 5/5 throughout Psych thought process normal, cooperative and affect normal Appearance: appropriate Weight / BMI Weight Weight: 193 lb 9.054 oz Body Mass Index (BMI) 34.2 ABG / Lab / Microbiology Data 04/09/24 05:44 04/09/24 05:44 Laboratory: Laboratory Results - last 24 hr 04/09/24 05:44: WBC 6.8, RBC 3.95 L, Hgb 11.5 L, Hct 36.5 L, MCV 92.4, MCH 29.1, MCHC 31.5 L, RDW Std Deviation 44.9 H, RDW Coeff of Mendez 13.2, Plt Count 213, MPV 10.5, Immature Gran % (Auto) 0.400, Neut % (Auto) 55.6, Lymph % (Auto) 27.5, Maries % (Auto) 10.9 H, Eos % (Auto) 5.0, Baso % (Auto) 0.6, Absolute Neuts (auto) 3.8, Absolute Lymphs (auto) 1.87, Nucleated RBC % 0, Sodium 141, Potassium 3.6, Chloride 112 H, Carbon Dioxide 24.0, Anion Gap 5, BUN 14, Creatinine 0.72, Estim Creat Clear Calc 62.86, Est GFR (MDRD) Af Amer 101, Est GFR (MDRD) Non-Af 84, BUN/Creatinine Ratio 19.4, Glucose 108 H, Calcium 8.6, Magnesium 2.3 Radiography Diagnostic Testing: Radiology Impression Echocardiogram 04/07/24 21:29 Interpretation Summary Mild concentric left ventricular hypertrophy. The left ventricular ejection fraction is 55 %. The left atrium is severely enlarged. The right atrium is moderately enlarged. There is Moderate focal posterior mitral annular calcification. Mild to moderate (1-2+) tricuspid valve insufficiency. Mildly dilated aortic root. Ordering Physician: Josiah Li Referring Physician: Anthony Alonzo Performed By: Deb Broderick and Student D/C Instructions Discharge Diet: Low fat / Low cholesterol Discharge Activity: Return to Normal Activity Weight Bearing Status: Weight bearing as tolerated Call your doctor if you observe: Fever of 101 or Higher, Shortness of breath, Dizziness, Swelling in the ankles, Chest pain and Increased palpitations (irregular heartbeat) Meaningful Use Info Meaningful Use Meaningful Use Diagnoses (Choose all that apply): None applicable Ischemic Stroke Statin Dosing Therapy Reference: STATIN DOSE THERAPY REFERENCE: * Patients > 75 years receive moderate or high dose statin therapy. * Patients 75 years or YOUNGER should receive HIGH intensity statin dose unless contraindicated. You will be required to document reason for non-treatment if statin daily dose does not meet guidelines. HIGH DOSE STATIN THERAPY DAILY Atorvastatin > than or = to 40 mg Rosuvastatin > than or = to 20 mg Amlodipine + Atorvastatin > than or = to 2.5/40 mg Ezetimibe + Simvastatin 10/80 mg Simvastatin 80mg Discharge Plan Admission Admit Date/Time: 04/07/24 21:22 Primary Reason for Your Visit: chest pain, shortness of braeth Attending Provider: Courtney Ventura Primary Care Provider: Anthony Alonzo Consulting Providers: Josiah Li; Balwinder Lobato Instructions Patient Instructions: ED Chest Pain, Noncardiac Discharge Orders/Prescriptions Prescriptions: Continued vitamin E 200 unit capsule 200 unit PO DAILY pantoprazole 40 mg tablet,delayed release (DR/EC) 40 mg PO DAILY cetirizine [Zyrtec] 10 mg tablet 10 mg PO DAILY cholecalciferol (vitamin D3) 50 mcg (2,000 unit) capsule 50 mcg PO DAILY albuterol sulfate 90 mcg/actuation HFA aerosol inhaler 2 puff inhalation Q6H PRN (Reason: shortness of breath or wheezing) Qty: 8.5 0RF albuterol sulfate 1.25 mg/3 mL solution for nebulization 1.25 mg inhalation TID PRN (Reason: shortness of breath or wheezing) Patient Comments: use one vial via NEBULIZER FOUR TIMES DAILY Eliquis 5 mg tablet 5 mg PO BID Qty: 180 3RF (DME) comp.stocking,thigh,long,large Misc See Rx Instructions .Route Qty: 2 3RF Rx Instructions: 20 - 30 mmHg. Thigh High Cbd Lotion 1 applic transdermal BID PRN (Reason: ARTHRITIS) nintedanib [Ofev] 1 cap PO BID rosuvastatin 10 mg tablet 10 mg PO DAILY calcium carbonate-vitamin D3 500 mg-3.125 mcg (125 unit) tablet 1 tab PO DAILY Prolia 60 mg/mL syringe 60 mg subcut [id number] Qty: 1 2RF Patient Comments: last dose was february furosemide 40 mg tablet 40 mg PO DAILY Qty: 90 3RF Discontinued metoprolol succinate 25 mg tablet extended release 24 hr 25 mg PO BID Qty: 180 3RF Other Ambulatory Orders: 30 Day Event Recorder Preventi (Urgent) Timeframe: 1 Day Facility: [facility] - Location: Cardiovascular Services Ordered By: Dr. Courtney Ventura Referrals / Follow Up: Anthony Alonzo MD [Primary Care Provider] - 04/10/24 1:00 pm Disposition Disposition (needs filled in before D/C Order can be placed): Home, Self Care Charges/Coding Visit Charges Inpatient E&M: 52527 Disch Hosp >30min
--- NOTE | 2024-04-09 11:08 | PHA.DC.MR.R ---
Pharmacy [place] Med Reconciliation Pharmacy Service has performed discharge medication reconciliation for this patient. The patient's discharge medication list was reviewed for discrepancies and discrepancies were resolved. Medications at Discharge Home Medications pantoprazole 40 mg tablet,delayed release 40 mg PO DAILY reflux 06/22/21 vitamin E 200 unit capsule 200 unit PO DAILY supplement 06/22/21 Cbd Lotion 1 applic transdermal BID PRN ARTHRITIS 10/05/21 cholecalciferol (vitamin D3) 50 mcg (2,000 unit) capsule 50 mcg PO DAILY supplement 10/19/21 albuterol sulfate 90 mcg/actuation aerosol inhaler 2 puff inhalation Q6H PRN shortness of breath or wheezing #8.5 grams 07/04/22 denosumab 60 mg/mL subcutaneous syringe (Prolia) 60 mg subcut [id number] bone density #1 mL 08/16/22 cetirizine 10 mg tablet (Zyrtec) 10 mg PO DAILY allergies 03/03/23 furosemide 40 mg tablet 40 mg PO DAILY water pill #90 tabs 07/21/23 albuterol sulfate 1.25 mg/3 mL solution for nebulization 1.25 mg inhalation TID PRN shortness of breath or wheezing 08/30/23 apixaban 5 mg tablet (Eliquis) 5 mg PO BID blood thinner #180 tabs 08/30/23 nintedanib 1 cap PO BID pulmonary fibrosis 11/01/23 comp.stocking,thigh,long,large #2 ea 12/06/23 rosuvastatin 10 mg tablet 10 mg PO DAILY cholesterol 04/07/24 calcium carbonate 500 mg-vitamin D3 3.125 mcg (125 unit) tablet 1 tab PO DAILY supplement 04/08/24
--- NOTE | 2024-04-09 11:35 | CASEMGMT ---
Patient has order for discharge. RN CM in to discuss needs at discharge, family at bedside. Patient denies needs or help at discharge. Patient had no further questions.
== END 2024-04-09 12:45 | disposition home or self-care (01) | DRG 313 ==
LOC: ED 21:01 → PCU 22:09
PROVIDERS: Nurse Practitioner; Admitting Provider Internal Medicine; Emergency Provider Emergency Medicine; PCP Internal Medicine; Visit Provider Student in an Organized Health Care Education/Training Program
DX: R07.9 Chest pain, unspecified (principal); E66.9 Obesity, unspecified; I10 Essential (primary) hypertension; I48.0 Paroxysmal atrial fibrillation; E78.5 Hyperlipidemia, unspecified; E87.6 Hypokalemia; M19.90 Unspecified osteoarthritis, unspecified site; G47.33 Obstructive sleep apnea (adult) (pediatric); M79.7 Fibromyalgia; K21.9 Gastro-esophageal reflux disease without esophagitis; R00.1 Bradycardia, unspecified; G89.29 Other chronic pain; M81.0 Age-related osteoporosis without current pathological fracture; Z79.51 Long term (current) use of inhaled steroids; Z86.16 Personal history of COVID-19; Z79.01 Long term (current) use of anticoagulants; Z79.899 Other long term (current) drug therapy; Z68.33 Body mass index [BMI] 33.0-33.9, adult; Z87.891 Personal history of nicotine dependence; Z86.718 Personal history of other venous thrombosis and embolism
CPT/HCPCS: 36415; 71046; 71250; 78452; 80048; 80061; 83735; 83880; 84439; 84443; 84481; 84484; 85025; 85610; 87177; 87209; 90662; 93005; 93017; 93306; 99284; A9500; J7040; A4216; J2785

== ENCOUNTER → 2024-05-13 | Outpatient (CLI) | payer MEDICARE, OTHER, SELFPAY ==
[2024-05-13 18:19] LABS: AST(SGOT) 22 U/L (15-37); Alanine Aminotransfer ALT/SGPT 25 U/L (13-56); Albumin, Serum 3.8 g/dL (3.2-5.0); Alkaline Phosphatase 86 U/L (45-117); Bilirubin, Direct 0.21 mg/dL (0.00-0.30); Globulin 4.2 g/dL (2.2-4.2)
== END | disposition home or self-care (01) ==
PROVIDERS: PCP Internal Medicine; Referring Provider Internal Medicine Pulmonary Disease; Visit Provider Internal Medicine Pulmonary Disease
DX: J84.112 Idiopathic pulmonary fibrosis (principal)
CPT/HCPCS: 36415; 80076

== ENCOUNTER → 2024-08-15 | Outpatient (CLI) | payer MEDICARE, OTHER, SELFPAY ==
[2024-08-15 15:38] LABS: AST(SGOT) 32 U/L (15-37); Alanine Aminotransfer ALT/SGPT 49 U/L (13-56); Albumin, Serum 3.3 g/dL (3.2-5.0); Alkaline Phosphatase 97 U/L (45-117); Bilirubin, Direct 0.22 mg/dL (0.00-0.30); Globulin 3.7 g/dL (2.2-4.2)
== END | disposition home or self-care (01) ==
LOC: MTLAB 13:53
PROVIDERS: PCP Family Medicine; Referring Provider Internal Medicine Pulmonary Disease; Visit Provider Internal Medicine Pulmonary Disease
DX: J84.112 Idiopathic pulmonary fibrosis (principal); Z79.899 Other long term (current) drug therapy
CPT/HCPCS: 36415; 80076

== ENCOUNTER → 2024-09-04 | Outpatient (CLI) | payer MEDICARE, OTHER, SELFPAY ==
--- NOTE | 2024-09-04 11:51 | BI_ITS ---
PROCEDURE: SCRN MAMM (CAD)W/ROSA M BILAT REASON FOR EXAM: F, Age 78 y/o, no family history. Prior right excisional breast biopsy. TECHNIQUE: Bilateral screening digital breast tomosynthesis with 2D and 3D images. Computer aided detection. COMPARISON: Prior exam(s) dating back to September 01, 2023.. FINDINGS: There are scattered areas of fibroglandular density. Stable examination. No suspicious masses, areas of developing architectural distortion, or suspicious calcifications. BI/SCRN MAMM (CAD)W/ROSA M BILAT IMPRESSION: BI-RADS 1: NEGATIVE. RECOMMEND ANNUAL MAMMOGRAPHIC SCREENING. Follow-up code: Routine Follow-up The patient will be notified of the results by letter. Reading Location: [place] [id number]
== END | disposition home or self-care (01) ==
LOC: OPBI 11:50
PROVIDERS: PCP Family Medicine; Referring Provider Family Medicine; Visit Provider Family Medicine
DX: Z12.31 Encounter for screening mammogram for malignant neoplasm of breast (principal)
CPT/HCPCS: 77063; 77067

== ENCOUNTER 2024-09-05 11:00 | Outpatient (RCR) | payer MEDICARE, OTHER, SELFPAY ==
--- NOTE | 2024-07-31 12:03 | HP.PTEVAL_ITS ---
Patient's Visit Information Visit Information Visit Information: JONATHAN NICHOLSON is a 78 year old F referred to Physical Therapy by Dr. Vinny Mathew MD with a diagnosis of LUMBAR RADICULOPATHY. Date of Evaluation: 07/31/24 Physical Therapist: Halle Newman PT, Cert MDT Visit Plan Frequency: 2-3x /Week Duration: 4-6 Weeks Plan: AQUATIC THERAPY, POSTURE CORRECTION/STRENGTHENING, INSTRUCTION IN APPRO PRIATE BODY MECHANICS AND ACTIVITY MODIFICATIONS. DLS STARTING WITH A NEUTRAL SPINE PROGRESSING ROM TOLERATED. ALEX LE ROM, STRETCHING AND STRENGTHENING. HEP INSTRUCTION Subjective Subjective: Work/Leisure: RETIRED. 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 Present symptoms: LOW BACK AND ALEX KNEE AND LOWER LEG PAIN TO THE ANKLES. PATIENT C/O SHARP SHOOTING PAINS IN LEGS BUT DENIES NUMBNESS AND TINGLING. Present since: ALL MY LIFE Pain Scale: WORST 9/10, LEAST 4/10 Currently: 5/10 Is it getting better, worse or staying the same: STAYING THE SAME Commenced as a result of: WORK INJURY AT AGE 20 Symptoms at onset: LOW BACK PAIN Worse: LYING DOWN, TRYING TO SLEEP, EVERYTHING DURING THE DAY - IT HURTS I JUST DO WHAT I HAVE TO DO WORSE FIRST THING IN THE MORNING. Better: LEANING OVER BED AND STRETCHING IN THE MORNING. RUBBING CBD LOTION ON BACK HELPS SOMETIMES, PULLING LEGS UP IN LYING HELPS FOR SHORT TIMES, FREQUENT CHANGE OF POSTITION. BETTER THE MORNING PROGRESSES. Disturbed sleep: YES Previous history/Previous treatment: [facility] ABOUT 15 YEARS AGO - FIRST ONE HELPED FOR ABOUT A MONTH. SECOND ONE HAD A BAD EXPERIENCE SO HAS NOT GONE BACK. PAIN PILLS IN THE PAST - STATES SHE HAD SIDE EFFECTS - NOT ON ANY CURRENTLY. CAN NOT RECALL IF SHE HAD PT. DID HAVE CHIROPRACTIC WITH SOME BENEFIT A LONG TIME AGO. Treatment this episode: NONE. PATIENT REPORTS SHE WOULD NOT CONSIDER SURGERY. Coughing/sneezing/straining: SOMETIMES CAUSES INCREASED PAIN BUT NOT TOO OFTEN. Gait: INDEP WITHOUT AD. DOES OWN GROCERY AND OTHER SHOPPING. UNSURE HOW FAR SHE CAN WALK. UP AND DOWN STEPS WITH ONE HANDRAIL. LAUNDRY IN BASEMENT. COMES UP STEPS WITH BASKET ONE STEP AT A TIME. Bowel or Bladder Dysfunction: NO EXCEPT INTERMITTENT STRESS UI. Unexplained weight loss: NO Imaging: LUMBAR X-RAYS 07/13/24 [facility]: CLINICAL INDICATION: pain -- please do flex/ext TECHNIQUE: 2 lateral views of the lumbar spine labeled flexion and extension respectively. No neutral view is provided. COMPARISON: MRI lumbar spine December 25, 2023. Showed minimal spinal canal narrowing and mild diffuse neural foraminal stenosis. FINDINGS: VERTEBRAE: There is only minimal straightening of the usual lordotic curvature on lateral exam labeled flexion. There is mild extension and newly visible vacuum disc anteriorly from L2 3-4 and more superiorly, no visible motion at L3-L5. Mild endplate sclerosis throughout the lumbar spine. DISC SPACES: Almost diffuse at least moderate disc space narrowing most pronounced at L2-S1, similar to prior MRI. GASTROINTESTINAL TRACT: Unremarkable as visualized. Included bowel gas pattern is non-obstructive. RAD/L/S Spine Bending Flex/Ext IMPRESSION: Limited mobility. Diffuse degenerative disc changes. PMH/Recent major surgery: AFIB. PULMONARY FIBROSIS. CURRENTLY JUST GETTING OVER BRONCHITIS AND ON ANTIBIOTICS DAY 3. FEELING MUCH BETTER. Objective Objective: Sitting/Standing Posture: SLOUCHED IN SITTING. ANTERIOR PELVIC TILT IN STANDING. INCREASED KYPHOSIS. NO RELEVANT LATERAL LUMBAR SHIFT. Other Observations: THIS PATIENT AMBULATES INDEP'LY INTO PT WITHOUT ANY AD'S WITH DECREASED CADANCE, DECREASED ALEX STRIDE LENGTH AND NO LOB. Sensory deficit: ALEX LE LIGHT TOUCH SENSATION GROSSLY INTACT AND SYMMETRICAL ROM deficit: ALEX LE HS AND CALF TIGHTNESS Motor deficit: ALEX HIPS 4/5, KNEES 4/5, ANKLES 4/5 Reflexes: 2+ ALEX LE'S. Dural Signs: NEGATIVE ALEX LE'S. Lumbar mvmt loss: flex - MIN - INCREASES LBP - NW ext - MOD - INCREASES LBP - NW R SG -MARY - INCREASES LBP - NW L SG - MARY - INCREASES LBP - NW Core strength: POOR Palpation: PATIENT DENIES TENDERNESS WITH LOWER THORACIC, LUMBAR AND SACRAL PALPATION. INCREASED MUSCLE TONE ALEX PARASPINALS. Balance/Special Test Scores Oswestry Low Back Score: 14 Goals Goal 1:: DECREASE C/O LOW BACK AND ALEX LE PAIN. Goal Time Frame: 4-6 Weeks Goal 2:: IMPROVE STANDING, WALKING, SITTING, LYING/SLEEP, SOCIAL LIFE, TRAVEL, WORK/HOMEMAKING FUNCTION Goal Time Frame: 4-6 Weeks Goal 3:: INSTRUCT IN PROPHYLAXIS Goal Time Frame: 4-6 Weeks Rehabilitation Potential Physical Therapy Diagnosis: TRUNK AND LE STIFFNESS AND WEAKNESS. Rehabilitation Potential: Fair Anticipated Interventions Patient/Client Instruction: Educate patient on: Condition, Plan of Care and Risk Factors For the Purpose of:: To improve self management Therapeutic Exercise to Include: Strength training, Body mechanics, Postural training, Flexibilty training, Gait and locomotor training, Neuromotor development, In an aquatic setting and Dynamic Lumbar Stabilization For the Purpose of:: To decrease pain, To increase ROM, To improve muscle performance and motor function, To improve ability to perform ADL's, To increase tolerance to activity/condition/position, To improve ability of physical actions for home/community/work/leisure, To improve gait and locomotor functions, To increase flexibility/ROM and To improve self management Text: Thank you for the opportunity to evaluate your patient. For Medicare and Medicare HMO plans, please review the plan of care and approve it. It will need to be FAXED BACK to us at [phone] for Medicare purposes. For Medicare only, by signing this I certify the plan of care. Please let me know if there are questions or concerns regarding this plan of care. Physician Signat ure: Date:
== END 2024-09-05 19:00 | disposition home or self-care (01) ==
LOC: PT 11:00
PROVIDERS: PCP Internal Medicine; Visit Provider Orthopaedic Surgery Orthopaedic Surgery of the Spine
DX: M54.16 Radiculopathy, lumbar region (principal)
CPT/HCPCS: 97113; 97162; 97530

== ENCOUNTER → 2024-10-31 | Outpatient (CLI) | payer MEDICARE, OTHER, SELFPAY ==
--- NOTE | 2024-10-31 14:45 | BD_ITS ---
PROCEDURE: DEXA BONE DENSITY STUDY 10/31/2024 REASON FOR EXAM: None provided TECHNIQUE: DXA scan of the lumbar spine and bilateral hips, using Hologic Horizon W. REFERENCE LINKS: ISCD Adult Positions COMPARISON: Measurements obtained 07/29/2021 are retained by the imaging unit for comparison purposes, however the images themselves are not available. FINDINGS: LUMBAR SPINE: Bone mineral denisty, L1 and L3-L4: 0.828 g/cm??? T-score: -2.0 LEFT FEMORAL NECK: Bone mineral denisty: 0.566 g/cm??? T-score: -2.6 LEFT TOTAL HIP: Bone mineral denisty: 0.650 g/cm??? T-score: -2.4 RIGHT FEMORAL NECK: Bone mineral denisty: 0.551 g/cm??? T-score: -2.7 RIGHT TOTAL HIP: Bone mineral denisty: 0.649 g/cm??? T-score: -2.4 FRAX*: 10 Year Probability of Fracture: Major Osteoporotic Fracture(1): 45.0% Hip Fracture(2): 19.0% *FRAX is a trademark of the [employer]'s [place] for Metabolic Bone Disease, World Health Organization (WHO) Collaborating [place]. 1-Major Osteoporotic Fracture: Clinical Spine, Forearm, Hip or Shoulder. 2-The 10-year probability of fracture may be lower than reported if the patient has received treatment. The National Osteoporosis Foundation recommends that medical therapy be considered in postmenopausal women and men, age 50 and older, with a: * hip or vertebral fracture * T-score less than or equal to -2.5 in the spine or hip * T-score between -1.0 and -2.5 and FRAX equal to or less than 3 percent for hip fracture or equal to or less than 20 percent for major osteoporotic fracture. World Health Organization criteria for BMD interpretation classify patients as Normal (T-score at or above -1.0), Osteopenic (T-score between -1.0 and -2.5), or Osteoporotic (T-score at or below -2.5). BD/Dexa Bone Density Study IMPRESSION: 1. Osteoporosis. 2. Since 07/29/2021, there has been a decrease of 4.5% in the bone mineral dens ity of the lumbar spine. 3. Additional description as above. Reading Location: [id number]
== END | disposition home or self-care (01) ==
LOC: OPBD 14:44
PROVIDERS: PCP Family Medicine; Referring Provider Family Medicine; Visit Provider Family Medicine
DX: Z78.0 Asymptomatic menopausal state (principal)
CPT/HCPCS: 77080

== ENCOUNTER → 2024-11-14 | Outpatient (CLI) | payer MEDICARE, OTHER, SELFPAY ==
[2024-11-14 17:56] LABS: Absolute Lymphocyte Count 2.31 X10^3/uL (0.83-4.51); Absolute Neutrophil Count 5.4 X10^3/uL (2.0-7.7); Basophil# 0.03 X10^3/uL; Basophil% 0.3 % (0-1); Eosinophil# 0.18 X10^3/uL; Eosinophils% 2.1 % (0-5); Hematocrit 43.3 % (37-47); Hemoglobin 14.3 g/dL (12.0-15.0); Lymphocyte # 2.31 X10^3/ul (0.83-4.51); Lymphocyte % 26.4 % (19-41); Mean Corpuscular Hgb 29.7 pg (27.0-32.0); Mean Corpuscular Volume 89.8 fL (81-99); Mean Platelet Vol. 10.6 fl (6.2-12.0); Monocyte# 0.79 X10^3/uL; NRBC Flagged by Analyzer 0 % (0-5); Neutrophil # 5.41 X10^3/uL (2.7-7.7); Neutrophil % 61.9 % (47-70); Platelet Count 269 K/mm3 (150-450); RBC Distribution Width CV 13.4 % (11.6-14.6); Red Blood Count 4.82 M/mm3 (4.2-5.4); White Blood Count 8.8 K/mm3 (4.4-11.0)
[2024-11-14 18:26] LABS: ALB/GLOB Ratio 1.3 RATIO (0.9-2.4); AST(SGOT) 20 U/L (<=31); Alanine Aminotransfer ALT/SGPT 14 U/L (<=34); Albumin, Serum 4.2 g/dL (3.4-4.8); Alkaline Phosphatase 81 U/L (35-104); Anion Gap 13 (5-15); BUN 17 mg/dL (4-19); BUN/Creat Ratio 15.3 RATIO (10-20); Calcium,Total 9.7 mg/dL (7.6-11.0); Carbon Dioxide 26.1 mmol/L (21.0-32.0); Chloride 100 mmol/L (98-108); Cholesterol 180 mg/dL (<=200); Creatinine, Serum 1.09 mg/dL (0.70-1.20); EST Glomerular Filtration Rate 52 (>60); Globulin 3.4 g/dL (2.2-4.2); Glucose 100 mg/dL (70-99); High Density Lipoprotein 69 mg/dL; Low Density Lipoprotein Calc. 75 mg/dL; Potassium 4.3 mmol/L (3.3-5.1); Protein, Total 7.6 g/dL (5.9-8.4); Sodium Level 139 mmol/L (133-145); Total Bilirubin 0.55 mg/dL (0.00-1.30); Triglycerides 178 mg/dL; Very Low Density Lipoprotein 36 mg/dL (5-40)
[2024-11-14 18:42] LABS: Vitamin D,25 Hydroxy 46.8 ng/mL (30-100)
== END | disposition home or self-care (01) ==
LOC: MFPLAB 16:23
PROVIDERS: PCP Family Medicine; Referring Provider Family Medicine; Visit Provider Family Medicine
DX: I48.91 Unspecified atrial fibrillation (principal); Z78.0 Asymptomatic menopausal state
CPT/HCPCS: 36415; 80053; 80061; 82306; 85025

== ENCOUNTER 2025-05-02 12:48 | Emergency (ER) | payer MEDICARE, OTHER, SELFPAY ==
[2025-05-02] VITALS (7 sets, daily range): BP systolic 108–126; BP diastolic 58–81; PULSE 57–96; RESP 12–17; TEMP 36.4; O2SAT 100; BMI 32.1
--- NOTE | 2025-05-02 13:13 | EX.ED.DYSGE1 ---
HPI History of Present Illness Chief Complaint: Chest Pain Narrative Narrative: Patient is a 79-year-old female who is presenting to the ER with chief complaint of left upper and lower back pain, rating to the left lateral chest wall. Patient has chronic midsternal pain years ago with a put a needle into drain fluid from her lung. Patient went to a this morning and then came into the ER after the . Patient's cousin had . Patient states that she was up all night tossing and turning. Patient stated that she has had intermittent pain to the left upper and lower back rating to the left lateral chest wall. Patient has no cardiac history of stents or heart attack. Patient's record press supervisor is Dr. Lobato. Patient does have history of acid reflux, patient had no significant things to eat or drink last night that could have caused gastritis. REVIEW OF SYSTEMS: Unless otherwise stated in this report the patient's positive and negative responses for review of systems for constitutional, eyes, ENT, cardiovascular, respiratory, gastrointestinal, neurological, , musculoskeletal, and integument systems and related systems to the presenting problem are either stated in the history of present illness or were not pertinent or were negative for the symptoms and/or complaints related to the presenting medical problem. Vital signs reviewed and patient is not hypoxic. General: The patient appears well and in no apparent distress. Patient is resting comfortably on cart. Not toxic, lethargic, or listless. Skin: Warm, dry, no pallor noted. There is no rash noted. Head: Normocephalic, atraumatic Eye: Normal conjunctiva, no drainage, EOMI. PERRL. Ears, Nose, Mouth, and Throat: oral mucosa is moist. Nares patent. Mouth without vesicles. Cardiovascular: Regular Rate and Rhythm, no murmurs, gallops, or rubs. Reproducible midline lower mid sternal and xiphoid process tenderness to palpation. Patient states this has been reproducible for the last couple years when she had her procedure. This is not new pain. No acute signs of rash or infection. Respiratory: Patient is in no distress, no accessory muscle use, lungs are clear to auscultation, no wheezing, rales or rhonchi. Patient breath sounds equal, bilateral. Back: Patient has reproducible mild left upper and lower back pain, no midline thoracic lumbar pain. No rash. Non-tender, no CVA tenderness bilaterally to percussion. NO CTLS midline or paraspinal tenderness to palpation. GI: Soft, no tenderness to palpation, no masses appreciated. No rebound, guarding, or rigidity noted. No pulsatile mass. Patient is not having any heavy chest tightness, pressure, or sharp pain or squeezing pain. Musculoskeletal: The patient has full range of motion of all extremities and joints with no difficulty. Patient has no motor, no sensory deficits. Neurological: A&O x4, normal speech, no focal neurological deficits. Psychiatric: Cooperative [facility] Medical History Syncope Primary osteoarthritis, right ankle and foot Right ankle pain Bradycardia Chest pain Pulmonary fibrosis Subclinical hypothyroidism Fatigue Abnormal x-ray of lumbar spine Lumbar radiculopathy Varicose veins of bilateral lower extremities with pain Chronic back pain Sinusitis Osteoarthritis of left knee Left knee pain Osteoarthritis of right knee Nasal congestion Right knee pain ZAN (obstructive sleep apnea) Sore throat Malaise and fatigue Chest congestion History of left heart catheterization (LHC) (~12/09/21) Elevated liver enzymes Systolic dysfunction Paroxysmal atrial fibrillation Cough Shortness of breath Atrial fibrillation Pericardial effusion Irregular heart beat DVT (deep venous thrombosis) Chest pain at rest Atrial fibrillation, new onset Vitamin D insufficiency Osteoporosis URI (upper respiratory infection) Osteopenia Change in skin mole History of renal stone Hyperlipemia Seasonal allergies Rheumatoid arthritis GERD (gastroesophageal reflux disease) Fibromyalgia syndrome Peptic ulcer with hemorrhage Lumbar spondylosis Home Medications ?Medication ?Instructions ?Recorded ?Last Taken ?Type pantoprazole 40 mg tablet,delayed 40 mg PO DAILY reflux 06/22/21 10/05/21 History release vitamin E 200 unit capsule 200 unit PO DAILY supplement 06/22/21 10/05/21 History Cbd Lotion 1 applic transdermal BID PRN 10/05/21 10/04/21 History ARTHRITIS cholecalciferol (vitamin D3) 50 50 mcg PO DAILY supplement 10/19/21 Unknown History mcg (2,000 unit) capsule denosumab 60 mg/mL subcutaneous 60 mg subcut [id number] bone density 08/16/22 Unknown Rx syringe (Prolia) #1 mL albuterol sulfate 1.25 mg/3 mL 1.25 mg inhalation TID PRN 08/30/23 Unknown History solution for nebulization shortness of breath or wheezing comp.stocking,thigh,long,large #2 ea 12/06/23 Unknown Rx montelukast 10 mg tablet 10 mg PO QDAY 05/16/24 Unknown History albuterol sulfate 90 mcg/actuation 2 puff inhalation .12 hr PRN 06/04/24 Unknown History aerosol inhaler shortness of breath or wheezing apixaban 5 mg tablet (Eliquis) 5 mg PO BID blood thinner #180 tabs 09/19/24 Unknown Rx coQ10 (ubiquinol) 100 mg capsule 100 mg PO BID 11/06/24 Unknown History (Qunol Duong CoQ10) rosuvastatin 10 mg tablet 10 mg PO DAILY cholesterol #90 tabs 11/06/24 Unknown Rx spironolactone 25 mg tablet 25 mg PO DAILY #90 tabs 12/09/24 Unknown Rx loratadine 10 mg tablet 10 mg PO QDAY 02/07/25 Unknown History guaifenesin 600 mg tablet, 600 mg PO Q12H PRN 04/16/25 Unknown History extended release 12 hr metoprolol tartrate 25 mg tablet 25 mg PO QDAY PRN palpitaitons 04/16/25 Unknown History nintedanib 150 mg capsule (Ofev) 150 mg PO Q12H 04/16/25 Unknown History Allergy/AdvReac Type Severity Reaction Status Date / Time celecoxib (From Celebrex) Allergy Anaphylaxis Verified 05/02/25 12:49 codeine AdvReac Vomiting Verified 05/02/25 12:49 indomethacin (From Indocin) AdvReac Vomiting Verified 05/02/25 12:49 indomethacin sodium (From AdvReac Vomiting Verified 05/02/25 12:49 Indocin) oxycodone HCl (From Percocet) AdvReac HALLUCINATI Verified 05/02/25 12:49 ONS Family History Father Cancer pancreatic Mother Heart disease Brother Cancer leukemia Surgical History Status post pericardiocentesis (~10/07/21) History of cholecystectomy H/O lithotripsy History of colonoscopy History of tonsillectomy History of knee surgery History of tubal ligation History of breast biopsy Social History household members: none housing: house Smoking Status: Former smoker Tobacco: How many years used: 3 alcohol intake: never substance use type: does not use caffeine: Yes Type: coffee Number of servings: 1 what type of physical activity do you participate in: walking frequency: daily EXAM Physical Exam Const Vital Signs: 05/02/25 12:49 05/02/25 13:48 05/02/25 14:00 Temperature 97.5 F L Temperature Source Oral Pulse Rate 72 89 96 Respiratory Rate 12 15 15 Blood Pressure 126/81 H 108/75 112/62 Blood Pressure Mean 96 86 78 Pulse Ox 100 100 100 Oxygen Delivery Method Room Air Room Air Room Air 05/02/25 15:00 05/02/25 15:16 05/02/25 16:00 Temperature Temperature Source Pulse Rate 90 66 Respiratory Rate 16 15 Blood Pressure 122/71 H 123/58 H Blood Pressure Mean 88 79 Pulse Ox 100 Oxygen Delivery Method Room Air Room Air 05/02/25 16:48 05/02/25 17:00 Temperature 97.5 F L Temperature Source Pulse Rate 66 57 L Respiratory Rate 15 17 Blood Pressure 123/58 H 108/59 L Blood Pressure Mean 79 75 Pulse Ox 100 100 Oxygen Delivery Method Room Air MDM MDM MDM Narrative Medical decision making narrative: Patient seen and examined: IV, cardiac workup, aspirin Differential diagnosis includes but is not limited to: Muscle skeletal pain, pneumothorax, pneumonia, pleurisy, ACS Relevant laboratory interpretation: 2 troponins negative. Radiological studies: Chest x-ray shows questionable pneumonitis, no acute findings. Reevaluation: Patient told me that she has a history of pulmonary fibrosis. 2 troponins negative. Patient was given aspirin. Patient be discharged to follow-up with PCP and call record press supervisor on Monday. Social barriers to healthcare: There are no food insecurities, there is no issue with transportation, there are no insurance barriers Lab Data Labs: Laboratory Results - last 24 hr 05/02/25 14:40 WBC 8.9 RBC 4.62 Hgb 13.7 Hct 41.0 MCV 88.7 MCH 29.7 MCHC 33.4 RDW Std Deviation 43.5 RDW Coeff of Mendez 13.3 Plt Count 226 MPV 10.5 Immature Gran % (Auto) 0.200 Neut % (Auto) 79.3 H Lymph % (Auto) 12.8 L [place] % (Auto) 6.9 Eos % (Auto) 0.6 Baso % (Auto) 0.2 Absolute Neuts (auto) 7.1 Absolute Lymphs (auto) 1.14 Nucleated RBC % 0 Sodium 140 Potassium 4.1 Chloride 103 Carbon Dioxide 24.7 Anion Gap 12 BUN 15 Creatinine 1.05 Estim Creat Clear Calc 43.85 L Est GFR (MDRD) Non-Af 55 L BUN/Creatinine Ratio 14.2 Glucose 99 Calcium 9.8 Troponin T High Sens 10 Troponin T Hi Sens 2 Hr 9 Radiography Diagnostic Testing: Clinical Impression(s) from Imaging Studies Chest X-Ray 05/02/25 15:15 IMPRESSION: Mildly prominent pulmonary vasculature with reticular changes of both lung bases, which could indicate interstitial edema versus pneumonitis. Prominent right hilum may be due to vascular congestion. Follow-up radiography recommended. Reading [facility] Initial EKG: Attestation: I personally reviewed and interpreted this EKG as follows: (EKG interpretation. Baseline normal sinus rhythm with P waves, left axis deviation. Arrhythmia noted. QTc of 436.) Discharge Plan Triage Chief Complaint: Chest Pain ED Provider: Mina Stein Dx/Rx/DC Orders Clinical Impression: Chest pain, Acute left-sided back pain Instructions: Pulmonary Edema, ED Understanding Hypersensitivity Pneumonitis, Back Exercises: Side Stretch, ED Chest Pain, Uncertain Cause, ED Pleurisy Prescriptions: No Action vitamin E 200 unit capsule 200 unit PO DAILY pantoprazole 40 mg tablet,delayed release (DR/EC) 40 mg PO DAILY cholecalciferol (vitamin D3) 50 mcg (2,000 unit) capsule 50 mcg PO DAILY albuterol sulfate 1.25 mg/3 mL solution for nebulization 1.25 mg inhalation TID PRN (Reason: shortness of breath or wheezing) Patient Comments: use one vial via NEBULIZER FOUR TIMES DAILY (DME) comp.stocking,thigh,long,large Misc See Rx Instructions .Route Qty: 2 3RF Rx Instructions: 20 - 30 mmHg. Thigh High montelukast 10 mg tablet 10 mg PO QDAY albuterol sulfate 90 mcg/actuation HFA aerosol inhaler 2 puff inhalation .12 hr PRN (Reason: shortness of breath or wheezing) coQ10 (ubiquinol) [Qunol Duong CoQ10] 100 mg capsule 100 mg PO BID rosuvastatin 10 mg tablet 10 mg PO DAILY Qty: 90 3RF loratadine 10 mg tablet 10 mg PO QDAY metoprolol tartrate 25 mg tablet 25 mg PO QDAY PRN (Reason: palpitaitons) Rx Instructions: uses as needed for palpitations guaifenesin 600 mg tablet extended release 12hr 600 mg PO Q12H PRN Ofev 150 mg capsule 150 mg PO Q12H Cbd Lotion 1 applic transdermal BID PRN (Reason: ARTHRITIS) Prolia 60 mg/mL syringe 60 mg subcut [id number] Qty: 1 2RF Patient Comments: last dose was february Eliquis 5 mg tablet 5 mg PO BID Qty: 180 3RF spironolactone 25 mg tablet 25 mg PO DAILY Qty: 90 3RF Primary Care Provider: Salinas Joseph Referrals: Salinas Joseph MD [Primary Care Provider, Family Practice] Balwinder Lobato MD [Med Staff - Active Staff, Cardiology] Activity Restrictions/Additional Instructions: If symptoms continue over the weekend, call your record press supervisor on Monday for follow-up. Your 2 troponin blood test were negative, a copy of your x-ray report was given to you as well. Print Language: Tuvaluan Disposition Disposition: Home, Self Care Discharge Date/Time: 05/02/25 17:09
--- NOTE | 2025-05-02 15:15 | RAD_ITS ---
PROCEDURE: CHEST 1 VIEW (PORTABLE) 05/02/2025 REASON FOR EXAM: CHEST PAIN TECHNIQUE: Frontal view of the chest. FINDINGS: Normal-sized cardiac silhouette. Mildly prominent pulmonary vasculature, with reticular changes overlying both lung bases. Prominence of the right hilum. RAD/Chest 1 View (Portable) IMPRESSION: Mildly prominent pulmonary vasculature with reticular changes of both lung base s, which could indicate interstitial edema versus pneumonitis. Prominent right hilum may be due to vascular congestion. Follow-up radiography recommended. Reading Location: [facility]
[2025-05-02 15:19] LABS: Hematocrit 41.0 % (37-47); Hemoglobin 13.7 g/dL (12.0-15.0); Immature Granulocytes Count 0.020 X10^3/uL (0.0-0.0); Mean Corp Hgb Conc 33.4 g/dL (32-36); Mean Corpuscular Volume 88.7 fL (81-99); Mean Platelet Vol. 10.5 fl (6.2-12.0); NRBC Flagged by Analyzer 0 % (0-5); Platelet Count 226 K/mm3 (150-450); RBC Distribution Width CV 13.3 % (11.6-14.6); RBC Distribution Width SD 43.5 fl (35.1-43.9); Red Blood Count 4.62 M/mm3 (4.2-5.4); White Blood Count 8.9 K/mm3 (4.4-11.0)
[2025-05-02] MEDS: 0.9% Normal Saline (1000mL) 1,000 ML 999 ML IV (15:25)
[2025-05-02 15:42] LABS: Anion Gap 12 (5-15); BUN 15 mg/dL (4-19); BUN/Creat Ratio 14.2 RATIO (10-20); Calcium,Total 9.8 mg/dL (7.6-11.0); Carbon Dioxide 24.7 mmol/L (21.0-32.0); Chloride 103 mmol/L (98-108); Estimated Creatinine Clearance 43.85 ml/min (50-250); Glucose 99 mg/dL (70-99); Potassium 4.1 mmol/L (3.3-5.1)
[2025-05-02 16:12] LABS: Troponin T High Sensitivity 10 ng/L (<=14)
--- NOTE | 2025-05-02 16:30 | ED.RN ---
IV infiltrated prior to Pt receiving full liter of fluids. 500 Ml wasted.
[2025-05-02 16:41] LABS: Troponin T High Sens 2 HR 9 ng/L (<=14)
== END 2025-05-02 17:09 | disposition home or self-care (01) ==
PROVIDERS: Emergency Provider Emergency Medicine; PCP Family Medicine; Visit Provider Emergency Medicine
DX: R07.9 Chest pain, unspecified (principal); M54.9 Dorsalgia, unspecified; G47.33 Obstructive sleep apnea (adult) (pediatric); Z87.891 Personal history of nicotine dependence; Z86.718 Personal history of other venous thrombosis and embolism
CPT/HCPCS: 71045; 80048; 84484; 85025; 93005; 96360; 99284; A4216